=== PATIENT | male | born 1950 | race Caucasian/White ===

== ENCOUNTER 2023-01-29 07:46 | Outpatient (REF) | payer MEDICARE, OTHER, SELFPAY | END 2023-01-29 07:47 | disposition home or self-care (01) | LOC: HO.HOSX 07:46 | PROVIDERS: Visit Provider Physician Assistant | DX: M17.11 Unilateral primary osteoarthritis, right knee (principal); Z96.652 Presence of left artificial knee joint | CPT/HCPCS: 20610; 73560; 73565; 99202; 99212; J3301 ==

== ENCOUNTER 2023-04-25 11:06 | Outpatient (AMB) | payer MEDICARE, OTHER, SELFPAY ==
--- NOTE | 2023-04-25 11:28 | MHC.OFFVIS ---
Intake Intake Visit Reasons: OV-Right knee injection-last injection 01/29/23 Intake Note: Pt presents to the office today for a right knee injection. Patients last right knee injection was 01/29/23. Pt states that the injection was very helpful but the past few days it started getting sore again. He has done physical therapy exercises which aggravated his pain. He has also tried Tylenol and anti-inflammatory medicines which gave him minimal relief. He denies any fevers or chills. He denies any locking or giving way. Allergies adhesive tape Allergy (Intermediate, Verified 04/25/23 11:29) Rash bacitracin Allergy (Verified 04/25/23 11:29) Rash oxycodone Adverse Reaction (Verified 04/25/23 11:29) Hallucinations Medication List - Last Reconciled 04/25/23 by Jim Carrero MD amoxicillin 2,000 mg PO aspirin (Adult Aspirin Regimen) 81 mg PO DAILY losartan 100 mg PO DAILY meloxicam 15 mg PO DAILY metformin 500 mg PO DAILY saxagliptin (Onglyza) 5 mg PO DAILY [facility] Surgical History History of left knee replacement (~2013) History of left hip replacement (~2000) History of right hip replacement (~2000) Social History Current occupational status: retired Physical Exam Const Other: Well-nourished well-developed very friendly male awake alert and oriented x3 in no acute distress Extrem Other: Bilateral lower extremity examination shows good capillary refill, no skin lesions noted, normal sensation light touch Right knee examination shows a mild effusion, palpable crepitus with range of motion, pain with range of motion, range of motion from -3 degrees to 115 degrees, no instability Office Procedures Joint Injection/Drain Joint Injection/Drain Primary Site: right knee Prep: site was prepped using aseptic technique Injected: 40 mg of, Kenalog and 1% plain lidocaine Procedure: The patient tolerated the procedure well Coding 30389 - Large joint Procedure code (CPT) selection complete Results Reviewed Results Reviewed: 04/25/23 11:34 Triamcinolone Acetonide [Kenalog-40] 40 mg .ROUTE .STK-MED ONE 04/25/23 11:35 Lidocaine HCl 2 % MPF [Xylocaine 2 % MPF] 5 ml .ROUTE .STK-MED ONE X-rays of the patient's right knee show joint space narrowing, subchondral sclerosis, no acute bony abnormalities Assessment & Plan Assessment & Plan (1) Osteoarthritis of right knee: Code(s): M17.11 - Unilateral primary osteoarthritis, right knee Plan Mr. Roberson presents with right knee pain due to degenerative joint disease. I had a lengthy discussion with the patient regarding the treatment options. He wishes to hold off on right total knee replacement surgery for as long as possible. I agree with this plan. The risks and benefits of a cortisone injection were discussed at length with the patient. The patient wished to proceed. He tolerated the injection well. Prior to his cortisone injection 3 cc of clear fluid were aspirated from the patient's right knee. He will continue activities as tolerated. He will follow up with me on an as-needed basis should his symptoms not plateau at an unacceptable level over the next few months. If he fails continued non operative treatments we will further discuss the risks and benefits of right total knee replacement surgery I spent 22 minutes in reviewing the patient's records and imaging studies, seeing the patient and documenting in the medical record. Orders: Orders AMB Joint Injection/Aspiration Today M17.11 - Unilateral primary osteoarthritis, right knee Coding Level of Care Code Est Pt Level 2 (47697) Diagnoses Osteoarthritis of right knee M17.11 CPT Codes Coding - Large joint: 41965 - Large joint ([id number])
== END 2023-04-25 11:56 | disposition home or self-care (01) ==
PROVIDERS: Visit Provider Orthopaedic Surgery
DX: M17.11 Unilateral primary osteoarthritis, right knee (principal)
CPT/HCPCS: 20610; 99214

== ENCOUNTER → 2023-04-25 11:06 | Outpatient (BNVA) | payer MEDICARE, OTHER, SELFPAY | PROVIDERS: Visit Provider Orthopaedic Surgery | DX: M17.11 Unilateral primary osteoarthritis, right knee (principal) | CPT/HCPCS: 20610; J3301 ==

== ENCOUNTER 2023-07-18 11:10 | Outpatient (AMB) | payer MEDICARE, OTHER, SELFPAY ==
--- NOTE | 2023-07-18 11:12 | A.OFFVIS_ITS ---
Intake Vital Signs 07/18/23 11:15 Height 5 ft 10 in Weight 200 lb BMI 28.7 Intake Visit Reasons: OV-Right knee injection-last injection 04/25/23 Intake Note: Spencer henson 73 year old male presents today for a follow up of right knee pain, last injection on 04/25/23. Patient reports last injection provided him with some relief however does not last long. States he would like to repeat a synvisc gel injection as this seems to provide him with the best relief. He denies any fevers or chills. He has done physical therapy which aggravated his pain. He has also tried Tylenol and anti-inflammatory medicines which gave him minimal relief. Allergies adhesive tape Allergy (Intermediate, Verified 07/18/23 11:23) Rash bacitracin Allergy (Verified 07/18/23 11:) Rash oxycodone Adverse Reaction (Verified 07/18/23 11:23) Hallucinations Medication List - Last Reconciled 07/18/23 by Jim Carrero MD amoxicillin 2,000 mg PO aspirin (Adult Aspirin Regimen) 81 mg PO DAILY losartan 100 mg PO DAILY meloxicam 15 mg PO DAILY metformin 500 mg PO DAILY saxagliptin (Onglyza) 5 mg PO DAILY [facility] Surgical History History of left knee replacement (~2013) History of left hip replacement (~2000) History of right hip replacement (~2000) Social History Current occupational status: retired Physical Exam Vital Signs: BMI result Body Mass Index 28.7 Const Other: Well-nourished well-developed very friendly male awake alert and oriented x3 in no acute distress Extrem Other: Bilateral lower extremity examination shows good capillary refill, no skin lesions noted, normal sensation light touch Right knee examination shows a mild effusion, palpable crepitus with range of motion, pain with range of motion, no instability Office Procedures Joint Injection/Drain Joint Injection/Drain Primary Site: right knee Prep: site was prepped using aseptic technique Injected: 40 mg of, DepoMedrol and 1% plain lidocaine Procedure: The patient tolerated the procedure well Coding 10488 - Large joint Procedure code (CPT) selection complete Results Reviewed Results Reviewed: X-rays of the patient's right knee show joint space narrowing, subchondral sclerosis, no acute bony abnormalities Assessment & Plan Assessment & Plan (1) Osteoarthritis of right knee: Code(s): M17.11 - Unilateral primary osteoarthritis, right knee Plan Mr. Roberson presents with right knee pain due to degenerative joint disease. I had a lengthy discussion with the patient regarding the treatment options. The risks and benefits of a cortisone injection were discussed at length with the patient. The patient wished to proceed. He tolerated the injection well. Prior to the injection I did aspirate 3 cc of clear fluid from his right knee. If he does not get lasting relief from the cortisone injection I will see whether not the patient's insurance company will cover a not a viscosupplementation injection. The patient wishes to hold off on right total knee replacement surgery for as long as possible. I agree with this plan. Feel free to call me at any time should questions regarding his orthopedic management arise. I spent 22 minutes in reviewing the patient's records and imaging studies, seeing the patient and documenting in the medical record. Orders: Orders AMB Joint Injection/Aspiration Today M17.11 - Unilateral primary osteoarthritis, right knee Coding Level of Care Code Est Pt Level 2 (99972) Diagnoses Osteoarthritis of right knee M17.11 CPT Codes Coding - Large joint: 02495 - Large joint ([id number])
[2023-07-18 11:15] VITALS: BMI 28.7
== END 2023-07-18 11:41 | disposition home or self-care (01) ==
PROVIDERS: Visit Provider Orthopaedic Surgery
DX: M17.11 Unilateral primary osteoarthritis, right knee (principal)
CPT/HCPCS: 20610; 99213

== ENCOUNTER → 2023-07-18 11:10 | Outpatient (BNVA) | payer MEDICARE, OTHER, SELFPAY | PROVIDERS: Visit Provider Orthopaedic Surgery | DX: M17.11 Unilateral primary osteoarthritis, right knee (principal) | CPT/HCPCS: 20610; 99212; J1020 ==

== ENCOUNTER 2023-08-29 11:01 | Outpatient (AMB) | payer MEDICARE, OTHER, SELFPAY ==
[2023-08-29 11:11] VITALS: BMI 28.7
--- NOTE | 2023-08-29 11:11 | A.OFFVIS_ITS ---
Intake Vital Signs 08/29/23 11:11 Height 5 ft 10 in Weight 200 lb BMI 28.7 Intake Visit Reasons: new prob.- LT Shoulder pain inj Intake Note: Spencer is a 73 year old Right handed male who presents with Left shoulder pain. Patient reports that he has had this pain for many years. He has taken Tylenol and anti-inflammatory medicines which gave him minimal relief. Has also done physical therapy exercises which aggravated his pain. Has had cortisone injections in the past which gave fairly good. He wishes to hold off on surgery for as long possible. Allergies adhesive tape Allergy (Intermediate, Verified 08/29/23 11:17) Rash bacitracin Allergy (Verified 08/29/23 11:17) Rash oxycodone Adverse Reaction (Verified 08/29/23 11:17) Hallucinations Medication List - Last Reconciled 08/29/23 by Jim Carrero MD amoxicillin 2,000 mg PO aspirin (Adult Aspirin Regimen) 81 mg PO DAILY linagliptin (Tradjenta) 5 mg PO DAILY meloxicam 15 mg PO DAILY metformin 500 mg PO DAILY saxagliptin (Onglyza) 5 mg PO DAILY valsartan 160 mg PO DAILY [facility] Surgical History History of left knee replacement (~2013) History of left hip replacement (~2000) History of right hip replacement (~2000) Social History Current occupational status: retired Physical Exam Vital Signs: BMI result Body Mass Index 28.7 Const Other: Well-nourished well-developed very friendly male awake alert and oriented x3 in no acute distress Extrem Other: Bilateral upper extremity examination shows good capillary refill, no skin lesions noted, normal sensation light touch Left shoulder examination shows slightly decreased range of motion when compared to his right shoulder, 4/5 strength with supraspinatus testing, positive impingement signs, no instability Office Procedures Joint Injection/Drain Joint Injection/Drain Primary Site: left shoulder Prep: site was prepped using aseptic technique Injected: 40 mg of, DepoMedrol and 1% plain lidocaine Procedure: The patient tolerated the procedure well Coding 21335 - Large joint Procedure code (CPT) selection complete Results Reviewed Results Reviewed: X-rays of the patient's left shoulder show severe acromioclavicular joint narrowing, a type 2 acromion, no acute bony abnormalities Assessment & Plan Assessment & Plan (1) Left shoulder pain: Code(s): M25.512 - Pain in left shoulder Plan Mr. Roberson presents with left shoulder pain due to impingement syndrome and possible rotator cuff tearing. I had a lengthy discussion with the patient reg arding the treatment options. He wishes to hold off on surgery for as long as possible. I agree with this plan. The risks and benefits of a left shoulder cortisone injection were discussed at length with the patient. The patient wished to proceed. He tolerated the injection well. Will continue with his home stretching program to prevent stiffness. Will follow up with me on an as- needed basis should his symptoms not plateau at an unacceptable level over the next few months. I spent 22 minutes in reviewing the patient's records and imaging studies, seeing the patient and documenting in the medical record. Orders: Orders AMB Joint Injection/Aspiration Today M25.512 - Pain in left shoulder XR shoulder LT min 2V Today M25.512 - Pain in left shoulder Coding Level of Care Code Est Pt Level 2 (36112) Diagnoses Left shoulder pain M25.512 CPT Codes Coding - 76410 Large joint: 49052 - Large joint ([id number])
== END 2023-08-29 11:56 | disposition home or self-care (01) ==
PROVIDERS: Visit Provider Orthopaedic Surgery
DX: M75.42 Impingement syndrome of left shoulder (principal)
CPT/HCPCS: 20610; 99213

== ENCOUNTER 2023-08-29 11:59 | Outpatient (REF) | payer MEDICARE, OTHER, SELFPAY ==
--- NOTE | ~2023-08-29 | XR_ITS ---
EXAMINATION: XR SHOULDER, LEFT CLINICAL INFORMATION: Pain. COMPARISON: None available. TECHNIQUE: AP neutral and scapular Y views of the left shoulder are submitted. FINDINGS: Bony alignment and mineralization are normal. The glenohumeral joint is intact. There is mild peripheral osteophyte formation of the inferior articular surface of the glenoid. The acromioclavicular and coracoclavicular intervals are normal. There is cortical irregularity of the greater tuberosity of the proximal right humerus. Mild calcific tendinitis is suspected of the rotator cuff insertion. No fracture or dislocation is seen. There is no foreign body. No left pneumothorax is seen. A pacemaker device and sternotomy wires are noted. XR/XR shoulder LT min 2V IMPRESSION: 1. No fracture or dislocation is seen. 2. Mild calcific tendinitis is suspected of the left rotator cuff insertion. 3. There is mild osteoarthritic change of the left glenohumeral joint.
== END 2023-08-29 12:00 | disposition home or self-care (01) ==
LOC: HO.HOSX 11:59
PROVIDERS: Visit Provider Orthopaedic Surgery
DX: M25.512 Pain in left shoulder (principal); Z95.0 Presence of cardiac pacemaker
CPT/HCPCS: 20610; 73030; 99212; J1020

== ENCOUNTER 2023-10-17 11:39 | Outpatient (AMB) | payer MEDICARE, OTHER, SELFPAY ==
[2023-10-17 11:56] VITALS: BMI 28.7
--- NOTE | 2023-10-17 11:56 | MHC.OFFVIS ---
Intake Vital Signs 10/17/23 11:56 Height 5 ft 10 in Weight 200 lb BMI 28.7 Intake Visit Reasons: OV-Right knee injection-last injection 07/18/23 Intake Note: Spencer is a 73 year old male who presents with Right knee pain. He describes his pain as sharp in nature. He has had cortisone injections in the past which gave him minimal relief. Has done physical therapy exercises which aggravated his pain. He has also tried Tylenol and anti-inflammatory medicines which gave him minimal relief. Has had viscosupplementation injections which gave him fairly good relief. He wishes to hold off on right total knee replacement surgery for as long as possible. Allergies adhesive tape Allergy (Intermediate, Verified 10/17/23 12:00) Rash bacitracin Allergy (Verified 10/17/23 12:00) Rash oxycodone Adverse Reaction (Verified 10/17/23 12:00) Hallucinations Medication List - Last Reconciled 10/17/23 by Jim Carrero MD amoxicillin 2,000 mg PO aspirin (Adult Aspirin Regimen) 81 mg PO DAILY linagliptin (Tradjenta) 5 mg PO DAILY meloxicam 15 mg PO DAILY metformin 500 mg PO DAILY saxagliptin (Onglyza) 5 mg PO DAILY valsartan 160 mg PO DAILY [facility] Surgical History History of left knee replacement (~2013) History of left hip replacement (~2000) History of right hip replacement (~2000) Social History Current occupational status: retired Physical Exam Vital Signs: BMI result Body Mass Index 28.7 Const Other: Well-nourished well-developed very friendly male awake alert and oriented x3 in no acute distress Extrem Other: Bilateral lower extremity examination shows good capillary refill, no skin lesions noted, normal sensation light touch Right knee examination shows a mild effusion, palpable crepitus with range of motion, pain with range of motion, no instability Office Procedures Joint Injection/Drain Joint Injection/Drain Primary Site: right knee Prep: site was prepped using aseptic technique Injected: 60 mg of (Durolane viscosupplementation) and 1% plain lidocaine Procedure: The patient tolerated the procedure well Coding 64443 - Large joint Procedure code (CPT) selection complete Results Reviewed Results Reviewed: X-rays of the patient's right knee show joint space narrowing, subchondral sclerosis, no acute bony abnormalities Assessment & Plan Assessment & Plan (1) Osteoarthritis of right knee: Code(s): M17.11 - Unilateral primary osteoarthritis, right knee Plan Mr. Roberson presents with right knee pain due to degenerative joint disease. I had a lengthy discussion with the patient regarding the treatment options. He wishes to hold off on surgery for as long as possible. I agree with this plan. Has not gotten good relief from cortisone injections in the past. Thus, the risks and benefits of a Durolane viscosupplementation injection were discussed with the patient. The patient wished to proceed. Prior to the injections 6 cc of clear fluid were aspirated from his right knee. He tolerated the injection well. He will continue with his activity modifications. He will follow up with me on an as-needed basis should his symptoms not plateau at an unacceptable level over the next few months. I spent 22 minutes in reviewing the patient's records and imaging studies, seeing the patient and documenting in the medical record. Orders: Orders AMB Joint Injection/Aspiration Today M17.11 - Unilateral primary osteoarthritis, right knee Coding Level of Care Code Est Pt Level 2 (07275) Diagnoses Osteoarthritis of right knee M17.11 CPT Codes Coding - Large joint: 35427 - Large joint ([id number])
== END 2023-10-17 12:40 | disposition home or self-care (01) ==
PROVIDERS: Visit Provider Orthopaedic Surgery
DX: M17.11 Unilateral primary osteoarthritis, right knee (principal)
CPT/HCPCS: 20610; 99213

== ENCOUNTER → 2023-10-17 11:39 | Outpatient (BNVA) | payer MEDICARE, OTHER, SELFPAY | PROVIDERS: Visit Provider Orthopaedic Surgery | DX: M17.11 Unilateral primary osteoarthritis, right knee (principal) | CPT/HCPCS: 20610; 99212; J7318 ==

== ENCOUNTER 2023-12-03 10:59 | Outpatient (AMB) | payer MEDICARE, OTHER, SELFPAY ==
[2023-12-03 11:04] VITALS: BMI 28.7
--- NOTE | 2023-12-03 11:04 | A.OFFVIS_ITS ---
Vital Signs 12/03/23 11:04 Height 5 ft 10 in Weight 200 lb BMI 28.7 Intake Visit Reasons: OV-LT Shoulder pain inj Intake Note: Spencer is a 73 year old male who presents with complaints of left shoulder pain and right knee pain. The patient states that he has gotten good relief from Synvisc injections given into his right knee. He got minimal relief from the Durolane injection. Did undergo left total knee replacement surgery in the past. He wishes to hold off on right total knee replacement surgery for as long as possible. The patient describes his left shoulder pain as sharp in nature. Most of the pain is along the lateral aspect of his shoulder. He has tried Tylenol and anti-inflammatory medicines which gave him minimal relief. for a follow up of his Left shoulder pain. Patient reports he had an injection on 08/29/2023 and it gave him good relief and he would like to repeat the Left shoulder injection today. He also states that his Right knee Durolane injection on 10/17/2023 did not help. Allergies adhesive tape Allergy (Intermediate, Verified 10/17/23 12:00) Rash bacitracin Allergy (Verified 10/17/23 12:00) Rash oxycodone Adverse Reaction (Verified 10/17/23 12:00) Hallucinations Medication List - Last Reconciled 12/03/23 by Jim Carrero MD amoxicillin 2,000 mg PO aspirin (Adult Aspirin Regimen) 81 mg PO DAILY linagliptin (Tradjenta) 5 mg PO DAILY meloxicam 15 mg PO DAILY metformin 500 mg PO DAILY saxagliptin (Onglyza) 5 mg PO DAILY valsartan 160 mg PO DAILY [facility] Surgical History History of left knee replacement (~2013) History of left hip replacement (~2000) History of right hip replacement (~2000) Social History Current occupational status: retired Physical Exam Vital Signs: BMI result Body Mass Index 28.7 Const Other: Well-nourished well-developed very friendly male awake alert and oriented x3 in no acute distress Extrem Other: Bilateral upper extremity examination shows good capillary refill, no skin lesions noted, normal sensation light touch Left shoulder examination shows slightly decreased range of motion when compared to his right shoulder, positive impingement signs, 4+ out of 5 strength with supraspinatus testing, no instability Right knee examination shows a minimal effusion, palpable crepitus with range of motion, pain with range of motion, no instability Office Procedures Joint Injection/Drain Joint Injection/Drain Primary Site: left shoulder Prep: site was prepped using aseptic technique Injected: 40 mg of, DepoMedrol and 1% plain lidocaine Procedure: The patient tolerated the procedure well Coding - Large joint Procedure code (CPT) selection complete Results Reviewed Results Reviewed: X-rays of the patient's right knee show joint space narrowing, subchondral sclerosis, no acute bony abnormalities Assessment & Plan Assessment & Plan (1) Impingement syndrome of left shoulder: Code(s): M75.42 - Impingement syndrome of left shoulder Category: Medical (2) Osteoarthritis of right knee: Code(s): M17.11 - Unilateral primary osteoarthritis, right knee Category: Medical Plan Mr. Roberson presents with right knee pain due to degenerative joint disease as well as left shoulder pain due to impingement syndrome. I had a lengthy discussion with the patient regarding the treatment options. He wishes to hold off on surgery for as long as possible. I agree with this plan. The risks and sean efits of a left shoulder cortisone injection were discussed at length with the patient. The patient wished to proceed with the injection. He tolerated the injection well. I will also see whether not the patient's insurance company will cover a Synvisc-One injection for his right knee. I will see him back once the injection is available. Feel free to call me at any time should questions regarding his orthopedic management arise. I spent 22 minutes in reviewing the patient's records and imaging studies, seeing the patient and documenting in the medical record. Orders: Orders AMB Joint Injection/Aspiration Today M75.42 - Impingement syndrome of left shoulder Coding Level of Care Code Est Pt Level 2 (41585) Diagnoses Impingement syndrome of left shoulder M75.42 Osteoarthritis of right knee M17.11 CPT Codes Coding - Large joint: 97747 - Large joint ([id number])
== END 2023-12-03 11:37 | disposition home or self-care (01) ==
PROVIDERS: Visit Provider Orthopaedic Surgery
DX: M75.42 Impingement syndrome of left shoulder (principal); M17.11 Unilateral primary osteoarthritis, right knee
CPT/HCPCS: 20610; 99212

== ENCOUNTER → 2023-12-03 10:59 | Outpatient (BNVA) | payer MEDICARE, OTHER, SELFPAY | PROVIDERS: Visit Provider Orthopaedic Surgery | DX: M17.11 Unilateral primary osteoarthritis, right knee (principal); M75.42 Impingement syndrome of left shoulder | CPT/HCPCS: 20610; 99212; J1010 ==

== ENCOUNTER 2024-01-16 13:55 | Outpatient (AMB) | payer MEDICARE, OTHER, SELFPAY ==
--- NOTE | 2024-01-16 14:07 | MHC.OFFVIS ---
Intake Visit Reasons: OV-Right knee injection-follow up Intake Note: Spencer 73 yr old male presents today with complaints of right knee pain. He describes his pain as sharp in nature. He did undergo left total knee replacement surgery several years ago. He reports minimal discomfort in his left knee. Would like to hold off on right total knee replacement for as long as possible. He did have a viscosupplementation injection in the past which gave him fairly good relief. He has also had cortisone injections which gave him temporary relief. Allergies adhesive tape Allergy (Intermediate, Verified 01/16/24 14:07) Rash bacitracin Allergy (Verified 01/16/24 14:07) Rash oxycodone Adverse Reaction (Verified 01/16/24 14:07) Hallucinations Medication List - Last Reconciled 01/17/24 by Jim Carrero MD amoxicillin 2,000 mg PO aspirin (Adult Aspirin Regimen) 81 mg PO DAILY linagliptin (Tradjenta) 5 mg PO DAILY meloxicam 15 mg PO DAILY metformin 500 mg PO DAILY valsartan 160 mg PO DAILY [facility] Surgical History History of left knee replacement (~2013) History of left hip replacement (~2000) History of right hip replacement (~2000) Social History Current occupational status: retired Physical Exam Const Other: Well-nourished well-developed very friendly male awake alert and oriented x3 in no acute distress Extrem Other: Bilateral lower extremity examination shows good capillary refill, no skin lesions noted, normal sensation light touch Right knee examination shows a minimal effusion, palpable crepitus with range of motion, pain with range of motion, no instability Office Procedures Joint Injection/Drain Joint Injection/Drain Primary Site: right knee Prep: site was prepped using aseptic technique Injected: 40 mg of, DepoMedrol and 1% plain lidocaine Procedure: The patient tolerated the procedure well Coding 56412 - Large joint Procedure code (CPT) selection complete Results Reviewed Results Reviewed: X-rays of the patient's right knee show joint space narrowing, subchondral sclerosis, no acute bony abnormalities Assessment & Plan Assessment & Plan (1) Osteoarthritis of right knee: Code(s): M17.11 - Unilateral primary osteoarthritis, right knee Category: Medical Plan Mr. Roberson presents with right knee pain due to degenerative joint disease. I had a lengthy discussion with the patient regarding the treatment options. The patient wishes to hold off on total knee replacement surgery for as long as possible. I agree with this plan. The risks and benefits of a right knee cortisone injection were discussed at length with the patient. The patient wished to proceed. He tolerated the injection well. He will continue with his home exercise program. He will follow up with me on an as-needed basis should his symptoms not plateau at an unacceptable level over the next few months. Feel free to call me at any time should questions regarding his orthopedic management arise. I spent 21 minutes in reviewing the patient's records and imaging studies, seeing the patient and documenting in the medical record. Orders: Orders AMB Joint Injection/Aspiration 01/16/24 M17.11 - Unilateral primary osteoarthritis, right knee Coding Level of Care Code Est Pt Level 3 (89688) Diagnoses Osteoarthritis of right knee M17.11 CPT Codes Coding - 10278 Large joint: 92075 - Large joint ([id number])
== END 2024-01-16 14:31 | disposition home or self-care (01) ==
PROVIDERS: PCP Internal Medicine; Visit Provider Orthopaedic Surgery
DX: M17.11 Unilateral primary osteoarthritis, right knee (principal); Z96.652 Presence of left artificial knee joint
CPT/HCPCS: 20610; 99213

== ENCOUNTER → 2024-01-16 13:55 | Outpatient (BNVA) | payer MEDICARE, OTHER, SELFPAY | PROVIDERS: PCP Internal Medicine; Visit Provider Orthopaedic Surgery | DX: M17.11 Unilateral primary osteoarthritis, right knee (principal) | CPT/HCPCS: 20610; 99212; J1010 ==

== ENCOUNTER 2024-03-03 10:51 | Outpatient (AMB) | payer MEDICARE, OTHER, SELFPAY ==
--- NOTE | 2024-03-03 10:53 | A.OFFVIS_ITS ---
Intake Visit Reasons: Arthritis of right knee, Impingement of right shoulder, Bilateral carpal tunnel syndrome Intake Note: Spencer is a 74 year old male who presents to the office today with complaints of progressively worsening right knee pain. He did undergo left total knee replacement surgery several years ago. He denies any pain in his left knee. He describes his right knee pain as sharp and severe in nature, 10/10. His right knee pain has gotten worse over the last few years in spite of continued non o perative treatments. He has done formal physical therapy which aggravated his pain. He has had multiple cortisone injections as well as viscosupplementation injections. The most recent injections gave him minimal relief. He has tried Tylenol and anti-inflammatory medicines which gave him only mild relief. The patient has difficulty walking even short distances because of his right knee pain. At this point his right knee pain is interfering with his activities of daily living and his ability to sleep well through the night. The patient also reports numbness and tingling in his bilateral thumb and index fingers. He states that he was told several years ago that he has ?carpal tunnel syndrome?. He has not had surgery for his carpal tunnel syndrome. He has not had a recent nerve conduction study. He also has right shoulder pain. He denies any weakness. He has had cortisone injections given into his shoulder in the past which gave him fairly good relief. Allergies adhesive tape Allergy (Intermediate, Verified 03/03/24 10:54) Rash bacitracin Allergy (Verified 03/03/24 10:54) Rash oxycodone Adverse Reaction (Verified 03/03/24 10:54) Hallucinations [facility] Surgical History History of left knee replacement (~2013) History of left hip replacement (~2000) History of right hip replacement (~2000) Social History Current occupational status: retired Physical Exam Const Other: Well-nourished well-developed very friendly male awake alert and oriented x3 in no acute distress Extrem Other: Bilateral wrist examination shows positive Tinel's test over his carpal tunnels, no overlying skin lesions, decreased sensation to light touch along his median nerve distributions Right shoulder examination shows slightly decreased range of motion when compared to his left shoulder, 4+ out of 5 strength with supraspinatus testing, positive impingement signs Right knee examination shows a minimal effusion, palpable crepitus with range of motion, pain with range of motion, range of motion from -3 degrees to 115 degrees, no instability Office Procedures Joint Injection/Drain Joint Injection/Drain Primary Site: right shoulder Prep: site was prepped using aseptic technique Injected: 40 mg of, DepoMedrol and 1% plain lidocaine Procedure: The patient tolerated the procedure well Coding 35627 - Large joint Procedure code (CPT) selection complete Results Reviewed Results Reviewed: X-rays of the patient's right knee taken previously show end-stage degenerative joint disease with grade 4 gxel-pj-xpdu arthritis, subchondral sclerosis, osteophyte formation, no acute bony abnormalities Assessment & Plan Assessment & Plan (1) Bilateral carpal tunnel syndrome: Code(s): G56.03 - Carpal tunnel syndrome, bilateral upper limbs Category: Medical (2) Impingement of right shoulder: Code(s): M25.811 - Other specified joint disorders, right shoulder Category: Medical (3) Arthritis of right knee: Code(s): M17.11 - Unilateral primary osteoarthritis, right knee Plan Mr. Roberson presents with progressively worsening right knee pain due to end-stage degenerative joint disease. I had a lengthy discussion with the patient regarding the treatment options. At this point he appears to be failing continued non operative treatments. The risks and benefits of right total knee replacement surgery were discussed at length with the patient. The patient wishes to proceed with surgery later this year. I will have my office contact the patient to pick a surgery date. I will see him back 1 week prior to his surgery to answer any final questions that he might have. We also discuss the treatment for his right shoulder pain due to impingement syndrome. The risks and benefits of a right shoulder cortisone injection were discussed at length with the patient. The patient wished to proceed with the injection. He tolerated the injection well. He will continue with his range of motion exercises to prevent stiffness. I will also send the patient for nerve conduct ion studies of both of his upper extremities to evaluate him for possible carpal tunnel syndrome. Feel free to call me at any time should questions regarding his orthopedic management arise. I spent 22 minutes in reviewing the patient's records and imaging studies, seeing the patient and documenting in the medical record. Orders: Orders NE electromyogram (EMG) Today G56.03 - Carpal tunnel syndrome, bilateral upper limbs AMB Joint Injection/Aspiration Today M25.811 - Other specified joint disorders, right shoulder Coding Level of Care Code Est Pt Level 3 (17949) Diagnoses Bilateral carpal tunnel syndrome G56.03 Impingement of right shoulder M25.811 Arthritis of right knee M17.11 CPT Codes Coding - 83976 Large joint: 52109 - Large joint ([id number])
== END 2024-03-03 11:36 | disposition home or self-care (01) ==
PROVIDERS: Visit Provider Orthopaedic Surgery
DX: G56.03 Carpal tunnel syndrome, bilateral upper limbs (principal); M25.811 Other specified joint disorders, right shoulder; M17.11 Unilateral primary osteoarthritis, right knee
CPT/HCPCS: 20610; 99213

== ENCOUNTER → 2024-03-03 10:51 | Outpatient (BNVA) | payer MEDICARE, OTHER, SELFPAY | PROVIDERS: Visit Provider Orthopaedic Surgery | DX: M25.811 Other specified joint disorders, right shoulder (principal); M17.11 Unilateral primary osteoarthritis, right knee; G56.03 Carpal tunnel syndrome, bilateral upper limbs | CPT/HCPCS: 20610; 99212; J1010 ==

== ENCOUNTER → 2024-04-03 10:45 | Outpatient (BNVA) | payer MEDICARE, OTHER, SELFPAY | DX: Z01.818 Encounter for other preprocedural examination (principal) ==

== ENCOUNTER 2024-04-30 12:41 | Outpatient (AMB) | payer MEDICARE, OTHER, SELFPAY ==
[2024-04-30 12:42] VITALS: BMI 28.7
--- NOTE | 2024-04-30 12:42 | MHC.OFFVIS ---
Vital Signs 04/30/24 12:42 Height 5 ft 10 in Weight 200 lb BMI 28.7 Intake Visit Reasons: Pre-Op: R TKA w/ 05/04/24 Intake Note: Spencer is a 74 year old male who presents with complaints of progressively worsening right knee pain. The patient did undergo left total knee replacement surgery several years ago. He denies any pain in his left knee. He describes his right knee pain as sharp and severe in nature, 10/10. His right knee pain has gotten worse over the last few years in spite of continued non operative treatments. He has had cortisone injections as well as viscosupplementation injections which gave him minimal relief. He has also done physical therapy exercises which aggravated his pain. The patient has difficulty walking even short distances because of his pain. Has tried Tylenol and anti-inflammatory medicines which gave him only mild relief. The patient states that at this point is left knee pain is interfering with his activities of daily living and his ability to sleep well through the night. Allergies adhesive tape Allergy (Intermediate, Verified 04/30/24 12:47) Rash bacitracin Allergy (Verified 04/30/24 12:47) Rash cefazolin Adverse Reaction (Severe, Verified 04/30/24 12:47) Rash clopidogrel [From Plavix] Adverse Reaction (Severe, Verified 04/30/24 12:47) Rash oxycodone Adverse Reaction (Verified 04/30/24 12:47) Hallucinations Medication List - Last Reconciled 04/30/24 by Jim Carrero MD acetaminophen 1,000 mg PO DAILY PRN amoxicillin 2,000 mg PO ONCE aspirin (Adult Aspirin Regimen) 81 mg PO DAILY linagliptin (Tradjenta) 5 mg PO DAILY meloxicam 15 mg PO DAILY metformin 500 mg PO DAILY qmqqvykzvwog-sqammrmv-ugkbst 1 tab PO DAILY valsartan 160 mg PO DAILY vit C,T-Fa-pxeku-lutein-zeaxan 250-90-40-1 mg (PreserVision AREDS-2) 2 tabs PO QAM walker Folding front wheeled walker [facility] Medical History Skin cancer GERD (gastroesophageal reflux disease) Myocardial infarction Hemorrhoids Diverticulosis Peripheral neuropathy Right bundle branch block Microalbuminuria Cataracts, bilateral Tubular adenoma Diabetes Hearing loss Osteoarthritis Tobacco use disorder Obesity (BMI 30-39.9) Sleep apnea CAD (coronary artery disease) Syncope Pleural effusion Pacemaker Abnormal PFT Skin lesions HTN (hypertension) Macular degeneration of both eyes Surgical History History of nasal surgery Hx of bilateral cataract extraction Hx of tonsillectomy Hx of cholecystectomy Hx of appendectomy H/O colonoscopy Hx of CABG History of thoracentesis History of left knee replacement (~2013) History of left hip replacement (~2000) History of right hip replacement (~2000) Social History Are you a primary animal care giver to a significant other at home: No Do you presently have visiting nurse or other home services: No Patient Tobacco Use Status: Former Tobacco user Current occupational status: retired Physical Exam Vital Signs: BMI result Body Mass Index 28.7 Const Other: Well-nourished well-developed very friendly male awake alert and oriented x3 in no acute distress Extrem Other: Bilateral lower extremity examination shows good capillary refill, no skin lesions noted, normal sensation light touch Right knee examination shows a minimal effusion, palpable crepitus with range of motion, pain with range of motion, range of motion from -3 degrees to 115 degrees, no instability Results Reviewed Results Reviewed: X-rays of the patient's right knee show end-stage degenerative joint disease with grade 4 xesc-fy-kink arthritis, subchondral sclerosis, osteophyte formation, no acute bony abnormalities Assessment & Plan Assessment & Plan (1) Osteoarthritis of right knee: Code(s): M17.11 - Unilateral primary osteoarthritis, right knee Category: Medical Plan Mr. Da Olsen presents with progressively worsening right knee pain due to end-stage degenerative joint disease. I had a lengthy discussion with the patient regarding the treatment options. At this point he has failed continued non operative treatments. The risks and benefits of right total knee replacement surgery were discussed at length with the patient. The patient wishes to proceed with surgery. managed services sales consultant will be consulted following his surgery for home physical therapy and nursing versus inpatient rehabilitation. The patient will follow-up as instructed. Feel free to call me at any time should questions regarding his orthopedic management arise. I spent 22 minutes in reviewing the patient's records and imaging studies, seeing the patient and documenting in the medical record. Coding Level of Care Code Est Pt Level 3 (86549) Complex EM visit Add On G2211 Diagnoses Osteoarthritis of right knee M17.11
== END 2024-04-30 13:08 | disposition home or self-care (01) ==
PROVIDERS: Visit Provider Orthopaedic Surgery
DX: M17.11 Unilateral primary osteoarthritis, right knee (principal)
CPT/HCPCS: 99024

== ENCOUNTER → 2024-04-30 12:41 | Outpatient (BNVA) | payer MEDICARE, OTHER, SELFPAY | PROVIDERS: Visit Provider Orthopaedic Surgery | DX: M17.11 Unilateral primary osteoarthritis, right knee (principal) | CPT/HCPCS: 99212 ==

== ENCOUNTER → 2024-05-04 10:40 | Outpatient (BNV) | payer MEDICARE, OTHER, SELFPAY | PROVIDERS: Admitting Provider Orthopaedic Surgery; PCP Internal Medicine; Visit Provider Orthopaedic Surgery | DX: Z47.1 Aftercare following joint replacement surgery (principal); Z96.651 Presence of right artificial knee joint | CPT/HCPCS: 27447; 99024 ==

== ENCOUNTER 2024-05-04 15:01 | Inpatient (IN) | payer MEDICARE, OTHER, SELFPAY ==
[2024-04-24 10:23] VITALS: BP 152/70; PULSE 61; RESP 18; O2SAT 97; BMI 29.8
--- NOTE | 2024-04-24 10:44 | P.CONAN_ITS ---
Documented by User: Susan Winters NP 05/01/24 14:07 HPI - Anesthesia Eval Consult details Narrative: 74yo M for Right Knee Replacement Total, 05/04/24 Does not tolerate oxycodone. Does well with APAP-Codeine. Medically optimized Follows [facility] Cardiology. Optimized per last office visit No recent illness No CP/SOB with eliptical x 45 minutes, 3 days weekly CAD/[place]: s/p CABG x 4 in 2019, no issues since then, Pacer in situ. DM: FBS ~ 90-130 KEITH: Patient denies, Never had CPAP, partner denies symptoms GERD: diet controlled, rare OTC rx Anesthesia Pre-Procedure Meds Is the patient on any of the following meds?: GLP1/DPP4 PMFSH Active Problems Active Problems: All Active Problems Impingement of right shoulder (Acute) Bilateral carpal tunnel syndrome (Acute) Impingement syndrome of left shoulder (Acute) Left shoulder pain (Acute) Osteoarthritis of right knee (Acute) History of left knee replacement (Acute ~2013) Past Medical History Medical History Skin cancer GERD (gastroesophageal reflux disease) Myocardial infarction Hemorrhoids Diverticulosis Peripheral neuropathy Right bundle branch block Microalbuminuria Cataracts, bilateral Tubular adenoma Diabetes Hearing loss Osteoarthritis Tobacco use disorder Obesity (BMI 30-39.9) Sleep apnea CAD (coronary artery disease) Syncope Pleural effusion Pacemaker Abnormal PFT Skin lesions HTN (hypertension) Macular degeneration of both eyes Surgical History Surgical History History of nasal surgery Hx of bilateral cataract extraction Hx of tonsillectomy Hx of cholecystectomy Hx of appendectomy H/O colonoscopy Hx of CABG History of thoracentesis History of left knee replacement (~2013) History of left hip replacement (~2000) History of right hip replacement (~2000) Social History Social History Are you a primary critical care nurse practitioner to a significant other at home: No Do you presently have visiting nurse or other home services: No Patient Tobacco Use Status: Former Tobacco user Use of substances other than those prescribed or required for medical reasons: No Have you been hit, kicked, punched, or otherwise hurt by someone within the past year? If so, by whom?: No Are you DNR?: No Advance Directives: No Advance Directives Information Provided: No Advance Directives on File: No Recently lost weight without trying: No Eating poorly because of decreased appetite: No Nutrition Risks: No Nutritional Risk Poor oral hygiene: Yes (partial upper denture, missing filling on the bottom) Current occupational status: retired Meds Allergies Allergy/AdvReac Type Severity Reaction Status Date / Time adhesive tape Allergy Intermediate Rash Verified 05/04/24 08:56 bacitracin Allergy Rash Verified 05/04/24 08:56 cefazolin AdvReac Severe Rash Verified 05/04/24 08:56 clopidogrel [From Plavix] AdvReac Severe Rash Verified 05/04/24 08:56 oxycodone AdvReac Hallucinati Verified 05/04/24 08:56 ons Home Medications ?Medication ?Instructions ?Recorded ?Confirmed ?Last Taken ?Type amoxicillin 500 mg capsule 2,000 mg PO ONCE 01/29/23 04/30/24 Unknown History aspirin 81 mg tablet,delayed 81 mg PO DAILY 01/29/23 05/04/24 04/30/24 History release (Adult Aspirin Regimen) meloxicam 15 mg tablet 15 mg PO DAILY 01/29/23 05/04/24 04/26/24 History metformin 500 mg tablet 500 mg PO DAILY 01/29/23 05/04/24 05/03/24 History linagliptin 5 mg tablet (Tradjenta) 5 mg PO DAILY 08/29/23 05/04/24 04/30/24 History valsartan 160 mg tablet 160 mg PO DAILY 08/29/23 04/30/24 05/03/24 History acetaminophen 500 mg tablet 1,000 mg PO DAILY PRN Pain 04/23/24 04/30/24 Unknown History aysdtmpiimmm-dcyuyllz-llvilm tablet 1 tab PO DAILY 04/23/24 04/30/24 05/03/24 History vit C 250 mg-vit E 90 mg-zinc 40 2 tab PO QAM 04/24/24 04/30/24 Unknown History mg-copper 1 yq-bdnjhh-prdxkh capsule (PreserVision AREDS-2) Exam Height,Weight and Vital Signs: Height 5 ft 10 in Weight 94.347 kg Last Vital Signs Pulse 61 04/24/24 10:23 Resp 18 09/13/24 10:23 BP 152/70 H 04/24/24 10:23 Pulse Ox 97 04/24/24 10:23 O2 Del Method Room Air 04/24/24 10:23 Pertinent Lab Results Pertinent Lab Results: CBC and BMP 04/2024 from outside facility per clearance note WNL Narrative Narrative: EKG 04/2024 paced rhythm ECHO 01/2024 1. Endocardial borders are limited in some view; therefore wall motion abnormalities cannot be accurately determined 2. LV size is nml 3. Overall LV sys function is low-nml with EF 50-55% 4. Indeterminate diastolic function 5. Paradoxical/dysynergic septal motion c/w RV pacer 6. Moderate asymmetric septal hypertrophy 7. LA mildly dilated 8. RV mildly enlarged 9. RV sys function is nml 10. Trace MR 11. 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 Battery status OK Measured values WNL No new episodes since last transmission <1% AT/AF burden Airway Mallampati Class: II TM Dist: >3cm Neck ROM: Full Partial: Upper Loose/Missing/Broken Teeth: No (crowned molars) Heart: RRR Lungs: CTAB Assessment and Plan Assessment Anesthesia Assessment: Anesthesia Plan Discussed and PAT Visit Documented by User: Ginny Saez MD 05/04/24 10:02 [facility] Past Medical History Medical History Skin cancer GERD (gastroesophageal reflux disease) Myocardial infarction Hemorrhoids Diverticulosis Peripheral neuropathy Right bundle branch block Microalbuminuria Cataracts, bilateral Tubular adenoma Diabetes Hearing loss Osteoarthritis Tobacco use disorder Obesity (BMI 30-39.9) Sleep apnea CAD (coronary artery disease) Syncope Pleural effusion Pacemaker Abnormal PFT Skin lesions HTN (hypertension) Macular degeneration of both eyes Family History Family history of problems with anesthesia: No Surgical History Surgical History History of nasal surgery Hx of bilateral cataract extraction Hx of tonsillectomy Hx of cholecystectomy Hx of appendectomy H/O colonoscopy Hx of CABG History of thoracentesis History of left knee replacement (~2013) History of left hip replacement (~2000) History of right hip replacement (~2000) History of Problems with Anesthesia: No Social History Social History Are you a primary critical care nurse practitioner to a significant other at home: No Do you presently have visiting nurse or other home services: No Patient Tobacco Use Status: Former Tobacco user Use of substances other than those prescribed or required for medical reasons: No Have you been hit, kicked, punched, or otherwise hurt by someone within the past year? If so, by whom?: No Are you DNR?: No Advance Directives: No Advance Directives Information Provided: No Advance Directives on File: No Recently lost weight without trying: No Eating poorly because of decreased appetite: No Nutrition Risks: No Nutritional Risk Poor oral hygiene: Yes (partial upper denture, missing filling on the bottom) Current occupational status: retired [employer] Allergies Allergy/AdvReac Type Severity Reaction Status Date / Time adhesive tape Allergy Intermediate Rash Verified 05/04/24 08:56 bacitracin Allergy Rash Verified 05/04/24 08:56 cefazolin AdvReac Severe Rash Verified 05/04/24 08:56 clopidogrel [From Plavix] AdvReac Severe Rash Verified 05/04/24 08:56 oxycodone AdvReac Hallucinati Verified 05/04/24 08:56 ons Home Medications ?Medication ?Instructions ?Recorded ?Confirmed ?Last Taken ?Type amoxicillin 500 mg capsule 2,000 mg PO ONCE 01/29/23 04/30/24 Unknown History aspirin 81 mg tablet,delayed 81 mg PO DAILY 01/29/23 05/04/24 04/30/24 History release (Adult Aspirin Regimen) meloxicam 15 mg tablet 15 mg PO DAILY 01/29/23 05/04/24 04/26/24 History metformin 500 mg tablet 500 mg PO DAILY 01/29/23 05/04/24 05/03/24 History linagliptin 5 mg tablet (Tradjenta) 5 mg PO DAILY 08/29/23 05/04/24 04/30/24 History valsartan 160 mg tablet 160 mg PO DAILY 08/29/23 04/30/24 05/03/24 History acetaminophen 500 mg tablet 1,000 mg PO DAILY PRN Pain 04/23/24 04/30/24 Unknown History dchgvkznkrrd-vrlyziao-qcfnyp tablet 1 tab PO DAILY 04/23/24 04/30/24 05/03/24 History vit C 250 mg-vit E 90 mg-zinc 40 2 tab PO QAM 04/24/24 04/30/24 Unknown History mg-copper 1 ky-gfitgf-trpzsx capsule (PreserVision AREDS-2) Assessment and Plan Final Anesthetic Review Family History of Problems with Anesthesia: No History of Problems with Anesthesia: No NPO: Yes ASA Class: III Final Preanesthetic Review: No Changes in Pt Med Stat, Meds/Allgs Chart Reviewed, Consent Obtained/Reviewed and Anes Risks/Benef Reviewed Patient Risk: Intermediate Anesthetic Plan Anesthetic Plan: GA, Spinal and Regional Block
[2024-04-24 12:44] LABS: MRSA Nasal PCR POSITIVE (Negative); SA Nasal PCR POSITIVE (Negative)
[2024-05-04] VITALS (12 sets, daily range): BP systolic 113–179; BP diastolic 38–87; PULSE 60–64; RESP 16–18; TEMP 36–36.8; O2SAT 96–100; BMI 29.8
--- OUTSIDE RECORDS SUMMARY | 2024-05-04 09:07 | XMS_ITS | Continuity of Care Document ---
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 Name Role Phone John Child MD, [place] Primary Care Phys [facility] Encounter [place] Date(s): 06/30/19 - 08/21/[address] [address]- [facility] Encounter Diagnosis Atherosclerotic heart disease of [place] coronary artery without angina pectoris (Final) - Discharge Disposition: A-D/C Home Attending Physician: Dave Hart MD Admitting Physician: Dave Hart MD Referring Physician: Dave Hart MD Allergies, Adverse Reactions, Alerts Substance Reaction Severity Status bacitracin Localized swelling Welt Persistent Moderate Active Plavix Rash Active Adhesive Bandage Blisters Active oxyCODONE Hallucinations Altered mental status Persistent Severe Active ceFAZolin Rash Active Immunizations Not Given Vaccine Date Status Refusal Reason pneumococcal 13-valent vaccine 1 05/19/19 Not Give n Parent Or Guardian Refuses pneumococcal 13-valent vaccine 05/14/19 Not Given Patient Refuses 1Result Note: had last year Medications acetaminophen 325 mg oral tablet 975 mg, 3, tablet, By Mouth, Every 6 hours Start Date: 05/31/19 Status: Ordered aspirin 81 mg oral tablet 1 tablet = 81 mg, By Mouth, Daily, # 30 tablet, 0 Refills, Maintenance, 06/03/19 13:57:54 EDT, Tablet, Replacement of previous 325mg aspirin Start Date: 06/03/19 Status: Ordered atorvastatin 40 mg oral tablet 1 tablet = 40 mg, By Mouth, Daily at bedtime, # 30 tablet, 3 Refills, Maintenance, 06/18/19 12:27:14 EST, Tablet Start Date: 06/18/19 Status: Ordered furosemide 20 mg oral tablet 1, tablet, By Mouth, Daily, # 90 tablet, Refills 0, Tot. Refills 0, Maintenance, 07/14/19 15:55:43 EST, Instructions Replace Required Details, Route to Pharmacy Electronically, [id number], [id number], 178, cm... Start Date: 07/14/19 Stop Date: 07/28/19 Status: Ordered meloxicam 15 mg oral tablet 1 tablet = 15 mg, By Mouth, Daily, # 30 tablet, 0 Refills, Maintenance, 07/14/19 10:58:40 EST, Tablet Start Date: 07/14/19 Status: Ordered metoprolol 25 mg oral tablet 25 mg, 1, tablet, By Mouth, 2 times a day, # 60 tablet, Refills 3, Tot. Refills 3, Maintenance, 06/18/19 12:27:45 EST, Route to Pharmacy Electronically, [id number], [facility] #[id number] Start Date: 06/18/19 Status: Ordered Onglyza 5 mg oral tablet 1 tablet = 5 mg, By Mouth, Daily, 0 Refills, Maintenance, 05/12/19 8:00:56 EDT Start Date: 05/12/19 Status: Ordered Pen [place], 31 G x 5 mm BD Ultra Fine III See Instructions, # 50 each, Refills 2, Tot. Refills 2, Maintenance, use daily as directed for Type2 Diabetes Mellitus E11.9, 05/25/19 12:05:38 EDT, Compound Start Date: 05/25/19 Stop Date: 02/19/20 Status: Ordered Problem List Condition Effective Dates Status Health Status Inform ant Coronary atherosclerosis due to calcified coronary lesion(Confirmed) Active Vital Signs Most recent to oldest [Reference Range]: 1 Height 178 cm (06/30/19 11:23 AM) Weight 96 kg (06/30/19 11:23 AM) Body Mass Index [18.5-24.99] 30.3 *>HHI* (06/30/19 11:23 AM) Blood Pressure [90-138/55-84 mm Hg] 116/ 70mm Hg (06/30/19 11:23 AM) Blood pressure sites Arm, right (06/30/19 11:23 AM) Weight Obtained Via Patient/family state d (06/30/19 11:23 AM) Social History Social History Type Response Smoking Status Former smoker, quit more than 30 days ago; Tobacco user in household: No;Never; Type: Cigarettes; Other: quit 2016; Tobacco use times per day: Quit in 2017; Started at age: 18; Stopped at age: 67; entered on: 06/09/19 Sex
--- OUTSIDE RECORDS SUMMARY | 2024-05-04 09:07 | XMS_ITS | Continuity of Care Document ---
Author Organization [facility] ter Address [address] [place] [id number]- Care Team Providers Care Master Cosmetologist Name Role Phone John Child MD, Ada Primary Care Phys ician [place] [facility] [place] - 10/29/[address] [address] Attending Physician: Nitin LAMB, Juan Benítez Admitting Physician: Juan Taveras MD Allergies, Adverse Reactions, Alerts Substance Reaction Severity Status bacitracin Localized swelling Welt Persistent Moderate Active Plavix Rash Active ceFAZolin Rash Active oxyCODONE Hallucinations Altered mental status Persistent Severe Active Adhesive Bandage Blisters Active Immunizations Given and Recorded Vaccine Date Status Refusal Reason SARS-CoV-2 (COVID-19) mRNA-1273 vaccine 10/06/20 G iven Not Given Vaccine Date Status Refusal Reason [...] mg, By Mouth, Daily at bedtime, # 90 tablet, 3 Refills, Maintenance, 09/21/19 13:05:00 EST, Tablet, [facility] #[id number], 178, cm, 06/30/19 11:23:00 EST, Height, 99, kg, 06/12/1918:32:00 EDT, Dry Weight Start Date: 09/21/19 Status: Ordered furosemide 20 mg oral tablet 1, tablet, By Mouth, Daily, # 90 tablet, Refills 0, Tot. Refills 0, Maintenance, 07/14/19 15:55:43 EST, Instructions Replace Required Details, Route to Pharmacy Electronically, [id number], [facility] #[id number], 178, cm... Start Date: 07/14/19 Stop Date: 07/28/19 Status: Ordered meloxicam 15 mg oral tablet 1 tablet = 15 mg, By Mouth, Daily, # 30 tablet, 0 Refills, Maintenance, 07/14/19 10:58:40 EST, Tablet Start Date: 07/14/19 Status: Ordered metoprolol 25 mg oral tablet 25 mg, 1, tablet, By Mouth, 2 times a day, # 180 tablet, Refills 3, Tot. Refills 3, Maintenance, 09/21/19 13:05:00 EST, Route to Pharmacy Electronically, [facility] #[id number], 178, cm, 06/30/19 11:23:00 EST, Height, 99, kg, 06/12/19 18:32:00 ED... Start Date: 09/21/19 Status: Ordered Onglyza 5 mg oral tablet 1 tablet = 5 mg, By Mouth, Daily, 0 Refills, Maintenance, 05/12/19 8:00:56 EDT Start Date: 05/12/19 Status: Ordered Pen Celor[place], 31 G x 5 mm BD Ultra Fine III See Instructions, # 50 each, Refills 2, Tot. Refills 2, Maintenance, use daily as directed for Type2 Diabetes Mellitus E11.9, 05/25/19 12:05:38 EDT, Compound Start Date: 05/25/19 Stop Date: 02/19/20 Status: Ordered Problem List Condition Effective Dates Status Health Status Inform ant Coronary atherosclerosis due to calcified coronary lesion(Confirmed) Active Social History Social History Type Response Smoking Status Former smoker, quit more than 30 days ago; Tobacco user in household: No;Never; Type: Cigarettes; Other: quit 2016; Tobacco use times per day: Quit in 2017; Started at age: 18; Stopped at age: 67; entered on: 06/09/19 Sex
--- OUTSIDE RECORDS SUMMARY | 2024-05-04 09:07 | XMS_ITS | Continuity of Care Document ---
Author Organization [facility] Address [address] [place] [id number]- Care Team Providers Care Outside Cutter Name Role Phone John Child MD, Ada Primary Care Phys ician [place] [facility] [place]/25/23 - 10/25/[address] [facility] [facility] [address] [place] [id number] Allergies, Adverse Reactions, Alerts Substance Reaction Severity Status bacitracin Localized swelling Welt Persistent Moderate Active Plavix Rash Active Adhesive Bandage Blisters Active oxyCODONE Hallucinations Altered mental status Persistent Severe Active ceFAZolin Rash Active Immunizations Given and Recorded Vaccine Date Status Refusal Reason SARS-CoV-2 (COVID-19) mRNA-1273 vaccine 11/03/20 G iven SARS-CoV-2 (COVID-19) mRNA-1273 vaccine 10/06/20 G iven Medications acetaminophen 325 mg oral tablet 975 [...] 3 Refills, Maintenance, 09/21/19 13:05:00 EST, Tablet, [facility] #[id number], 178, cm, 06/30/19 11:23:00 EST, Height, 99, kg, 06/12/1918:32:00 EDT, Dry Weight Start Date: 09/21/19 Status: Ordered furosemide 20 mg oral tablet 1, tablet, By Mouth, Daily, # 90 tablet, Refills 0, Tot. Refills 0, Maintenance, 07/14/19 15:55:43 EST, Instructions Replace Required Details, Route to Pharmacy Electronically, [id number], [facility] #[id number], 178, cm... Start Date: 07/14/19 Stop Date: 07/28/19 Status: Ordered meloxicam 15 mg oral tablet 1 tablet = 15 mg, By Mouth, Daily, # 30 tablet, 0 Refills, Maintenance, 07/14/19 10:58:40 EST, Tablet Start Date: 07/14/19 Status: Ordered MetFORMIN (Eqv-Glucophage XR) 500 mg oral tablet, extended release 0 Refills, Maintenance, 10/22/23 10:31:00 EDT, Partial fill upon patient request if the prescription is for a schedule II opioid drug. Start Date: 10/22/23 Status: Ordered metoprolol 25 mg oral tablet 25 mg, 1, tablet, By Mouth, 2 times a day, # 180 tablet, Refills 3, Tot. Refills 3, Maintenance, 09/21/19 13:05:00 EST, Route to Pharmacy Electronically, [facility] #[id number], 178, cm, 06/30/19 11:23:00 EST, Height, 99, kg, 06/12/19 18:32:00 ED... Start Date: 09/21/19 Status: Ordered Onglyza 5 mg oral tablet 1 tablet = 5 mg, By Mouth, Daily, 0 Refills, Maintenance, 05/12/19 8:00:56 EDT Start Date: 05/12/19 Status: Ordered Pen [place], 31 G x 5 mm BD Ultra Fine III See Instructions, # 50 each, Refills 2, Tot. Refills 2, Maintenance, use daily as directed for Type2 Diabetes Mellitus E11.9, 05/25/19 12:05:38 EDT, Compound Start Date: 05/25/19 Stop Date: 02/19/20 Status: Ordered PreserVision AREDS 2 oral capsule 1 capsule, By Mouth, 2 times a day, # 60 capsule, 0 Refills, Maintenance, 10/22/23 10:32:00 EDT, Capsule, Partial fill upon patient request if the prescription is for a schedule II opioid drug. Start Date: 10/22/23 Status: Ordered Tradjenta 5 mg oral tablet 0 Refills, Maintenance, 10/22/23 10:32:00 EDT, Partial fill upon patient request if the prescription is for a schedule II opioid drug. Start Date: 10/22/23 Status: Ordered valsartan 160 mg oral tablet Refills 0, Maintenance, 10/22/23 10:31:00 EDT, Partial fill upon patient request if the prescription is for a schedule II opioid drug. Start Date: 10/22/23 Status: Ordered Problem List Condition Confirmation Course Effective Dates Status H ealth Status Informant Coronary atherosclerosis due to calcified coronary lesion Confirmed Active Obese class I Confirmed Active Social History Social History Type Response Smoking Status Former smoker, quit more than 30 days ago; Tobacco user in household: No;Never; Type: Cigarettes; Other: quit 2016; Tobacco use times per day: Quit in 2017; Started at age: 18; Stopped at age: 67; entered on: 06/09/19 Sex Patient Care team information Care Team Personnel Name: Ada Sullivan RN Position: [facility] SN RN Member Role: Primary Care Nurse Name: Sophia Rodriguez RN Position: [facility] SN RN Member Role: Primary Care Nurse Name: Jessica Koenig RN Position: [facility] RN Member Role: Primary Care Nurse Name: Benigno Marr RN Position: [facility] RN Member Role: Primary Care Nurse Name: Ada Kelley MD Position: Reference Physician Member Role: PCP Address: Address: [address] [place] [address] [place] [address]- Name: Demi Mitchell NP Position: [facility] PCO Associate Professional Member Role: Primary Care Nurse Address: Address: [address] [address]- Name: Gregoria Thornton RN Position: [facility] RN Member Role: Primary Care Nurse Name: Jose Cervantes RN Position: [facility] RN Supv Member Role: Primary Care Nurse Name: Salomón Swift RN Position: [facility] ED RN W/OE and Tasks Member Role: Primary Care Nurse Care Team Related Persons Name: ANITA DYER Address: [address] [id number]
[2024-05-04] MEDS: Lactated Ringers 1,000 ML 100 ML IVCONT ×2 (10:17→17:20)
[2024-05-04 10:24] LABS: Glucose, Whole Blood 147 mg/dL (60-115)
--- NOTE | 2024-05-04 14:30 | P.BOP_ITS ---
Brief Operative Note Date of Service: 05/04/24 Pre-op diagnosis: Right knee degenerative joint disease Post-op diagnosis: same Procedure: Right total knee arthroplasty Implants: [employer]ynum Triathlon cemented posterior stabilized total knee arthroplasty with a femoral component size 5 right, a tibial component size 6, polyethylene liner size 6 with 9 mm of thickness, a symmetric patellar component size 29 with 8 mm of thickness Surgeon: Jim Carrero MD Anesthesia: regional and spinal Was an Shell Press Operator used for this Procedure?: No Shell Press Operator: Kayla Garcia Estimated blood loss (mL): 200 Pathology: other (Bony fragments from the right femur, tibia and patella) Condition: stable Disposition: PACU
--- NOTE | 2024-05-04 14:31 | W.PM.OPN ---
Operative Note Operative Note Date of Service: 05/04/24 Narrative: After the patient was identified as Spencer Roberson Jr. and his right knee was initialed by myself the patient was brought to the holding area where a right leg nerve block was performed by the anesthesiologist in routine fashion. The patient was then brought to the operating room where conscious sedation and spinal anesthesia were performed by the anesthesiologist in routine fashion. Because of the patient's allergy to cefazolin he was given 900 mg of IV clindamycin preoperatively for infection prophylaxis. The patient's right lower extremity was prepped and draped in sterile fashion. A formal time-out was completed. The patient's right knee was placed onto a small bump to produce 30? of knee flexion during exposure. A #10 scalpel blade was used to make a midline incision extending 1 handbreadth proximal and distal to the patella. A second #10 scalpel blade was used to dissect the subcutaneous tissues down to the extensor mechanism. The subcutaneous flaps were maintained as thick as possible. A medial parapatellar arthrotomy was then performed using a #10 scalpel blade. The arthrotomy was begun just medial to the patellar tendon. The arthrotomy was continued 1 cm medial to the patella and then 5 mm into the medial aspect of the quadriceps tendon. The infrapatellar fat pad was partially excised to help with exposure. The soft tissue retinaculum was raised one-half of the way around the medial aspect of the proximal tibia. The patella was everted and the knee was flexed to 90?. There was no injury to the patellar tendon or its insertion onto the tibial tubercle. A drill bit was introduced into the distal aspect of the femur with a starting point 1 cm anterior to the origin of the posterior cruciate ligament. The intramedullary alignment barber was put into place. The distal alignment guide was set for a 5 degree valgus cut. The distal cutting block was put into place and was held with 4 pins. The intramedullary alignment barber was removed. Soft tissues were retracted in the distal femoral cut was made using a sagittal saw. The distal aspect of the femur measured to be a size 5 right component. Two drill holes were placed into the distal aspect of the femur marking 3? of external rotation. The distal cutting block was impacted into place and was held with 2 pins. Soft tissues were retracted and the 4 distal femoral cuts were made using a sagittal saw. Final notching and drilling of the distal aspect of the femur were performed in routine fashion. The trial femoral component was impacted into place. The knee was taken through a full range of motion. The patella tracked well. The patella was everted and the knee was flexed to 90?. The trial component was removed and our attention was directed to the proximal tibia. The medial and lateral menisci were removed using a #10 scalpel blade. A small rim of the medial meniscus was left intact to help prevent injury to the medial collateral ligament. A drill bit was then introduced into the proximal tibia with a starting point midway from medial to lateral and one-third of the way posteriorly. The intramedullary alignment barber was put into place. The proximal tibial cutting guide was placed over the alignment barber in line with the 2nd toe. The guide was held in place using 3 pins. The intramedullary alignment barber was removed. Soft tissues were retracted and the proximal tibial cut was made using a sagittal saw. The proximal tibia measured to be a size 6 component. The tibial tray was put into place with a 9 mm liner. The femoral component was impacted into place. The knee was taken through a full range of motion. There was full flexion and full extension. There was no instability with varus or valgus stress testing with the knee in flexion or extension. The patella tracked well with no medially directed force. The rotation of the tibial tray was marked using electrocautery with the knee in extension. The patella was everted and the knee was flexed to 90?. All trial components were removed. The tibial tray was placed onto the proximal tibia in line with the electrocautery jerry. The tray was held in place using 3 pins. Final broaching of the proximal tibia was performed in routine fashion. The trial liner and trial femoral component were put into place. The knee was brought into extension and our attention was directed to the patella. The patella measured 25 mm in thickness. The patellar resection guide was set for a 10 mm resection. Soft tissues were retracted and the patella cut was made using a sagittal saw. The remaining patella measured 15 mm in thickness. The undersurface of the patella was measured to be a size 29 symmetric component. Three drill holes were placed into the undersurface of the patella in routine fashion. The trial component was put into place. The knee was taken through a full range of motion. The patella tracked well. The patella was everted and the knee was flexed to 90?. All trial components were removed. The knee was once again brought into extension and placed onto a small bump. The knee joint was irrigated with copious amounts of normal saline solution via pulse lavage while the cement was mixed. The patella was everted and the knee was flexed to 90?. A small amount of cement was placed along the posterior aspects of the tibial and femoral components. Cement was then pressurized into the proximal tibia. The tibial component was impacted into place. Any excess cement was removed. The polyethylene liner was then impacted into place. Cement was then pressurized into the distal aspect of the femur. A small amount of cement was placed into the intramedullary canal to help reduce bleeding. The femoral component was impacted into place. Any excess cement was removed. The knee was then brought into extension. Cement was pressurized into the undersurface of the patella. The patellar component was put into place and was held with a patella clamp. Any excess cement was removed. Once the cement had hardened the patellar clamp was removed. The knee was taken through a full range of motion. There was full flexion and extension. There was no instability with varus or valgus stress testing with the knee in flexion or extension. The patella tracked well with no medially directed force. The knee joint was irrigated with copious amounts of normal saline solution via pulse lavage. Any significant bleeding vessels were coagulated. The patient's right knee was placed onto a small bump. The arthrotomy was closed with #2 Ethibond [id number]-[id number] interrupted suture as well as #1 Vicryl nrstmy-dc-olxzn interrupted suture. The wound was once again irrigated. The subcutaneous tissues were closed with 0 Vicryl and 2-0 Vicryl interrupted sutures. The skin was closed with skin donny. Dry sterile dressing and Alexx bandages were placed over the patient's right knee. The patient was awake and alert. The patient was transferred to the recovery room in stable condition.
[2024-05-04] MEDS: HYDROmorphone HCl 0.5 MG/0.5 ML SYRINGE 0.25 MG IVPUSH ×2 (16:43→20:43)
[2024-05-04] MEDS: 0.9 % Sodium Chloride Flush 3 ML SYRINGE IVFLUSH (16:49)
--- NOTE | 2024-05-04 16:56 | HO.PM.IMCN ---
History of Present Illness Data of Consult Service Date: 05/04/24 Requesting physician: Kayla Garcia Primary Care Provider: Ada Morris MD [facility] Reason for consult: medical management 74-year-old male with history of hypertension, CAD, KEITH not on CPAP, GERD, qpy-mppeldg-ysvnngpgi type 2 diabetes, osteoarthritis admitted to Orthopedic surgery for management of osteoarthritis of the right knee s/p right TKA with consult placed to hospitalist service for medical management. The patient is currently reporting 5/10 pain in the right knee but otherwise has no complaints. Denies nausea, vomiting, lightheadedness, shortness of breath, palpitations, or chest pain. Denies alcohol use, cigarette smoking or illicit drug use. Has been hypertensive perioperatively, vital signs otherwise stable. Review of Systems Review of Systems: Yes all other systems are reviewed and are negative [facility] Medical History Skin cancer GERD (gastroesophageal reflux disease) Myocardial infarction Hemorrhoids Diverticulosis Peripheral neuropathy Right bundle branch block Microalbuminuria Cataracts, bilateral Tubular adenoma Diabetes Hearing loss Osteoarthritis Tobacco use disorder Obesity (BMI 30-39.9) Sleep apnea CAD (coronary artery disease) Syncope Pleural effusion Pacemaker Abnormal PFT Skin lesions HTN (hypertension) Macular degeneration of both eyes Surgical History History of nasal surgery Hx of bilateral cataract extraction Hx of tonsillectomy Hx of cholecystectomy Hx of appendectomy H/O colonoscopy Hx of CABG History of thoracentesis History of left knee replacement (~2013) History of left hip replacement (~2000) History of right hip replacement (~2000) Social History Household Members: Spouse Housing: House Housing Other:: stairs into house and within house Are you a primary care clinician to a significant other at home: No Do you presently have visiting nurse or other home services: No Patient Tobacco Use Status: Former Tobacco user Use of substances other than those prescribed or required for medical reasons: No Have you been hit, kicked, punched, or otherwise hurt by someone within the past year? If so, by whom?: No Do you feel safe in your current relationship?: Yes Is there a partner from a previous relationship who is making you feel unsafe now?: No Are you made to feel afraid or neglected: No Are you DNR?: No Advance Directives: No Advance Directives Information Provided: No Advance Directives on File: No Do you have a plan to hurt others: No Plan Recently lost weight without trying: No Eating poorly because of decreased appetite: No Nutrition Risks: No Nutritional Risk Poor oral hygiene: Yes (partial upper denture, missing filling on the bottom) Current occupational status: retired Meds Allergies Allergy/AdvReac Type Severity Reaction Status Date / Time adhesive tape Allergy Intermediate Rash Verified 05/04/24 08:56 bacitracin Allergy Rash Verified 05/04/24 08:56 cefazolin AdvReac Severe Rash Verified 05/04/24 08:56 clopidogrel [From Plavix] AdvReac Severe Rash Verified 05/04/24 08:56 oxycodone AdvReac Hallucinati Verified 05/04/24 08:56 ons Active Medications: Current Medications Acetaminophen (Acetaminophen 325 Mg Tablet) 650 mg PO Q6H PRN PRN Reason: Pain, Mild (Pain Scale 1-3), fever or headache Aspirin (Aspirin 325 Mg Tablet) 325 mg PO BID NELLIE Celecoxib (Celecoxib 200 Mg Capsule) 200 mg PO BID NELLIE Docusate Sodium (Docusate Sodium 100 Mg Capsule) 100 mg PO BID NELLIE Glucose (Glucose Gel 15 Gm Gel..Gram.) 15 gm PO Q15M PRN; Protocol PRN Reason: per Hypoglycemia Standing Ord. Hydromorphone HCl (Hydromorphone Hcl 2 Mg Tablet) 1 mg PO Q4H PRN PRN Reason: Pain, Mild (Pain Scale 1-3) Hydromorphone HCl (Hydromorphone Hcl 0.5 Mg/0.5 Ml Syringe) 0.25 mg IVPUSH Q4H PRN; Protocol PRN Reason: Pain, Severe (Pain Scale 7-10) Last Admin: 05/04/24 16:43 Dose: 0.25 mg Hydromorphone HCl (Hydromorphone Hcl 2 Mg Tablet) 2 mg PO Q4H PRN PRN Reason: Pain, Moderate(Pain Scale 4-6) Clindamycin Phosphate (Cleocin) 900 mg in 50 mls @ 50 mls/hr IV Q8H NELLIE Stop: 05/05/24 19:59 Lactated Ringer's (Lr) 1,000 mls @ 100 mls/hr IVCONT .Q10H NELLIE Dextrose (D10) 250 mls @ 750 mls/hr IV Q15M PRN; Protocol PRN Reason: per Hypoglycemia Standing Ord. Insulin Human Lispro (Insulin Lispro 100 Unit/Ml 3 Ml Vial) 0 unit SUBCUT QIDACHS NELLIE; Protocol Magnesium Hydroxide (Milk Of Magnesia 30 Ml Oral.Susp) 30 ml PO DAILY PRN PRN Reason: Constipation Melatonin (Melatonin 3 Mg Tablet) 6 mg PO BEDTIME PRN PRN Reason: Insomnia Metformin HCl (Metformin Hcl 500 Mg Tablet) 500 mg PO DAILY NELLIE Methocarbamol (Methocarbamol 500 Mg Tablet) 500 mg PO BEDTIME NELLIE Multivitamins/Vitamin C (Multivitamin Tablet) 1 tab PO DAILY NELLIE Naloxone HCl (Naloxone Hcl 0.4 Mg/Ml Vial) 0.04 mg IVPUSH Q5M PRN PRN Reason: Excessive sedation or RR < 8 Non-Formulary Medication (Linagliptin [Tradjenta]) 5 mg PO DAILY [facility] Non-Formulary Medication (Vit C,E-Na-Kxinu-Lutein-Zeaxan [Preservision Areds-2]) 2 tab PO QAM NELLIE Ondansetron HCl (Ondansetron Hcl 4 Mg/2 Ml Vial) 4 mg IVPUSH Q8H PRN PRN Reason: Nausea and Vomiting Sodium Chloride (0.9 % Sodium Chloride Flush 3 Ml Syringe) 3 ml IVFLUSH QSHIFT [facility] Last Admin: 05/04/24 16:49 Dose: 3 ml Valsartan (Valsartan 160 Mg Tablet) 160 mg PO DAILY [facility]; Protocol Home Medications ?Medication ?Instructions ?Recorded ?Confirmed ?Last Taken ?Type amoxicillin 500 mg capsule 2,000 mg PO ONCE Dentist 01/29/23 04/30/24 Unknown History Appointment aspirin 81 mg tablet,delayed 81 mg PO DAILY 01/29/23 05/04/24 04/30/24 History release (Adult Aspirin Regimen) meloxicam 15 mg tablet 15 mg PO DAILY 01/29/23 05/04/24 04/26/24 History metformin 500 mg tablet 500 mg PO DAILY 01/29/23 05/04/24 04/30/24 History linagliptin 5 mg tablet (Tradjenta) 5 mg PO DAILY 08/29/23 05/04/24 04/30/24 History valsartan 160 mg tablet 160 mg PO DAILY 08/29/23 05/04/24 05/03/24 History acetaminophen 500 mg tablet 1,000 mg PO DAILY PRN Pain 04/23/24 04/30/24 Unknown History yhwbymsedlyh-aqdktoie-utvaft tablet 1 tab PO DAILY 04/23/24 05/04/24 04/30/24 History vit C 250 mg-vit E 90 mg-zinc 40 2 tab PO DAILY 04/24/24 05/04/24 04/30/24 History mg-copper 1 fr-uutpih-silcnp capsule (PreserVision AREDS-2) Physical Exam Vital Signs and Narrative: Vital Signs: Last Vital Signs Temp 96.8 F 05/04/24 16:49 Pulse 63 05/04/24 16:49 Resp 18 05/04/24 16:49 BP 175/81 H 05/04/24 16:49 Pulse Ox 98 05/04/24 16:49 O2 Del Method Room Air 05/04/24 16:49 O2 Flow Rate 6 05/04/24 14:10 BMI result Body Mass Index 29.8 Constitutional - Awake and Alert, No apparent distress Eyes - PERRLA, EOMI Cardiovascular - S1S2, RRR, No edema Respiratory - Normal lung expansion, Normal respiratory effort, No respiratory distress, CTA bilaterally Gastrointestinal - NT / ND; +BS; No rebound or guarding Extremities - no calf tenderness bilaterally, no swelling Skin - Warm/Dry Neurological - Alert & oriented x3 Psychological - Appropriate affect Results Labs Labs: Laboratory Results - last 24 hr 05/04/24 10:20 POC Glucose 147 H Assessment and Plan (1) Osteoarthritis of right knee: Status: Acute Plan 74-year-old male with history of hypertension, CAD, KEITH not on CPAP, GERD, zig-crgwqbi-szqguhiea type 2 diabetes, osteoarthritis admitted to Orthopedic surgery for management of osteoarthritis of the right knee s/p right TKA with consult placed to hospitalist service for medical management. # osteoarthritis right knee s/p right TKA pod 0 -plan per Orthopedic surgery # hypertension -uncontrolled perioperatively. Give amlodipine 5 mg x 1 -resume valsartan a.m. # KEITH -patient denies, not on CPAP # qzu-vpvedym-ziwopmuwo type 2 diabetes -POC glucose, diabetic diet -Humalog on sliding scale. Continue home medications # CAD -no chest pain Thank you for allowing me to participate in this consult. Signing off at this time. Please do not hesitate to call for further questions or for any acute medical issues
[2024-05-04 16:58] LABS: Glucose, Whole Blood 166 mg/dL (60-115)
[2024-05-04] MEDS: amLODIPine Besylate 5 MG TABLET PO (17:21)
[2024-05-04] MEDS: Aspirin 325 MG TABLET PO ×2 (17:21→19:59)
--- NOTE | 2024-05-04 18:17 | PHA.MEDREC ---
Addendum entered by [facility] 05/04/24 18:38: MED REC CHECKED BY [facility] Original Note: Pharmacy Consult ? Medication Reconciliation Pharmacy has completed the medication reconciliation. Confirmed medications with pateint. Patient states he is no longer taking Amlodipine 5mg and got switched to Valsartan 160mg once daily; patient states he took his Valsartan 160 [address] Dr stating he can take it before the surgery. He also states he still has Amoxicillin 500mg caps at home but only takes them before any dental appointments. He states he stopped his Meloxicam 15mg tab once daily about a week ago on the due to this surgery. He also stopped the other medications 04/30 for the surgery and plans on going back on everything unless told otherwise.
[2024-05-04] MEDS: Clindamycin Phosphate/D5W 900 MG/50 ML PIGGYBACK 50 MG IV (19:38)
[2024-05-04 19:43] LABS: Glucose, Whole Blood 246 mg/dL (60-115)
[2024-05-04] MEDS: Insulin Lispro 100 UNIT/ML 3 ML VIAL SUBCUT (19:57)
[2024-05-04] MEDS: Celecoxib 200 MG CAPSULE PO (19:59)
[2024-05-04] MEDS: methocarbamoL 500 MG TABLET PO (19:59)
[2024-05-04] MEDS: Docusate Sodium 100 MG CAPSULE PO (19:59)
[2024-05-05 00:04] VITALS: BP 158/75; PULSE 66; RESP 16; TEMP 37.1; O2SAT 96
[2024-05-05] MEDS: HYDROmorphone HCl 0.5 MG/0.5 ML SYRINGE 0.25 MG IVPUSH ×3 (00:43→08:45)
[2024-05-05] MEDS: Melatonin 3 MG TABLET 6 MG PO ×2 (00:48→20:16)
[2024-05-05] MEDS: 0.9 % Sodium Chloride Flush 3 ML SYRINGE IVFLUSH (00:49)
[2024-05-05] MEDS: Lactated Ringers 1,000 ML 100 ML IVCONT ×3 (02:56→22:59)
[2024-05-05] MEDS: Clindamycin Phosphate/D5W 900 MG/50 ML PIGGYBACK 50 MG IV ×2 (03:30→11:47)
[2024-05-05 03:48] VITALS: BP 121/64; PULSE 67; RESP 18; TEMP 36.4; O2SAT 97
[2024-05-05 04:45] VITALS: RESP 18
--- NOTE | 2024-05-05 05:35 | PC.NURSE ---
330; patient complaining of pain in right knee, pt not due for prn pain medication. BP elevated. Dr. Nino notified.
[2024-05-05 05:40] LABS: MANUAL DIFF FLAG NO
[2024-05-05 05:49] LABS: Basophils Percent Auto 0.2 % (0-2); Eosinophils Percent Auto 0.1 % (0-4); Hematocrit 40.2 % (42.0-52.0); Hemoglobin 13.4 g/dl (14.0-18.0); Imm Gran Abs Auto 0.05 X10*3/uL (0.00-0.03); Imm Gran Pct Auto 0.4 % (0.0-0.4); Lymphocytes Absolute Auto 1.9 X10*3/uL (1.2-4.9); Lymphocytes Percent Auto 15.6 % (20-40); Mean Corpuscular HGB Conc 33.3 g/dl (31.0-36.0); Mean Corpuscular Hemoglobin 31.5 pg (27.0-33.0); Mean Corpuscular Volume 94.6 fL (80.0-98.0); Mean Platelet Volume 9.6 fL (9.4-12.4); Monocytes Absolute Auto 1.2 X10*3/uL (0.1-1.2); Monocytes Percent Auto 10.3 % (2-11); Neutrophils Absolute Auto 8.8 x10*3/uL (2.0-8.3); Neutrophils Percent Auto 73.4 % (45-73); Platelet Count 144 X10*3/uL (160-400); Red Blood Count 4.25 X10*6/uL (4.60-5.80); Red Cell Distribution Width 13.4 % (11.0-16.0)
[2024-05-05 06:15] LABS: Anion Gap 12 (12-20); Blood Urea Nitrogen 24 mg/dL (9-16); Calcium 8.7 mg/dL (8.4-10.2); Carbon Dioxide 20 mmol/L (22-29); Chloride 107 mmol/L (96-108); Creatinine Clr Calc Pharmacy 82.3; Estimated Glomerular Filt Rate > 60; Glucose Fasting 206 mg/dL (60-99); Potassium 3.9 mmol/L (3.3-5.1); Sodium 135 mmol/L (135-145)
[2024-05-05 07:07] VITALS: BP 166/73; PULSE 62; RESP 16; TEMP 36.3; O2SAT 96
[2024-05-05 07:27] LABS: Glucose, Whole Blood 166 mg/dL (60-115)
[2024-05-05] MEDS: Valsartan 160 MG TABLET PO (07:53)
[2024-05-05] MEDS: Aspirin 325 MG TABLET PO ×2 (07:53→20:16)
[2024-05-05] MEDS: Insulin Lispro 100 UNIT/ML 3 ML VIAL SUBCUT ×4 (07:54→20:17)
[2024-05-05] MEDS: Docusate Sodium 100 MG CAPSULE PO ×2 (07:54→20:17)
[2024-05-05] MEDS: metFORMIN HCl ER 500 MG TAB.ER.24H PO (07:54)
[2024-05-05] MEDS: Celecoxib 200 MG CAPSULE PO ×2 (07:54→20:17)
[2024-05-05] MEDS: Multivitamin TABLET 1 TAB PO (07:54)
--- NOTE | 2024-05-05 08:19 | HO.POSTANES ---
Post Anesthesia Evaluation Post Anesthesia Evaluation Date of Service: 05/04/24 Vital Signs: Vital Signs Temp Pulse Resp BP Pulse Ox O2 Del Method 05/05/24 07:07 97.4 F 62 16 166/73 H 96 Room Air 05/05/24 04:45 18 05/05/24 03:48 97.5 F 67 18 121/64 97 Room Air 05/05/24 00:04 98.7 F 66 16 158/75 H 96 Room Air 05/04/24 20:20 160/72 H Anesthesia: General Mental Status: Awake Pain Control: Satisfactory Nausea/Vomiting: None Hydration: Adequate Anesthesia-Related Issues: No Anes. Related Issues
--- NOTE | 2024-05-05 08:38 | P.PNOP_ITS ---
Subjective Subjective Date of Service: 05/05/24 Interval history: POD1 s/p RTKA Patient is resting in bed comfortably No overnight events Patient complains of uncontrolled pain No additional complaints Physical Exam Vital Signs: Vital Signs: Last Vital Signs Temp 97.4 F 05/05/24 07:07 Pulse 62 05/05/24 07:07 Resp 16 05/05/24 07:07 BP 166/73 H 05/05/24 07:07 Pulse Ox 96 05/05/24 07:07 O2 Del Method Room Air 05/05/24 07:07 O2 Flow Rate 6 05/04/24 14:10 BMI result Body Mass Index 29.8 Const: General: cooperative, healthy appearing and no acute distress Resp: Effort & Inspection: normal respiratory effort and able to speak in com plete sentences Cardio: Rate: regular rate Peripheral pulses: Peripheral pulses 2+ throughout GI: Palpation (GI): Soft to palpation Skin: Lesions: no lesions Rashes: no rashes Extrem: Other: right knee dressing is c/d/i. Able to dorsi/plantar flex. Calf is supple and nontender. Sensation intact. Pedal pulse intact. Procedures Date of Service Date of Service: 05/05/24 Progress Note: A&P Assessment and plan (1) Status post total right knee replacement: Status: Acute Plan Continue pain mgmnt - Adjustments made Begin ASA for dvt ppx begin PT for RTKA Dispo planning-Pending PT eval, pain mgmnt - adjustments to medications made Time Spent With Patient Time: Total time managing care of this patient today ____ minutes. Quality Stroke Does the patient have a stroke diagnosis?: No VTE Prior VTE?: No VTE Risk Level:: Medical - moderate - high VTE Device Contraindication: N/A - Device Ordered VTE Drug Contraindication: N/A - Med Ordered
[2024-05-05] MEDS: HYDROmorphone HCl 2 MG TABLET PO ×4 (10:37→20:25)
[2024-05-05 11:14] LABS: Glucose, Whole Blood 198 mg/dL (60-115)
--- NOTE | 2024-05-05 12:45 | MHC.CM.PN ---
IMM DELIVERED. PATIENT LIVES IN A HOME W/ . INDEPENDENT W/ MOST ADL'S. AMBULATES W/ WALKER PRN. 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 PCP SUHAIL JUAREZ MD HCP COMPLETED. PATIENT NAMED [facility]. DP: PT REC STR. PATIENT IS AGREEABLE TO PLAN. [facility] TO [facility]) [facility], 2) [facility] 3) ANY [place] FACILITY. BLS TRANSPORT. CM WILL CONTINUE TO FOLLOW.
--- NOTE | 2024-05-05 15:19 | PM.DS ---
DS: Providers Provider Date of Service: 05/07/24 <KRISTI Marin Last Filed: 05/07/24 07:47> Date of admission: 05/04/24 15:01 <Kayla Garcia PA-C - Last Filed: 05/05/24 15:20> Primary care physician: Ada Morris MD <Kayla Garcia PA-C - Last Filed: 05/05/24 15:20> Consults: 05/04/24 16:14 Consult to Hospitalist Routine Comment: Consulting Provider: Hospitalist Reason For Exam: ROUTINE MEDICAL MANAGEMENT <LINDA Mosley Last Filed: 05/05/24 15:20> DS: Diagnosis Discharge Diagnosis (1) Status post total right knee replacement: Status: Acute <LINDA Mosley Last Filed: 05/05/24 15:20> DS: Summary Hospital Course Hospital Course: The patient underwent a successful right total knee arthroplasty, they were transferred to PACU and then to the floor to recover. During their stay, their vitals were stable, afebrile at 98.7. Labs were unremarkable, H/H 12.6/38.2. POD 1 they were started on Aspirin 325mg po bid for DVT ppx, they also received Physical Therapy services twice a day. Prior to discharge, their dressing was clean dry and intact, and the plan was to be discharged home with VNA services. <Kayla Garcia PA-C - Last Filed: 05/05/24 15:20> Time Attestation Discharge Coordination Time (in mins): 30 <Kayla Garcia PA-C - Last Filed: 05/05/24 15:20> Quality: Safe Use of Opioids Does Pt have an Active Cancer Diagnosis on the Problem List?: No <Kayla Garcia PA-C - Last Filed: 05/05/24 15:20> Quality: Stroke Does the patient have a stroke diagnosis?: No <Kayla Garcia PA-C - Last Filed: 05/05/24 15:20> Physical Exam Vital Signs: Vital Signs: Last Vital Signs Temp 97.4 F 05/05/24 07:07 Pulse 62 05/05/24 07:07 Resp 16 05/05/24 07:07 BP 166/73 H 05/05/24 07:07 Pulse Ox 96 05/05/24 07:07 O2 Del Method Room Air 05/05/24 07:07 O2 Flow Rate 6 05/04/24 14:10 BMI result Body Mass Index 29.8 <SHAI MosleyC - Last Filed: 05/05/24 15:20> Const: General: cooperative, healthy appearing and no acute distress <KRISTI Mosley-C - Last Filed: 05/05/24 15:20> Resp: Effort & Inspection: normal respiratory effort and able to speak in complete sentences <SHAI MosleyC - Last Filed: 05/05/24 15:20> Cardio: Rate: regular rate <KRISTI Mosley-C - Last Filed: 05/05/24 15:20> Peripheral pulses: Peripheral pulses 2+ throughout <KRISTI Mosley-C - Last Filed: 05/05/24 15:20> GI: Palpation (GI): Soft to palpation <SHAI MosleyC - Last Filed: 05/05/24 15:20> Skin: Lesions: no lesions <KRISTI Mosley-C - Last Filed: 05/05/24 15:20> Rashes: no rashes <SHAI MosleyC - Last Filed: 05/05/24 15:20> Extrem: Other: right knee dressing is c/d/i. Able to dorsi/plantar flex. Calf is supple and nontender. Sensation intact. Pedal pulse intact. <SHAI MosleyC - Last Filed: 05/05/24 15:20> DS: Data Data Completed and Pending Pending studies at discharge: Pending at discharge 05/04/24 12:22 Surgical [PTH] Routine <SHAI MosleyC - Last Filed: 05/05/24 15:20> Labs on day of discharge: Laboratory Results - last 24 hr 05/04/24 05/04/24 05/05/24 16:55 19:37 05:12 WBC 12.0 H RBC 4.25 L Hgb 13.4 L Hct 40.2 L MCV 94.6 MCH 31.5 MCHC 33.3 RDW 13.4 Plt Count 144 L MPV 9.6 Immature Gran % (Auto) 0.4 Neut % (Auto) 73.4 H Lymph % (Auto) 15.6 L [place] % (Auto) 10.3 Eos % (Auto) 0.1 Baso % (Auto) 0.2 Lymph # (Auto) 1.9 [place] # (Auto) 1.2 Eos # (Auto) 0.0 Baso # (Auto) 0.0 Abs Immat Gran (auto) 0.05 H Absolute Neuts (auto) 8.8 H Absolute Nucleated RBC 0.000 Nucleated RBC % (auto) 0.0 Sodium 135 Potassium 3.9 Chloride 107 Carbon Dioxide 20 L Anion Gap 12 BUN 24 H Creatinine 0.88 Estim Creat Clear Calc 82.3 Estimated GFR > 60 POC Glucose 166 H 246 H Fasting Glucose 206 H Calcium 8.7 05/05/24 05/05/24 07:11 11:10 WBC RBC Hgb Hct MCV MCH MCHC RDW Plt Count MPV Immature Gran % (Auto) Neut % (Auto) Lymph % (Auto) [place] % (Auto) Eos % (Auto) Baso % (Auto) Lymph # (Auto) [place] # (Auto) Eos # (Auto) Baso # (Auto) Abs Immat Gran (auto) Absolute Neuts (auto) Absolute Nucleated RBC Nucleated RBC % (auto) Sodium Potassium Chloride Carbon Dioxide Anion Gap BUN Creatinine Estim Creat Clear Calc Estimated GFR POC Glucose 166 H 198 H Fasting Glucose Calcium <Kayla Garcia PA-C - Last Filed: 05/05/24 15:20> Discharge Plan Discharge Anticipated Discharge Date/Time: 05/07/24 11:00 <Kayla Garcia PA-C - Last Filed: 05/05/24 15:20> Patient Disposition: Xfer SNF <Kayla Garcia PA-C - Last Filed: 05/05/24 15:20> Discharge Diagnosis: s/p RTKA <Kayla Garcia PA-C - Last Filed: 05/05/24 15:20> s/p RTKA <KRISTI Marin - Last Filed: 05/07/24 07:47> Referrals: Kayla Garcia PA-C [Physician Engineering Design Supervisor] - 05/21/24 1:15 pm <Kayla Garcia PA-C - Last Filed: 05/05/24 15:20> Discharge Medications: New hydromorphone 2 mg Tablet 2 mg PO Q3H PRN (Reason: Pain, Moderate(Pain Scale 4-6)) 7 Days Qty: 56 0RF Rx Instructions: Partial Fill upon patient request. hydromorphone 2 mg Tablet 1 mg PO Q3H PRN (Reason: Pain, Mild (Pain Scale 1-3)) 7 Days Qty: 56 0RF Rx Instructions: Partial Fill upon patient request. celecoxib 200 mg Capsule 200 mg PO BID 30 Days Qty: 60 0RF docusate sodium 100 mg Capsule 100 mg PO BID PRN (Reason: Constipation) 30 Days Qty: 60 0RF methocarbamol 500 mg Tablet 500 mg PO BEDTIME PRN (Reason: muscle pain) 7 Days Qty: 7 0RF aspirin 325 mg Tablet 325 mg PO BID 42 Days Qty: 84 0RF acetaminophen 325 mg Tablet 650 mg PO Q6H PRN (Reason: Pain, Mild (Pain Scale 1-3), fever or headache) 30 Days Qty: 240 0RF Continued (DME) walker [facility] See Rx Instructions .ROUTE .MEDSUPPLY Qty: 1 0RF Rx Instructions: Folding front wheeled walker Centrum Silver Tablet 1 tab PO DAILY PreserVision AREDS-2 250-90-40-1 mg Capsule 2 tab PO DAILY metformin 500 mg tablet extended release 24 hr 500 mg PO DAILY meloxicam 15 mg tablet 15 mg PO DAILY amoxicillin 500 mg capsule 2,000 mg PO ONCE valsartan 160 mg tablet 160 mg PO DAILY Tradjenta 5 mg tablet 5 mg PO DAILY Held acetaminophen 500 mg Tablet 1,000 mg PO DAILY PRN (Reason: Pain) Hold Instructions: Resume on 06/04/24. aspirin [Adult Aspirin Regimen] 81 mg tablet,delayed release (DR/EC) 81 mg PO DAILY <Kayla Garcia PA-C - Last Filed: 05/05/24 15:20> Discharge Orders: Discharge Order (Routine); Ordered 05/07/24 Ordered By: Xander Brown <Kayla Garcia PA-C - Last Filed: 05/05/24 15:20> Diet: Advance to usual diet <Kayla Garcia PA-C - Last Filed: 05/05/24 15:20> Advance to usual diet <KRISTI Marin Last Filed: 05/07/24 07:47> Activity on Discharge: Use cane or walker <Kayla Garcia PA-C - Last Filed: 05/05/24 15:20> Use cane or walker <KRISTI Marin Last Filed: 05/07/24 07:47> Stand Alone Forms: Patient Portal Discharge page <Kayla Garcia PA-C - Last Filed: 05/05/24 15:20> Print Language: Nigerien <Kayla Garcia PA-C - Last Filed: 05/05/24 15:20> Care Plan Goals: restore fxn to right knee <Kayla Garcia PA-C - Last Filed: 05/05/24 15:20> Health Concerns: none <Kayla Garcia PA-C - Last Filed: 05/05/24 15:20> Plan of Treatment: Physical Therapy for ROM 0-120, quad strength, gait training. Use walker for ambulation Limit stair climbing, No shower, No tub bath, No driving Continue ASA for 6 weeks Keep Aquacel dressing clean, dry and intact. Follow up with orthopedics in 2 weeks <Kayla Garcia PA-C - Last Filed: 05/05/24 15:20> Assessment: stable for discharge <Kayla Garcia PA-C - Last Filed: 05/05/24 15:20>
--- NOTE | 2024-05-05 15:20 | W.MHC.F2F ---
Service Date Service Date: 05/05/24 Encounter Date of encounter: 05/06/24 Reasons for Services Signs and symptoms assessed: s/p RTKA Pt. is considered homebound due to recent surgery. Unable to drive, poor balance, poor gait mechanics. Reason for physical therapy: home safety and mobility, therapeutic exercises, restore joint function, gait/transfer training and ADL training Homebound: Leaving the home is medically contraindicated at this time without the asist of a device and/or another person due th the listed conditions above and below. Reason homebound: unsteady gait / fall risk, leg weakness, pain with ambulation, pain with transfers, poor balance / fall risk and unable to drive Certification: Based on the above findings, I certify that this patient is confined to the home and needs intermittent group home care, physical therapy and/or speech therapy, or continues to need occupational therapy. The patient is under my care, and I have initiated the establishment of the plan of care. The patient will be followed by a physician who will periodically review the plan of care. Time Spent With Patient Time: Total time managing care of this patient today ____ minutes.
[2024-05-05 15:22] VITALS: BP 147/67; PULSE 63; RESP 18; TEMP 37.1; O2SAT 98
[2024-05-05 16:04] LABS: Glucose, Whole Blood 199 mg/dL (60-115)
[2024-05-05 19:49] VITALS: BP 167/72; PULSE 74; RESP 18; TEMP 37.3; O2SAT 97
[2024-05-05 19:59] LABS: Glucose, Whole Blood 193 mg/dL (60-115)
[2024-05-05] MEDS: methocarbamoL 500 MG TABLET PO (20:17)
[2024-05-06 03:37] VITALS: BP 151/67; PULSE 69; RESP 16; TEMP 36.7; O2SAT 94
[2024-05-06] MEDS: HYDROmorphone HCl 2 MG TABLET PO ×6 (03:42→23:47)
[2024-05-06 06:20] LABS: Basophils Absolute Auto 0.1 X10*3/uL (0.0-0.2); Basophils Percent Auto 0.5 % (0-2); Eosinophils Absolute Auto 0.1 X10*3/uL (0.0-0.4); Hematocrit 37.6 % (42.0-52.0); Hemoglobin 12.6 g/dl (14.0-18.0); Imm Gran Abs Auto 0.08 X10*3/uL (0.00-0.03); Imm Gran Pct Auto 0.7 % (0.0-0.4); Lymphocytes Absolute Auto 2.4 X10*3/uL (1.2-4.9); Lymphocytes Percent Auto 22.1 % (20-40); MANUAL DIFF FLAG SCAN; Mean Corpuscular HGB Conc 33.5 g/dl (31.0-36.0); Mean Corpuscular Hemoglobin 31.8 pg (27.0-33.0); Mean Corpuscular Volume 94.9 fL (80.0-98.0); Mean Platelet Volume 9.7 fL (9.4-12.4); Monocytes Absolute Auto 1.7 X10*3/uL (0.1-1.2); Monocytes Percent Auto 15.5 % (2-11); Neutrophils Absolute Auto 6.6 x10*3/uL (2.0-8.3); Neutrophils Percent Auto 60.2 % (45-73); Platelet Count 130 X10*3/uL (160-400); Red Blood Count 3.96 X10*6/uL (4.60-5.80); SCAN SMEAR FLAG 1; White Blood Count 10.9 X10*3/uL (4.8-10.8)
[2024-05-06 06:36] LABS: Anion Gap 12 (12-20); Blood Urea Nitrogen 20 mg/dL (9-16); Calcium 8.6 mg/dL (8.4-10.2); Carbon Dioxide 23 mmol/L (22-29); Chloride 105 mmol/L (96-108); Estimated Glomerular Filt Rate > 60; Glucose Fasting 164 mg/dL (60-99); Potassium 3.9 mmol/L (3.3-5.1); Sodium 136 mmol/L (135-145)
[2024-05-06 06:45] LABS: SLIDE REVIEW VERIFIED
[2024-05-06 07:25] VITALS: BP 162/66; PULSE 72; RESP 16; TEMP 37.1; O2SAT 96
[2024-05-06 07:27] LABS: Glucose, Whole Blood 139 mg/dL (60-115)
[2024-05-06] MEDS: Aspirin 325 MG TABLET PO ×2 (07:41→21:10)
[2024-05-06] MEDS: Docusate Sodium 100 MG CAPSULE PO ×2 (07:43→21:10)
[2024-05-06] MEDS: Multivitamin TABLET 1 TAB PO (07:43)
[2024-05-06] MEDS: Celecoxib 200 MG CAPSULE PO ×2 (07:43→21:10)
[2024-05-06] MEDS: metFORMIN HCl ER 500 MG TAB.ER.24H PO (07:43)
[2024-05-06] MEDS: Valsartan 160 MG TABLET PO (07:44)
--- NOTE | 2024-05-06 07:52 | P.PNOP_ITS ---
Subjective Subjective Date of Service: 05/06/24 Interval history: POD2 s/p RTKA Patient is resting in bed comfortably No overnight events Patient complains of uncontrolled pain No additional complaints Physical Exam Vital Signs: Vital Signs: Last Vital Signs Temp 98.8 F 05/06/24 07:25 Pulse 72 05/06/24 07:25 Resp 16 05/06/24 07:25 BP 162/66 H 05/06/24 07:25 Pulse Ox 96 05/06/24 07:25 O2 Del Method Room Air 05/06/24 07:25 O2 Flow Rate 6 05/04/24 14:10 BMI result Body Mass Index 29.8 Const: General: cooperative, healthy appearing and no acute distress Resp: Effort & Inspection: normal respiratory effort and able to speak in com plete sentences Cardio: Rate: regular rate Peripheral pulses: Peripheral pulses 2+ throughout GI: Palpation (GI): Soft to palpation Skin: Lesions: no lesions Rashes: no rashes Extrem: Other: left knee dressing is c/d/i. Able to dorsi/plantar flex. Calf is supple and nontender. Sensation intact. Pedal pulse intact. Procedures Date of Service Date of Service: 05/06/24 Progress Note: A&P Assessment and plan (1) Status post total right knee replacement: Status: Acute Assessment and Plan: Continue pain mgmnt Continue ASA for dvt ppx Continue PT for RTKA Dispo planning-Pain mangement, Continues to need physical therapy for safe discharge, pending rehab placement Time Spent With Patient Time: Total time managing care of this patient today ____ minutes. Quality Stroke Does the patient have a stroke diagnosis?: No VTE Prior VTE?: No VTE Risk Level:: Medical - moderate - high VTE Device Contraindication: N/A - Device Ordered VTE Drug Contraindication: N/A - Med Ordered
[2024-05-06 11:53] LABS: Glucose, Whole Blood 159 mg/dL (60-115)
[2024-05-06] MEDS: Insulin Lispro 100 UNIT/ML 3 ML VIAL SUBCUT ×3 (12:14→21:10)
--- NOTE | 2024-05-06 13:04 | MHC.CM.PN ---
EMR REVIEWED. CM MET WITH [facility] CENTER UPDATED AND CM WILL CONTINUE TO FOLLOW FOR ANY CHANGE TO DC PLAN.
[2024-05-06 14:40] VITALS: RESP 18
[2024-05-06 15:21] VITALS: BP 136/65; PULSE 72; RESP 18; TEMP 37.2; O2SAT 99
[2024-05-06 16:06] LABS: Glucose, Whole Blood 166 mg/dL (60-115)
[2024-05-06] MEDS: 0.9 % Sodium Chloride Flush 3 ML SYRINGE IVFLUSH ×2 (16:40→21:11)
[2024-05-06 19:44] VITALS: BP 140/70; PULSE 85; RESP 17; TEMP 37.1; O2SAT 95
[2024-05-06 20:08] LABS: Glucose, Whole Blood 169 mg/dL (60-115)
[2024-05-06] MEDS: methocarbamoL 500 MG TABLET PO (21:10)
[2024-05-06] MEDS: Melatonin 3 MG TABLET 6 MG PO (21:10)
[2024-05-06 23:12] VITALS: BP 142/66; PULSE 75; RESP 19; TEMP 37.3; O2SAT 95
[2024-05-07 04:00] VITALS: BP 133/63; PULSE 58; RESP 17; TEMP 36.9; O2SAT 94
[2024-05-07 06:42] LABS: Anion Gap 12 (12-20); Blood Urea Nitrogen 21 mg/dL (9-16); Calcium 9.4 mg/dL (8.4-10.2); Carbon Dioxide 27 mmol/L (22-29); Chloride 103 mmol/L (96-108); Creatinine Clr Calc Pharmacy 75.4; Estimated Glomerular Filt Rate > 60; Glucose Fasting 142 mg/dL (60-99); Potassium 4.6 mmol/L (3.3-5.1); Sodium 137 mmol/L (135-145)
[2024-05-07 07:10] LABS: Basophils Absolute Auto 0.1 X10*3/uL (0.0-0.2); Basophils Percent Auto 0.4 % (0-2); Eosinophils Absolute Auto 0.2 X10*3/uL (0.0-0.4); Eosinophils Percent Auto 1.5 % (0-4); Hematocrit 38.2 % (42.0-52.0); Hemoglobin 12.6 g/dl (14.0-18.0); Imm Gran Pct Auto 0.8 % (0.0-0.4); Lymphocytes Absolute Auto 2.8 X10*3/uL (1.2-4.9); Lymphocytes Percent Auto 22.3 % (20-40); MANUAL DIFF FLAG SCAN; Mean Corpuscular Hemoglobin 31.6 pg (27.0-33.0); Mean Corpuscular Volume 95.7 fL (80.0-98.0); Mean Platelet Volume 9.9 fL (9.4-12.4); Monocytes Absolute Auto 1.7 X10*3/uL (0.1-1.2); Monocytes Percent Auto 13.2 % (2-11); Neutrophils Absolute Auto 7.8 x10*3/uL (2.0-8.3); Neutrophils Percent Auto 61.8 % (45-73); Platelet Count 152 X10*3/uL (160-400); Red Blood Count 3.99 X10*6/uL (4.60-5.80); Red Cell Distribution Width 13.9 % (11.0-16.0); SCAN SMEAR FLAG 1; White Blood Count 12.6 X10*3/uL (4.8-10.8)
[2024-05-07 07:18] VITALS: BP 141/63; PULSE 70; RESP 18; TEMP 37.1; O2SAT 96
[2024-05-07 07:38] LABS: Glucose, Whole Blood 142 mg/dL (60-115)
[2024-05-07] MEDS: Aspirin 325 MG TABLET PO (07:56)
[2024-05-07] MEDS: Valsartan 160 MG TABLET PO (07:57)
[2024-05-07] MEDS: Celecoxib 200 MG CAPSULE PO (07:57)
[2024-05-07] MEDS: Multivitamin TABLET 1 TAB PO (07:58)
[2024-05-07] MEDS: metFORMIN HCl ER 500 MG TAB.ER.24H PO (07:58)
[2024-05-07] MEDS: 0.9 % Sodium Chloride Flush 3 ML SYRINGE IVFLUSH (08:00)
[2024-05-07] MEDS: Docusate Sodium 100 MG CAPSULE PO (08:04)
[2024-05-07] MEDS: HYDROmorphone HCl 2 MG TABLET PO (08:04)
--- NOTE | 2024-05-07 08:42 | MHC.CM.PN ---
Addendum entered by Karina Evans 05/07/24 09:18: PT REQUESTS CM LET KNOW THE PLAN. CM NOTIFIED ANITA. Original Note: DP:PT HAS BEEN MEDICALLY CLEARED FOR DC TO [facility]. BLS TRANSPORT BOOKED FOR 11 M [facility]IA [facility]. CENTER/RN/PROVIDER AWARE.
[2024-05-07 09:02] LABS: SLIDE REVIEW VERIFIED
--- NOTE | 2024-05-07 09:29 | PM.PNORT ---
Subjective Subjective Date of Service: 05/07/24 Interval history: POD3 s/p RTKA Patient is resting in bed comfortably No overnight events Patient complains of continued pain, but states that he feels it may have improved mildly No additional complaints Physical Exam Vital Signs: Vital Signs: Last Vital Signs Temp 98.7 F 05/07/24 07:18 Pulse 70 05/07/24 07:18 Resp 18 05/07/24 07:18 BP 141/63 H 05/07/24 07:18 Pulse Ox 96 05/07/24 07:18 O2 Del Method Room Air 05/07/24 07:18 O2 Flow Rate 6 05/04/24 14:10 BMI result Body Mass Index 29.8 Const: General: cooperative, healthy appearing and no acute distress Resp: Effort & Inspection: normal respiratory effort and able to speak in complete sentences Cardio: Rate: regular rate Peripheral pulses: Peripheral pulses 2+ throughout GI: Palpation (GI): Soft to palpation Skin: Lesions: no lesions Rashes: no rashes Extrem: Other: left knee dressing is c/d/i. Able to dorsi/plantar flex. Calf is supple and nontender. Sensation intact. Pedal pulse intact. Procedures Date of Service Date of Service: 05/07/24 Progress Note: A&P Assessment and plan (1) Status post total right knee replacement: Status: Acute Assessment and Plan: Continue pain mgmnt Continue ASA for dvt ppx Continue PT for RTKA Dispo planning-plan is for discharge today to short-term rehab, facility has accepted Time Spent With Patient Time: Total time managing care of this patient today ____ minutes. Quality Stroke Does the patient have a stroke diagnosis?: No VTE Prior VTE?: No VTE Risk Level:: Medical - moderate - high VTE Device Contraindication: N/A - Device Ordered VTE Drug Contraindication: N/A - Med Ordered
== END 2024-05-07 10:59 | disposition skilled nursing facility (03) | DRG 470 ==
LOC: HO.SSSA 15:02 → HO.S3 15:09
PROVIDERS: Physician Assistant; Admitting Provider Orthopaedic Surgery; PCP Internal Medicine; Visit Provider Orthopaedic Surgery
PROC: 0SRC0J9 Replacement of Right Knee Joint with Synthetic Substitute, Cemented, Open Approach (ICD-10-PCS; CPT 27447; principal; 2024-05-04 10:40)
DX: M17.11 Unilateral primary osteoarthritis, right knee (principal); I25.10 Atherosclerotic heart disease of native coronary artery without angina pectoris; E11.42 Type 2 diabetes mellitus with diabetic polyneuropathy; G89.18 Other acute postprocedural pain; G47.33 Obstructive sleep apnea (adult) (pediatric); Z87.891 Personal history of nicotine dependence; Z79.82 Long term (current) use of aspirin; Z79.84 Long term (current) use of oral hypoglycemic drugs; Z79.899 Other long term (current) drug therapy
CPT/HCPCS: 36415; 80048; 82947; 85025; 86850; 86900; 86901; 87640; 87641; 88305; 88311; 97110; 97116; 97162; 97530; C1776; J0131; J0665; J0736; J1100; J1170; J2250; J2704; J3370; J7120

== ENCOUNTER → 2024-05-04 15:01 | Outpatient (BNV) | payer MEDICARE, OTHER, SELFPAY | PROVIDERS: Admitting Provider Orthopaedic Surgery; PCP Internal Medicine; Visit Provider Physician Assistant | DX: M17.11 Unilateral primary osteoarthritis, right knee (principal) | CPT/HCPCS: 99222 ==

== ENCOUNTER 2024-05-21 10:13 | Outpatient (REF) | payer MEDICARE, OTHER, SELFPAY ==
--- NOTE | ~2024-05-21 | XR_ITS ---
EXAMINATION: XR KNEES 1 VIEW CLINICAL INFORMATION: Pain in unspecified knee M25.569. COMPARISON: XR Bilateral knees anteroposterior standing 01/29/2023 TECHNIQUE: One view of the bilateral knees FINDINGS: Status post bilateral knee arthroplasties. Surgical donny overlie the right knee. Extensive vascular calcifications are present. IMPRESSION: Appropriate alignment of the bilateral total knee arthroplasties. Electronically signed by: Antonio Levine MD 07/23/2024 09:08 AM SUNIL
== END 2024-05-21 10:14 | disposition home or self-care (01) ==
LOC: HO.HOSX 10:13
PROVIDERS: Visit Provider Physician Assistant
DX: M25.569 Pain in unspecified knee (principal); Z96.651 Presence of right artificial knee joint
CPT/HCPCS: 73560; 73562; 99212

== ENCOUNTER 2024-05-21 13:06 | Outpatient (AMB) | payer MEDICARE, OTHER, SELFPAY ==
--- NOTE | 2024-05-21 13:23 | MHC.OFFVIS ---
Intake Visit Reasons: 2WK PO: R BERTIN greer/ 05/04/24 Intake Note: Spencer is a 74 year old male who presents to the office today for a 2WK PO: R BERTIN greer/ 05/04/24. Pt states he is doing well. He mentions that his treatment/care at the hospital was very poor and he is upset. Allergies adhesive tape Allergy (Intermediate, Verified 05/21/24 13:26) Rash bacitracin Allergy (Verified 05/21/24 13:26) Rash cefazolin Adverse Reaction (Severe, Verified 05/21/24 13:26) Rash clopidogrel [From Plavix] Adverse Reaction (Severe, Verified 05/21/24 13:26) Rash oxycodone Adverse Reaction (Verified 05/21/24 13:26) Hallucinations HPI HPI 2WK PO: R TKA percy/ 05/04/24: Details: 74-year-old right hand dominant male who presents in the office today for a 17 days status post right total knee arthroplasty which was performed on 05/04/[address] Carrero. While in the office today, the patient reports he is doing well. [facility] Medical History Skin cancer GERD (gastroesophageal reflux disease) Myocardial infarction Hemorrhoids Diverticulosis Peripheral neuropathy Right bundle branch block Microalbuminuria Cataracts, bilateral Tubular adenoma Diabetes Hearing loss Osteoarthritis Tobacco use disorder Obesity (BMI 30-39.9) Sleep apnea CAD (coronary artery disease) Syncope Pleural effusion Pacemaker Abnormal PFT Skin lesions HTN (hypertension) Macular degeneration of both eyes Surgical History History of nasal surgery Hx of bilateral cataract extraction Hx of tonsillectomy Hx of cholecystectomy Hx of appendectomy H/O colonoscopy Hx of CABG History of thoracentesis History of left knee replacement (~2013) History of left hip replacement (~2000) History of right hip replacement (~2000) Social History Household Members: Spouse Housing: House Housing Other:: stairs into house and within house Are you a primary floor care technician to a significant other at home: No Do you presently have visiting nurse or other home services: No Comment: pt rings appropriately Patient Tobacco Use Status: Former Tobacco user service: No Current occupational status: retired Review of Systems Const All systems reviewed & are unremarkable except as noted in HPI and below Physical Exam Const General: cooperative, healthy appearing and no acute distress Resp Effort & Inspection: normal respiratory effort and able to speak in complete sentences Cardio Rate: regular rate Peripheral pulses: Peripheral pulses 2+ throughout GI Palpation (GI): Soft to palpation Skin Lesions: no lesions Rashes: no rashes Extrem Other: Right knee: Incision site is clean, dry, and intact. Vest intact. No surrounding erythema or drainage. No signs of infection. Range of motion 20-90 degrees. NVI. Assessment & Plan Assessment & Plan (1) Status post total right knee replacement: Code(s): Z96.651 - Presence of right artificial knee joint Category: Surgical Plan Mr. Roberson is a 74-year-old right hand dominant male who presents in the office today for a 17 days status post right total knee arthroplasty which was performed on 05/04/[address] Carrero. While in the office today, the patient reports he is doing well. He continues to work with physical therapy. We discussed taking antibiotics prophylactically for possible dental work in the future. The patient has antibiotics left at home. However, the patient was educated they should not have any major dental work for the first 3 months post-op after the right total knee arthroplasty. Becki were removed and steri-strips were applied. The patient will continue with physical therapy. I would like them to really focus on extension. Follow up will be in [address] Carrero, or sooner if needed. X-rays of the right knee which were obtained while in the office today and were reviewed by me, Kayla Garcia PA-C, revealed: Intact orthopedic hardware with proper alignment. Orders: Orders XR knee LT 1V 05/21/24 M25.569 - Pain in unspecified knee XR knee RT 3V 05/21/24 M25.569 - Pain in unspecified knee Patient Instructions: Scribed by Kelly Castro medical technologist blood bank, for Kayla Garcia PA-C on 05/21/24 at 1:34 pm EST. Coding Level of Care Code Global (72059) Diagnoses Status post total right knee replacement Z96.651
== END 2024-05-21 14:13 | disposition home or self-care (01) ==
PROVIDERS: Visit Provider Physician Assistant
DX: Z96.651 Presence of right artificial knee joint (principal)
CPT/HCPCS: 99024

== ENCOUNTER 2024-06-11 14:05 | Outpatient (AMB) | payer MEDICARE, OTHER, SELFPAY ==
--- NOTE | 2024-06-11 14:19 | A.OFFVIS_ITS ---
Intake Visit Reasons: 6WK PO: R TKA w/ 05/04/24 Intake Note: Luisa 74 year old male who presents today for a post operative visit s/p right TKA on 05/04/24 Patient reports he is doing well, states having a little discomfort. Patient is frustrated with his PT order not going through. Allergies adhesive tape Allergy (Intermediate, Verified 06/11/24 14:26) Rash bacitracin Allergy (Verified 06/11/24 14:26) Rash cefazolin Adverse Reaction (Severe, Verified 06/11/24 14:26) Rash clopidogrel [From Plavix] Adverse Reaction (Severe, Verified 06/11/24 14:26) Rash oxycodone Adverse Reaction (Verified 06/11/24 14:26) Hallucinations HPI HPI 6WK PO: R TKA w/ 05/04/24: Details: 74-year-old right hand dominant female who presents in the office today 5 weeks status post right total knee arthroplasty which was performed on 05/04/[address] Carrero. I last saw the patient in the office on 05/21/2024 when she was encouraged to continue physical therapy. While in the office today, the patient reports he is doing well; however, he mentions having mild discomfort. He expresses his frustration with his physical therapy order not being processed. [facility] Medical History Skin cancer GERD (gastroesophageal reflux disease) Myocardial infarction Hemorrhoids Diverticulosis Peripheral neuropathy Right bundle branch block Microalbuminuria Cataracts, bilateral Tubular adenoma Diabetes Hearing loss Osteoarthritis Tobacco use disorder Obesity (BMI 30-39.9) Sleep apnea CAD (coronary artery disease) Syncope Pleural effusion Pacemaker Abnormal PFT Skin lesions HTN (hypertension) Macular degeneration of both eyes Surgical History History of nasal surgery Hx of bilateral cataract extraction Hx of tonsillectomy Hx of cholecystectomy Hx of appendectomy H/O colonoscopy Hx of CABG History of thoracentesis History of left knee replacement (~2013) History of left hip replacement (~2000) History of right hip replacement (~2000) Social History Household Members: Spouse Housing: House Housing Other:: stairs into house and within house Are you a primary inspector health care facilities to a significant other at home: No Do you presently have visiting nurse or other home services: No Comment: pt rings appropriately Patient Tobacco Use Status: Former Tobacco user service: No Current occupational status: retired Review of Systems Const All systems reviewed & are unremarkable except as noted in HPI and below Physical Exam Const General: cooperative, healthy appearing and no acute distress Resp Effort & Inspection: normal respiratory effort and able to speak in complete sentences Cardio Rate: regular rate Peripheral pulses: Peripheral pulses 2+ throughout GI Palpation (GI): Soft to palpation Skin Lesions: no lesions Rashes: no rashes Extrem Other: Right knee: Incision site is clean, dry and intact. Incision site is completely healed with no erythema, or drainage. No signs of infection. ROM is 0-110 degrees. NVI. Assessment & Plan Assessment & Plan (1) Status post total right knee replacement: Code(s): Z96.651 - Presence of right artificial knee joint Category: Surgical Plan Mr. Roberson is a 74-year-old right hand dominant female who presents in the office today 5 weeks status post right total knee arthroplasty which was performed on 05/04/[address] Carrero. I last saw the patient in the office on 05/21/2024 when she was encouraged to continue physical therapy. While in the office today, the patient reports he is doing well; however, he mentions having mild discomfort. He expresses his frustration with his physical therapy order not being processed. He will continue working on physical therapy exercises. Follow-up will be with Dr. Carrero in 6 weeks, or sooner if needed. Patient Instructions: Scribed by Kelly Castro internist medical doctor md, for Kayla Garcia PA-C on 06/11/24 at 2:35 pm EST. Coding Level of Care Code Global (68523) Diagnoses Status post total right knee replacement Z96.651
== END 2024-06-11 14:47 | disposition home or self-care (01) ==
PROVIDERS: Visit Provider Physician Assistant
DX: Z96.651 Presence of right artificial knee joint (principal)
CPT/HCPCS: 99024

== ENCOUNTER → 2024-06-11 14:05 | Outpatient (BNVA) | payer MEDICARE, OTHER, SELFPAY | PROVIDERS: Visit Provider Orthopaedic Surgery | DX: Z47.1 Aftercare following joint replacement surgery (principal); Z96.651 Presence of right artificial knee joint | CPT/HCPCS: 99212 ==

== ENCOUNTER 2024-07-23 13:36 | Outpatient (AMB) | payer MEDICARE, OTHER, SELFPAY ==
--- OUTSIDE RECORDS SUMMARY | 2024-07-23 13:38 | XMS_ITS | Data Portability ---
Author Organization [facility] [employer], svmg_admin Address [address] [place] [id number] Care Team Providers Care Med Surg Rn Name Role Phone SUHAIL ROBERTS Primary Care Provide r Assessment Encounter Date Assessment Date Assessment LastModified by Organization Details LastModified Time 12/22/2019 12/22/2019 21 minutes spent with the patient - more than 50% spent on counseling, coordination of care including review of records, medications, lab studies, discussion about diagnostic workup and care plan. This also include time spend for additional research to obtain information that helped in formulating a plan. Not available 12/22/2019 11:33:28 Plan of Treatment Reminders Order Date Submit Date Provider Last Modified By Organization Details Last Modified Time Details Appointments None recorde d. Lab hemoglo bin A1C, fingers tick 2018 019 [facility], [address] [place] [address], [id number], 9 14:17:15 Referral None recorde d. Procedures None recorde d. Surgeries None recorde d. Imaging None recorde d. 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 Continue to follow a controlled carb, healthy plate plan and drink plenty of water. Continue current exercise plan. Bring the meter to the next appointment. [email or web address] Not available 12/20/2016 14:07:51 10/02/2017 [id number] elevated blood pressure: care instructions Not available 10/02/2017 10:43:32 learning about type 2 diabetes Not available 10/02/2017 10:43:32 type 2 diabetes: care instructions Not available 10/02/2017 10:43:32 01/07/2019 [id number] high blood pressure: care instructions Not available 01/07/2019 14:17:15 learning about high blood pressure Not available 01/07/2019 14:17:15 A healthy lifestyle: care instructions Not available 01/07/2019 14:17:15 12/22/2019 [id number] high cholesterol : care instructions Not available 12/22/2019 11:33:09 Reason for Referral None Reported. Results Created Date Observation Date Name Description Value Unit Range Abnormal Flag Note LastModifiedBy Organization Detail LastModifiedTime 01/08/20 19 01/07/2019 hemog lobin A1C, finge rstic k Hemoglobin A1c 6.0 Not Available [address], [address], 01/07/2019 13:48:29 Result Notes None recorded. Problems Name Problem SNOMED Code Status Onset Date Resolution Date Notes Provider Name and Address Organization Details Recorded Time Type 2 diabetes mellitus 55504988 Active 2016 Helene bedoya [facility] [place] 14:07:56 Arthritis 8128383 Active 2016 Helene bedoya [place] [facility] 14:08:02 Hypertensive disorder 32471413 Active 2016 Helene Szymczak [facility] 7 14:08:17 Problem Notes None recorded. Procedures Surgical History Date Name Laterality Status Provider Name and Address Organization Details Recorded Time 05/12/20 19 coronary artery bypass grafts x 4 completed Aphrodite Papoutsides [facility] 12/22/2019 11:15:55 12/11/19 14 Joint Replacement completed Helene Noriega [facility] 03/20/2017 14:01:40 12/11/19 02 Other [facility] 14:01:12 Imaging Results None recorded. Procedure Notes None recorded. Medical Equipment None Reported. Allergies Allergen ID Allergen Name Allergen Category Reaction Reaction Severity Criticality Documentation Date Start Date Code Code System Note Provider Name and Address Organization Details Recorded Time 567449 bacitraci n medicatio n rash moderate Not available 11/15/2016 1291 RxNorm Paulette Brooks MS, RDN, LDN, CDE [address] [place] [address], [phone] [place] [address] 7 10:31:31 621261 Plavix medicatio n rash Not available Not available 12/22/2019 65362 2 RxNorm Aphrodite Papoutsid es [facility] 0 11:14:24 601657 oxycodone medicatio n Not available Not available Not available 12/22/2019 7804 RxNorm Aphrodite Papoutsid es [facility], [facility] [place] 0 11:14:53 410723 cefazolin medicatio n Not available Not available Not available 12/22/2019 2180 RxNorm Aphrodite Papoutsid es [facility], [facility] [place] 0 11:15:12 573516 adhesive tape environme nt,medica tion Not available Not available Not available 12/22/2019 Aphrodite Papoutsid es [facility], [facility] [place] 0 11:15:23 Medications Name Sig Start Date Stop Date Status Note LastModified by Organization Details LastModified Time losartan 50 mg tablet TAKE 1 TABLET BY MOUTH DAILY active Not Available Not Available No t Available amoxicillin 500 mg capsule 12/21 completed Not Available Not Available Not Available furosemide 40 mg tablet 12/21 completed Not Available Not Available Not Available atorvastati n 40 mg tablet TK 1 T PO HS active Not Available Not Available No t Available metformin 500 mg tablet TK 1 T PO QD 01/07 completed Not Available Not Available Not Available acetaminoph en 325 mg tablet TAKE 3 TABLETS BY MOUTH EVERY 6 HOURS active Not Available Not Available No t Available doxycycline hyclate 100 mg capsule 12/21 completed Not Available Not Available Not Available atorvastati n 20 mg tablet TK 1 T PO QD active Not Available Not Available No t Available amiodarone 200 mg tablet 12/21 completed Not Available Not Available Not Available meloxicam 15 mg tablet TAKE 1 TABLET BY MOUTH DAILY active Not Available Not Available No t Available aspirin 81 mg tablet,keron yed release active Not Available Not Available Not Available tramadol 50 mg tablet active Not Available Not Available No t Available amoxicillin 500 mg tablet DENTAL WORK active Not Available Not Available No t Available potassium chloride ER 20 mEq tablet,exte nded release(par t/cryst) 12/21 completed Not Available Not Available Not Available aspirin 325 mg tablet,keron yed release TAKE 1 TABLET BY MOUTH EVERY DAY active Not Available Not Available No t Available metformin 1,000 mg tablet TK 1 T PO BID 11/15 completed Not Available Not Available Not Available metoprolol tartrate 50 mg tablet active Not Available Not Available No t Available furosemide 20 mg tablet TK 1 T PO QD active Not Available Not Available No t Available colchicine 0.6 mg tablet 12/21 completed Not Available Not Available Not Available losartan 100 mg tablet TK 1 T PO QD 11/15 completed Not Available Not Available Not Available metformin ER 500 mg tablet,exte nded release 24 hr TAKE 2 TABLETS BY MOUTH TWICE DAILY WITH MEALS. START WITH 1 TABLET ONCE PER DAY AND INCREASE DIRECTED 12/21 completed Not Available Not Available Not Available Tylenol Extra Strength 500 mg tablet Take 2 tablets every day by oral route in the morning. 01/07 completed Not Available Not Available Not Available valsartan 160 mg tablet TK 1 T PO QD 01/07 completed Not Available Not Available Not Available metoprolol tartrate 25 mg tablet TK 1 T PO BID active Not Available Not Available No t Available BD Ultra-Fine Mini Pen Needle 31 gauge x 3/16 USE TO INJECT INSULIN EVERY DAY active Not Available Not Available No t Available Lantus Solostar U-100 Insulin 100 unit/mL (3 mL) subcutaneou s pen 12/21 completed Not Available Not Available Not Available Onglyza 5 mg tablet TAKE 1 TABLET BY MOUTH DAILY active Not Available Not Available No t Available OneTouch Verio test strips USE DIRECTED TO TEST BLOOD SUGARS TWICE DAILY active Not Available Not Available No t Available OneTouch Delica Lancets 30 gauge U TO TEST BID active Not Available Not Available No t Available Vitals Date Recorded Body height Body weight Body mass index (BMI) Provider Name and Address Organization Details Last Updated DateTime 12/20/2016 180.34 cm 569639.61 g 32.6 kg/m2 Paulette Brooks MS, RDN, LDN, CDE [address] [place] [address], [phone] 12/20/2016 13:41:50 Date Recorded Body height Body mass index (BMI) Body weight Body temperature Oxygen saturation Oxygen saturation in Arterial blood by Pulse oximetry Heart rate Systolic blood pressure Diastolic blood pressure Provider Name and Address Organization Details Last Updated DateTime 7 180.34 cm 30.7 kg/m2 47265.6 g 97.6 [degF] 97 % 97 % 57 /min 139 mm[Hg] 79 mm[Hg] Helene Hari [facility] 7 14:10:16 Date Recorded Body height Body mass index (BMI) Body weight Body temperature Oxygen saturation Oxygen saturation in Arterial blood by Pulse oximetry Heart rate Systolic blood pressure Diastolic blood pressure Provider Name and Address Organization Details Last Updated DateTime 8 180.34 cm 31.9 kg/m2 011618. 65 g 97.8 [degF] 97 % 97 % 59 /min 150 mm[Hg] 72 mm[Hg] Helenemarty Noriega [facility] 8 10:09:03 Date Recorded Body height Body mass index (BMI) Body weight Heart rate Oxygen saturation Oxygen saturation in Arterial blood by Pulse oximetry Systolic blood pressure Diastolic blood pressure Provider Name and Address Organization Details Last Updated DateTime 9 180.34 cm 31.1 kg/m2 689260. 1 g 66 /min 98 % 98 % 110 mm[Hg] 64 mm[Hg] Jessy Atkins [facility] 9 13:57:36 Date Recorded Body height Provider Name an d Address Organization Details Last Updated DateTime 12/22/2019 180.34 cm Aphrodite Papmacrina [facility] 12/22/2019 11:12:53 Social History Question Answer Notes LastModified by Organizat ion Details LastModified Time Tobacco Smoking Status Former Smoker one pack a week Helene bedoya [facility] [place] 03/20/2017 14:03:08 What Is Your Level Of Alcohol Consumption? None Information not available 03/20/2017 What Is Your Level Of Caffeine Consumption? Occasional Information not available 03/20/2017 What Type Of Diet Are You Following? REGULAR Information not available 03/20/2017 Education 4 Year College Informatio n not available 03/20/2017 What Is Your Occupation? Retired Information not available 03/20/2017 Does The Patient Have Fever OR Cough OR Shortness Of Breath? No Information not available 12/22/2019 In The Last 14 Days, Has The Patient Had Contact With A COVID-19 Positive Patient Or A COVID-19 Suspect Patient Awaiting Test Results? No Information not available 12/22/2019 If Pulse Oximetry Was Done: Is The Patient's Sp02 Less Than 93% On Room Air? No Information not available 12/22/2019 Does The Patient Have At Least TWO Of These Symptoms? Diarrhea, Chills, Muscle Pain, Repeated Shaking & Chills, Headache, Sore Throat, Or New Loss Of Taste/Smell No Information not available 12/22/2019 How Often Do You Use Sunscreen Rarely Information not available 03/20/2017 Firearms Present In Home Yes Information not available 03/20/2017 How Often Do You Wear A Seatbelt Never Information not available 03/20/2017 If Yes, How Long Have You Smoked 10+ Years Information not available 03/20/2017 Illicit Or Recreational Drugs No Information not available 03/20/2017 Do You Take Daily Aspirin No Information not available 03/20/2017 Marital Status Informatio n not available 03/20/2017 What Was The Date Of Your Most Recent Tobacco Screening? 01/07/2019 Information not available 03/06/2019 How Many Children Do You Have? 0 Information not available 03/20/2017 Smoke Alarm In Home Yes Information not available 03/20/2017 How Much Tobacco Do You Smoke? 1 PPW Information not available 03/20/2017 General Stress Level Medium Information not available 03/20/2017 Sex: Unknown Functional Status Question Answer Note LastModified by Organizat ion Details LastModified Time What is your exercise level? Moderate goes to gym every day Information not available 03/20/2017 Mental Status None recorded. Family History Relationship Description Onset Age of this Age Resolved Age Notes LastModified by Organization Details LastModified Time Mother Problem 89 growth on lung dszymczak Not available 03/20/2017 14:07:38 Father Problem 94 natura l cases; blind dszymczak Not available 03/20/2017 14:07:38 Notes:No siblings Medical History No medical history recorded. Past Encounters Encounter ID Performer Location Encounter Start Date Encounter Closed Date Diagnosis/Indication Diagnosis SNOMED-CT Code Diagnosis ICD10 Code [id number] Dread Anton MD [facility] [address] [place] [phone] 11/15/2016 09:44:36 11/15/2016 12:11:06 Uncontrolled type 2 diabetes mellitus 461858268 E11.65 [id number] Mignon De La Rosa [facility] [address] [phone] 12/20/2016 12:52:35 12/20/2016 13:57:18 Uncontrolled type 2 diabetes mellitus 401391764 E11.65 [id number] Dread Anton MD [facility] [address] [phone] 03/20/2017 13:26:37 03/20/2017 14:53:49 Disorder of nervous system due to type 2 diabetes mellitus 403412932 E11.40 [id number] Dread Anton MD [facility] [address] [place] [id number] 10/02/2017 09:52:49 10/02/2017 10:38:25 Type 2 diabetes mellitus 45140432 E11.9 Hypertensive disorder 38 406592 I10 [id number] Dread Anton MD [facility] [address] [place] [id number] 01/07/2019 13:34:51 01/07/2019 14:21:47 Neuropathy due to type 2 diabetes mellitus 6012951212 65769 E11.40 Essential hypertension 66380057 I10 [id number] Dread Anton MD [facility] [address] [place] [phone] 12/22/2019 11:06:08 12/22/2019 12:04:25 Hyperlipidemia 94445848 E78.5 Disorder d ue to type 2 diabetes mellitus 718858509 E11.8 Health Concerns Section Related Observation LastModified by Organization Detai ls LastModified Time None Recorded Concern Status LastModified by Organization Details LastModified Time None Recorded Advance Directives Directive None Recorded Payers Encounter Date Sequence Insurance Name Policy Number Policy Foley Covered Member ID Foley Member ID Guarantor Name 12/20/2016 2 [facility] (MEDICARE SUPPLEMENT) Spencer Roberson [id number] Spencer Roberson Jr. 12/20/2016 1 [place] Spencer Roberson Jr [id number] Spencer Roberson Jr. 03/20/2017 2 [facility] (MEDICARE SUPPLEMENT) Spencer Roberson [id number] Spencer Roberson Jr. 03/20/2017 1 [place] [employer] Spencer Roberson Jr [id number] Spencer Roberson Jr. 10/02/2017 2 [facility] (MEDICARE SUPPLEMENT) Spencer Roberson [id number] Spencer Roberson Jr. 10/02/2017 1 [place] [employer] Spencer Roberson Jr [id number] Spencer Roberson Jr. 01/07/2019 2 [facility] (MEDICARE SUPPLEMENT) Spencer Roberson [id number] Spencer Roberson Jr. 01/07/2019 1 MED[place]ARE [place]: [facility] Spencer Roberson Jr [id number] Spencer Roberson Jr. 12/22/2019 2 [facility] (MEDICARE SUPPLEMENT) Spencer Roberson [id number] Spencer Roberson Jr. 12/22/2019 1 [place]: [facility] Spencer Roberson Jr [id number] Spencer Roberson Jr. Notes Date Note Type Note Provider Name and Address Organization Details Recorded Time 12/20/2016 text/html Diabetes f/upRep orted bypatient.Review finger sticks:Avg BG 145, Median 145, High 225, Low 91, tests 60 Context:normal range of home blood sugars (in the low 100s); seeing eye doctor regularly; checking feet regularly; not missing doses of medications;side effects from medications(diarrhea with increased dose of Metformin) Associated Symptoms:no dizziness; no sweats; no headaches; no confusion; no increased thirst; no increased appetite; no increased urination; no blurred vision; no calluses on feet;weight loss (4 lbs) Paulette Brooks MS, RDN, LDN, CDE [address] [place] [address], [phone], [facility] 12/20/2016 14:08:14 03/20/2017 text/html Duration of Diab etes: 10 years How detected: Routine blood tests Current treatment: Metformin 1 gm bid and onglyza 5 mg daily Diet: Now following a diet Exercise: gym 5 days per week - Work schedule: Retired Nutrition/CDE consult: Yes Finger stick glucose testing: Very good now Side effects of medications: Diarrhea Hypoglycemia and hypoglycemia unawareness: none Previous DKAs or hospitalization for diabetes mellitus: None Social limitations hampering control of diabetes mellitus: None Complications: None - Eye examinations: Done Dread Anton MD [address] [place] [address], [phone], [facility] 03/20/2017 14:54:28 10/02/2017 text/html DiabetesReported bypatient.Notes:Finger stick blood glucose review with meter download Yes>98% in range Last A1c: 6.3% Complaint with meds: Yes, taking metformin ER 2 tablets per day Complaint with diet: Yes Weight change: Lost some weight Exercise: Gym 7 days per week Hypoglycemia: None Hypoglycemia unawareness: NA Any new meds: None Any new symptoms: Diarrhea is better lower dose of metformin Last eye examination: December 2016 Side effects of medication: Significant change in the social history: Dread Anton MD [address] [place] [address], [phone], [facility]. 10/02/2017 10:44:12 01/07/2019 text/html [facility]Notes:Finger stick blood glucose review with meter [id number] mg/dL >98% in range Last A1c: 61% Complaint with meds: Yes, taking metformin ER 2 tablets per day, Onglyza Complaint with diet: Yes Weight change: Lost some weight Exercise: Gym 7 days per week Hypoglycemia: None Hypoglycemia unawareness: NA Any new meds: None Any new symptoms: Diarrhea is better lower dose of metformin Last eye examination: December 2016 Side effects of medication: Significant change in the social history: No change Preprandial dizziness Dread Anton MD [address] [place] [address], [phone], [facility]. 01/07/2019 14:21:05 12/22/2019 text/html This is a Telehe alth visit, via telephone. Patient understands the risks, benefits and limitations of this type of visit. Patient consents for this visit. This type of visit is being utilized as it was deemed higher risk for patient to come to office given the current risk of COVID-19/coronavirus infection. The patient is located in [place] at the time of this visit. Physician is located in [place], [place] at the time of this visit. Visit Began: 11.05 AM Visit Ended: 11.26 AM The following people were with the patient at time of this Telehealth visit: Patient onlyIn May 2019 he had acute coronary syndrome for which she underwent quadruple bypass. 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 He is fully recovered from this episode. He is fully functional She follows with me for type 2 diabetes mellitus. He is on saxagliptin for his diabetes. He checks his fingerstick blood glucose readings every day and her readings are somewhere around 125 mg/dL on an average. He reports no side effects from this medication. Reports no hypoglycemic episodes. His diabetes excellent. He exercises regularly. He denies any chest pain, shortness of breath, falls, urinary complaints, nausea, vomiting, diarrhea, constipation, nocturia, tingling, numbness, headache or skin rash. His vision is blurry because of cataracts. He is going to get it operated in [facility]. He has osteoarthritis for which he was getting intermittent steroid injection in his joints. He has not done it because of the pandemic? 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 The diabetes is under good control Dread Anton MD [address] [place] [address], [phone], [facility]. 12/22/2019 11:34:07
--- NOTE | 2024-07-23 13:51 | A.OFFVIS_ITS ---
Intake Visit Reasons: PO: R TKA w/ 05/04/24 Intake Note: Spencer is a 74 year old male who presents today post operatively s/p Right 05/04/24. The patient reports mild intermittent discomfort in his right knee. He is no longer taking narcotics for his discomfort. He continues to go to formal physical therapy at [facility]. Allergies adhesive tape Allergy (Intermediate, Verified 07/23/24 13:57) Rash bacitracin Allergy (Verified 07/23/24 13:57) Rash cefazolin Adverse Reaction (Severe, Verified 07/23/24 13:57) Rash clopidogrel [From Plavix] Adverse Reaction (Severe, Verified 07/23/24 13:57) Rash oxycodone Adverse Reaction (Verified 07/23/24 13:57) Hallucinations Medication List - Last Reconciled 07/24/24 by Jim Carrero MD acetaminophen 1,000 mg PO DAILY PRN amoxicillin 2,000 mg PO ONCE aspirin 325 mg PO BID 42 days aspirin (Adult Aspirin Regimen) 81 mg PO DAILY docusate sodium 100 mg PO BID PRN 30 days linagliptin (Tradjenta) 5 mg PO DAILY metformin ER 500 mg PO DAILY metoprolol succinate ER 25 mg PO DAILY oguiyzvsdbem-eaxnplei-gmblxj 1 tab PO DAILY rosuvastatin 5 mg PO DAILY valsartan 160 mg PO DAILY vit C,W-Qw-sysbf-lutein-zeaxan 250-90-40-1 mg (PreserVision AREDS-2) 2 tabs PO DAILY walker Folding front wheeled walker [facility] Medical History Skin cancer GERD (gastroesophageal reflux disease) Myocardial infarction Hemorrhoids Diverticulosis Peripheral neuropathy Right bundle branch block Microalbuminuria Cataracts, bilateral Tubular adenoma Diabetes Hearing loss Osteoarthritis Tobacco use disorder Obesity (BMI 30-39.9) Sleep apnea CAD (coronary artery disease) Syncope Pleural effusion Pacemaker Abnormal PFT Skin lesions HTN (hypertension) Macular degeneration of both eyes Surgical History History of nasal surgery Hx of bilateral cataract extraction Hx of tonsillectomy Hx of cholecystectomy Hx of appendectomy H/O colonoscopy Hx of CABG History of thoracentesis History of left knee replacement (~2013) History of left hip replacement (~2000) History of right hip replacement (~2000) Social History Household Members: Spouse Housing: House Housing Other:: stairs into house and within house Are you a primary patient care technician to a significant other at home: No Do you presently have visiting nurse or other home services: No Comment: pt rings appropriately Patient Tobacco Use Status: Former Tobacco user service: No Current occupational status: retired Physical Exam Extrem Other: Right knee examination shows that the surgical incision is well healed, no erythema, full active extension and flexion to 120 degrees, his patella tracks well Assessment & Plan Assessment & Plan (1) Right knee pain: Code(s): M25.561 - Pain in right knee Category: Medical Plan Mr. Roberson continues to do very well after undergoing right total knee replacement surgery on 05/04/2024. He will continue going to formal physical therapy for now. He will gradually transition to a home exercise program. He does know to take antibiotics before any dental work. He will call me prior to his follow-up appointment in 3 months should any questions or concerns arise. Coding Level of Care Code Global (17512) Diagnoses Right knee pain M25.561
== END 2024-07-23 14:24 | disposition home or self-care (01) ==
PROVIDERS: Visit Provider Orthopaedic Surgery
DX: M25.561 Pain in right knee (principal)
CPT/HCPCS: 99024

== ENCOUNTER → 2024-07-23 13:36 | Outpatient (BNVA) | payer MEDICARE, OTHER, SELFPAY | PROVIDERS: Visit Provider Orthopaedic Surgery | DX: M25.561 Pain in right knee (principal) | CPT/HCPCS: 99212 ==

== ENCOUNTER 2024-08-25 12:17 | Outpatient (AMB) | payer MEDICARE, OTHER, SELFPAY ==
--- NOTE | 2024-08-25 12:46 | MHC.OFFVIS ---
Vital Signs 08/25/24 12:53 Height 5 ft 10 in Weight 207 lb BMI 29.7 Intake Visit Reasons: OV- R TKA w/DR 05/04/24-follow up swelling Intake Note: Spencer is a 74 year old male who presents with complaints of intermittent swelling along his right lower leg. The patient did undergo right total knee replacement surgery on 05/04/2024. He denies any fevers or chills. Was recently an inpatient at [facility] for treatment of right lower extremity swelling and redness. The patient states that he was initially treated with IV antibiotics. He then developed a C diff infection and is due to discontinue his oral vancomycin 5 days from now. He continues with his physical therapy. He does not take any medicines for his discomfort. Allergies adhesive tape Allergy (Intermediate, Verified 08/25/24 12:46) Rash bacitracin Allergy (Verified 08/25/24 12:46) Rash cefazolin Adverse Reaction (Severe, Verified 08/25/24 12:46) Rash clopidogrel [From Plavix] Adverse Reaction (Severe, Verified 08/25/24 12:46) Rash oxycodone Adverse Reaction (Verified 08/25/24 12:46) Hallucinations Medication List - Last Reconciled 08/25/24 by Jim Carrero MD acetaminophen 1,000 mg PO DAILY PRN amoxicillin 2,000 mg PO ONCE aspirin 325 mg PO BID 42 days aspirin (Adult Aspirin Regimen) 81 mg PO DAILY docusate sodium 100 mg PO BID PRN 30 days linagliptin (Tradjenta) 5 mg PO DAILY metformin ER 500 mg PO DAILY metoprolol succinate ER 25 mg PO DAILY dyhigdbxrvqg-lyxoggjy-lvgisp 1 tab PO DAILY rosuvastatin 5 mg PO DAILY valsartan 160 mg PO DAILY vancomycin 125 mg PO QID vit C,U-Ql-aiyym-lutein-zeaxan 250-90-40-1 mg (PreserVision AREDS-2) 2 tabs PO DAILY walker Folding front wheeled walker [facility] Medical History Skin cancer GERD (gastroesophageal reflux disease) Myocardial infarction Hemorrhoids Diverticulosis Peripheral neuropathy Right bundle branch block Microalbuminuria Cataracts, bilateral Tubular adenoma Diabetes Hearing loss Osteoarthritis Tobacco use disorder Obesity (BMI 30-39.9) Sleep apnea CAD (coronary artery disease) Syncope Pleural effusion Pacemaker Abnormal PFT Skin lesions HTN (hypertension) Macular degeneration of both eyes Surgical History History of nasal surgery Hx of bilateral cataract extraction Hx of tonsillectomy Hx of cholecystectomy Hx of appendectomy H/O colonoscopy Hx of CABG History of thoracentesis History of left knee replacement (~2013) History of left hip replacement (~2000) History of right hip replacement (~2000) Social History Household Members: Spouse Housing: House Housing Other:: stairs into house and within house Are you a primary managed care coordinator to a significant other at home: No Do you presently have visiting nurse or other home services: No Comment: pt rings appropriately Patient Tobacco Use Status: Former Tobacco user service: No Current occupational status: retired Physical Exam Vital Signs: BMI result Body Mass Index 29.7 Const Other: Well-nourished well-developed very friendly male awake alert and oriented x3 in no acute distress Extrem Other: Bilateral lower extremity examination shows good capillary refill, no skin lesions noted, normal sensation light touch Right knee examination shows that the surgical incision is well healed, no erythema, range of motion from -3 degrees to 110 degrees with mild discomfort, no instability Right lower leg examination shows minimal redness, no open skin lesions, no calf tenderness Assessment & Plan Assessment & Plan (1) Right knee pain: Code(s): M25.561 - Pain in right knee Category: Medical Plan Mr. Da Olsen continues to do well after undergoing right total knee replacement surgery on 05/04/2024. At this point his right lower leg cellulitis is resolving. He will complete his course of oral vancomycin for treatment of C diff. he will contact me prior to his follow-up appointment in 3-4 weeks should any questions or concerns arise. Feel free to call me at any time should questions regarding his orthopedic management arise. I spent 21 minutes in reviewing the patient's records and imaging studies, seeing the patient and documenting in the medical record. Coding Level of Care Code Est Pt Level 3 (93023) Complex EM visit Add On G2211 Diagnoses Right knee pain M25.561
[2024-08-25 12:53] VITALS: BMI 29.7
--- OUTSIDE RECORDS SUMMARY | 2024-08-25 14:22 | XMS_ITS | Continuity of Care Document ---
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 Maker Name Role Phone John Child MD, Ada Primary Care Phys [facility] Encounter [facility] ACCT R [id number] Date(s): 08/13/24 - 08/16/[address] [address]- Discharge Disposition: A-D/C Home Attending Physician: Paris Villarreal MD Admitting Physician: Antonio Malhotra MD, Jesi Referring Physician: Not on Staff, Referring MD Encounter Type: Disch IP Allergies, Adverse Reactions, Alerts Substance Criticality Severity Reaction Reaction Severity Status bacitracin Unable to assess criticality Persistent Moderate Localized swelling Welt Active Plavix Rash Active oxyCODONE Unable to assess criticality Persistent Severe Hallucinations Altered mental status Active ceFAZolin Rash Active Adhesive Bandage Blisters Active Immunizations Given and Recorded Vaccine Date Status Refusal Reason SARS-CoV-2 (COVID-19) mRNA-1273 vaccine 11/03/20 G iven SARS-CoV-2 (COVID-19) mRNA-1273 vaccine 10/06/20 G iven Medications acetaminophen 325 mg oral tablet 975 mg, 3, tablet, By Mouth, Every 6 hours Start Date: 05/31/19 Status: Ordered Repeat number: 1 aspirin 81 mg oral tablet 1 tablet = 81 mg, By Mouth, Daily, # 30 tablet, 0 Refills, Maintenance, 06/03/19 1:57:54 PM EDT, Tablet, [facility], Replacement of previous 325mg aspirin Start Date: 06/03/19 Status: Ordered Quantity: 30.0 Unit: tablet Repeat number: 1 meloxicam 15 mg oral tablet 1 tablet = 15 mg, By Mouth, Daily, # 30 tablet, 0 Refills, Maintenance, 07/14/19 10:58:40 AM EST, Tablet Start Date: 07/14/19 Status: Ordered Quantity: 30.0 Unit: tablet Repeat number: 1 MetFORMIN (Eqv-Glucophage XR) 500 mg oral tablet, extended release 0 Refills, Maintenance, 10/22/23 10:31:00 AM EDT, Partial fill upon patient request if the prescription is for a schedule II opioid drug. Start Date: 10/22/23 Status: Ordered Repeat number: 1 Metoprolol Succinate ER 25 mg oral tablet, extended release TAKE 1 TABLET BY MOUTH DAILY Start Date: 08/13/24 Status: Ordered Repeat number: 1 Metoprolol Succinate ER 25 mg oral tablet, extended release 25 mg, XL Tablet, By Mouth, 08/16/24 9:00:00 AM EST Start Date: 08/16/24 Stop Date: 08/16/24 Status: Completed Repeat number: 1 PreserVision AREDS 2 oral capsule 1 capsule, By Mouth, 2 times a day, # 60 capsule, 0 Refills, Maintenance, 10/22/23 10:32:00 AM EDT, Capsule, Partial fill upon patient request if the prescription is for a schedule II opioid drug. Start Date: 10/22/23 Status: Ordered Quantity: 60.0 Unit: capsule Repeat number: 1 rosuvastatin 5 mg oral tablet TAKE 1 TABLET BY MOUTH DAILY Start Date: 08/13/24 Status: Ordered Repeat number: 1 Tradjenta 5 mg oral tablet 0 Refills, Maintenance, 10/22/23 10:32:00 AM EDT, Partial fill upon patient request if the prescription is for a schedule II opioid drug. Start Date: 10/22/23 Status: Ordered Repeat number: 1 valsartan 160 mg oral tablet Refills 0, Maintenance, 10/22/23 10:31:00 AM EDT, Partial fill upon patient request if the prescription is for a schedule II opioid drug. Start Date: 10/22/23 Status: Ordered Repeat number: 1 valsartan 160 mg oral tablet 160 mg, Tablet, By Mouth, 08/16/24 9:00:00 AM EST Start Date: 08/16/24 Stop Date: 08/16/24 Status: Completed Repeat number: 1 vancomycin 125 mg oral capsule = 125 mg, By Mouth, Every 6 hours, for 14 days, Doses over 125 mg require ID consult. Indication for Use: C. difficile colitis, # 56 capsule, 0 Refills, Acute 08/30/24 9:35:00 AM EST, 08/16/24 9:35:00 AM EST, Capsule, [id number], Partial fill upon patient request if the prescription is for a schedule II opioid drug., 178, cm, 08/16/24 7:04:00 EST, Height, 88, kg, 08/14/24 12:05:00 EST, Dry Weight Start Date: 08/16/24 Stop Date: 08/30/24 Status: Ordered Quantity: 56.0 Unit: capsule Repeat number: 1 vancomycin 125 mg oral capsule = 125 mg, By Mouth, Every 6 hours, for 14 days, Doses over 125 mg require ID consult. Indication for Use: C. difficile colitis, # 56 capsule, 0 Refills, Acute 09/13/24 9:35:00 AM EST, 08/30/24 9:35:00 AM EST, Capsule, [facility], Partial fill upon patient request if the prescription is for a schedule II opioid drug., 178, cm, 08/16/24 7:04:00 EST, Height, 88, kg, 08/14/24 12:05:00 EST,Dry Weight Start Date: 08/30/24 Stop Date: 09/13/24 Status: Ordered Quantity: 56.0 Unit: capsule Repeat number: 1 Problem List Condition Confirmation Course Effective Dates Status H ealth Status Informant Coronary atherosclerosis due to calcified coronary lesion Confirmed Active Results Radiology Reports * Exam Date Time Procedure Performing Provider Status 08/14/24 6:41 PM US Doppler Ext Lower Venous Right Angelika Francis; Auth (Verified) Notes: (US Doppler Ext Lower Venous Right) Reason For Exam: Pain/Tenderness Extremities RESULT: US Doppler Ext Lower Venous Right US Doppler Ext Lower Venous Right Reason: Pain Tenderness Extremities; Clinical Question(s): Thrombus COMPARISON: None IMAGING TECHNIQUE: Ultrasound of the veins from the groin through the calf was performed using grayscale, color, and spectral Doppler ultrasound assessing for complete compressibility and normal flowcharacteristics. FINDINGS: Common femoral vein: Patent. No thrombosis. Femoral vein: Patent. No thrombosis. Popliteal vein: Patent. No thrombosis. Gastrocnemius veins: The visualized portions are patent without evidence of thrombosis. Peroneal veins: The visualized portions are patent without evidence of thrombosis. Posterior tibial veins: The visualized portions are patent without evidence of thrombosis. Contralateral common femoral vein: Patent. No thrombosis. OTHER FINDINGS: IMPRESSION: No evidence of deep venous thrombosis. WSN: [id number] Ordering Physician: Cookie Carreno Dictated By: Osmar Zavaleta MD Dictated Date/Time: 08/14/24 9:30 pm Reviewed By: Osmar Zavaleta MD Signed By: Osmar Zavaleta MD Signed Date/Time: 08/14/24 9:30 pm Transcribed By: DL Transcribed Date/Time: 08/14/24 9:30 pm * Exam Date Time Procedure Performing Provider Status 08/14/24 11:40 AM Knee 3 Views Right Lydia Guzman [facility] (Verified) Notes: (Knee 3 Views Right) Reason For Exam: Pain RESULT: Knee 3 Views Right Knee 3 Views Right Reason: Pain; Clinical Question(s): Other:; infection COMPARISON: None available. FINDINGS: Status post total knee arthroplasty and patellar resurfacing. No acute fracture or malalignment. No evidence of hardware loosening. Small suprapatellar effusion. Scattered vascular calcification posterior to the knee with surgical clips along the posteromedial aspect of the knee. IMPRESSION: Small suprapatellar joint effusion. Postsurgical changes following total knee arthroplasty without evidence of hardware malfunction. Noradiographic evidence of osteomyelitis. WSN: [id number] Ordering Physician: Cookie Carreno Dictated By: Shawn Simms MD Dictated Date/Time: 08/14/24 2:26 pm Reviewed By: Shawn Simms MD Signed By: Shawn Simms MD Signed Date/Time: 08/14/24 2:26 pm Transcribed By: DL Transcribed Date/Time: 08/14/24 2:23 pm * Exam Date Time Procedure Performing Provider Status 08/13/24 8:[address] Head/Brain W/O Contrast Naseem Martinez ; Natty (Verified) Notes: (CT Head/Brain W/O Contrast) Reason For Exam: AMS;Other: RESULT: CT Head/Brain W/O Contrast Examination: Noncontrast head CT performed on 08/13/2024. History: Fall with inability to stand. Weakness. Technique and findings: Contiguous 5 mm axial images were obtained from the skull base to the vertex without intravenous contrast. A dose modulated weight-based protocol was used. There are no prior similar studies currently available for direct comparison. The visualized sinuses are free from disease. The ventricular system and subarachnoid spaces are within normal limits for the patient's age. There is a minimal degree of periventricular white matter low attenuation, consistent with chronic smallvessel ischemic disease. There is no intracranial hemorrhage, mass effect, or midline shift. No intra- or extra-axial fluid collections are identified. The osseous structures are unremarkable. Impression: There is no acute intracranial abnormality. WSN: [id number] Ordering Physician: Nessa Maldonado Dictated By: Babita Lowery MD Dictated Date/Time: 08/13/24 8:15 am Reviewed By: Babita Lowery MD Signed By: Babita Lowery MD Signed Date/Time: 08/13/24 8:15 am Transcribed By: DL Transcribed Date/Time: 08/13/24 8:14 am * Exam Date Time Procedure Performing Provider Status 08/13/24 8:[address] Abd/Pelvis W/ IV Contrast Only Murali Martinez (Verified) Notes: (CT Abd/Pelvis W/ IV Contrast Only) Reason For Exam: fever, abdominal distention?;Other: RESULT: CT Abd/Pelvis W/ IV Contrast Only CT Abd/Pelvis W/ IV Contrast Only Reason: Fever, abdominal distention TECHNIQUE: Spiral CT through the abdomen and pelvis with IV contrast formatted in 3 planes. 100 cc of Isovue 300 was administered intravenously. This study was performed without oral contrast. Weight-based protocol using automatic tube modulation was used to optimize exposure parameters. COMPARISON: None. FINDINGS: Hand Nailer View Findings, Lines and Tubes: Pacemaker wires present. Visualized Chest: Bibasilar lung atelectasis. No pleural effusion. The heart is normal in size. Coronary vascular calcification. No pericardial effusion. Diaphragm: Normal. Liver: Normal. Gallbladder: Absent consistent with prior cholecystectomy. Bile ducts: No biliary ductal dilation. Spleen: Normal. Pancreas: Normal. Adrenal glands: Normal. Kidneys and ureters: No hydronephrosis, stones, or suspicious masses. Simple appearing renal cysts are noted, requiring no dedicated follow up. Bladder: Normal. Reproductive organs: Unremarkable. Stomach, small bowel, and large bowel: Sigmoid colon diverticulosis without acute inflammatory change. Appendix: Not seen, but no evidence of appendicitis. Peritoneum and retroperitoneum: No ascites or pneumoperitoneum. There is mild mesenteric fat stranding in the left upper quadrant. Lymph nodes: Left upper quadrant mesenteric adenopathy measuring 1.4 cm. Blood vessels: Moderate atherosclerotic vascular calcification. No aortic aneurysm. No evidence of venous thrombosis. Abdominal and pelvic wall: Unremarkable. Bones: Bilateral hip arthroplasty. Multilevel degenerative changes in the spine. IMPRESSION: Nonspecific left upper quadrant mesenteritis with mesenteric fat stranding and mild mesenteric adenopathy. No obstruction or free air. Degenerative and postoperative changes. WSN: [id number] Ordering Physician: Nessa Maldonado Dictated By: Mohan Bran MD Dictated Date/Time: 08/13/24 8:22 am Reviewed By: Mohan Bran MD Signed By: Mohan Bran MD Signed Date/Time: 08/13/24 8:22 am Transcribed By: DL Transcribed Date/Time: 08/13/24 8:13 am * Exam Date Time Procedure Performing Provider Status 08/13/24 7:52 AM Chest 2 Views Frontal and Lat Dixie Parker; Auth (Verified) Notes: (Chest 2 Views Frontal and Lat) Reason For Exam: Shortness of Breath, Fever;Other: RESULT: Chest 2 Views Frontal and Lat Chest 2 Views Frontal and Lat Hx of Present Illness: Shortness of Breath, Fever; Clinical Question(s): Pneumonia COMPARISON: Multiple prior radiographs, most recent from 07/14/2019 CTA chest 06/12/2019. FINDINGS: LINES AND TUBES: Dual-lead left subclavian pacer/AICD wires are intact. LUNGS AND PLEURA: Clear lungs. Normal pulmonary vascularity. No pleural effusion. No pneumothorax. HEART, MEDIASTINUM AND BASILIO: Heart is normal in size. Normal mediastinal and hilar contour. Status post median sternotomy probable due to prior CABG. BONES AND SOFT TISSUES: Degenerative changes to the thoracic spine and glenohumeral joints without acute abnormality. Probable minimal calcific tendinitis and/or bursitis left shoulder. Cholecystectomy clips. IMPRESSION: No acute abnormality. I have personally reviewed the images and I agree with this report. WSN: [id number] Ordering Physician: Nessa Maldonado Dictated By: Vanessa Vega MD Dictated Date/Time: 08/13/24 8:04 am Reviewed By: Tommie Tejada MD, V Signed By: Tommie Tejada MD, V Signed Date/Time: 08/13/24 8:09 am Transcribed By: DL Transcribed Date/Time: 08/13/24 8:01 am Vital Signs Most recent to oldest [Reference Range]: 1 2 3 Height 178 cm (08/16/24 7:04 AM) 178 cm (08/16/24 3:48 AM) 178 cm (08/15/24 11:04 PM) Weight 88 kg (08/14/24 12:05 PM) Oxygen Saturation [94-100 %] 100 % (08/16/24 7:04 AM) 98 % (08/16/24 3:48 AM) 100 % (08/15/24 11:04 PM) Pulse Rate [55-90 bpm] 100 bpm *H* (08/16/24 8:03 AM) 67 bpm (08/16/24 7:04 AM) 65 bpm (08/16/24 3:48 AM) Body Mass Index [18.5-24.99 kg/m2] 27.77 kg/m2 *H* (08/14/24 12:05 PM) Blood Pressure [90-138/55-84 mm Hg] 172/70mm Hg *H* (08/16/24 8:04 AM) 172/70mm Hg *H* (08/16/24 8:03 AM) 172/70mm Hg *H* (08/16/24 7:04 AM) Respiratory Rate [16-30 br/min] 18 br/min (08/16/24 7:04 AM) 18 br/min (08/16/24 3:48 AM) 19 br/min (08/15/24 11:04 PM) Temperature [96.8-100.4 DegF] 98.5 DegF (08/16/24 7:04 AM) 98.0 DegF (08/16/24 3:48 AM) 97.6 DegF (08/15/24 11:04 PM) Mode of Delivery (Oxygen) Room air (08/16/24 7:04 AM) Room air (08/16/24 3:48 AM) Room air (08/15/24 11:04 PM) Blood pressure sites Arm, left (08/16/24 7:04 AM) Arm, left (08/15/24 11:04 PM) Arm, left (08/15/24 7:00 PM) Temperature Route Oral (08/16/24 7:04 AM) Oral (08/16/24 3:48 AM) Oral (08/15/24 11:04 PM) Dry Weight 88 kg (08/14/24 12:05 PM) Weight Obtained Via Bed scale (08/13/24 6:29 AM) Social History Social History Type Response Smoking Status Former smoker, quit more than 30 days ago; Tobacco user in household: No;Never; Type: Cigarettes; Other: quit 2016; Tobacco use times per day: Quit in 2017; Started at age: 18; Stopped at age: 67; entered on: 06/09/19 Sex Sex Representation Male (finding) Admission evaluation note * Nieves LAMB, Tian Harris: Osmar Santos MD: MODIFY Event Display: Admission Note Authored Date: [id number] Patient: ??TIAN DYER ? Age:??74 Years?Sex:??Male?:??1950?? Chief Complaint/Reason for Consultation Coming from home, reports pt got up to go to the bathroom and lower himself to the ground and had a BM. Pt did not remember event, was altered, possible L sided weakness. fast ED 2 History of Present Illness ?? 74-year-old male past medical history of CAD with CABG x 4 in 2019, pacemaker and recent history ofa tachyarrhythmia on interrogation started on metoprolol by cardiology, history of 2 local melanomas excised this year following Derm, severe osteoarthritis with history of bilateral total knee replacements most recently of the right knee in April of this year on chronic NSAID therapy, hypertension, type 2 diabetes not on insulin who presented to [facility] via EMS this morning with fever and altered mental status. ?? Patient was in usual state of health the night prior and went to bed with his .?? This morning,he woke up at around 5 or 6 AM to go to the bathroom, his noted that he was nonsensical in speech at that point in time when she asked where he was going.?? On his way to the bathroom, he started leaning against a laundry hamper and progressively leaned on it before following over at that timehaving loss of continence of his bowels with normal stool consistency per .?? There was never any loss of consciousness.?? He was stuck on the ground and she was unable to pick them up so called EMS.?? He continued to be confused and nonsensical back to normal. ?? In ED, patient was febrile 103 Tmax, normotensive, and has had 1 episode of tachycardia rate 102 otherwise normal heart rates.?? EKG with V paced rhythm without evidence of acute ischemia.?? CBC withmild leukocytosis of 15 with neutrophil predominance, mild thrombocytopenia platelet count of 140.?? INR 1.1.?? Comprehensive metabolic panel is widely normal.?? Lipase is normal at 28.?? NT proBNP mildly elevated at 930.?? Initial high sensitive troponin is 28 followed by 36.?? TSH 4.69 with euthyroid free T41.04.?? Influenza RSV and COVID-negative.?? Serum alcohol not detected.?? Urine studies with +1 albumin and no evidence of pyorrhea.?? He had chest x-ray demonstrating clear lung merino, CT head was nonacute, and he had CT abdomen pelvis which was widely normal other than nonspecific left upper quadrant inflammation of the mesenteric fat with mild mesenteric adenopathy noted.?? ED manage the patient with 1 dose of piperacillin/tazobactam, Tylenol for fever, and he received 500 mL liter bolus of normal saline. ?? On my assessment, the patient is alert and orientated.?? History reviewed at bedside with patient his , he seems to be a little bit foggy about what exactly happened this morning but she was able to collaborate history.?? He seems to be largely back to his cognitive baseline per .?? He has no acute complaints other than some chronic pain in his hands and also feels that his thighs are a bit sore after having significant rigors this morning which are no longer present.?? On broader review of history, no recent travel.?? One of his grandchildren was sick recently with an upper respiratory tract infection last week and they looked after the kids on this last Saturday but otherwise no sick contacts.?? No alcohol, ex-smoker greater than 20 years ago, no other substances.?? Good physical health, goes to the gym regularly with his partner and also attends PT for his osteoarthritis. ?? Review of Systems A full review of systems was completed and is otherwise negative except as mentioned in history of present illness. Objective Vital Signs?? Temperature:??102.9 DegF??High (08/13/24 11:40:00) Temperature Route: Oral (08/13/24 11:40:00) Pulse Rate: 83 bpm (08/13/24 11:53:00) Respiratory Rate: 18 br/min (08/13/24 11:53:00) Systolic Blood Pressure: 101 mm Hg (08/13/24 11:53:00) Diastolic Blood Pressure:??85 mm Hg??High (08/13/24 11:53:00) Blood pressure sites: Arm, right (08/13/24 11:53:00) Mean Arterial Pressure: 90 mm Hg (08/13/24 11:53:00) Pulse Pressure: 16 mm Hg (08/13/24 11:53:00) Oxygen Saturation: 99 % (08/13/24 11:53:00) Mode of Delivery (Oxygen): Room air (08/13/24 11:53:00) Early Warning Score: 6 (08/13/24 12:00:52) ? Intake/Output? No Data Available ? Physical Exam ?? General Appearance: The patient appears slightly red, but well. Cardiovascular: S1 and S2 heard with no M/R/G. No JVD. Respiratory: ??Breath sounds clear to auscultation bilaterally. Trace creps in lower lung merino. No orthopnea GI: Soft. Nontender and nondistended. Normal bowel sounds present throughout abdomen.?? MS:? Mildly tender joints in hand w/o??heat??or rubar, chronic per patient Knees are non-tender, non swollen and have full ROM?? There is a tiny scab??present over the RLQ??ant abdomen which patient and note has been present since April and occasionally bleeds - instructed??to f/u with Charge Poster?? Trace pitting edema??at mid calf ?? Neuro:?Speech slightly slurred because he does not have his top dentures in - says its normal speech.?5/5 power throughout, CN II-XII intact. Normal sensation Psych: Alert and oriented x3. Appropriate and pleasant. Lines: Peripheral IV in place.? Assessment/Plan ? 74-year-old male past medical history of CAD with CABG x 4 in 2018, pacemaker and recent history ofa tachyarrhythmia on interrogation started on metoprolol by cardiology, history of 2 local melanomas excised this year following Derm, severe osteoarthritis with history of bilateral total knee replacements most recently of the right knee in April of this year on chronic NSAID therapy, hypertension, type 2 diabetes not on insulin who presented to [facility] via EMS this morning with fever and altered mental status. ??He has an acute presentation of metabolic encephalopathy??from fever meeting sepsis criteria, without obvious source identified.?? His history is largely noncontr ibutory other than recently??sick grandchild with an upper respiratory tract infection, and the patient was well up to the night prior to presentation.?? He currently is without localizing symptoms, and while his CT abdomen pelvis found??a degree of mesenteric fat stranding in the left upper quadrant??with the degree of adenopathy, the patient's abdominal exam is completely benign and he is having no further GI symptoms since his initial??loss of bowel incontinence while encephalopathic this morning. ??He has??no risk factors??for bloodstream infection other than??a knee surgery in April currently with a benign exam.?Otherwise, chest x-ray is clear without evidence of pneumonia and his urine is without pyuria, no evidence of cellulitis and his??lower legs are of equal size without evidence of DVT or history to suggest thromboembolism.?? Suspect his acute illness is most likely due to??nonspecific viral infection, although given he meets??sepsis criteria??and his CT abdominal findings we will cover him empirically with piperacillin/tazobactam for??intra-abdominal infection coverage today. ??Should he remain well and his blood cultures continue to have no growth,??it would likely be reasonable to discharge him tomorrow??off of antibiotics altogether.?? While the patient meets sepsis criteria, we will not??aggressively volume resuscitate the patient as he already appears??better, he is normotensive without tachycardia, and he does have some evidence of trace volume overload although he is??certainly not in acute heart failure. ? Diagnoses Acute metabolic encephalopathy ??(G93.41) CAD (coronary artery disease) ??(I25.10) Confusion ??(R41.0) Fever ??(R50.9) History of melanoma ??(Z85.820) Leukocytosis ??(D72.829) Osteoarthritis ??(M19.90) Sepsis ??(A41.9) Stool incontinence ??(R15.9) T2DM (type 2 diabetes mellitus) ??(E11.9) ? Sepsis Fever Metabolic encephalopathy d/t fever+infection ?? Plan: -Cont pip-jose maria today to cover for possible intraabdominal infection -F/u sent blood cultures -Tylenol prn fever -Not having any symptoms of infectious gastroenteritis so will take off precautions -Okay for regular diet -Not sure what to make of his abdominal fat stranding w/ adenopathy - he has a benign exam w/o signs/symptoms of abdominal pathology. Suspect reactive fat stranding from a viral infection but covering w/ abx for today as above. Given hx of melanoma, not unreasonable to repeat CT scan with PCP in 6-8 weeks to ensure his adenopathy has resolved. -If fever breaks and he remains well w/o growth in cultures, could potentially go home tomorrow without further Abx. ? Elevated troponin History not congruent w/ ACS, EKG non-ischemic. Low delta; ACS r/o - demand from sepsis ?? Chronic/stable T2DM not on insulin?? - lispro SS, holding metformin and linagliptin CAD - ASA, rosuva 5 mg OA - holding home meloxicam HTN - given acute illness will hold his valsartan for today, restart if he were to become hypertensive. Will cont his metoprolol prescribed for a unspecified tachyarrhythmia by??his cards team Neuropathy - has chronic pains in sensory??territory of median nerve - has??nerve conduction studies w/ PCP??coming up soon Scan on abdomen -??Ongoing non-healing scab, he has a regular appt upcoming w/ derm and was instructed to bring it up to them ?excise/biopsy ? Quality: Full code Cardiac carb counting diet VTE: enoxaparin ?? Tian Pickett MD Internal Medicine PGY3; Pager: #[phone] ?? Precepted with attending physician,??Dr. Gracia ? Attending Attestation: I saw and examined independently and reviewed the chart on the day of service. ??I have discussed the case and its management??with the resident as documented in the resident note on the day of service.??I agree with the resident's note and plan as documented.?? Pt fully al ert and answering questions appropriately.?? Had fever with concern for sepsis.?? His confusion mayhave been metabolic encephalopathy in setting of infection.?? It is possible he has a viral gastrointestinal illness, unclear of significance of mesenteritis on ct abd..?? He has no abd symptoms and has a very benign abd exam.?? he has had some sick contacts with viral illnesses.?? Will monitor for signs/symptoms of infection and will continue zosyn until cultures return.?? He has had no chest pain to suggest mi.?? ECG vpaced.?? Osmar Gracia MD. ? Histories Allergies Allergies ?(Active and Proposed Allergies Only) Adhesive Bandage? (Severity: Unknown severity, Onset: Unknown) ?Reactions: Blisters Plavix? (Severity: Unknown severity, Onset: Unknown) ?Reactions: Rash ceFAZolin? (Severity: Unknown severity, Onset: Unknown) ?Reactions: Rash bacitracin? (Severity: Persistent Moderate, Onset: Unknown) ?Reactions: Welt, Localized swelling oxyCODONE? (Severity: Persistent Severe, Onset: Unknown) ?Reactions: Altered mental status, Hallucinations ? Past Medical History/Problem List Active Problems(2) Coronary atherosclerosis due to calcified coronary lesion Obese class I ? Past Surgical History CABG x 4 - Coronary artery bypass grafts x 4: 05/15/19 Pacemaker catheter, device Total knee replacement with constrained condylar knee prosthesis Cholecystectomy ? Social History Alcohol Details:??Use: Never. 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 Exercise Details:??Self assessment: Fair condition. Home/Environment Details:??Living situation: Home/Independent. ??Lives with: Spouse. Substance Abuse Details:??Use: Never. Tobacco Details:??Use: Former smoker, quit more than 30 days ago. ??Tobacco user in household: No. ??Other:quit 2016. ??Smokeless tobacco use: Never. ??Type: Cigarettes. ??Tobacco use times per day: Quit [id number]. ??Started at age: 18 Years. ??Stopped at age: 67 Years. ? Family History Father: Skin cancer ? Medications Home Medications Acetaminophen (acetaminophen 325 mg oral tablet)?975?Milligram?3?tablet?By Mouth?Every 6 hours Aspirin (aspirin 81 mg oral tablet)?1?tab(s)?81?Milligram?By Mouth?Daily Durable Medical Equipment (Pen [place], 31 G x 5 mm BD Ultra Fine III)?See Instructions?for 90?Days?use daily ??as directed for Type 2 Diabetes [id number] Meloxicam (meloxicam 15 mg oral tablet)?1?tab(s)?15?Milligram?By Mouth?Daily Metoprolol (Metoprolol Succinate ER 25 mg oral tablet, extended release)?TAKE 1 TABLET BY MOUTH DAILY Multivitamin With Minerals (PreserVision AREDS 2 oral capsule)?1?capsule?By Mouth?2 times a day Rosuvastatin (rosuvastatin 5 mg oral tablet)?TAKE 1 TABLET BY MOUTH DAILY ? Inpatient Medications Medications (18) Active SCHEDULED: (7) Aspirin 81 mg Chew Tablet (aspirin 81 mg oral tablet, chewable) ??81 mg, By Mouth, Daily Enoxaparin 40 mg Inj (Enoxaparin Inj) ??40 mg 0.4 mL, Subcutaneous Injection, Daily Insulin Lispro 100 units/mL Inj (Insulin LISPRO Sliding Scale) ??2-10 units, Subcutaneous Injection, 3 times a day before meals Metoprolol (Metoprolol Succinate ER 25 mg oral tablet, extended release) ??25 mg, By Mouth, Daily NaCl 0.9% Flush 3ml (NaCL 0.9% Flush) ??3 mL, IV Push, Every 8 hours Piperacillin/Tazobactam 3.375 Gm Inj (Zosyn Extended IVPB) ??3.375 Gm, IVPB, Every 8 hours Rosuvastatin 5 mg Tablet (rosuvastatin 5 mg oral tablet) ??5 mg, By Mouth, Daily CONTINUOUS: (0) PRN: (11) Acetaminophen 325 mg Tablet (acetaminophen 325 mg oral tablet) ??650 mg, By Mouth, Every 6 hours Dextrose Inj Syringe (Dextrose 50% Inj Syringe (25Gm)) ??12.5 Gm, IV Push Slowly, Every 20 minutes Dextrose Inj Syringe (Dextrose 50% Inj Syringe (25Gm)) ??25 Gm, IV Push Slowly, Every 15 minutes Docusate Sodium 100 mg Capsule (Docusate Sodium Capsule) ??100 mg 1 capsule, By Mouth, 2 times a day Glucagon 1 mg Inj (Glucagon Inj) ??1 mg, Intramuscular, Once Glucose 40% Gel (15 Gm) (Glucose Gel) ??15 Gm, By Mouth, Every 20 minutes Glucose 40% Gel (15 Gm) (Glucose Gel) ??30 Gm, By Mouth, Every 20 minutes Melatonin 3 mg Tablet (Melatonin Tablet) ??3 mg, By Mouth, Daily at bedtime NaCl 0.9% Flush 3ml (NaCL 0.9% Flush) ??3 mL, IV Push, Every 8 hours Polyethylene Glycol 17 Gm Powder (MiraLax Powder) ??17 Gm 1 pack/packet, By Mouth, Daily Senna Tablet ??8.6 mg 1 tablet, By Mouth, 2 times a day ? Results Recent Labs BLOOD COUNT & DIFF WBC 14.9 k/mm3 (High)?? 08/13/2024 06:24 RBC 4.59 m/mm3 (Low)?? 08/13/2024 06:24 Hgb 14.0 Gm/dL ()?? 08/13/2024 06:24 Hct 42.3 % ()?? 08/13/2024 06:24 MCV 92.2 femtoliters ()?? 08/13/2024 06:24 MCH 30.5 pg ()?? 08/13/2024 06:24 MCHC 33.1 Gm/dL ()?? 08/13/2024 06:24 Platelet Count 140 k/mm3 (Low)?? 08/13/2024 06:24 RDW-SD 49.1 femtoliters (High)?? 08/13/2024 06:24 MPV 9.9 femtoliters ()?? 08/13/2024 06:24 Nucleated RBC (Automated) 0.0 #/100 WBC'S ()?? 08/13/2024 06:24 Abs. NRBC 0.0 k/mm3 ()?? 08/13/2024 06:24 Abs. Neut 13.0 k/mm3 (High)?? 08/13/2024 06:24 Abs. Lymph 0.8 k/mm3 ()?? 08/13/2024 06:24 Abs. [place] 1.0 k/mm3 ()?? 08/13/2024 06:24 Abs. Eo 0.0 k/mm3 ()?? 08/13/2024 06:24 Abs. Baso 0.0 k/mm3 ()?? 08/13/2024 06:24 Neut % 87.0 % (High)?? 08/13/2024 06:24 Lymph % 5.3 % (Low)?? 08/13/2024 06:24 [place] % 6.7 % ()?? 08/13/2024 06:24 Eos % 0.3 % ()?? 08/13/2024 06:24 Baso % 0.3 % ()?? 08/13/2024 06:24 Imm Gran 0.4 % ()?? 08/13/2024 06:24 Abs. Imm Gran 0.1 k/mm3 ()?? 08/13/2024 06:24 ?? CARDIAC Nt-Probnp 933 pg/mL (High)?? 08/13/2024 06:24 High Sensitivity Troponin (HSTnT) 36 ng/L (High)?? 08/13/2024 08:36 ?? CHEM GENERAL Sodium 135 mmol/L ()?? 08/13/2024 06:24 Potassium 4.9 mmol/L ()?? 08/13/2024 06:24 Chloride 103 mmol/L ()?? 08/13/2024 06:24 Bicarbonate Level 18 mmol/L (Low)?? 08/13/2024 06:24 Anion Gap 14 ()?? 08/13/2024 06:24 Glucose Level 219 mg/dL (High)?? 08/13/2024 06:24 Glucose, POC 166 mg/dL (High)?? 08/13/2024 11:56 BUN 35 mg/dL (High)?? 08/13/2024 06:24 Creatinine-Blood 1.09 mg/dL ()?? 08/13/2024 06:24 Estimated GFR Creatinine 70 ML/MIN/1.73 M2 ()?? 08/13/2024 06:24 Calcium 9.3 mg/dL ()?? 08/13/2024 06:24 Calcium, Ionized pH Corrected 1.25 mmol/L ()?? 08/13/2024 06:24 Magnesium 1.8 mg/dL ()?? 08/13/2024 06:24 Protein, Total 7.0 Gm/dL ()?? 08/13/2024 06:24 Albumin 3.9 Gm/dL ()?? 08/13/2024 06:24 AG Ratio 1.3 ()?? 08/13/2024 06:24 Alkaline Phosphatase 95 units/L ()?? 08/13/2024 06:24 Lipase 28 units/L ()?? 08/13/2024 06:24 AST (SGOT) 28 units/L ()?? 08/13/2024 06:24 ALT (SGPT) 16 units/L ()?? 08/13/2024 06:24 Bilirubin, Total 0.5 mg/dL ()?? 08/13/2024 06:24 Lactate 1.9 mmol/L ()?? 08/13/2024 06:24 ?? COAG INR 1.1 ()?? 08/13/2024 06:24 Protime (PT) 11.9 seconds (High)?? 08/13/2024 06:24 ?? ENDOCRINE/TUMOR MARKER TSH 4.69 uIU/mL (High)?? 08/13/2024 06:24 Free T4 1.03 ng/dL ()?? 08/13/2024 06:24 ?? TOXICOLOGY/TDM Ethanol, Serum or Plasma NONE DETECTED mg/dL ()?? 08/13/2024 06:24 ?? UA/URINALYSIS Appear/Color, Urine LIGHT YELLOW ()?? 08/13/2024 05:57 Specific [place], Urine 1.015 ()?? 08/13/2024 05:57 pH, Urine 6.5 ()?? 08/13/2024 05:57 Albumin, Urine 1+ (Abnormal)?? 08/13/2024 05:57 Glucose, Urine NEGATIVE ()?? 08/13/2024 05:57 Ketones, Urine NEGATIVE ()?? 08/13/2024 05:57 Bilirubin, Urine NEGATIVE ()?? 08/13/2024 05:57 Hemoglobin, Urine NEGATIVE ()?? 08/13/2024 05:57 Nitrite, Urine NEGATIVE ()?? 08/13/2024 05:57 Leukocyte, Urine NEGATIVE ()?? 08/13/2024 05:57 Urobilinogen NORMAL mg/dL ()?? 08/13/2024 05:57 WBC's, Urine 1 /HPF ()?? 08/13/2024 05:57 RBC's, Urine 2 /HPF ()?? 08/13/2024 05:57 Squamous Epith 1 /HPF ()?? 08/13/2024 05:57 Mucus SLIGHT /LPF ()?? 08/13/2024 05:57 Hold Urine Culture Testing available 48 hours from time of collection. ()?? 08/13/2024 05:57 ?? VIROLOGY Influenza A PCR NEGATIVE ()?? 08/13/2024 06:28 Influenza B PCR NEGATIVE ()?? 08/13/2024 06:28 RSV PCR NEGATIVE ()?? 08/13/2024 06:28 COVID-19 PCR Specimen Source NASAL ()?? 08/13/2024 06:28 COVID-19 PCR Result NEGATIVE ()?? 08/13/2024 06:28 ? EKG study * Event Display: ECG 12-Lead Authored Date: Please click on pdf link to open report * Event Display: ECG 12-Lead Authored Date: Ventricular Rate: 85 BPM Atrial Rate: 85 BPM P-R Interval: 182 ms QRS Duration: 166 ms Q-T Interval: 388 ms QTC Calculation(Bazett): 461 ms P [place]: 89 degrees R [place]: -59 degrees T [place]: 113 degrees Atrial-sensed ventricular-paced rhythm Abnormal ECG When compared with ECG of 12-Jun-2019 10:57, Vent. rate has increased by 23 bpm Confirmed by Xander Hinton ([id number]) on 08/14/2024 6:58:01 AM [place]: Xander Hinton [facility] Progress note * Liss Obrien RN: SIGN, MODIFY, PERFORM, SIGN, VERIFY Event Display: [facility] Authored Date: Patient: TIAN DYER Age: 74 years Sex: Male : 1950 Associated Diagnoses: None Author: Liss Obrien RN Findings Problem Related to Alteration in Gastrointestinal : Alteration in Gastrointestinal Func/new 08/16/2024 8:19 EST Alteration in GI status Related to C Diff, Diarrhea Goals & Outcomes, Gastrointestinal Establish a regular pattern of elimination for pt, Nutritional intake is adequate for metabolic needs, Pt will achieve normal/improved fluid balance, Pt will have a bowel movement prior to discharge, Pt will maintain adequate GI function appropriate for pt, Ptwill maintain normal elimination patterns, Pt will resume/maintain adequate hemodynamic status, Pt w ill tolerate age appropriate diet prior to discharge, Pt will experience a decrease in diarrhea Interventions, Gastrointestinal Assess/monitor abdomen for distention, tenderness, Assess/monitor abdominal girth & bowel function, Assess/monitor bowel pattern, bowel sounds, flatus, Assess/monitor number of bowel movements, Assess/monitor color, quantity, quality, consistency of stoo, Assess/monitor pt for nausea, vomiting, Assess/monitor effects of re-hydration, Assess/monitor intake &output, Assess if pt tolerating diet, DVT prophylaxis as ordered, Elevate HOB to facilitate lung expansion, prevent aspiration, Establish toileting schedule for patient, Taking PO: Encourage/monitor intake & swallowing ability, Provide info on community resources for education, support, Teach Pt /caregiver diet & give copy of dietary instructions, Teach Pt/caregiver on bowel elimination interventions, Teach Pt/caregiver re: importance of bowel regime, Teach Pt/caregiver re: nutritional intake & dietary restrict, Teach/encourage deep breath & cough exercises, Teach/encourage useof incentive spirometer, Assess & monitor effectiveness of antibiotics, Encourage PO fluids, Isolation as per policy Goals/Interventions, Gastrointestinal Yes Gastrointestinal, Problem Start 08/15/2024 13:11 Reviewed plan with, Gastrointestinal Patient Patient Progression, Gastrointestinal Pt progressing according to plan . Nursing Data Vital Signs : VITAL SIGNS SECTION 08/16/2024 7:04 EST Temperature 98.5 DegF Temperature Route Oral Pulse Rate 67 bpm Respiratory Rate 18 br/min Systolic Blood Pressure 172 mm Hg H Diastolic Blood Pressure 70 mm Hg Blood pressure sites Arm, left Mean Arterial Pressure 104 mm Hg Pulse Pressure 102 mm Hg Oxygen Saturation 100 % Mode of Delivery (Oxygen) Room air . Narrative/Incidental P- See problems in care plans I- See interventions in care plans E- Care assumed 0600 VSS afebrile. Pt is alert and orientedx4. No confusion noted. Last BM 08/15. Abdsoft non tender +BS no n/v, pt also states his acid reflux feels better this AM. Pt is on tele V paced 60s-70s. No SOB no CP. Pt is also voiding with urinal without difficulty. urine is clear/yellow.NS w/20meq K infusing 75cc/hr. Pt denies all pain. Blood sugar monitored AC HS, no coverage needed this AM. RN updated pt and with plan of care, contact precautions remain in place, nsg will continue to monitor.. * Liss Obrien RN: PERFORM Event Display: Progress Note Hospital Authored Date: [id number] RN reviewed DC instructions with pt and pt's . Both verbalized understanding of prescription and f/u appt. Pt says he does out pt PT and does not want any therapy in his home. * Leanna Bridges RN: PERFORM, SIGN, VERIFY, MODIFY, SIGN Event Display: Progress Note Hospital Authored Date: [id number] Patient: TIAN DYER Age: 74 years Sex: Male : 1950 Associated Diagnoses: None Author: Leanna Bridges RN Findings Problem Related to Alteration in Gastrointestinal : Alteration in Gastrointestinal Func/new 08/15/2024 20:00 EST Alteration in GI status Related to C Diff, Diarrhea Goals & Outcomes, Gastrointestinal Establish a regular pattern of elimination for pt, Nutritional intake is adequate for metabolic needs, Pt will achieve normal/improved fluid balance, Pt will have a bowel movement prior to discharge, Pt will maintain adequate GI function appropriate for pt, Ptwill maintain normal elimination patterns, Pt will resume/maintain adequate hemodynamic status, Pt w ill tolerate age appropriate diet prior to discharge, Pt will experience a decrease in diarrhea Interventions, Gastrointestinal Assess/monitor abdomen for distention, tenderness, Assess/monitor abdominal girth & bowel function, Assess/monitor bowel pattern, bowel sounds, flatus, Assess/monitor number of bowel movements, Assess/monitor color, quantity, quality, consistency of stoo, Assess/monitor pt for nausea, vomiting, Assess/monitor effects of re-hydration, Assess/monitor intake &output, Assess if pt tolerating diet, DVT prophylaxis as ordered Goals/Interventions, Gastrointestinal Yes Gastrointestinal, Problem Start 08/15/2024 13:11 Reviewed plan with, Gastrointestinal Patient Patient Progression, Gastrointestinal Pt progressing according to plan . Narrative/Incidental A&Ox4. Paced in the 60's on tele denied all cardiac s/s, PPM present. Pt denied of any and all pain. LS clear all lobes bilat on RA no cough or SOB noted, encouraging use of Incentive Spirometer.Pt has been urinating in the urinal observed clear yellow urine w/o complications had x1 episode ofurinary incontinence in which perineal/incontinence care was provided by staff, please refer to Interactive Flowsheets for accurate I&O measurements. Skin is C/D/I. Pt has ordered NA 0.9% with 20mEq of Potassium infusing into peripheral IV as ordered, please refer to orders and flowsheets for further information. Pt is resting/sleeping in bed comfortably callbell is within reach and bed is inthe lowest locked position for safety. Will report any changes PRN.. Evaluation P: Alteration in Gastronintestinal I: As stated above in POC E: + C-diff 08/15 on Contact precautions per protcol proper PPE worn during all Pt care. BS present x4 abdomen is round soft and non-tender, good PO intake denied c/o N/V reported just uneasy belly andindigestion in which Simethicone, Pepcid and Tums were administered. LBM 1/4 during day shift and has had x1 stool smear approx 0100 in which incontinence care was provided. Pt is on PO Vanco Q6H, lamar erating well. . * Liss Obrien RN: PERFORM, SIGN, VERIFY Event Display: Progress Note Hospital Authored Date: Patient: TIAN DYER Age: 74 years Sex: Male : 1950 Associated Diagnoses: None Author: Liss Obrien RN Findings Problem Related to Alteration in Gastrointestinal : Alteration in Gastrointestinal Func/new 08/15/2024 13:11 EST Alteration in GI status Related to C Diff, Diarrhea Goals & Outcomes, Gastrointestinal Establish a regular pattern of elimination for pt, Nutritional intake is adequate for metabolic needs, Pt will achieve normal/improved fluid balance, Pt will have a bowel movement prior to discharge, Pt will maintain adequate GI function appropriate for pt, Ptwill maintain normal elimination patterns, Pt will resume/maintain adequate hemodynamic status, Pt w ill tolerate age appropriate diet prior to discharge, Pt will experience a decrease in diarrhea Interventions, Gastrointestinal Assess/monitor abdomen for distention, tenderness, Assess/monitor abdominal girth & bowel function, Assess/monitor bowel pattern, bowel sounds, flatus, Assess/monitor number of bowel movements, Assess/monitor color, quantity, quality, consistency of stoo, Assess/monitor pt for nausea, vomiting, Assess/monitor effects of re-hydration, Assess/monitor intake &output, Assess if pt tolerating diet, DVT prophylaxis as ordered, Elevate HOB to facilitate lung expansion, prevent aspiration, Establish toileting schedule for patient, Taking PO: Encourage/monitor intake & swallowing ability, Provide info on community resources for education, support, Teach Pt /caregiver diet & give copy of dietary instructions, Teach Pt/caregiver on bowel elimination interventions, Teach Pt/caregiver re: importance of bowel regime, Teach Pt/caregiver re: nutritional intake & dietary restrict, Teach/encourage deep breath & cough exercises, Teach/encourage useof incentive spirometer Goals/Interventions, Gastrointestinal Yes Gastrointestinal, Problem Start 08/15/2024 13:11 Reviewed plan with, Gastrointestinal Patient Patient Progression, Gastrointestinal Plan Initiation . Nursing Data Vital Signs : VITAL SIGNS SECTION 08/15/2024 12:00 EST Temperature 98 DegF Temperature Route Oral Pulse Rate 65 bpm Respiratory Rate 18 br/min Systolic Blood Pressure 161 mm Hg H Diastolic Blood Pressure 60 mm Hg Blood pressure sites Arm, left Mean Arterial Pressure 94 mm Hg Pulse Pressure 101 mm Hg Oxygen Saturation 100 % Mode of Delivery (Oxygen) Room air . Narrative/Incidental P- See problems in care plans I- See interventions in care plans E- Care assumed 0600 VSS afebrile. Pt is alert and orientedx4. No confusion noted. Pt was found to be in a lot of stool this AM with a rectal tube in place. RN notified covering MD that stool may notbe liquidy enough to justify a rectal tube as the entire system was clogged and coming out the sides of the rectal tube. TUbe then DC'd this AM and pt tolerated removal well as 45cc was removed from balloon via a syringe. Bed linens changed and bed bath done. Pt is on tele V paced 60s-70s. No SOB no CP. Abd sofft non tender +BS tolerating diet. no n/v but pt reports stomach acid build up which ptreported to MD but still awiating antacid orders. Stool sample sent this AM as sample for CDiff wasordered or sent to lab. Pt has been having multiple loose brown stool this AM. Pt is also voiding with urinal without difficulty. urine is clear/yellow. LR infusing 75cc/hr. Pt denies all pain. Bloodsugar monitored AC HS and covered per Sliding scale. RN updated pt and with plan of care, contact precautions remain in place, nsg will continue to monitor. . Note * Liss Obrien RN: PERFORM Event Display: Discharge/Transfer Note Hospital Authored Date: [id number] Nursing Discharge Note Entered On: 08/16/2024 13:56 EST Performed On: 08/16/2024 13:55 EST by Liss Obrien RN Nursing Discharge Note 2 Discharge Time : 08/16/2024 13:39 EST Discharge Level of Care at Discharge : Home/Correction/Foster Care Patient Left Unit Via : Wheelchair Patient Accompanied Off Unit with : Significant other DC Instructions Provided & Signed by Pt : Yes Patient Understands D/C Instructions : Yes Patient Instructions Discharge Signed : Yes Did Pt have Specialty Bed or Wound Vac : No Micah DIOR, Liss - 08/16/2024 13:55 EST * Paris Villarreal MD: PERFORM, SIGN, VERIFY Event Display: Discharge/Transfer Note Hospital Authored Date: [id number] Patient: TIAN DYER Age: 74 years Sex: Male : 1950 Associated Diagnoses: None Author: Paris Villarreal MD Discharge Information Admission Date: 08/13/2024 Discharge Date 08/16/2024 Primary Care Provider John Child MD, Ada Principal Discharge Diagnosis C. difficile colitis: Present on admission - yes. DEMETRIUS (acute kidney injury): Present on admission - yes. Acute metabolic encephalopathy: Present on admission - yes. Secondary Discharge Diagnoses Tachyarrhythmia: Present on admission - yes. T2DM (type 2 diabetes mellitus): Present on admission - yes. Pacemaker: Present on admission - yes. Osteoarthritis: Present on admission - yes. Hypertension: Present on admission - yes. Hx of CABG: Present on admission - yes. History of melanoma: Present on admission - yes. CAD (coronary artery disease): Present on admission - yes. Medications (Selected) Prescriptions Prescribed aspirin 81 mg oral tablet: 1 tablet = 81 mg, By Mouth, Daily, # 30 tablet, 0 Refills, Maintenance, 06/03/19 13:57:54 EDT, Tablet, Replacement of previous 325mg aspirin vancomycin 125 mg oral capsule: = 125 mg, By Mouth, Every 6 hours, for 14 days, Doses over 125 mg require ID consult. Indication for Use: C. difficile colitis, # 56 capsule, 0 Refills, Acute 259:35:00 EST, 08/16/24 9:35:00 EST, Capsule, [id number], Partial fi... Documented Medications Documented MetFORMIN (Eqv-Glucophage XR) 500 mg oral tablet, extended release: 0 Refills, Maintenance, 10/22/23 10:31:00 EDT, Partial fill upon patient request if the prescription is for a schedule II opioid drug. Metoprolol Succinate ER 25 mg oral tablet, extended release: TAKE 1 TABLET BY MOUTH DAILY PreserVision AREDS 2 oral capsule: 1 capsule, By Mouth, 2 times a day, # 60 capsule, 0 Refills, Maintenance, 10/22/23 10:32:00 EDT, Capsule, Partial fill upon patient request if the prescription is for a schedule II opioid drug. Tradjenta 5 mg oral tablet: 0 Refills, Maintenance, 10/22/23 10:32:00 EDT, Partial fill upon patient request if the prescription is for a schedule II opioid drug. acetaminophen 325 mg oral tablet: 975 mg, 3, tablet, By Mouth, Every 6 hours meloxicam 15 mg oral tablet: 1 tablet = 15 mg, By Mouth, Daily, # 30 tablet, 0 Refills, Maintenance, 07/14/19 10:58:40 EST, Tablet rosuvastatin 5 mg oral tablet: TAKE 1 TABLET BY MOUTH DAILY valsartan 160 mg oral tablet: Refills 0, Maintenance, 10/22/23 10:31:00 EDT, Partial fill upon patient request if the prescription is for a schedule II opioid drug.. Medications Started PO Vanc Hospital Course Hospital Course 74-year-old male past medical history of CAD with CABG x 4 in 2019, s/p PPM and recent history of atachyarrhythmia on interrogation -> started on metoprolol by cardiology, H/of 2 local melanomas excised this year, severe osteoarthritis s/p bilateral TKA, HTN, T2DM, who presented to [facility] via EMS with fever, diarrhea and altered mental status. C. difficile colitis (A04.72): . Acute metabolic encephalopathy (G93.41): UA negative, flu/RSV/COVID-negative. Resp pathogen panel PCR negative. GI PCR negative. Chest x-ray showed no acute abnormality. CT abdomen showed left upper quadrant mesenteritis. CT head negative. Pt is using periop abrx. Had recent TKA 04/2024. - Home C diff precautions - PO Vanc 125 mg qid x 14 days - Probiotics (e.g. yoghurt or pickles) once off PO Vanc DEMETRIUS (acute kidney injury) (N17.9): Baseline Cr 1.0. Peak 1.34. Now 1.12 Likely due to dehydration due to diarrhea. Improving with IVF. - IVF - Monitor BMP on Valsartan CAD (coronary artery disease) (I25.10): . Hx of CABG (Z95.1): . Tachyarrhythmia (R00.0): . Pacemaker (Z95.0): . Hypertension (I10): - ASA, Valsartan, Metoprolol, Rosuvastatin T2DM (type 2 diabetes mellitus) (E11.9): - Metformin and Linagliptin. History of melanoma (Z85.820): S/p excision. F/u with Derm. Osteoarthritis (M19.90): S/p bilateral TKA. Meloxicam. General Appearance NAD. Not dyspneic. Not fatigued. Not ill-appearing. HEENT Moist mucous membranes. Respiratory Lungs: CTA. Cardiac Cardiac: no M/G/R. Rhythms: RRR. Abdomen/GI Abdomen: soft, non-tender, non-distended, bowel sounds. Extremities No edema. Neurologic Alert & oriented x 4 . Results Laboratory : LABORATORY 08/15/2024 8:35 EST C.difficile Toxin POSITIVE C. Difficile Toxin by PCR POSITIVE Adenovirus by PCR NEGATIVE Coronavirus 229E by PCR (not COVID-19) NEGATIVE Coronavirus HKU1 by PCR (not COVID-19) NEGATIVE Coronavirus NL63 by PCR (not COVID-19) NEGATIVE Coronavirus OC43 by PCR (not COVID-19) NEGATIVE Human Metapneumovirus by PCR NEGATIVE Rhinovirus/Enterovirus by PCR NEGATIVE Influenza A by PCR NEGATIVE Influenza B by PCR NEGATIVE Parainfluenza 1 by PCR NEGATIVE Parainfluenza 2 by PCR NEGATIVE Parainfluenza 3 by PCR NEGATIVE Parainfluenza 4 by PCR NEGATIVE RSV by PCR NEGATIVE Bordetella Pertussis by PCR NEGATIVE Chlamydophila Pneumoniae by PCR NEGATIVE Mycoplasma Pneumoniae by PCR NEGATIVE COVID-19 (SARS-CoV-2) by PCR NEGATIVE Bordetella Parapertussis by PCR NEGATIVE 08/15/2024 1:21 EST Sodium 132 mmol/L L Potassium 3.9 mmol/L Chloride 101 mmol/L Bicarbonate Level 18 mmol/L L Anion Gap 13 Glucose Level 144 mg/dL H BUN 35 mg/dL H Creatinine-Blood 1.12 mg/dL Calcium 8.1 mg/dL L CK, Total 621 units/L H 08/15/2024 1:20 EST WBC 12.5 k/mm3 H Hgb 12.4 Gm/dL L Hct 37.1 % L Platelet Count 104 k/mm3 L 08/14/2024 6:14 EST Sodium 136 mmol/L Potassium 4.2 mmol/L Chloride 104 mmol/L Bicarbonate Level 19 mmol/L L Anion Gap 13 Glucose Level 159 mg/dL H BUN 39 mg/dL H Creatinine-Blood 1.34 mg/dL H CK, Total 839 units/L H 08/13/2024 8:36 EST High Sensitivity Troponin (HSTnT) 36 ng/L H 08/13/2024 6:37 EST Blood Cult 2 Results Preliminary report Blood Culture 2 Specimen Source BLOOD Blood Culture 2 Isolate 1 Comment (Modified) 08/13/2024 6:28 EST Influenza A PCR NEGATIVE Influenza B PCR NEGATIVE RSV PCR NEGATIVE COVID-19 PCR Result NEGATIVE 08/13/2024 6:24 EST WBC 14.9 k/mm3 H Hgb 14.0 Gm/dL Hct 42.3 % Platelet Count 140 k/mm3 L INR 1.1 Sodium 135 mmol/L Potassium 4.9 mmol/L Chloride 103 mmol/L Bicarbonate Level 18 mmol/L L Anion Gap 14 Glucose Level 219 mg/dL H BUN 35 mg/dL H Creatinine-Blood 1.09 mg/dL Calcium, Ionized pH Corrected 1.25 mmol/L Magnesium 1.8 mg/dL Alkaline Phosphatase 95 units/L Lipase 28 units/L AST (SGOT) 28 units/L ALT (SGPT) 16 units/L Bilirubin, Total 0.5 mg/dL Lactate 1.9 mmol/L Nt-Probnp 933 pg/mL H High Sensitivity Troponin (HSTnT) 28 ng/L H TSH 4.69 uIU/mL H Free T4 1.03 ng/dL Ethanol, Serum or Plasma NONE DETECTED mg/dL Blood Culture Results Preliminary report Blood Culture Specimen Source BLOOD Blood Culture Isolate 1 Comment (Modified) 08/13/2024 5:57 EST Appear/Color, Urine LIGHT YELLOW Specific [place], Urine 1.015 pH, Urine 6.5 Albumin, Urine 1+ Glucose, Urine NEGATIVE Ketones, Urine NEGATIVE Bilirubin, Urine NEGATIVE Hemoglobin, Urine NEGATIVE Nitrite, Urine NEGATIVE Leukocyte, Urine NEGATIVE Urobilinogen NORMAL mg/dL WBC's, Urine 1 /HPF RBC's, Urine 2 /HPF Squamous Epith 1 /HPF Mucus SLIGHT /LPF Hold Urine Culture Testing available 48 hours from time of collection. . Imaging : RADIOLOGY 08/14/2024 11:40 EST Knee 3 Views Right Knee 3 Views Right 08/13/2024 8:[address] Head/Brain W/O Contrast CT Head/Brain W/O Contrast CT Abd/Pelvis W/ IV Contrast Only CT Abd/Pelvis W/ IV Contrast Only 08/13/2024 7:52 EST Chest 2 Views Frontal and Lat Chest 2 Views Frontal and Lat . Discharge Plan Diet/Activity/Patient Education/Follow Up Follow Up with: Ada Child Within 2 to 3 days. Discharge Disposition Discharge: home. Code Status: Full Code. Discharge Condition: good, compared to admission improved. 35 minutes spent on discharge * Liss Obrien RN: PERFORM, MODIFY Event Display: Patient Education/Instruction Authored Date: [id number] Inpatient Adult Discharge Instructions. [address] [address] Name: TIAN DYER : 1950?? Visit: 08/13/2024 10:50?? Current Date: 08/16/2024 10:25 ?? Account: [id number]?? Inpatient Adult Discharge Instructions We would like to thank you for allowing us to assist you with your healthcare needs. The following includes patient education materials and information regarding your injury/illness. Our entire staffstrives to provide an excellent experience for our patients and their families. PLEASE ENSURE YOU FOLLOW-UP PER THE INSTRUCTIONS BELOW! ?? YOUR OPINION IS IMPORTANT TO US! Please complete the survey you may receive by mail or email. Your feedback will be used to make improvements to the healthcare experiences of our patients and their families. Surveys are administered by [employer] ?? If further treatment with your primary care physician or another doctor is recommended, it is important for you to keep the appointment. Call your primary care physician or return to the Emergency Department immediately if your condition worsens, fails to improve, or new symptoms develop. If you need to find a doctor, you can call [facility] for a referral at [phone] or toll free at [email or web address] [phone]) or log in to [email or web address].. ?? [facility], in keeping with [facility] guidance, no longer requires face masks for staff, patientsor visitors in most situations. Similiar to time spent indoors at other locations, there is the chance that you were exposed to repiratory viruses during your time with us (such as flu or COVID-19). If you develop symptoms concerning for a viral respiratory infection, please seek testing (and treatment if indicated) from your medical provider or home test kit. ?? You can view and manage your care through the patient portal or by using a health care kiki of your choosing. [employer] is a website that allows you to securely view your medical information including your hospital discharge summary, office visit summaries, medications and follow-up visits. You can also request appointments, renew medications, and request access to your medical information using a health care kiki of your choosing, or just ask a question. You can enroll at [email or web address] or register during your next office visit. You have been discharged from [facility], Patient Care Unit: SW7??. If you have any questions regarding these instructions, including results of studies pending, afteryou leave, please call us and we will be happy to assist you 04/03. [facility] Your Care Team Attending Physician Paris Villarreal MD?? Consulting Providers Paris Villarreal MD?? Discharging Providers Paris Villarreal MD Reason for Your Visit Coming from home, reports pt got up to go to the bathroom and lower himself to the ground and had a BM. Pt did not remember event, was altered, possible L sided weakness. fast ED 2?? Your Diagnosis C. difficile colitis Pacemaker Tachyarrhythmia Hx of CABG Acute metabolic encephalopathy DEMETRIUS (acute kidney injury) CAD (coronary artery disease) History of melanoma Hypertension Osteoarthritis T2DM (type 2 diabetes mellitus) Tests Performed Below is a partial list of the tests performed during your hospitalization. You may have had other tests and procedures not included in this list. Please discuss all test results with your provider. Alcohol Level Basic Metabolic Panel?-- Results Pending -- Blood Culture Blood Culture #2 Blood Culture 2 Results Blood Culture Result C diff PCR, w Rfx Toxin/Ag C. DIFFICILE TOXIN Calcium Ionized CBC Comprehensive Metabolic Panel COVID-19, RSV, and Flu A/B, Rapid PCR CPK Total Only FREE T4 GI Profile, Stool, PCR GLUCOSE POC High??Sensitivity??Troponin T INR Lactate Level Lipase Magnesium Level ProBNP Respiratory Pathogen PCR with COVID-19 Troponin T, High Sensitivity TSH with T4 Reflex (Adults Only) Urinalysis w/hold for Urine Culture CT Abd/Pelvis W/ IV Contrast Only CT Head/Brain W/O Contrast Doppler Ext Lower Venous Right (US) XR Chest 2 Views Frontal and Lat XR Knee 3 Views Right Add On Lab Order?? B Type Natriuretic Peptide (NT-proBNP) (ProBNP)?? Basic Metabolic Panel?? Blood Culture?? Blood Culture #2?? Blood Culture 2 Results?? Blood Culture Result?? C. difficile Rapid Toxin Assay (C. DIFFICILE TOXIN)?? C.diff PCR, w Rfx Toxin/Ag (C diff PCR, w Rfx Toxin/Ag)?? CBC?? CBC w/ Differential?? COVID-19, RSV, and Flu A/B, Rapid PCR?? CPK Total Only?? CT Abd/Pelvis W/ IV Contrast Only?? CT Head/Brain W/O Contrast?? Comprehensive Metabolic Panel?? Ethanol Level (Alcohol Level)?? Free T4?? GI Profile, Stool, PCR?? Glucose POC?? High??Sensitivity??Troponin T (Troponin T, High Sensitivity)?? Hold Lavender Tube (BB)?? INR?? Ionized Calcium (Calcium Ionized)?? Lactic Acid Level (Lactate Level)?? Lipase?? Magnesium Level?? Respiratory Pathogen PCR with COVID-19?? TSH with T4 Reflex (Adults Only)?? US Doppler Ext Lower Venous Right (Doppler Ext Lower Venous Right (US))?? Urinalysis w/hold for Urine Culture?? Chest 2 Views Frontal and Lat (XR Chest 2 Views Frontal and Lat)?? Knee 3 Views Right (XR Knee 3 Views Right)?? Primary Care Provider Ada Kelley MD? Advance Directive Health Care Proxy on File Yes - Health Care Proxy Discharge Vitals Temperature: 98.5 DegF Height: 178 cm Pulse Rate:??100 bpm??High Weight: 88 kg Respiratory Rate: 18 br/min Body Mass Index:??27.77 kg/m2??High Systolic Blood Pressure:??172 mm Hg??High Body surface area: 2.09 Diastolic Blood Pressure: 70 mm Hg ?? Oxygen Saturation: 100 % ?? Studies Pending All studies ordered during this hospital stay have been completed unless listed below. Please discuss all pending results with your provider listed above in these instructions. ?? Add On Lab Order?? Basic Metabolic Panel?? CBC w/ Differential?? Hold Lavender Tube (BB)?? What to do next Instructions From Your Doctor ?? Orders? 08/16/24 9:34:00 EST?? You Need to Schedule the Following Appointments Follow Up with??Ada Child When:??Within 2 to 3 days Where: [address] [place] [address] [place] [address] Business (1) Discharge Medications TIAN DYER :1950 Visit Date:08/13/2024 Medications: Please continue your medications until treatment is completed or stopped by your provider. Medications not listed below should be discontinued. Discuss any questions related to medications with your provider. What How Much When Instructions Next Dose New Vancomycin (vancomycin 125 mg oral capsule) 125 Milligram Oral Every 6 hours Duration: 14 Days Doses over 125 mg require ID consult. Indication for Use: C. difficile colitis ?? Pickup at [facility] #[id number] Today 5PM Unchanged Acetaminophen (acetaminophen 325 mg oral tablet) 3 tab(s) Oral Every 6 hours Anytime, as needed Unchanged Aspirin (aspirin 81 mg oral tablet) 1 tab(s) Oral Daily Tomorrow morning Unchanged linagliptin (Tradjenta 5 mg oral tablet) RESUME Unchanged Meloxicam (meloxicam 15 mg oral tablet) 1 tab(s) Oral Daily RESUME Unchanged Metformin (MetFORMIN (Eqv-Glucophage XR) 500 mg oral tablet, extended release) RESUME Unchanged Metoprolol (Metoprolol Succinate ER 25 mg oral tablet, extended release) TAKE 1 TABLET BY MOUTH DAILY ?? TOmorrow morning Unchanged Multivitamin With Minerals (PreserVision AREDS 2 oral capsule) 1 capsule Oral Twice a day RESUME Unchanged Rosuvastatin (rosuvastatin 5 mg oral tablet) TAKE 1 TABLET BY MOUTH DAILY ?? Tomorrow morning Unchanged Valsartan (valsartan 160 mg oral tablet) Tomorrow morning Pharmacy Information [facility] #[id number]: [address], [place] [id number] [phone] ?? What How Much When Why Comments Stop Taking Durable Medical Equipment (Pen [place], 31 G x 5 mm BD Ultra Fine III) See instructions Diabetes Duration: 90 Days use daily ??as directed for Type 2 Diabetes Mellitus E11.9 ?? Prescription Given During Visit Vancomycin (vancomycin 125 mg oral capsule) - 125 mg, By Mouth, Every 6 hours, # 56 capsule, 0 Refills, Doses over 125 mg require ID consult. Indication for Use: C. difficile colitis, [facility] #[id number], [address] [place] [phone]?? Laboratory Results Below is a partial list of the most recent Laboratory test results done prior to this discharge. You may have had other tests and procedures not included in this list. Please discuss all test resultswith your provider. Est Creatinine Clearance - 58.08 mL/min (08/15/2024) Alcohol Level (08/13/2024) ???Ethanol, Serum or Plasma - NONE DETECTED Blood Culture (08/13/2024) ???Blood Culture Results - Preliminary report???Blood Culture Specimen Source - BLOOD Blood Culture #2 (08/13/2024) ???Blood Cult 2 Results - Preliminary report???Blood Culture 2 Specimen Source - BLOOD Blood Culture 2 Results (08/13/2024) ???Blood Culture 2 Isolate 1 - Comment Blood Culture Result (08/13/2024) ???Blood Culture Isolate 1 - Comment C diff PCR, w Rfx Toxin/Ag (08/15/2024) ???C. Difficile Toxin by PCR - POSITIVE C. DIFFICILE TOXIN (08/15/2024) ???C.difficile Toxin - POSITIVE Calcium Ionized (08/13/2024) ???Calcium, Ionized pH Corrected - 1.25 mmol/L CBC (08/15/2024) ???WBC - 12.5 k/mm3???RBC - 4.07 m/mm3???Hgb - 12.4 Gm/dL???Hct - 37.1 %???MCV - 91.2 femtoliters???MCH - 30.5 pg???MCHC - 33.4 Gm/dL???Platelet Count - 104 k/mm3???RDW-SD - 49.9 femtoliters???MPV - 9.6 femtoliters???Nucleated RBC (Automated) - 0.0 #/100 WBC'S???Abs. NRBC - 0.0 k/mm3 Comprehensive Metabolic Panel (08/13/2024) ???Sodium - 135 mmol/L???Potassium - 4.9 mmol/L???Chloride - 103 mmol/L???Bicarbonate Level - 18 mmol/L???Anion Gap - 14???Glucose Level - 219 mg/dL???BUN - 35 mg/dL???Creatinine-Blood - 1.09 mg/dL???Estimated GFR Creatinine - 70 ML/MIN/1.73 M2???Calcium - 9.3 mg/dL???Protein, Total - 7.0 Gm/dL???Albumin - 3.9 Gm/dL???AG Ratio - 1.3???Alkaline Phosphatase - 95 units/L???AST (SGOT) - 28 units/L???ALT (SGPT) - 16 units/L???Bilirubin, Total - 0.5 mg/dL COVID-19, RSV, and Flu A/B, Rapid PCR (08/13/2024) ???Influenza A PCR - NEGATIVE???Influenza B PCR - NEGATIVE???RSV PCR - NEGATIVE???COVID-19 PCR Specimen Source - NASAL???COVID-19 PCR Result - NEGATIVE CPK Total Only (08/15/2024) ???CK, Total - 621 units/L FREE T4 (08/13/2024) ???Free T4 - 1.03 ng/dL GI Profile, Stool, PCR (08/13/2024) ???GI PCR, Campylobacter - NEGATIVE???GI PCR, Plesiomonas shigelloides - NEGATIVE???GI PCR, Salmonella - NEGATIVE???GI PCR, Vibrio - NEGATIVE???GI PCR, Vibrio cholerae - NEGATIVE???GI PCR, Yersinia enterocolitica - NEGATIVE???GI PCR, Enteroaggregative E coli - NEGATIVE???GI PCR, Enteropathogenic E coli - NEGATIVE???GI PCR, Enterotoxigenic E coli - NEGATIVE???GI PCR, Ybhir-xrque-qfgabcjrx E coli -NEGATIVE???GI PCR, Shigella/Enteroinvasive E coli - NEGATIVE???GI PCR, Cryptosporidium - NEGATIVE???GI PCR, Cyclospora cayetanensis - NEGATIVE???GI PCR, Entamoeba histolytica - NEGATIVE???GI PCR, Giardia lamblia - NEGATIVE???GI PCR, Adenovirus F 40/41 - NEGATIVE???GI PCR, Astrovirus - NEGATIVE???GIPCR, Norovirus GI/GII - NEGATIVE???GI PCR, Rotavirus A - NEGATIVE???GI PCR, Sapovirus - NEGATIVE GLUCOSE POC (08/16/2024) ???Glucose, POC - 132 mg/dL High??Sensitivity??Troponin T (08/13/2024) ???High Sensitivity Troponin (HSTnT) - 28 ng/L INR (08/13/2024) ???INR - 1.1???Protime (PT) - 11.9 seconds Lactate Level (08/13/2024) ???Lactate - 1.9 mmol/L Lipase (08/13/2024) ???Lipase - 28 units/L Magnesium Level (08/13/2024) ???Magnesium - 1.8 mg/dL ProBNP (08/13/2024) ???Nt-Probnp - 933 pg/mL Respiratory Pathogen PCR with COVID-19 (08/15/2024) ???Adenovirus by PCR - NEGATIVE???Coronavirus 229E by PCR (not COVID-19) - NEGATIVE???Coronavirus HKU1 by PCR (not COVID-19) - NEGATIVE???Coronavirus NL63 by PCR (not COVID-19) - NEGATIVE???Coronavirus OC43 by PCR (not COVID-19) - NEGATIVE???Human Metapneumovirus by PCR - NEGATIVE???Rhinovirus/Enterovirus by PCR - NEGATIVE???Influenza A by PCR - NEGATIVE???Influenza B by PCR - NEGATIVE???Parainfluenza 1 by PCR - NEGATIVE???Parainfluenza 2 by PCR - NEGATIVE???Parainfluenza 3 by PCR - NEGATIVE???Parainfluenza 4 by PCR - NEGATIVE???RSV by PCR - NEGATIVE???Bordetella Pertussis by PCR - NEGATIVE??? Chlamydophila Pneumoniae by PCR - NEGATIVE???Mycoplasma Pneumoniae by PCR - NEGATIVE???COVID-19 (SARS-CoV-2) by PCR - NEGATIVE???Bordetella Parapertussis by PCR - NEGATIVE Troponin T, High Sensitivity (08/13/2024) ???High Sensitivity Troponin (HSTnT) - 36 ng/L TSH with T4 Reflex (Adults Only) (08/13/2024) ???TSH - 4.69 uIU/mL Urinalysis w/hold for Urine Culture (08/13/2024) ???Appear/Color, Urine - LIGHT YELLOW???Specific [place], Urine - 1.015???pH, Urine - 6.5???Albumin, Urine - 1+???Glucose, Urine - NEGATIVE???Ketones, Urine - NEGATIVE???Bilirubin, Urine - NEGATIVE???Hemoglobin, Urine - NEGATIVE???Nitrite, Urine - NEGATIVE???Leukocyte, Urine - NEGATIVE???Urobilinogen - NORMAL???WBC's, Urine - 1 /HPF???RBC's, Urine - 2 /HPF???Squamous Epith - 1 /HPF???Mucus - SLIGH T???Hold Urine Culture - Testing available 48 hours from time of collection. You will be contacted within 72 hours with your results. Allergies (NKA means No Known Allergies) bacitracin??(Localized swelling, Welt) oxyCODONE??(Hallucinations, Altered mental status) Adhesive Bandage??(Blisters) Plavix??(Rash) ceFAZolin??(Rash) Problems Active Problems??(1) Coronary atherosclerosis due to calcified coronary lesion?? Education Materials Below is the list of Educational Leaflet Providered with your Discharge Instructions. Web[employer] Ignite Patient Education - My C. Diff Infection Treatment Plan?? [employer] Ignite Patient Education - What Is C. Diff??? [employer] Patient Education - Clostridioides Difficile Toxin (Stool)?? Web[employer] Ignite Patient Education - Clostridium Difficile (C. Diff) Infection?? [employer] Ignite Patient Education - Vancomycin?? Valuables and Belongings I fully understand and agree that [facility] accepts no responsibility for all my personal property including clothing, toilet articles, radios, jewelry, dentures, hearing aids, rings, money, or any other property that is in my possession or is brought to me after admission. I understand certain valuables may be placed in a hospital safe for a short period of time. I understand that the hospital is not liable for loss or damage due to accident, fire, or other natural occurrence while said property is in the safe. I accept full responsibility for any personal property that I keep with me, and will not hold the hospital responsible in case of loss or disappearance. I acknowledge that i have been encouraged to send valuables and belongings home. ?? No Valuables/Belongings: No valuables/belongings present Date for Pt to Sign Valuables/Belongings: 08/14/24 15:43:00 ?? Other Discharge Information ?? Wound Assessment?? Wound Assessment?? Wound Type I: Shear Injury ?? Case Management Discharge Plan?? Discharge Plan?? Discharge Level of Care at Discharge: Home/Correction/Foster Care ?? Pulmonary Rehab Status?? Pulmonary Rehab Discharge Status?? Respiratory Rate: 18 br/min ? Common Emergency Awareness Tips IS IT A STROKE? Act FAST and Check for these signs: FACE Does the face look uneven? ARM Does one arm drift down? SPEECH Does their speech sound strange? TIME Call at any sign of stroke ?? Heart Attack Signs Chest discomfort: Most heart attacks involve discomfort in the center of the chest and lasts more than a few minutes, or goes away and comes back. It can feel like uncomfortable pressure, squeezing, fullness or pain. Discomfort in upper body: Symptoms can include pain or discomfort in one or both arms, back, neck, jaw or stomach. Shortness of breath: With or without discomfort. Other signs: Breaking out in a cold sweat, nausea, or lightheaded. Remember, MINUTES DO MATTER. If you experience any of these heart attack warning signs, call to get immediate medical attention! ?? Smoking can increase your chances of developing chronic health problems and can cause harmful effects to other family members in your house. If you smoke, you are strongly encouraged to quit. Please call [facility] Link at [phone] or [phone]) or log in to [email or web address] for referrals to smoking cessation programs. ?? 988 Suicide & Crisis Lifeline is available 04/03 if you or someone you know needs to find a reason to keep living. By calling 848 you'll be connected to a skilled, trained counselor at a crisis center in your area. INPATIENT DISCHARGE INSTRUCTIONS SIGNATURE TIAN PHELPS Location:[facility] Registration Date and Time:08/13/2024 10:50 EST Primary Care Physician: John Child MD, Ada, Attending Physician: Milena Maravilla MD, Paris, I TIAN DYER, have received the above patient education materials/instructions and have verbalized understanding. If ambulance or transport services are being used I further acknowledge being given achoice of service. ?? If you need to contact me, please call me at this number: . Patient/Performance Analyst Name: Patient/Performance Analyst Signature: Relationship to Patient: Witness Name/Signature: Date: * Paris Villarreal MD: PERFORM, SIGN, VERIFY Event Display: Patient Education Handout Authored Date: [id number] * Liss Obrien RN: PERFORM Event Display: Patient Education Leaflets Authored Date: [id number] My C. Diff Infection Treatment Plan ?? [id number] My C. diff Infection Treatment Plan C. diff infection occurs in your colon and is caused by Clostridioides difficile (C. diff) bacteria(also called Clostridium difficile). Use this treatment plan to treat your infection at home and prevent spreading it to others. Read on to learn what to do. Lopez goals of your treatment plan 1. Learn how to keep C. diff from spreading. This includes practicing good handwashing and taking steps to prevent C. diff at home and at work. 2. Watch for symptoms of C. diff coming back and get help if you need it. 3. Take medicines for C. diff as your healthcare provider tells you to. Notes: ? Important information Use this page to keep your doctor's name and phone number and other important information in one place. 1. Fill in the information below or ask your provider, nurse, or loved one to fill it out 2. Post this page somewhere you can easily see it, such as on your refrigerator Patient name: Contact information Primary healthcare provider's name Phone number ? Other healthcare provider Specialty Phone number ? Hospital or clinic name Address Phone number ? Follow-up appointments Test or appointment Location Date Time ? In addition to C. diff, I also have these health problems: ? How should I wash my hands so I don't spread C. diff? Clostridium difficile (C. diff) germs can stay on your hands after you use the bathroom, then spread to any person, surface, or object you touch. Washing your hands often is one of the best ways to not spread C. diff. To wash your hands: Rinse your hands first, then scrub with soap for at least 20 seconds. If you need a timer, hum the Happy Birthday song twice while you wash. Rinse your hands well and dry them. Below are more tips for good handwashing. Handwashing tips Always wash hands: ??? After using the bathroom ??? Before and after preparing food ??? Before and after eating ??? After touching any object or surface that may have C. diff germs on it Alcohol-based hydro plant site manager don't work against C. diff germs. Scrub your hands for 20 seconds with clean, running water and soap. How can I not??spread C. diff? Clostridium difficile (C. diff) germs can live outside your body for several months. Here's how to keep the germs from spreading at home and at work. Get prepared Gather your cleaning supplies: ??? Disposable (rubber) gloves ??? Paper towels ??? Soap ??? Chlorine bleach ??? Trash bags or plastic bags Follow safe and clean habits: ??? After washing your hands, dry them with a paper towel, then throw the paper towel away ??? Eachday, clean the bathroom and any other areas in the house that may have C. diff germs Wash your hands often! Especially after using the bathroom or cleaning or handling any items that may have C. diff germs on them. A note for caregivers If you are caring for a patient who has C. diff, use the tips in this treatment plan to prevent spreading the infection to yourself or others. How can I tell if my C. diff has come back? C. diff is an infection in the colon caused by Clostridium difficile (C. diff) bacteria. Sometimes,C. diff comes back. This can happen any time within weeks to months after you finish taking your medicine. Watch for symptoms and know what to do if your infection comes back. Symptoms to watch for: ??? Watery diarrhea ??? Fever ??? Belly pain and cramping ??? Nausea and vomiting ??? Loss of appetite and weight loss In more severe cases, you may have: ??? Watery diarrhea (up to 10 to 15 times a day) with blood or pus ??? Fever of 101??F (38.3??C) orhigher ??? Swollen belly ??? Severe pain in your lower belly C. diff can come back in about 1 in 6 patients. C. diff can come back again in the following 2 to 8weeks or sometimes after a few months. Some people can have repeated bouts of C-diff. If I notice symptoms of C. diff, or think that my infection has come back, I will: ? Your treatment plan goals C. diff is a serious illness, but it can be treated. You can stop the??spread of infection to others and lower the chances of getting the infection again. Here are the 3 goals for treatment and specific steps you can take to reach each goal. 1. Read these and decide which steps you are ready to take 2. Ask your doctor or nurse to explain any steps you are unsure of 3. Come up with a few ideas of your own 3 goals of your treatment plan Goal 1. Learn how to keep C. diff from spreading. Steps I can take: ??? Practice good handwashing daily ??? Each day, use chlorine-based bleach to disinfect surfaces (such as counters and light switches) and areas at home (such as the bathroom) that may have C. diff germs ??? Ask others to wear gloves and to wash their hands if helping me in the bathroom ??? Other:??? Other: Goal 2: Watch for symptoms of C. diff coming back and get help when I need it. Steps I can take: ??? Know what symptoms to watch for if C. diff comes back ??? Know when and how to contact my doctor if symptoms return ??? Other: ??? Other: Goal 3: Take medicines for C. diff exactly as my healthcare provider tells me to. Steps I can take: ??? Ask my healthcare provider to explain any medicines I'm prescribed ??? Know when, how much, how many, and how often to take my medicines ??? Know what side effects to watch for when taking my medicines and when they should be reported ??? Not stop taking my medicines unless myhealthcare provider tells me to ??? Other: ??? Other: Last Reviewed Date: 2022 ?? 8997-6330 [employer]. All rights reserved. This information is not intended as a substitute for professional medical care. Always follow your healthcare professional's instructions. ?? * Liss Obrien RN: PERFORM Event Display: Patient Education Leaflets Authored Date: [id number] What Is C. Diff? ?? 27093 What Is C. Diff? C. diff is an infection caused by C. diff (Clostridioides difficile) bacteria. These are germs thatlive in the part of your belly called your colon, or large intestine. They don't often cause problems. But if the normal balance of good and bad bacteria in your colon changes, C. diff bacteria can grow out of control and lead to infection. This can harm your colon and cause diarrhea and belly pain. What are the symptoms of C. diff? Symptoms can include: ??? Watery diarrhea ??? Fever ??? Belly pain and cramping ??? Nausea and vomiting ??? Loss of appetite and weight loss?? Some people with C. diff have no symptoms, but they can still pass the infection to others. ?? Who is at risk of getting C. diff? Anyone can get C. diff. But you are more likely to get the infection if you: ??? Are age 65 or older ??? Are taking antibiotics ??? Have a weak immune system because of other health problems ??? Haveinflammatory bowel disease ??? Have had C. diff before ??? Have had gastrointestinal (GI) surgery ??? Work or are a patient in a hospital, clinic, or usp ?? Can C. diff come back? After treatment, C. diff can come back in about 1 in 6 people over the next 2 to 8 weeks. If C. diff does come back, you are at higher risk for infection again in the future. ?? How can I lower my chance of getting C. diff again? Take your C. diff treatment exactly as prescribed. This may include a 10- to 14- day treatment or a course of treatment with decreasing doses over 5 to 6 weeks. If you get C. diff again or it comes back after treatment, ask about new therapies that may be available to treat the infection and lower the chance of relapse. In some cases, your treatment may be a fecal transplant. This is where stool from a healthy person is introduced into your colon to replace the good bacteria that you have lost. Take antibiotics only when you really need them. Antibiotics don't help treat illnesses caused by viruses, such as colds and the flu. Don't ask for antibiotics from your healthcare provider??if they say they won't work. Take safety steps if you come into contact with others who have C. diff. Wear gloves when touching them or their body fluids. Wash your hands with soap and water after contact. Alcohol-based hand hydro plant site manager don't work against C. diff. ?? How can I stop the spread of C. diff? C. diff can easily spread to other people in your home or workplace. The germs can stay on your hands after using the bathroom, then spread to any person, surface, or object you touch. Here's how to not spread C. diff to other people: ??? Practice good handwashing. This is especially important after using the bathroom and before eating. Here's what to do: Wet your hands, scrub them with soap for 30 to 40 seconds, then rinse well and dry. ??? Wash your clothes, bed sheets, and towels in separateloads. Use hot water. Use both detergent and chlorine bleach.? Use chlorine bleach-based products to disinfect surfaces you touch often, such as tabletops, light switches, doorknobs, and toilet seats. ??? Remind others to wear gloves and to wash their hands if they are helping you in the bathroom. ?? Last Reviewed Date: 2022 ?? [id number] [employer]. All rights reserved. This information is not intended as a substitute for professional medical care. Always follow your healthcare professional's instructions. ?? * Liss Obrien RN: PERFORM Event Display: Patient Education Leaflets Authored Date: [id number] Clostridioides Difficile Toxin (Stool) ?? clostridium_difficile_toxin_stool Clostridioides Difficile Toxin (Stool) Does this test have other names? C. diff, C. difficile ?? What is this test? This is a test to look at your bowel movement (stool) for harmful substances called toxins producedby Clostridioides (formerly Clostridium) difficile bacteria. Your gastrointestinal (GI) tract is home to many healthy bacteria, and sometimes C. difficile is one of them. But in some cases, taking broad-spectrum antibiotics can upset the balance of healthy bacteria in your gut and cause new or antibiotic-resistant strains of C. difficile to become overgrown.These germs can then release toxins into your GI tract, inflaming the colon and causing continuing diarrhea. The resulting illness can be serious, even life- threatening, especially if you have a weakimmune system. Even if they are not taking antibiotics, people with a weak immune system often have an overabundance of C. difficile bacteria. ?? Why do I need this test? You may need this test if you have any of these symptoms, especially if you are in the hospital or were recently taking antibiotics: ??? Diarrhea. This means 3 or more loose stools per day for at least 2 days. ??? Blood or mucus in your stool ??? Stomach pain, nausea, loss of appetite, or fever, particularly if you have persistent diarrhea ?? What other tests might I have along with this test? Your healthcare provider might order other stool tests to look for C. difficile infection, such as a glutamate dehydrogenase test and a stool culture test. If your stool tests are negative, but your healthcare provider still strongly suspects C. difficileinfection, you may have a sigmoidoscopy or colonoscopy to help make a diagnosis. In this procedure,a healthcare provider examines your colon with a very thin, flexible lighted tube that is equipped with a tiny video camera on the end. This infection is a major cause of illness and among older adults who are in the hospital, sohealthcare providers are likely to test people in this group who develop persistent diarrhea after taking antibiotics. ?? What do my test results mean? Test results may vary depending on your age, gender, health history, the method used for the test, and other things. Your test results may not mean you have a problem. Ask your healthcare provider what your test results mean for you.?? A normal result for this stool test is negative, which means you had no C. difficile toxins in yoursample. But this test result is not accurate all of the time. A small portion of people might have the infection even if the result is negative. If your healthcare provider still suspects infection, they may do other tests. If your stool tests positive for C. difficile toxins, your healthcare provider may decide that you have antibiotic-associated colitis, or inflammation of the colon. ?? How is this test done? This test needs a stool sample. Your healthcare provider will direct you how to collect a sample into a disposable specimen container with a lid. Do not collect stool from the toilet bowl or put toilet paper into the specimen container. ?? Does this test pose any risks? This test poses no known risks. ?? What might affect my test results? Contaminating the stool sample with toilet water, urine, or other substances can make it unfit for testing or affect the results. ?? How do I get ready for this test? You don't need to prepare for this test. Be sure your healthcare provider knows about all medicines, herbs, vitamins, and supplements you are taking. This includes medicines that don't need a prescription and any illicit drugs you may use.? Last Reviewed Date: 2023 ?? [id number] [employer]. All rights reserved. This information is not intended as a substitute for professional medical care. Always follow your healthcare professional's instructions. ?? Patient Care team information Care Team Personnel Name: Ada Sullivan RN Position: [facility] SN RN Member Role: Primary Care Nurse Name: Sophia Rodriguez RN Position: [facility] SN RN Member Role: Primary Care Nurse Name: Jessica Koenig RN Position: S RN Member Role: Primary Care Nurse Name: Benigno Marr RN Position: S RN Member Role: Primary Care Nurse Name: Ada Kelley MD Position: Reference Physician Member Role: PCP Address: [address] [place] [address] [place] [address]- PM Telecom: Name: Demi Mitchell NP Position: [facility] PCO Associate Professional Member Role: Primary Care Nurse Address: [address] [place] [phone]- Telecom: Name: Leanna Bridges RN Position: S RN Member Role: Primary Care Nurse Name: Gregoria Thornton RN Position: S RN Member Role: Primary Care Nurse Name: Jose Cervantes RN Position: [facility] RN Geovanny Member Role: Primary Care Nurse Name: Salomón Swift RN Position: S RN Member Role: Primary Care Nurse Name: Tatiana Reagan RN Position: S RN Member Role: Primary Care Nurse Care Team Related Persons Name: ANITA DYER Insurance Providers Guarantor name: [employer] Health Plan Information #: 1 Payer: MEDICARE A INPT 25 Member Number: [id number] Policy Number: [employer] Group Number: NA Health Plan Information #: 5 Payer: MEDICARE PART B OUTPT Member Number: [id number] Policy Number: [employer] Group Number: [employer] Health Plan Information #: 2 Payer: [facility] Member Number: [id number] Policy Number: [employer]INA Group Number: NA Health Plan Information #: 3 Payer: [facility] Member Number: [id number] Policy Number: [employer] Group Number: [id number] Health Plan Information #: 4 Payer: [facility] Member Number: [id number] Policy Number: [employer] Group Number: [id number]
--- OUTSIDE RECORDS SUMMARY | 2024-08-25 14:23 | XMS_ITS | Data Portability ---
Author Organization [facility] [employer], svmg_admin Address [address] [place] [phone] Care Team Providers Care Bath Mixer Name Role Phone SUHAIL ROBERTS Primary Care [...] hemoglo bin A1C, fingers tick [address] [facility], [address] [place] [address], [phone], 9 14:17:15 Referral None recorde d. Procedures None recorde d. Surgeries None recorde d. Imaging None recorde d. 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 Continue to follow a controlled carb, healthy plate plan and drink plenty of water. Continue current exercise plan. Bring the meter to the next appointment. [email or web address] Not available 12/20/2016 14:07:51 10/02/2017 [id number] elevated blood pressure: care instructions Not available 10/02/2017 10:43:32 learning about type 2 diabetes Not available 10/02/2017 10:43:32 type 2 diabetes: care instructions Not available 10/02/2017 10:43:32 01/07/2019 [id number] high blood pressure: care instructions Not available 01/07/2019 14:17:15 learning about high blood pressure Not available 01/07/2019 14:17:15 A healthy lifestyle: care instructions Not available 01/07/2019 14:17:15 12/22/2019 [id number] high cholesterol : care instructions Not available 12/22/2019 11:33:09 Reason for Referral None Reported. Results Created Date Observation Date Name Description Value Unit Range Abnormal Flag Note LastModifiedBy Organization Detail LastModifiedTime 01/08/20 19 01/07/2019 hemog lobin A1C, finge rstic k Hemoglobin A1c 6.0 Not Available [address], [address], 01/07/2019 13:48:29 Result Notes None recorded. Problems Name Problem SNOMED Code Status Onset Date Resolution Date Notes Provider Name and Address Organization Details Recorded Time Type 2 diabetes mellitus 04643353 Active 2016 Helene bedoya [facility]. 14:07:56 Arthritis 4834962 Active 2016 Helene bedoya [place] [facility] 14:08:02 Hypertensive disorder 76157993 Active 2016 Helene bedoya [facility] 7 14:08:17 Problem Notes None recorded. Procedures Surgical History Date Name Laterality Status Provider Name and Address Organization Details Recorded Time 05/12/20 19 coronary artery bypass grafts x 4 completed Aphrodite Papoutsides [facility] 12/22/2019 11:15:55 12/11/19 14 Joint Replacement completed Helene Noriega [facility] 03/20/2017 14:01:40 12/11/19 02 Other [facility] 14:01:12 Imaging Results None recorded. Procedure Notes None recorded. Medical Equipment None Reported. Allergies Allergen ID Allergen Name Allergen Category Reaction Reaction Severity Criticality Documentation Date Start Date Code Code System Note Provider Name and Address Organization Details Recorded Time 929828 bacitraci n medicatio n rash moderate Not available 11/15/2016 1291 RxNorm Paulette Brooks MS, RDN, LDN, CDE [address] [place] [address], [phone] [place] [address] 7 10:31:31 231591 Plavix medicatio n rash Not available Not available 12/22/2019 82522 2 RxNorm Aphrodite Papoutsid es [facility], [facility] 0 11:14:24 748129 oxycodone medicatio n Not available Not available Not available 12/22/2019 7804 RxNorm Aphrodite Papoutsid es null, [facility] 0 11:14:53 418964 cefazolin medicatio n Not available Not available Not available 12/22/2019 2180 RxNorm Aphrodite Papoutsid es null, [facility] 0 11:15:12 880967 adhesive tape environme nt,medica tion Not available Not available Not available 12/22/2019 Aphrodite Papoutsid es null, [facility] 0 11:15:23 Medications Name Sig Start Date [...] Details Last Updated DateTime 12/20/2016 180.34 cm 692958.61 g 32.6 kg/m2 Paulette Brooks MS, RDN, LDN, CDE [address] [place] [address], [phone], [facility] 12/20/2016 13:41:50 Date Recorded Body height Body mass index (BMI) Body weight Body temperature Oxygen saturation Oxygen saturation in Arterial blood by Pulse oximetry Heart rate Systolic blood pressure Diastolic blood pressure Provider Name and Address Organization Details Last Updated DateTime 7 180.34 cm 30.7 kg/m2 68687.6 g 97.6 [degF] 97 % 97 % 57 /min 139 mm[Hg] 79 mm[Hg] Helene Noriega [facility] 7 14:10:16 Date Recorded Body height Body mass index (BMI) Body weight Body temperature Oxygen saturation Oxygen saturation in Arterial blood by Pulse oximetry Heart rate Systolic blood pressure Diastolic blood pressure Provider Name and Address Organization Details Last Updated DateTime 8 180.34 cm 31.9 kg/m2 825565. 65 g 97.8 [degF] 97 % 97 % 59 /min 150 mm[Hg] 72 mm[Hg] Helene Noriega [facility] 8 10:09:03 Date Recorded Body height Body mass index (BMI) Body weight Heart rate Oxygen saturation Oxygen saturation in Arterial blood by Pulse oximetry Systolic blood pressure Diastolic blood pressure Provider Name and Address Organization Details Last Updated DateTime 9 180.34 cm 31.1 kg/m2 177358. 1 g 66 /min 98 % 98 % 110 mm[Hg] 64 mm[Hg] Jessy Atkins [facility] 9 13:57:36 Date Recorded Body height Provider Name an d Address Organization Details Last Updated DateTime 12/22/2019 180.34 cm Aphkp Joyner [facility] 12/22/2019 11:12:53 Social History Question Answer Notes LastModified by Organizat ion Details LastModified Time Tobacco Smoking Status Former Smoker one pack a week Helene bedoya [facility] 03/20/2017 14:03:08 What Is Your Level Of [...] Diagnosis/Indication Diagnosis SNOMED-CT Code Diagnosis ICD10 Code Diagnosis Note [id number] Dread Anton MD [facility] [address] [place] [phone] 11/15/2016 09:44:36 11/15/2016 12:11:06 Uncontrolled type 2 diabetes mellitus 709173308 E11.65 Diabetes Education: Initial Assessment Referred to us for better blood glucose by his PCP, Dr. Cardenas in [place], due to recent A1c of 10.9%Patie nt reports that he was a patient of Dr. Anton years ago when he was at [facility]. SMBG: old meter at home doesn't work. Gave him the Verio meter today. Instructed in its use and in office fingerstic k glucose is 280 mg/dL 2-hr post breakfast. He is instructed to check his BG fasting and 2 hr post dinner daily. DM Medication s: Metformin 500 mg daily. Onglyza 5 mg daily. Recommende d he increase Metformin to 500 mg twice daily note: back in April he tried to take 2000 mg metformin but ended up with severe diarrhea, dehydrated and in the hospital in [facility] for 2 days. Eyes: annual exams - no issues Feet: Shuttle Final Inspector every 3 months for check and nail clip - no issues Teeth: Dentist every 6 months - no issues Importance of Exercise and Diet in controllin g Diabetes Diet Recall: Breakfast today was a couple of eggs scrambled with 1 toast and coffee with sugar-free , fat-free creamer. Lunch is usually a sandwich or salad but occasional ly a nutribulle t smoothie. Dinner last night was roast pork, asparagus, oven-roast ed potatoes and glass of water. Dessert was 3-4 homemade oatmeal raisin cookies made with truvia instead of sugar. He drinks 3 quarts of water daily. 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 RECOMMENDA TIONS: Check BG twice daily; Follow controlled carb plan; continue exercise planTIME SPENT: 60 minutes [id number] Mignon De La Rosa [facility] [address] [facility] [address] [place] [address] 12/20/2016 12:52:35 12/20/2016 13:57:18 Uncontrolled type 2 diabetes mellitus 869599371 E11.65 Diabetes Education: Follow Up SMBG: OneTouch Verio download 30-day Avg BG 145, Median 145, High 225, Low 91, tests 60.Fasting today 91, range 91-212. (>200 readings are actually taken after he ate breakfast) .Post Dinner readings range from 102-225 mg/dL.in office fingerstic k glucose is 200 mg/dL pre-lunch at 1:50 pm. He is instructed to check his BG fasting and 2 hr post dinner daily. DM Medication s: Metformin 500 mg twice daily. Onglyza 5 mg daily. Recommende d decrease Metformin back to 500 mg in am only but if morning number >150 then need to add it back in with dinner. Diet Recall: Breakfast today was a couple of eggs with steak, slice of toast and coffee with [employer] sugar-free creamer. He has been cutting back on potatoes and bread. Switched to low carb bread. He cut out all pastry and sweets. 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 RECOMMENDA TIONS: Check BG twice daily; Follow controlled carb plan; continue exercise planTIME SPENT: 30 minutes [id number] MD [facility] [address] [place] [phone] 03/20/2017 13:26:37 03/20/2017 14:53:49 Disorder of nervous system due to type 2 diabetes mellitus 941696601 E11.40 Metformin (plain) is causing diarrhea. Changed to metformin ER. Onglyza is not commonly used nowadays because of risk of CHF. Will change to amy or brock -- januvia not covered. Foot care explained. Also asked him to take OTC B12, [id number] MD [facility] [address] [place] [phone] 10/02/2017 09:52:49 10/02/2017 10:38:25 Type 2 diabetes mellitus 52161499 E11.9 Excellent control of diabetes with meds and lifestyle changes. No change in Rx. I will have to get labs from Dr. Cardenas Hypertensive disorder 38 430959 I10 He checks his blood pressure daily at home and at his gym. Readings are in 120s/80s. Will go with his home readings. [id number] MD [facility] [address] [place] [phone] 01/07/2019 13:34:51 01/07/2019 14:21:47 Neuropathy due to type 2 diabetes mellitus 8797235522 31427 E11.40 Very good control without side effect of medication s. Continue same. Essential hypertension 28291473 I10 Great control. No orthostasi s [id number] MD [facility] [address] [place] [phone] 12/22/2019 11:06:08 12/22/2019 12:04:25 Hyperlipidemia 06145831 E78.5 I'm not sure why he is off atorvastat in. It is essential that outpatient with pre-existi ng ASCVD should be on high intensity statin. He will talk to his cardiologi to discuss this issue Disorder d ue to type 2 diabetes mellitus 689649273 E11.8 We discussed about the new cardiovasc ular protective medication such as GLP analogs and SGLT2 inhibitors instead of a DPP4 inhibitor. He is very reluctant to change his medication s. His A1c was is 6.1% in July. He says that he will consider going on the new classes of medication if his A1c creeps up. I believe this is acceptable But I'm worried about increased risk for heart failure has it seen in CVOT trial of saxaglipti n Health Concerns Section Related Observation LastModified by Organization Detai ls LastModified Time None Recorded Concern Status LastModified by Organization Details LastModified Time None Recorded Advance Directives Directive None Recorded Payers Encounter Date Sequence Insurance Name Policy Number Policy Foley Covered Member ID Foley Member ID Guarantor Name 12/20/2016 2 [facility] (MEDICARE SUPPLEMENT) Spencer Roberson [id number] Spencer Roberson Jr. 12/20/2016 1 [place] Spencer Roberson Jr [id number] Spencer Roberson Jr. 03/20/2017 2 [facility] (MEDICARE SUPPLEMENT) Spencer Roberson [id number] Spencer Roberson Jr. 03/20/2017 1 [place] [employer] Spencer Roberson Jr [id number] Spencer Roberson Jr. 10/02/2017 2 [facility] (MEDICARE SUPPLEMENT) Spencer Roberson [id number] Spencer Roberson Jr. 10/02/2017 1 [place] [employer] Spencer Roberson Jr [id number] Spencer Roberson Jr. 01/07/2019 2 [facility] (MEDICARE SUPPLEMENT) Spencer Roberson [id number] Spencer Roberson Jr. 01/07/2019 1 [place] [employer] Spencer Roberson Jr [id number] Spencer Roberson Jr. 12/22/2019 2 [facility] (MEDICARE SUPPLEMENT) Spencer Roberson [id number] Spencer Roberson Jr. 12/22/2019 1 [place] [employer] Spencer Roberson Jr [id number] Spencer Roberson Jr. Notes Date Note [...] lbs) Paulette Brooks MS, RDN, LDN, CDE [address] [place] [address], [phone], [facility] 12/20/2016 14:08:14 03/20/2017 text/html Duration of Diab [...] - Eye examinations: Done Dread Anton MD [address] [place] [address], [phone], [facility] 03/20/2017 14:54:28 10/02/2017 text/html DiabetesReported bypatient.Notes:Finger stick [...] in the social history: Dread Anton MD [address] [place] [address], [phone], [facility]. 10/02/2017 10:44:12 01/07/2019 text/html Diabetes - NewRe ported bycommunity health.Notes:Finger stick blood glucose review with meter [id number] mg/dL >98% in range Last A1c: 61% [...] No change Preprandial dizziness Dread Anton MD [address] [place] [address], [phone], [facility]. 01/07/2019 14:21:05 12/22/2019 text/html This is a Telehe alth visit, via telephone. Patient understands the risks, benefits and limitations of this type of visit. Patient consents for this visit. This type of visit is being utilized as it was deemed higher risk for patient to come to office given the current risk of COVID-19/coronavirus infection. The patient is located in [place] at the time of this visit. Physician is located in [place], [place] at the time of this visit. [...] is going to get it operated in [facility]. He has osteoarthritis for which he was getting intermittent steroid injection in his joints. He has not done it because of the pandemic? 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 The diabetes is under good control Dread Anton MD [address] [place] [address], [phone], [facility]. 12/22/2019 11:34:07
== END 2024-08-25 13:02 | disposition home or self-care (01) ==
PROVIDERS: Visit Provider Orthopaedic Surgery
DX: M25.561 Pain in right knee (principal)
CPT/HCPCS: 99213; G2211

== ENCOUNTER → 2024-08-25 12:17 | Outpatient (BNVA) | payer MEDICARE, OTHER, SELFPAY | PROVIDERS: Visit Provider Orthopaedic Surgery | DX: M25.561 Pain in right knee (principal) | CPT/HCPCS: 99212 ==

== ENCOUNTER 2024-09-24 08:50 | Outpatient (REF) | payer MEDICARE, OTHER, SELFPAY ==
--- OUTSIDE RECORDS SUMMARY | 2024-09-25 09:08 | XMS_ITS | Clinical Summary ---
Author Organization [facility] Address [address] [place] [address] Care Team Providers Care Cut To Length Operator Name Role Phone Ada Morris MD Primary [...] permeant pace maker placed 05/12/2019 Cardiac rehab [facility] - 2 visits weekly up to 36 [...] Care Team Description 08/17/2024 Telephone Adult Medicine [address] [phone] Ada Morris MD vna from [...] (diabetes mellitus), type 2 with renal complications ([facility]) 11/05/2017 DX:DM (diabetes mellitus ), type 2 [...] Type 2 diabetes mellitus wit h cataract ([facility]) 11/05/2017 DX:Type 2 diabetes mellitus with cataract ([facility]) Diverticulosis 11/05/2017 DX:Diverticulosi s Hemorrhoids 11/05/2017 DX:Hemorrhoids; [...] PM EDT Office Visit Adult Medicine - [facility] [address] [place] [id number] Ada Morris MD [address] [place] [address] Health Maintenance Due Date Last Done Comments [...] Blood Venous blood specimen / Unknown Result [facility] Provider LAB BLOOD ORDERABLES Jennifer l Result * Depression Screening (08/19/2023) [facility] Depression Screening Abstracted Result [facility] Provider HEALTH MAINTENANCE Final Result * Falls Risk Assessment (07/30/2023) [facility] Falls Risk Assessment Abstracted Result [facility] Provider HEALTH MAINTENANCE Final Result * Urine Albumin Creatinine Ratio (07/26/2023) [facility] Urine Albumin Creatinine Ratio Abstracted Result [facility] Provider HEALTH MAINTENANCE Final Result * (ABNORMAL) Lipid panel (07/26/2023) [facility] LDL/HDL Ratio 4 0 - 4 Triglycerides 78 0 - 150 mg/dL Cholesterol 162 0 - 200 mg/dL HDL 44 >=40 mg/dL LDL Cholesterol 103(A) 0 - 100 mg/dL Blood Venous blood specimen / Unknown Result [facility] Provider LAB BLOOD ORDERABLES Jennifer l Result * Hepatitis C Screening (10/01/2018) [facility] Hepatitis C Screening Abstracted Result [facility] Provider HEALTH MAINTENANCE Final Result * Colonoscopy (11/30/2015) [facility] Colonoscopy No interpretation , Abstracted Anatomical Region Laterality Modality Other Result [facility] Provider HEALTH MAINTENANCE Final Result from Last 3 Months or Most Recently Relevant to Health Maintenance Insurance [employer] [place] MEDICARE ADVANTAGE MEDICARE Care Teams Cut To Length Operator Relationship Specialty Start Date End Date Ada Morris MD [address] [place] [id number] PCP - General Internal Medicine 06/19/24
--- OUTSIDE RECORDS SUMMARY | 2024-09-25 09:08 | XMS_ITS | Clinical Summary ---
Author Organization [facility] Address [address] [place] [address] Care Team Providers Care Bristle Machine Operator Name Role Phone Guero Martinez PA-C Primary Care Provider + [phone] Allergies Active Allergy Reactions Criticality Noted Date [...] age to complete this topic Care Teams Bristle Machine Operator Relationship Specialty Start Date End Date Guero Martinez PA-C PCP - General Medical Services 12/13/21
== END 2024-09-24 08:51 | disposition home or self-care (01) ==
LOC: HO.HOSX 08:50
PROVIDERS: Visit Provider Orthopaedic Surgery
DX: M75.42 Impingement syndrome of left shoulder (principal); M25.512 Pain in left shoulder
CPT/HCPCS: 20610; 99212; J1010; J2003

== ENCOUNTER 2024-09-24 13:56 | Outpatient (AMB) | payer MEDICARE, OTHER, SELFPAY ==
--- OUTSIDE RECORDS SUMMARY | 2024-09-24 14:01 | XMS_ITS | Data Portability ---
Author Organization [facility] [employer], svmg_admin Address [address] [place] [phone] Care Team Providers Care Merchant Tailor Name Role Phone SUHAIL ROBERTS Primary Care [...] hemoglo bin A1C, fingers tick 2018 019 [facility], [address] [place] [address], [phone], 9 14:17:15 Referral None recorde d. Procedures None recorde d. Surgeries None recorde d. Imaging None recorde d. 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 Continue to follow a controlled carb, healthy plate plan and drink plenty of water. Continue current exercise plan. Bring the meter to the next appointment. Not available 12/20/2016 14:07:51 10/02/2017 [id number] elevated blood pressure: care instructions Not available 10/02/2017 10:43:32 learning about type 2 diabetes Not available 10/02/2017 10:43:32 type 2 diabetes: care instructions Not available 10/02/2017 10:43:32 01/07/2019 [id number] high blood pressure: care instructions Not available 01/07/2019 14:17:15 learning about high blood pressure Not available 01/07/2019 14:17:15 A healthy lifestyle: care instructions Not available 01/07/2019 14:17:15 12/22/2019 [id number] high cholesterol : care instructions Not available 12/22/2019 11:33:09 Reason for Referral None Reported. Results Created Date Observation Date Name Description Value Unit Range Abnormal Flag Note LastModifiedBy Organization Detail LastModifiedTime 01/08/20 19 01/07/2019 hemog lobin A1C, finge rstic k Hemoglobin A1c 6.0 Not Available [address], [address], 01/07/2019 13:48:29 Result Notes None recorded. Problems Name Problem SNOMED Code Status Onset Date Resolution Date Notes Provider Name and Address Organization Details Recorded Time Type 2 diabetes mellitus 22223718 Active 2016 Helene bedoya [facility]. 14:07:56 Arthritis 0185343 Active 2016 Helene bedoya [place] [facility] 14:08:02 Hypertensive disorder 62529531 Active 2016 Helene bedoya [facility] 7 14:08:17 Problem Notes None recorded. Procedures Surgical History Date Name Laterality Status Provider Name and Address Organization Details Recorded Time 05/12/20 19 coronary artery bypass grafts x 4 completed Aphrodite Papoutsides [facility] 12/22/2019 11:15:55 12/11/19 14 Joint Replacement completed Helene Noriega [facility] 03/20/2017 14:01:40 12/11/19 02 Other [facility] 14:01:12 Imaging Results None recorded. Procedure Notes None recorded. Medical Equipment None Reported. Allergies Allergen ID Allergen Name Allergen Category Reaction Reaction Severity Criticality Documentation Date Start Date Code Code System Note Provider Name and Address Organization Details Recorded Time 164884 bacitraci n medicatio n rash moderate Not available 11/15/2016 1291 RxNorm Paulette Brooks MS, RDN, LDN, CDE [address] [place] [address], [phone] [place] [address] 7 10:31:31 016061 Plavix medicatio n rash Not available Not available 12/22/2019 38437 2 RxNorm Aphrodite Papoutsid es [facility], [facility] 0 11:14:24 061016 oxycodone medicatio n Not available Not available Not available 12/22/2019 7804 RxNorm Aphrodite Papoutsid es null, [facility] 0 11:14:53 585381 cefazolin medicatio n Not available Not available Not available 12/22/2019 2180 RxNorm Aphrodite Papoutsid es null, [facility] 0 11:15:12 284718 adhesive tape environme nt,medica tion Not available Not available Not available 12/22/2019 23215 UNK Aphrodite Papoutsid es null, [facility] 0 11:15:23 Medications Name Sig Start [...] Ultra-Fine Mini Pen Needle 31 gauge x /16 USE TO INJECT INSULIN EVERY DAY active [...] Details Last Updated DateTime 12/20/2016 180.34 cm 668280.61 g 32.6 kg/m2 Paulette Brooks MS, RDN, LDN, CDE [address] [place] [address], [phone], [facility] 12/20/2016 13:41:50 Date Recorded Body height Body mass index (BMI) Body weight Body temperature Oxygen saturation Oxygen saturation in Arterial blood by Pulse oximetry Heart rate Systolic blood pressure Diastolic blood pressure Provider Name and Address Organization Details Last Updated DateTime 7 180.34 cm 30.7 kg/m2 92202.6 g 97.6 [degF] 97 % 97 % 57 /min 139 mm[Hg] 79 mm[Hg] Helene Noriega [facility] 7 14:10:16 Date Recorded Body height Body mass index (BMI) Body weight Body temperature Oxygen saturation Oxygen saturation in Arterial blood by Pulse oximetry Heart rate Systolic blood pressure Diastolic blood pressure Provider Name and Address Organization Details Last Updated DateTime 8 180.34 cm 31.9 kg/m2 612250. 65 g 97.8 [degF] 97 % 97 % 59 /min 150 mm[Hg] 72 mm[Hg] Helene Noriega [facility] 8 10:09:03 Date Recorded Body height Body mass index (BMI) Body weight Heart rate Oxygen saturation Oxygen saturation in Arterial blood by Pulse oximetry Systolic blood pressure Diastolic blood pressure Provider Name and Address Organization Details Last Updated DateTime 9 180.34 cm 31.1 kg/m2 526558. 1 g 66 /min 98 % 98 % 110 mm[Hg] 64 mm[Hg] Jessy Atkins [facility] 13:57:36 Date Recorded Body height Provider Name an d Address Organization Details Last Updated DateTime 12/22/2019 180.34 cm Aphrodite Papmacrina [facility] 12/22/2019 11:12:53 Social History Question Answer Notes LastModified by Organizat ion Details LastModified Time Tobacco Smoking Status Former Smoker one pack a week Helene bedoya [facility] 03/20/2017 14:03:08 What Is Your Level [...] SNOMED-CT Code Diagnosis ICD10 Code Diagnosis Note [id number] Dread Anton MD [facility] [address] [phone] 11/15/2016 09:44:36 11/15/2016 12:11:06 Uncontrolled type 2 diabetes mellitus 093432416 E11.65 Diabetes Education: Initial Assessment Referred to us for better blood glucose by his PCP, Dr. Cardenas in [place], due to recent A1c of 10.9%Patie nt reports that he was a patient of Dr. Anton years ago when he was at [facility]. SMBG: old meter at home doesn't [...] diarrhea, dehydrated and in the hospital in [facility] for 2 days. 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 RECOMMENDA TIONS: Check BG twice daily; Follow controlled carb plan; continue exercise planTIME SPENT: 30 minutes [id number] MD LULU [facility]an_End[facility] cr[facility]ology [address] [place] [phone] 03/20/2017 13:26:37 03/20/2017 14:53:49 Disorder of nervous system due to type 2 diabetes mellitus 163655065 E11.40 Metformin (plain) is causing diarrhea. Changed to metformin ER. Onglyza is not commonly used nowadays because of risk of CHF. Will change to amy or brock -- januvia not covered. Foot care explained. Also asked him to take OTC B12, [id number] MD LULU [facility] [address] [place] [phone] 10/02/2017 09:52:49 10/02/2017 10:38:25 Type 2 diabetes mellitus 03076314 E11.9 Excellent control of diabetes with meds and lifestyle changes. No change in Rx. I will have to get labs from Dr. Cardenas Hypertensive disorder 38 098881 I10 He checks his blood pressure daily at home and at his gym. Readings are in 120s/80s. Will go with his home readings. [id number] MD LULU [facility]End[facility] [address] [place] [phone] 01/07/2019 13:34:51 01/07/2019 14:21:47 Neuropathy due to type 2 diabetes mellitus 1988576970 91062 E11.40 Very good control without side effect of medication s. Continue same. Essential hypertension 75917158 I10 Great control. No orthostasi s [id number] MD LULU [facility] [address] [place] [phone] 12/22/2019 11:06:08 12/22/2019 12:04:25 Hyperlipidemia 31437990 E78.5 I'm not sure why he is off atorvastat in. It is essential that outpatient with pre-existi ng ASCVD should be on high intensity statin. He will talk to his cardiologi st to discuss this issue Disorder d ue to type 2 diabetes mellitus 912453600 E11.8 We discussed about the new cardiovasc [...] Foley Member ID Guarantor Name 12/20/2016 2 [facility] (MEDICARE SUPPLEMENT) Spencer Roberson [id number] Spencer Roberson Jr. 12/20/2016 1 MEDICARE B-[place]: [employer] Spencer Roberson Jr [id number] Spencer Roberson Jr. 03/20/2017 2 [facility] (MEDICARE SUPPLEMENT) Spencer Roberson [id number] Spencer Roberson Jr. 03/20/2017 1 MEDICARE [place]: [employer]ATIONAL [employer]MENT [employer] Spencer Roberson Jr [id number] Spencer Roberson Jr. 10/02/2017 2 [facility] (MEDICARE SUPPLEMENT) Spencer Roberson [id number] Spencer Roberson Jr. 10/02/2017 1 MEDICARE [place]: [employer] Spencer Roberson Jr [id number] Spencer Roberson Jr. 01/07/2019 2 [facility] (MEDICARE SUPPLEMENT) Spencer Roberson [id number] Spencer Roberson Jr. 01/07/2019 1 MEDICARE [place]: [employer] Spencer Roberson Jr [id number] Spencer Roberson Jr. 12/22/2019 2 [facility] (MEDICARE SUPPLEMENT) Spencer Roberson [id number] Spencer Roberson Jr. 12/22/2019 1 MEDICARE B-[place]: [facility] [employer] Spencer Roberson Jr [id number] Spencer Roberson Jr. Notes Date Note [...] lbs) Paulette Brooks MS, RDN, LDN, CDE [address] [place] [address], [phone], [facility] [employer] [facility] 12/20/2016 14:08:14 03/20/2017 text/html Duration [...] - Eye examinations: Done Dread Anton MD [address] [place] [address], [phone], [facility] [employer] [facility]. 03/20/2017 14:54:28 10/02/2017 text/html DiabetesReported bypatient.Notes:Finger stick [...] in the social history: Dread Anton MD [address] [place] [address], [phone], [facility]. 10/02/2017 10:44:12 01/07/2019 text/html Diabetes - [facility]Notes:Finger stick blood glucose review with meter mg/dL >98% in range Last A1c: 61% [...] No change Preprandial dizziness Dread Anton MD [address] [place] [address], [phone], [facility] 01/07/2019 14:21:05 12/22/2019 text/html This is a Telehe alth visit, via telephone. Patient understands the risks, benefits and limitations of this type of visit. Patient consents for this visit. This type of visit is being utilized as it was deemed higher risk for patient to come to office given the current risk of COVID-19/coronavirus infection. The patient is located in [place] at the time of this visit. Physician is located in [place], [place] at the time of this visit. [...] done it because of the pandemic? 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 The diabetes is under good control Dread Anton MD [address] [place] [address], [phone], [facility]. 12/22/2019 11:34:07
--- OUTSIDE RECORDS SUMMARY | 2024-09-24 14:01 | XMS_ITS | Clinical Summary ---
Author Organization [facility] [place] Address [address] [place] [address] Care Team Providers Care Front Desk Host Name Role Phone Ada Morris MD Primary Care Prov ider Allergies Active Allergy Reactions Criticality Noted Date Comments Adhesive Tape-Silicones Rash 03/14/2020 Bacitracin Rash 11/05/2017 Cefazolin Rash 03/14/2020 Clopidogrel Rash 03/14/2020 Oxycodone Hallucinations 03/14/2020 Medications metFORMIN XR (GLUCOPHAGE-XR ) 500 mg 24 hr tablet TAKE 2 TABLETS BY MOUTH DAILY WITH BREAKFAST 4 Active blood sugar diagnostic (OneTouch Verio test strips) test strip TEST UP TO 3 TIMES A DAY 4 Active amoxicillin (AMOXIL) 500 mg capsule Take 4 Capsules by mouth See Admin Instructions. Take 4 capsule by mouth 1 hours before dental procedures 3 Active aspirin (Adult Low Dose Aspirin) 81 mg EC tablet Take 81 mg by mouth daily. Active acetaminophen (TYLENOL) 500 mg tablet Take 2 Tabs by mouth every morning. Active multivit-min/f olic acid/lutein (CENTRUM SILVER ORAL) Take 1 Tab by mouth daily. Therapeutic Multiple Vitamins with Minerals Active linaGLIPtin (Tradjenta) 5 mg tablet Take 5 mg by mouth daily. 90 tablet 5 Active valsartan (DIOVAN) 160 mg tablet Take 1 tablet (160 mg total) by mouth 1 (one) time each day. 90 tablet 5 Active meloxicam (MOBIC) 15 mg tablet Take 1 tablet (15 mg total) by mouth 1 (one) time each day. 90 tablet 5 Active linaGLIPtin (Tradjenta) 5 mg tablet Take 5 mg by mouth daily. 4 09/14/19 25 Discontin ued(Reord er) meloxicam (MOBIC) 15 mg tablet Take 1 Tablet by mouth daily. 4 09/14/19 25 Discontin ued(Reord er) valsartan (DIOVAN) 160 mg tablet Take 1 tablet (160 mg total) by mouth 1 (one) time each day. 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 Pulmonology referral placed. Pleural effusion 07/04/2019 Overview (07/24/2024): 06/30. S/p thoracocentesis Syncope 06/10/2019 Overview (07/24/2024): Cardio 05/31/19: ?vasovagal in settin gpostural hypotension an diuretics, lasix and metoprolol on hold Coronary artery disease due to calcified coronar y lesion 05/22/2019 Overview (07/24/2024): CABGx4 PEÑA to LAD saphenous vein graft to RPDA and saphenous vein graft to diagonal permeant pace maker placed 05/12/2019 Cardiac rehab [facility] - 2 visits weekly up to 36 sessions Obesity (BMI 30-39.9) 11/25/2017 Tobacco use disorder 11/25/2017 Overview (07/24/2024): >30 pk yr LDCT 12/27 neg. Repeat 12 mo. Bundle branch block, right 11/05/2017 Overview (07/24/2024): Since 2006 Cataracts, bilateral 11/05/2017 Diverticulosis 11/05/2017 DM (diabetes mellitus), type 2 with neurological complications 11/05/2017 DM (diabetes mellitus), type 2 with renal compli cations 11/05/2017 Hearing loss 11/05/2017 Overview (07/24/2024): Bilateral hearing aids Hemorrhoids 11/05/2017 Overview (07/24/2024): internal Microalbuminuria 11/05/2017 KEITH (obstructive sleep apnea) 11/05/2017 Osteoarthritis 11/05/2017 Overview (07/24/2024): Spine, knees Peripheral neuropathy 11/05/2017 Overview (07/24/2024): 03/20/17 Dr Dread Anton,Endocrine Tubular adenoma 11/05/2017 Overview (07/24/2024): & sessile serrated polyp 2005 Type 2 diabetes mellitus with cataract 8 Encounters Date Type Department Care Team Description 08/17/2024 Telephone Adult Medicine [address] [phone] Ada Morris MD vna from Last 3 Months Immunizations Name Administration Dates Next Due Pneumococcal polysaccharide 23 valent (Pneumovax 23) 2yo and older 11/25/2017 Td Tetanus diptheria (Tdvax) 7yo and older 07/30 Surgical History Surgery Date Site/Laterality Comments HIP ARTHROPLASTY 2001 PROCEDURE: HISTORICAL HIP REPLACEMENT COLONOSCOPY 07/08/2006 PROCEDURE: HISTORICAL COLONOSCOPY; COMMENT: Tubular Adenoma, Sessile Serrated Polyp COLONOSCOPY 11/30/2015 PROCEDURE: HISTORICAL COLONOSCOPY; COMMENT: diverticulosis, internal hemorrhoids CHOLECYSTECTOMY PROCEDURE: HISTORICAL CHOLECYSTECTOMY APPENDECTOMY PROCEDURE: HISTORICAL APPENDECTOMY TOTAL KNEE ARTHROPLASTY 12/28/2013 PROCEDURE: HISTORICAL TOTAL KNEE REPLACE Medical History Medical History Date Comments History of total hip replace ment, bilateral 11/05/2017 DX:History of total hip repl acement, bilateral; COMMENT: 2001 KEITH (obstructive sleep apnea) 11/05/2017 DX :KEITH (obstructive sleep apnea) Osteoarthritis 11/05/2017 DX:Osteoarthriti s; COMMENT: Spine, knees Hearing loss 11/05/2017 DX:Hearing loss; COMMENT: Bilateral hearing aids Tubular adenoma 11/05/2017 DX:Tubular adeno ma; COMMENT: 2006 Cataracts, bilateral 11/05/2017 DX:Cataract s, bilateral DM (diabetes mellitus), type 2 with renal complications ([facility]) 11/05/2017 DX:DM (diabetes mellitus ), type 2 with renal complications (HCC) Microalbuminuria 11/05/2017 DX:Microalbumin uria Bundle branch block, right 11/05/2017 DX:Bu ndle branch block, right; COMMENT: Since 2005 DM (diabetes mellitus), type 2 with neurological complications (CMS/HCC) 11/05/2017 DX:DM (diabetes m ellitus), type 2 with neurological complications (HCC) Peripheral neuropathy 11/05/2017 DX:Periphe ral neuropathy; COMMENT: 03/20/17 Dr Dread Anton,Endocrine Type 2 diabetes mellitus wit h cataract ([facility]) 11/05/2017 DX:Type 2 diabetes mellitus with cataract ([facility]) Diverticulosis 11/05/2017 DX:Diverticulosi s Hemorrhoids 11/05/2017 DX:Hemorrhoids; COMMENT: internal Abnormal PFT 12/05/2021 DX:Abnormal PFT; COMMENT: 11/2021. Pulmonology referral placed. Family History Medical History Relation Name Comments No Known Problems Father No Known Problems Mother Relation Name Status Comments Father Mother Social History Tobacco Use Types Packs/Day Years Used Date Smoking Tobacco: Former Cigarettes 0 02/10/1968 - 04/26/2018 Smokeless Tobacco: Never Alcohol Use Standard Drinks/Week Comments No 0 (1 standard drink = 0.6 oz pur e alcohol) Sex and Gender Information Value Date Recorded Sex Assigned at Not on file Legal Sex Male 12:29 PM EDT Gender Identity Not on file Sexual Orientation Not on file Obstetrics History Last Filed Vital Signs Vital Sign Reading Time Taken Comments Blood Pressure 123/57 06/08/2024 1:34 PM EDT Pulse 67 06/08/2024 1:34 PM EDT Temperature - - Respiratory Rate - - Oxygen Saturation - - Inhaled Oxygen Concentration - - Weight 89.4 kg (197 lb) 06/08/2024 1:34 PM EDT Height 177.8 cm (5' 10 ) 12/09/2023 1:16 PM EDT Body Mass Index 28.27 12/09/2023 1:16 PM EDT Plan of Treatment Upcoming Encounters Date Type Department Care Team (Late st Contact Info) Description 12/07/2024 1:15 PM EDT Office Visit Adult Medicine - [place] [address] [place] [phone] Ada Morris MD [address] [place] [address] Health Maintenance Due Date Last Done Comments Diabetes: Annual Foot Exam 02/20/1958 Diabetes: Annual Retina Eye Exam 02/20/1958 Zoster Vaccines (1 of 2) 02/20/1998 Pneumococcal Vaccine: 50+ Years (2 of 2 - PCV) 11/25/2018 11/25/2017 Colorectal Cancer Screening: Colonoscopy 05/29/2021 11/30/2015 Social Influencers of Health Screening 05/29/2021 RSV Immunization Patients 60 + Years Old (1 - 1-dose 75+ series) 02/20/2023 COVID-19 Vaccine (4 - 2023-2 5 season) 2024 06/26/2021, 11/03/2020, 10/06/2020 Influenza Vaccine (#1) 2024 Diabetes: Annual Urine Albumin-Creatinine Ratio (uACR) 07/26/2024 07/26/2023 Falls Risk Assessment 07/30/2024 07/30/2023 Depression Screening 08/19/2024 08/19/2023 Medicare Annual Wellness Visit 08/19/2024 08/19/2023 Diabetes: Blood Sugar Contro l Test (HGBA1C) 10/18/2024 04/20/2024, 04/20/2024 Diabetes: Annual GFR (Glomerular Filtration Rate) 04/20/2025 04/20/2024, 04/20/2024 Hypertension/CHF/CAD Annual BMP Blood Test 04/20/2025 04/20/2024, 04/20/2024 Cholesterol Screening (Lipid Panel) 07/26/2028 07/26/2023 DTaP,Tdap,and Td Vaccines (2 - Td or Tdap) 07/30/2033 07/30/2023 Hepatitis C Screening Completed 10/01/2018 HIB Vaccines Aged Out No longer eligi ble based on patient's age to complete this topic HPV Vaccines Aged Out No longer eligi ble based on patient's age to complete this topic Hepatitis A Vaccines Aged Out No long er eligible based on patient's age to complete this topic Hepatitis B Vaccines Aged Out No long er eligible based on patient's age to complete this topic IPV Vaccines Aged Out No longer eligi ble based on patient's age to complete this topic MMR Vaccines Aged Out No longer eligi ble based on patient's age to complete this topic Meningococcal ACWY Vaccine Aged Out N o longer eligible based on patient's age to complete this topic Meningococcal B Vacine Aged Out No lo nger eligible based on patient's age to complete this topic RSV Immunization Patients Under 20 months Aged Out No longer eligible b ased on patient's age to complete this topic Varicella Vaccines Aged Out No longer eligible based on patient's age to complete this topic Procedures Procedure Name Priority Date/Time Associated Diagnosis Comments ANNUAL BMP BLOOD TEST Routine 04/20/2024 HEMOGLOBIN A1C Routine 04/20/2024 DEPRESSION SCREENING Routine 08/19/2023 FALLS RISK ASSESSMENT Routine 07/30/2023 URINE ALBUMIN CREATININE RATIO Routine 07/26/2023 LIPID PANEL Routine 07/26/2023 HEPATITIS C SCREENING Routine 10/01/2018 COLONOSCOPY Routine 11/30/2015 from Last 3 Months or Most Recently Relevant to Health Maintenance Results * Annual BMP Blood Test (04/20/2024) Annual BMP Blood Test Abstracted us Historical Provider HEALTH MAINTENANCE Final Result * Hemoglobin A1c (04/20/2024) Hemoglobin A1C 6.1 <=6.5 % Blood Venous blood specimen / Unknown Result [facility] Provider LAB BLOOD ORDERABLES Jennifer l Result * Depression Screening (08/19/2023) [facility] Depression Screening Abstracted Result [facility] Provider HEALTH MAINTENANCE Final Result * Falls Risk Assessment (07/30/2023) [facility] Falls Risk Assessment Abstracted Result [facility] Provider HEALTH MAINTENANCE Final Result * Urine Albumin Creatinine Ratio (07/26/2023) [facility] Urine Albumin Creatinine Ratio Abstracted Result [facility] Provider HEALTH MAINTENANCE Final Result * (ABNORMAL) Lipid panel (07/26/2023) [facility] LDL/HDL Ratio 4 0 - 4 Triglycerides 78 0 - 150 mg/dL Cholesterol 162 0 - 200 mg/dL HDL 44 >=40 mg/dL LDL Cholesterol 103(A) 0 - 100 mg/dL Blood Venous blood specimen / Unknown Result [facility] Provider LAB BLOOD ORDERABLES Jennifer l Result * Hepatitis C Screening (10/01/2018) [facility] Hepatitis C Screening Abstracted Result [facility] Provider HEALTH MAINTENANCE Final Result * Colonoscopy (11/30/2015) [facility] Colonoscopy No interpretation , Abstracted Anatomical Region Laterality Modality Other Result [facility] Provider HEALTH MAINTENANCE Final Result from Last 3 Months or Most Recently Relevant to Health Maintenance Insurance [employer] [place] MEDICARE ADVANTAGE MEDICARE Care Teams Front Desk Host Relationship Specialty Start Date End Date Ada Morris MD [address] [place] [id number] PCP - General Internal Medicine 06/19/24
--- OUTSIDE RECORDS SUMMARY | 2024-09-24 14:01 | XMS_ITS | Continuity of Care Document ---
Author Organization [facility] ter Address [address] [place] [address]- Care Team Providers Care Amf Mechanic Name Role Phone John Child MD, Ada Primary Care Phys [id number] Date[facility]s): 08/28/24 - 08/28/[address] [address]- Encounter Diagnosis Diarrhea(Final) - 08/28/24 Abdominal pain(Final) - 08/28/24 Discharge Disposition: A-D/C Home Attending Physician: Criss Robbins MD Admitting Physician: Criss Robbins MD Referring Physician: Not on Staff, Referring MD Encounter Type: Disch ES Allergies, Adverse Reactions, Alerts Substance Criticality Severity Reaction Reaction Severity Status bacitracin Unable to assess criticality Persistent Moderate Localized swelling Welt Active oxyCODONE Unable to assess criticality Persistent Severe Hallucinations Altered mental status Active ceFAZolin Rash Active Plavix Rash Active Adhesive Bandage Blisters Active Immunizations Given and Recorded Vaccine Date Status Refusal Reason SARS-CoV-2 (COVID-19) mRNA-1273 vaccine 11/03/ G iven SARS-CoV-2 (COVID-19) mRNA-1273 vaccine 10/06/ G iven Medications acetaminophen 325 mg oral tablet 975 mg, 3, tablet, By Mouth, Every 6 hours Start Date: 05/31/19 Status: Ordered Repeat number: 1 aspirin 81 mg oral tablet 1 tablet = 81 mg, By Mouth, Daily, # 30 tablet, 0 Refills, Maintenance, 06/03/19 1:57:54 PM EDT, Tablet, [facility], Replacement of previous 325mg aspirin [...] Date: 08/13/24 Status: Ordered Repeat number: 1 PreserVision AREDS 2 oral [...] Date: 10/22/23 Status: Ordered Repeat number: 1 vancomycin 125 mg oral capsule = 125 mg, By Mouth, Every 6 hours, for 14 days, Doses over 125 mg require ID consult. Indication for Use: C. difficile colitis, # 56 capsule, 0 Refills, Acute 08/30/24 9:35:00 AM EST, 08/16/24 9:35:00 AM EST, Capsule, [id number], Partial fill upon patient request if the [...] AM EST, 08/30/24 9:35:00 AM EST, Capsule, [facility], Partial fill upon patient request if [...] due to calcified coronary lesion Confirmed Active Vital Signs Most recent to oldest [Reference Range]: 1 2 3 Height 178 cm (08/28/24 9:30 AM) Weight 91 kg (08/28/24 9:30 AM) Oxygen Saturation [94-100 %] 100 % (08/28/24 2:51 PM) 100 % (08/28/24 12:06 PM) 100 % (08/28/24 9:30 AM) Pulse Rate [55-90 bpm] 70 bpm (08/28/24 2:51 PM) 60 bpm (08/28/24 12:06 PM) 61 bpm (08/28/24 9:30 AM) Blood Pressure [90-138/55-84 mm Hg] 141/63mm Hg *H* (08/28/24 2:51 PM) 120/66mm Hg (08/28/24 12:06 PM) 156/71mm Hg *H* (08/28/24 9:30 AM) Respiratory Rate [16-30 br/min] 16 br/min (08/28/24 2:51 PM) 15 br/min *L* (08/28/24 12:06 PM) 14 br/min *L* (08/28/24 9:30 AM) Temperature [96.8-100.4 DegF] 97.6 DegF (08/28/24 9:30 AM) Mode of Delivery (Oxygen) Room air (08/28/24 2:51 PM) Room air (08/28/24 12:06 PM) Room air (08/28/24 9:30 AM) Blood pressure sites Arm, left (08/28/24 2:51 PM) Arm, left (08/28/24 12:06 PM) Arm, left (08/28/24 9:30 AM) Temperature Route Oral (08/28/24 9:30 AM) Dry Weight 91 kg (08/28/24 9:30 AM) Weight Obtained Via Patient/family state d (08/28/24 9:30 AM) Dry Weight Obtained Via Patient/family s tated (08/28/24 9:30 AM) Social History Social History Type Response Smoking Status Former smoker, quit more than 30 days ago; Tobacco user in household: No;Never; Type: Cigarettes; Other: quit 2016; Tobacco use times per day: Quit in 2017; Started at age: 18; Stopped at age: 67; entered on: 06/09/19 Sex Sex Representation Male (finding) EKG study * Event Display: ECG 12-Lead Authored Date: Please click on pdf link to open report * Event Display: ECG 12-Lead Authored Date: Ventricular Rate: 63 BPM Atrial Rate: 64 BPM QRS Duration: 178 ms Q-T Interval: 464 ms QTC Calculation(Bazett): 474 ms P [place]: 95 degrees R [place]: -56 degrees T [place]: 108 degrees Ventricular-paced rhythm Abnormal ECG Baseline artifact When compared with ECG of 13-Aug-2024 06:14, Vent. rate has decreased by 22 bpm Confirmed by Xander Hinton ([id number]) on 08/28/2024 12:29:02 PM [place]: Xander Hinton Note * Cat Campbell DO: PERFORM Event Display: Patient Education Leaflets Authored Date: [id number] [facility] - If you need a Doctor or Clinic ?? 34 If You Need a Doctor or Clinic ?? Call [facility] PCP Assignment Line to help you find a doctor:?? [phone] ?? Clinics in [place], [place] For a full list of clinics:? [email or web address] ?? [facility]? [address] [phone] [facility] Internal medicine Clinic?[address]?[phone] [place] [address]?[address][phone] [facility]?[address][phone] [facility]?[address] [phone] [facility]?[address][phone] [facility]?[address][phone] [facility]?[address] [phone] [facility]? [address][phone] [facility]?[address][phone] [facility]?[address][phone] [facility]?[address][phone] [facility]?[address][phone] [facility]? [address][phone] [facility]?[address][phone] ? Patient Care team information Care Team Personnel Name: Ada Sullivan RN Position: [facility] RN Member Role: Primary Care Nurse Name: Sophia Rodriguez RN Position: [facility] SN RN Member Role: Primary Care Nurse Name: Jessica Koenig RN Position: S RN Member Role: Primary Care Nurse Name: Benigno Marr RN Position: S RN Member Role: Primary Care Nurse Name: Ada Kelley MD Position: Reference Physician Member Role: PCP Address: [address] [place] [address] [place] [address]- [place] Tele[employer]: Name: Demi Mitchell NP Position: [facility] Associate Professional Member Role: Primary Care Nurse Address: [address] [place] [address]- [place] [employer]: Name: Leanna Bridges RN Position: S RN Member Role: Primary Care Nurse Name: Gregoria Thornton RN Position: S RN Member Role: Primary Care Nurse Name: Jose Cervantes RN Position: [facility] RN Supv Member Role: Primary Care Nurse Name: Salomón Swift RN Position: [facility] RN Member Role: Primary Care Nurse Name: Tatiana Reagan RN Position: [facility] RN Member Role: Primary Care Nurse Care Team Related Persons Name: ANITA DYER Insurance Providers Guarantor name: ZABRINA Health Plan Information #: 1 Payer: [employer] Member Number: [id number] Policy Number: NA Group Number: [id number] Health Plan Information #: 2 Payer: [employer] Member Number: [id number] Policy Number: NA Group Number: [id number]
--- OUTSIDE RECORDS SUMMARY | 2024-09-24 14:01 | XMS_ITS | Clinical Summary ---
Author Organization [facility] Address [address] [place] [address] Care Team Providers Care House Nurse Name Role Phone Guero Martinez PA-C Primary Care Provider + [phone] Allergies Active Allergy Reactions Criticality Noted Date Comments Adhesive Tape Bacitracin Other (See Comments) 11/05/2017 Cefazolin Clopidogrel Rash Low Oxycodone Medications Medication Sig Dispensed Refills Start Date End Date Status amoxicillin (AMOXIL) 500 MG tablet TK 4 TS PO 1 HOUR PRIOR TO APPOINTMENT OR COLONOSCOPY 3 02/14/2017 Active ONETOUCH VERIO test strip USE TO TEST BID 4 04/10/2017 Active ONETOUCH DELICA LANCETS FINE MISC U TO TEST BID 11 04/14/2017 Acti ve meloxicam (MOBIC) 15 MG tablet TK 1 T PO D 3 04/11/2017 Active metFORMIN (GLUCOPHAGE-XR) ER 24 hr tablet 500 mg TK 2 TS PO BID WITH MEALS. START WITH 1 T ONCE PER DAY AND INCREASE UTD 1 04/17/2017 Active metFORMIN (GLUCOPHAGE) tablet 500 mg TK 1 T PO BID 1 02/06/2017 Active ONGLYZA 5 MG tablet TK 1 T PO QD 3 02/07/2017 Active valsartan (DIOVAN) tablet 160 mg TK 1 T PO QD 3 02/06/2017 Active acetaminophen (TYLENOL EXTRA STRENGTH) 500 MG tablet Take 2 tablets by mouth. 0 Active losartan (COZAAR) tablet 50 mg Take 50 mg by mouth. 0 10/01/2018 Ac tive Multiple Vitamin (MULTI-VITAMINS PO) Take 1 tablet by mouth. 0 Active glucose blood (ONE TOUCH ULTRA TEST) test strip 1 strip. 0 10/01/2018 Active meloxicam (MOBIC) 15 MG tablet Take 15 mg by mouth. 0 10/01/2018 Ac tive metFORMIN (GLUCOPHAGE-XR) ER 24 hr tablet 500 mg Take 500 mg by mouth. 0 10/01/2018 Act maria victoria sAXagliptin (ONGLYZA) tablet 5 mg Take 5 mg by mouth. 0 10/01/2018 Activ e amiodarone (PACERONE) 200 MG tablet TAKE 1 TABLET BY MOUTH TWO TIMES A DAY FOR 4 WEEKS 0 05/25/2019 Active ASPIRIN ADULT LOW STRENGTH 81 MG EC tablet 0 06/03/2019 Active atorvastatin (LIPITOR) tablet 40 mg Take 40 mg by mouth. 0 Acti ve colchicine 0.6 MG tablet TK 2 T PO TODAY AND THEN 1 T PO QD THEREAFTER 1 06/26/2019 Active doxycycline (VIBRAMYCIN) 100 MG capsule TAKE 1 CAPSULE BY MOUTH EVERY 12 HOURS FOR 4 DAYS 0 05/25/2019 Active furosemide (LASIX) 40 MG tablet Take 40 mg by mouth 2 (two) times a day. 0 05/25/2019 Active insulin glargine (LANTUS SOLOSTAR) injection 100 units/mL Inject 30 Units under the skin. 0 Active LANTUS SOLOSTAR 100 UNIT/ML injection INJECT 30 UNITS SUBCUTANEOUSLY EVERY DAY BEFORE LUNCH 0 05/25/2019 Active metoprolol tartrate (LOPRESSOR) 25 MG tablet Take 25 mg by mouth. 0 Acti ve potassium chloride ER (K-DUR,KLOR-CON) tablet 20 mEq 0 06/13/2019 Active traMADol (ULTRAM) 50 MG tablet TAKE 1 TABLET BY MOUTH EVERY 6 HOURS NEEDED FOR MODERATE PAIN 0 05/25/2019 Active albuterol 108 (90 Base) MCG/ACT inhaler Inhale 2 puffs into the lungs. 0 01/17/2022 Active ezetimibe (ZETIA) tablet 10 mg Take 10 mg by mouth daily. 0 03/03/2022 Active Active Problems Problem Noted Date Diagnosed Date Primary osteoarthritis of right knee 01/13/2019 Chronic pain of right knee 01/13/2019 Family History Medical History Relation Name Comments Heart disease Father Cancer Mother Relation Name Status Comments Father Mother Social History Tobacco Use Types Packs/Day Years Used Date Smoking Tobacco: Never Assessed Sex and Gender Information Value Date Recorded Sex Assigned at Not on file Gender Identity Not on file Sexual Orientation Not on file Job Start Date Occupation Industry Not on file Not on file Not on file Last Filed Vital Signs Vital Sign Reading Time Taken Comments Blood Pressure - - Pulse - - Temperature - - Respiratory Rate - - Oxygen Saturation - - Inhaled Oxygen Concentration - - Weight 116.1 kg (256 lb) 03/27/2019 10:18 AM EDT Height 180.3 cm (5' 11 ) 03/27/2019 10:18 AM EDT Body Mass Index 35.7 03/27/2019 10:18 AM EDT Plan of Treatment Health Maintenance Due Date Last Done Comments Hepatitis C Screening 1950 COVID-19 Vaccine (#1) 1950 Depression Screening 1960 BMI Counseling 02/20/1966 Preventative Health Evaluation 02/20/1966 DTap / Tdap / Td (1 - Tdap) 02/20/1967 Shingrix-Zoster Vaccine (1 of 2) 02/20/1998 Fall Risk Assessment 02/20/2013 Pneumococcal Vaccine (2 of 2 - PCV) 11/25/2018 11/25/2017 RSV Adult > 60+ Yrs or Pregn ant (1 - 1-dose 75+ series) 02/20/2023 Influenza Vaccine (#1) 2024 Hepatitis B Vaccines Aged Out No long er eligible based on patient's age to complete this topic RSV Ped < 20 months Aged Out No longe r eligible based on patient's age to complete this topic Care Teams House Nurse Relationship Specialty Start Date End Date Guero Martinez PA-C PCP - General Medical Services 12/13/21
--- OUTSIDE RECORDS SUMMARY | 2024-09-24 14:01 | XMS_ITS | Continuity of Care Document ---
Author Organization [facility] ter Address [address] [place] [address]- Care Team Providers Care Club Manager Name Role Phone John Child MD, Ada Primary Care [id number] Date[facility]s): 08/16/24 - 09/15/[address] [address]- Attending Physician: Not on Staff, Attending MD Admitting Physician: Not on Staff, Admitting MD Referring Physician: Not on Staff, Referring MD Encounter Type: Pre-Outpt Allergies, Adverse Reactions, Alerts Substance Criticality Severity Reaction Reaction Severity Status bacitracin Unable to assess criticality Persistent Moderate Localized swelling Welt Active Plavix Rash Active Adhesive Bandage Blisters Active oxyCODONE Unable to assess criticality Persistent Severe Hallucinations Altered mental status Active ceFAZolin Rash Active Immunizations Given and [...] Refills, Maintenance, 06/03/19 1:57:54 PM EDT, Tablet, [facility], Replacement of previous 325mg aspirin [...] Date: 10/22/23 Status: Ordered Repeat number: 1 Problem List Condition Confirmation Course Effective Dates Status H ealth Status Informant Coronary atherosclerosis due to calcified coronary lesion Confirmed Active Social History Social History Type Response Smoking Status Former smoker, quit more than 30 days ago; Tobacco user in household: No;Never; Type: Cigarettes; Other: quit 2016; Tobacco use times per day: Quit in 2017; Started at age: 18; Stopped at age: 67; entered on: 06/09/19 Sex Sex Representation Male (finding) Patient Care team information Care Team Personnel Name: dAa Sullivan RN Position: S SN RN Member Role: Primary Care Nurse Name: Sophia Rodriguez RN Position: [facility] SN RN Member Role: Primary Care Nurse Name: Jessica Koenig RN Position: S RN Member Role: Primary Care Nurse Name: Benigno Marr RN Position: S RN Member Role: Primary Care Nurse Name: Ada Kelley MD Position: Reference Physician Member Role: PCP Address: [address] [place] [address] [place] [address]- [place] [employer]: Name: Demi Mitchell NP Position: [facility] PCO Associate Professional Member Role: Primary Care Nurse Address: [address] [place] [address]- [place] [employer]: Name: Leanna Bridges RN Position: S RN Member Role: Primary Care Nurse Name: Gregoria Thornton RN Position: [facility] RN Member Role: Primary Care Nurse Name: Jose Cervantes RN Position: [facility] RN Supv Member Role: Primary Care Nurse Name: Salomón Swift RN Position: S RN Member Role: Primary Care Nurse Name: Tatiana Reagan RN Position: S RN Member Role: Primary Care Nurse Care Team Related Persons Name: ANITA DYER Insurance Providers Guarantor name: ZABRINA Health Plan Information #: 1 Payer: [facility] Member Number: NA Policy Number: NA Group Number: NA
[2024-09-24 14:02] VITALS: BMI 29.7
--- NOTE | 2024-09-24 14:02 | MHC.OFFVIS ---
Vital Signs 09/24/24 14:02 Height 5 ft 10 in Weight 207 lb BMI 29.7 Intake Visit Reasons: Left shoulder pain Intake Note: Spencer is a 74 year old male who presents with complaints of progressively worsening left shoulder pain. The patient did undergo right total knee replacement surgery on 05/04/2024. Denies any pain in his right knee. He describes his left shoulder pain as sharp in nature. He has had cortisone injections in the past which gave him fairly good relief. He wishes to hold off on surgery if at all possible. He has taken Tylenol and meloxicam which gave him mild relief. Allergies adhesive tape Allergy (Intermediate, Verified 09/24/24 14:09) Rash bacitracin Allergy (Verified 09/24/24 14:09) Rash cefazolin Adverse Reaction (Severe, Verified 09/24/24 14:09) Rash clopidogrel [From Plavix] Adverse Reaction (Severe, Verified 09/24/24 14:09) Rash oxycodone Adverse Reaction (Verified 09/24/24 14:09) Hallucinations Medication List - Last Reconciled 09/24/24 by Jim Carrero MD acetaminophen 1,000 mg PO DAILY PRN amoxicillin 2,000 mg PO ONCE aspirin 325 mg PO BID 42 days aspirin (Adult Aspirin Regimen) 81 mg PO DAILY docusate sodium 100 mg PO BID PRN 30 days linagliptin (Tradjenta) 5 mg PO DAILY metformin ER 500 mg PO DAILY metoprolol succinate ER 25 mg PO DAILY xrhhmdjnwgxr-qinmbikf-iwfbqw 1 tab PO DAILY rosuvastatin 5 mg PO DAILY valsartan 160 mg PO DAILY vancomycin 125 mg PO QID vit C,I-Nq-xjdvg-lutein-zeaxan 250-90-40-1 mg (PreserVision AREDS-2) 2 tabs PO DAILY walker Folding front wheeled walker [facility] Medical History Skin cancer GERD (gastroesophageal reflux disease) Myocardial infarction Hemorrhoids Diverticulosis Peripheral neuropathy Right bundle branch block Microalbuminuria Cataracts, bilateral Tubular adenoma Diabetes Hearing loss Osteoarthritis Tobacco use disorder Obesity (BMI 30-39.9) Sleep apnea CAD (coronary artery disease) Syncope Pleural effusion Pacemaker Abnormal PFT Skin lesions HTN (hypertension) Macular degeneration of both eyes Surgical History History of nasal surgery Hx of bilateral cataract extraction Hx of tonsillectomy Hx of cholecystectomy Hx of appendectomy H/O colonoscopy Hx of CABG History of thoracentesis History of left knee replacement (~2013) History of left hip replacement (~2000) History of right hip replacement (~2000) Social History Household Members: Spouse Housing: House Housing Other:: stairs into house and within house Are you a primary nursing care attendant to a significant other at home: No Do you presently have visiting nurse or other home services: No Comment: pt rings appropriately Patient Tobacco Use Status: Former Tobacco user service: No Current occupational status: retired Physical Exam Vital Signs: BMI result Body Mass Index 29.7 Const Other: Well-nourished well-developed very friendly male awake alert and oriented x3 in no acute distress Extrem Other: Bilateral upper extremity examination shows good capillary refill, no skin lesions noted, normal sensation light touch Left shoulder examination shows slightly decreased range motion when compared to his right shoulder, 4/5 strength with supraspinatus testing, positive impingement signs, no instability Office Procedures AMB Joint Injection/Aspiration Joint Injection/Aspiration Primary Site: left shoulder Prep: site was prepped using aseptic technique Injected: 40 mg of, DepoMedrol and 1% plain lidocaine Procedure: The patient tolerated the procedure well Coding 64346 - Large joint Procedure code (CPT) selection complete Assessment & Plan Assessment & Plan (1) Impingement syndrome of left shoulder: Code(s): M75.42 - Impingement syndrome of left shoulder Category: Medical (2) Left shoulder pain: Code(s): M25.512 - Pain in left shoulder Category: Medical Plan Mr. Roberson continues to do well after undergoing right total knee replacement surgery on 05/04/2024. He does have left shoulder pain due to impingement syndrome and possible rotator cuff tearing. The risks and benefits of a left shoulder cortisone injection were discussed at length with the patient. The patient wished to proceed. He tolerated the injection well. He will continue with his home stretching program. He will contact me prior to his follow-up appointment in 3 months should any questions or concerns arise. Feel free to call me at any time should questions regarding his orthopedic management arise. I spent 22 minutes in reviewing the patient's records and imaging studies, seeing the patient and documenting in the medical record. Orders: Orders AMB Joint Injection/Aspiration Today M75.42 - Impingement syndrome of left shoulder XR knee RT 3V Today M25.561 - Pain in right knee Coding Level of Care Code Est Pt Level 3 (99311) Complex EM visit Add On G2211 Diagnoses Impingement syndrome of left shoulder M75.42 Left shoulder pain M25.512 CPT Codes Coding - 44713 Large joint: 41776 - Large joint ([id number])
== END 2024-09-24 14:34 | disposition home or self-care (01) ==
PROVIDERS: Visit Provider Orthopaedic Surgery
DX: M75.42 Impingement syndrome of left shoulder (principal); M25.512 Pain in left shoulder
CPT/HCPCS: 20610; 99213

== ENCOUNTER 2024-10-16 12:55 | Outpatient (REF) | payer MEDICARE, OTHER, SELFPAY ==
--- NOTE | 2024-10-16 12:59 | EMG_ITS ---
Chief complaint: Numbness on 1st to 3rd digits, bilateral. Noted atrophy on bilateral thenar/APB. He is diabetic but denies history of neuropathy. Denies neck pain. Reason for referral: Evaluate for Carpal Tunnel Syndrome Referred by: Dr. Carrero Procedure done: Bilateral upper extremities NCS/EMG Precautions and/or limitations: Patient has a pacemaker - unable to increased stimulation for precaution. The limb temperature was monitored continuously and remained between 32-36 degrees C during the performance of the NCS. Ulnar motor NCS was performed with moderate elbow flexion between 70-90 degrees, with across-elbow distance of 10 cm. Nerve Conduction Studies Anti Sensory Summary Table ?Stim Site NR Onset (ms) Norm Onset (ms) Peak (ms) Norm Peak (ms) O-P Amp (?V) Norm O-P Amp Site1 Site2 Delta-0 (ms) Dist (cm) Zain (m/s) Norm Zain (m/s) Left Median Anti Sensory (2nd Digit) Wrist NR <3.6 >10 Wrist 2nd Digit 14.0 Right Median Anti Sensory (2nd Digit) Wrist NR <3.6 >10 Wrist 2nd Digit 14.0 Right Radial Anti Sensory (Thumb) Forearm ? 1.9 2.9 <3.1 3.8 Forearm Thumb 1.9 0.0 Left Ulnar Anti Sensory (5th Digit) Wrist NR <3.7 >15.0 Wrist 5th Digit 14.0 Right Ulnar Anti Sensory (5th Digit) Wrist ? 4.3 6.2 <3.7 2.1 >15.0 Wrist 5th Digit 4.3 14.0 33 Motor Summary Table ?Stim Site NR Onset (ms) Norm Onset (ms) O-P Amp (mV) Norm O-P Amp iAmp (mV) Amp (1st) (%) Site1 Site2 Delta-0 (ms) Dist (cm) Zain (m/s) Norm Zain (m/s) Left Median Motor (Abd Poll Brev) Wrist NR <3.9 >4.5 Elbow Wrist 0.0 >45 Elbow NR Right Median Motor (Abd Poll Brev) Wrist NR <3.9 >4.5 Elbow Wrist 0.0 >45 Elbow NR Left Ulnar Motor (Abd Dig Minimi) Wrist NR <3.0 >5 B Elbow Wrist 0.0 >45 B Elbow NR A Elbow B Elbow 0.0 >45 A Elbow ? 9.5 2.7 3.4 Right Ulnar Motor (Abd Dig Minimi) Wrist ? 3.8 <3.0 2.9 >5 3.3 100.0 B Elbow Wrist 4.2 20.0 48 >45 B Elbow ? 8.0 1.7 2.0 58.6 A Elbow B Elbow 1.6 10.0 63 >45 A Elbow ? 9.6 1.5 1.8 51.7 EMG ?Side Muscle Nerve Root Ins Act Fibs Psw Amp Dur Poly Recrt Int Pat Comment Right 1stDorInt Ulnar C8-T1 Incr 1+ 1+ Incr Incr 0 Nml Complete Right Biceps Musculocut C5-6 Nml Nml Nml Nml Nml 0 Nml Complete Right Triceps Radial C6-7-8 Nml Nml Nml Nml Nml 0 Nml Complete Right Deltoid Axillary C5-6 Nml Nml Nml Nml Nml 0 Nml Complete Left 1stDorInt Ulnar C8-T1 Incr 1+ 1+ Incr Incr 0 Nml Complete Left Biceps Musculocut C5-6 Nml Nml Nml Nml Nml 0 Nml Complete Left Triceps Radial C6-7-8 Nml Nml Nml Nml Nml 0 Nml Complete Left Deltoid Axillary C5-6 Nml Nml Nml Nml Nml 0 Nml Complete Left FlexCarpiUln Ulnar C8,T1 Nml Nml Nml Nml Nml 0 Nml Complete Right FlexCarpiUln Ulnar C8,T1 Nml Nml Nml Nml Nml 0 Nml Complete FINDINGS: Bilateral median motor nerve showed absent response. Right ulnar motor nerve showed prolonged distal latency, small amplitude and slow conduction velocity. Left ulnar motor nerve showed small distal amplitudes. Bilateral median sensory nerves showed absent response. Right ulnar sensory nerve showed prolonged peak latencies and small amplitude. Right radial sensory nerve showed small amplitude. Left ulnar sensory nerve showed absent response. Concentric needle EMG was performed in selected muscles of the bilateral upper extremities. Study revealed signs of electric abnormalities as shown in the table above. Bilateral FDI showed increased insertional activity, PSWs, fibrillations, and increased duration and amplitude. IMPRESSION: 1. First of all, this is a limited nerve conduction study since patient has a pacemaker. Unable to increase stimulation for precaution. Amplitudes may have appeared smaller than what it would be if I were to increase stimulation. 2. Clinically, we can make diagnosis of Carpal Tunnel Syndrome given distribution of numbness and atrophy of APB muscles. Electrodiagnostically supported by abnormal conduction studies of median nerves. 3. 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 Thank you for your kind referral. Minda Camacho MD, BECKY Board Certified, [place] Board of Physical Medicine and Rehabilitation (ABPMR) Board Certified, [place] Board of Electrodiagnostic Medicine (ABEM) CODIN [phone] MTDD
--- OUTSIDE RECORDS SUMMARY | 2024-10-16 14:35 | XMS_ITS | Encounter Summary ---
Author Organization [facility] Address [address] [place] [address] Care Team Providers Care Women'S Activities Adviser Name Role Phone Darrin Morrsi MD Primary Care Provider [phone] Jim Carrero MD Unavailable Unavailable Leslie Biswas MD Unavailable Unavailable Reason for Visit * Reason Onset Date Comments Form 06/23/2021 dwo for Glucose Blood (ONE TOUCH ULTRA TEST STRIPS) Strip Encounter Details Date Type Department Care Team Description 06/23/2021 Telephone Adult Medicine - [place] [address] [place] [address] Darrin Morris MD [address] [place] [address] Form (dwo for Glucose Blood (ONE TOUCH ULTRA TEST STRIPS) Strip) Social History Tobacco Use Types Packs/Day Years Used Date Smoking Tobacco: Former Cigarettes 43 0 02/10/1968 - 04/26/2018 Smokeless Tobacco: Never Alcohol Use Standard Drinks/Week Comments No 0 (1 standard drink = 0.6 oz pur e alcohol) Alcohol Habits Answer Date Recorded How often do you have a drin k containing alcohol? Never 08/19/2023 How many drinks containing a lcohol do you have on a typical day when you are drinking? Patient does not drink 08/19/2023 How often do you have six or more drinks on one occasion? Never 08/19/2023 Social Isolation Answer Date Recorded In a typical week, how many times do you talk on the phone with family, friends, or neighbors? More than three times a week 08/19/2023 How often do you get togethe r with friends or relatives? More than three times a week 08/19/2023 How often do you attend chur ch or bahai services? Never 08/19/2023 Do you belong to any clubs o r organizations such as congregation groups, unions, fraternal or athletic groups, or school groups? No 08/19/2023 How often do you attend meet ings of the clubs or organizations you belong to? Never 08/19/2023 Are you now , , , , never or living with a partner? 08/19/2023 Physical Activity Answer Date Recorded On average, how many days pe r week do you engage in moderate to strenuous exercise (like walking fast, running, jogging, dancing, swimming, biking, or other activities that cause a light or heavy sweat)? 7 days 08/19/2023 On average, how many minutes do you engage in exercise at this level? 20 min 08/19/2023 Stress Answer Date Recorded Do you feel stress - tense, restless, nervous, or anxious, or unable to sleep at night because your mind is troubled all the time - these days? Not at all 08/19/2023 Financial Resource Strain Answer Date R ecorded How hard is it for you to pa y for the very basics like food, housing, medical care, and heating? Not hard at all 08/19/2023 Intimate Partner Violence Answer Date R ecorded Within the last year, have y ou been afraid of your partner or ex-partner? No 08/19/2023 Within the last year, have y ou been humiliated or emotionally abused in other ways by your partner or ex-partner? No Within the last year, have y ou been kicked, hit, slapped, or otherwise physically hurt by your partner or ex-partner? No 08/19/2023 Within the last year, have y ou been raped or forced to have any kind of sexual activity by your partner or ex-partner? No 08/19/2023 Food Insecurity Answer Date Recorded Within the past 12 months, y ou worried that your food would run out before you got money to buy more. Never true 08/19/2023 Within the past 12 months, t he food you bought just didn't last and you didn't have money to get more. Never true 08/19/2023 Transportation Needs Answer Date Record ed In the past 12 months, has l ack of transportation kept you from medical appointments or from getting medications? No 03/2024 In the past 12 months, has l ack of transportation kept you from meetings, work, or getting things needed for daily living? No 08/19/2023 Housing Stability Answer Date Recorded In the last 12 months, was t here a time when you were not able to pay the mortgage or rent on time? No 08/19/2023 In the last 12 months, how many places have you lived? 1 08/19/2023 In the last 12 months, was t here a time when you did not have a steady place to sleep or slept in a long-term (including now)? No 08/19/2023 Sex Assigned at Date Recorded Not on file Job Start Date Occupation Industry Not on file Not on file Not on file documented as of this encounter Miscellaneous Notes * Telephone Encounter - Ada Beltre M.A. - 06/26/2021 4:04 PM EST His has Nereida Toledo PA-C on DWO This will need to be signed by PCP , will need a new Form sent * Telephone Encounter - Greta Knox - 06/23/2021 3:55 PM EST Dwo from [facility] for Glucose Blood (ONE TOUCH ULTRA TEST STRIPS) Strip Ada Morris In dwo bin in adult med call center documented in this encounter Plan of Treatment Not on file documented as of this encounter Visit Diagnoses Not on filedocumented in this encounter Care Teams Women'S Activities Adviser Relationship Specialty Start Date End Date Darrin Morris MD [address] [place] [address] PCP - General Internal Medicine 04/02/17 Jim Carrero MD [address] [place] [address] ORTHOPEDIC SURGERY 08/19/23 Leslie Biswas MD [address] [place] [id number] Internal Medicine 08/19/23 documented as of this encounter
--- OUTSIDE RECORDS SUMMARY | 2024-10-16 14:35 | XMS_ITS | Encounter Summary ---
Author Organization [facility] Address [address] [place] [address] Care Team Providers Care Sewage Disposal Engineer Name Role Phone Darrin Morris MD Primary Care Provider [phone] Jim Carrero MD Unavailable Unavailable Leslie Biswas MD Unavailable Unavailable Encounter Details Date Type Department Care Team Description 03/16/2024 Refill Adult Medicine - [place] [address] [place] [address] Guero Martinez PA-C [address] [place] [address] Social History Tobacco Use Types Packs/Day Years [...] week 08/19/2023 How often do you attend [facility] or hindu services? Never 08/19/2023 Do you belong to any clubs o r organizations such as worship groups, unions, fraternal or athletic groups, or [...] place to sleep or slept in a senior living (including now)? No 08/19/2023 Sex Assigned at Date Recorded Not on file Job Start Date Occupation Industry Not on file Not on file Not on file documented as of this encounter Plan of Treatment Not on file documented as of this encounter Visit Diagnoses Not on filedocumented in this encounter Care Teams Sewage Disposal Engineer Relationship Specialty Start Date End Date Darrin Morris MD [address] [place] [address] PCP - General Internal Medicine 04/02/17 Jim Carrero MD [address] [place] [address] ORTHOPEDIC SURGERY 08/19/23 Leslie Biswas MD [address], [place] Internal Medicine 08/19/23 documented as of this encounter
--- OUTSIDE RECORDS SUMMARY | 2024-10-16 14:35 | XMS_ITS | Encounter Summary ---
Author Organization [facility] Address [address] [place] [address] Care Team Providers Care Speech Correction Consultant Name Role Phone Darrin Morris MD Primary Care Provider [phone] Jim Carrero MD Unavailable Unavailable Leslie Biswas MD Unavailable Unavailable Encounter Details Date Type Department Care Team Description 08/11/2022 Refill Adult Medicine - [place] [address], [place] [id number] Darrin Morris MD [address] [place] [address] Social History Tobacco Use Types Packs/Day Years [...] week 08/19/2023 How often do you attend [facility] or confucianist services? Never 08/19/2023 Do you belong to any clubs o r organizations such as quaker groups, unions, fraternal or athletic groups, or [...] place to sleep or slept in a assisted (including now)? No 08/19/2023 Sex Assigned at Date Recorded Not on file Job Start Date Occupation Industry Not on file Not on file Not on file COVID-19 Exposure Response Date Recorded In the last 10 days, have yo u been in contact with someone who was confirmed or suspected to have Coronavirus/COVID-19? No / Unsure 07/27/2022 2:10 PM EST documented as of this encounter Miscellaneous Notes * Telephone Encounter - Ada Beltre M.A. - 08/14/2022 9:49 AM ESTFrom: Spencer Roberson Jr. To: Office of Marcy Morris Sent: 08/11/2022 11:48 AM EST Subject: Medication Renewal Request Refills have been requested for the following medications: Other - ezetimibe 10 MG tablet Preferred pharmacy: [id number] AT [facility] Medication renewals requested in this message routed sep arately: meloxicam (MOBIC) 15 MG tablet [Marcy Morris MD] documented in this encounter Plan of Treatment Not on file documented as of this encounter Visit Diagnoses Not on filedocumented in this encounter Care Teams Speech Correction Consultant Relationship Specialty Start Date End Date Darrin Morris MD [address] [place] [address] PCP - General Internal Medicine 04/02/17 Jim Carrero MD [address] [place] [address] ORTHOPEDIC SURGERY 1/8/24 Leslie Biswas MD [address] [place] [address] Internal Medicine 08/19/23 documented as of this encounter
--- OUTSIDE RECORDS SUMMARY | 2024-10-16 14:35 | XMS_ITS | Encounter Summary ---
Author Organization [facility] Address [address] [place] [address] Care Team Providers Care Rug Cleaner Hand Name Role Phone Darrin Morris MD Primary Care Provider [phone] Jim Carrero MD Unavailable Unavailable Leslie Biswas MD Unavailable Unavailable Reason for Visit * Reason Onset Date Comments Prior Authorization 10/09/2023 Encounter Details Date Type Department Care Team Description 10/09/2023 Telephone Adult Medicine - [place] [address] [place] [address] Darrin Morris MD [address] [place] [address] Prior Authorization Social History Tobacco Use Types Packs/Day Years [...] often do you attend chur ch or voodoo services? Never 08/19/2023 Do you belong to any clubs o r organizations such as episcopal groups, unions, fraternal or athletic groups, or [...] place to sleep or slept in a prison (including now)? No 08/19/2023 Sex Assigned at Date Recorded Not on file Job Start Date Occupation Industry Not on file Not on file Not on file documented as of this encounter Miscellaneous Notes * Telephone Encounter - Gabi Fraire M.A. - 10/09/2023 3:15 PM EST This is not a proper prior authorization message. Prior authorizations come from the pharmacy with the information of medication and insurance neededto do the prior authorization. Please do not forward patient messages. Pts or staff can be told to contact their pharmacy about sending the prior authorization to the office. Gabi Fraire Prior Auth Dep Ext [id number] * Telephone Encounter - Babita Bland - 10/09/2023 2:20 PM EST Pt reached out and stated that maryana is stating that the Rx for amlodipine- Valsartan 5/160 needs a prior authorization. He has no other information than that he could give me. He asked us to reach out to the pharmacy to figure this out. documented in this encounter Plan of Treatment Not on file documented as of this encounter Visit Diagnoses Not on filedocumented in this encounter Care Teams Rug Cleaner Hand Relationship Specialty Start Date End Date Darrin Morris MD [address] [place] [id number] PCP - General Internal Medicine 04/02/17 Jim Carrero MD [address] [place] [address] ORTHOPEDIC SURGERY 08/19/23 Leslie Biswas MD [address] [place] [address] Internal Medicine 08/19/23 documented as of this encounter
--- OUTSIDE RECORDS SUMMARY | 2024-10-16 14:35 | XMS_ITS | Data Portability ---
Author Organization [facility] [email or web address], svmg_admin Address [address] [place] [id number] Care Team Providers Care Instructional Consultant Name Role Phone SUHAIL ROBERTS Primary Care [...] hemoglo bin A1C, fingers tick 2018 019 [facility], [address] [place] [address], [id number], 9 14:17:15 Referral None recorde d. Procedures None recorde d. Surgeries None recorde d. Imaging None recorde d. Medication Orders metform in ER 500 mg tablet, extende d release 24 hr 2016 [id number], [address] [place], [place], [id number], 0 11:12:09 Patient Targets Encounter Date Encounter Id Patient Goals Patient Target Last Modified By Organization Details Last Modified Time 12/20/2016 [id number] exterminator goal of Blood Glucose 80-180 Not available Not available Not available nursing home goal of Weight 200 lbs Not available Not available Not available nursing home goal of Hemoglobin A1C <7.0% Not available Not available Not available Patient Instructions Encounter Date Encounter Id Patient Instructions Last Modified By Organization Details Last Modified Time 12/20/2016 [id number] Using the new meter, check blood glucose before breakfast and 2 hours after dinner every day. Continue to follow a controlled carb, healthy plate plan and drink plenty of water. Continue current exercise plan. Bring the meter to the next appointment. Not available 12/20/2016 14:07:51 10/02/2017 [id number] elevated blood pressure: care instructions Not available 10/02/2017 10:43:32 learning about type 2 diabetes Not available 10/02/2017 10:43:32 type 2 diabetes: care instructions Not available 10/02/2017 10:43:32 01/07/2019 [id number] high blood pressure: care instructions Not available 01/07/2019 14:17:15 learning about high blood pressure Not available 01/07/2019 14:17:15 A healthy lifestyle: care instructions Not available 01/07/2019 14:17:15 12/22/2019 [id number] high cholesterol : care instructions Not available 12/22/2019 11:33:09 Reason for Referral None Reported. Results Created Date Observation Date Name Description Value Unit Range Abnormal Flag Note LastModifiedBy Organization Detail LastModifiedTime 01/08/20 19 01/07/2019 hemog lobin A1C, finge rstic k Hemoglobin A1c 6.0 Not Available [address], [address], 01/07/2019 13:48:29 Result Notes None recorded. Problems Name Problem SNOMED Code Status Onset Date Resolution Date Notes Provider Name and Address Organization Details Recorded Time Type 2 diabetes mellitus 78859598 Active 2016 Helene bedoya [facility]. 14:07:56 Arthritis 1400768 Active 2016 Helene bedoya [place] [facility] 14:08:02 Hypertensive disorder 47154041 Active 2016 Helene bedoya [facility] 7 14:08:17 Problem Notes None recorded. Procedures Surgical History Date Name Laterality Status Provider Name and Address Organization Details Recorded Time 05/12/20 19 coronary artery bypass grafts x 4 completed Aphrodite Papoutsides [facility] 12/22/2019 11:15:55 12/11/19 14 Joint Replacement completed Helene Noriega [facility] 03/20/2017 14:01:40 12/11/19 02 Other [facility] 14:01:12 Imaging Results None recorded. Procedure Notes None recorded. Medical Equipment None Reported. Allergies Allergen ID Allergen Name Allergen Category Reaction Reaction Severity Criticality Documentation Date Start Date Code Code System Note Provider Name and Address Organization Details Recorded Time 752037 bacitraci n medicatio n rash moderate Not available 11/15/2016 1291 RxNorm Paulette Brooks MS, RDN, LDN, CDE [address] [place] [address], [phone] [place] [address] 7 10:31:31 478064 Plavix medicatio n rash Not available Not available 12/22/2019 88963 2 RxNorm Aphrodite Papoutsid es [facility], [facility] 0 11:14:24 729818 oxycodone medicatio n Not available Not available Not available 12/22/2019 7804 RxNorm Aphrodite Papoutsid es null, [facility] 0 11:14:53 638497 cefazolin medicatio n Not available Not available Not available 12/22/2019 2180 RxNorm Aphrodite Papoutsid es null, [facility] 0 11:15:12 601074 adhesive tape environme nt,medica tion Not available Not available Not available 12/22/2019 93305 UNK Aphrodite Papoutsid es null, [facility] 0 11:15:23 Medications Name Sig Start [...] Details Last Updated DateTime 12/20/2016 180.34 cm 193158.61 g 32.6 kg/m2 Paulette Brooks MS, RDN, LDN, CDE [address] [place] [address], [phone], [facility] 12/20/2016 13:41:50 Date Recorded Body height Body mass index (BMI) Body weight Body temperature Oxygen saturation Oxygen saturation in Arterial blood by Pulse oximetry Heart rate Systolic blood pressure Diastolic blood pressure Provider Name and Address Organization Details Last Updated DateTime 7 180.34 cm 30.7 kg/m2 90856.6 g 97.6 [degF] 97 % 97 % 57 /min 139 mm[Hg] 79 mm[Hg] Helene Noriega [facility] 7 14:10:16 Date Recorded Body height Body mass index (BMI) Body weight Body temperature Oxygen saturation Oxygen saturation in Arterial blood by Pulse oximetry Heart rate Systolic blood pressure Diastolic blood pressure Provider Name and Address Organization Details Last Updated DateTime 8 180.34 cm 31.9 kg/m2 244544. 65 g 97.8 [degF] 97 % 97 % 59 /min 150 mm[Hg] 72 mm[Hg] Helene Noriega [facility] 8 10:09:03 Date Recorded Body height Body mass index (BMI) Body weight Heart rate Oxygen saturation Oxygen saturation in Arterial blood by Pulse oximetry Systolic blood pressure Diastolic blood pressure Provider Name and Address Organization Details Last Updated DateTime 9 180.34 cm 31.1 kg/m2 008083. 1 g 66 /min 98 % 98 % 110 mm[Hg] 64 mm[Hg] Jessy Atkins [facility] 13:57:36 Date Recorded Body height Provider Name an d Address Organization Details Last Updated DateTime 12/22/2019 180.34 cm Aphrodite Papmacrina [facility] 12/22/2019 11:12:53 Social History Question Answer Notes LastModified by Organizat ion Details LastModified Time Tobacco Smoking Status Former Smoker one pack a week Helene bedoya [facility] 03/20/2017 14:03:08 What Is Your Level [...] SNOMED-CT Code Diagnosis ICD10 Code Diagnosis Note [id number] Dread Anton MD [facility]End[facility]inology [address] [phone] 11/15/2016 09:44:36 11/15/2016 12:11:06 Uncontrolled type 2 diabetes mellitus 176498668 E11.65 Diabetes Education: Initial Assessment Referred to us for better blood glucose by his PCP, Dr. Cardenas in [place], due to recent A1c of 10.9%Patie nt reports that he was a patient of Dr. Anton years ago when he was at [facility]. SMBG: old meter at home doesn't work. [...] diarrhea, dehydrated and in the hospital in [facility] for 2 days. 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 RECOMMENDA TIONS: Check BG twice daily; Follow controlled carb plan; continue exercise planTIME SPENT: 60 minutes [id number] Mignon De La [facility] 123 [facility],[address] [address] 12/20/2016 12:52:35 12/20/2016 13:57:18 Uncontrolled type 2 diabetes mellitus 460913526 E11.65 Diabetes Education: Follow Up SMBG: OneTouch [...] does circuit training, core class and works w/regional trainer. RECOMMENDA TIONS: Check BG twice daily; Follow controlled carb plan; continue exercise planTIME SPENT: 30 minutes [id number] MD LULU [facility]an_Endo crinology [address] [place] [phone] 03/20/2017 13:26:37 03/20/2017 14:53:49 Disorder of nervous system due to type 2 diabetes mellitus 280228722 E11.40 Metformin (plain) is causing diarrhea. Changed to metformin ER. Onglyza is not commonly used nowadays because of risk of CHF. Will change to amy or brock -- januvia not covered. Foot care explained. Also asked him to take OTC B12, [id number] MD LULU [facility]End[facility]ology [address] [place] [phone] 10/02/2017 09:52:49 10/02/2017 10:38:25 Type 2 diabetes mellitus 14006564 E11.9 Excellent control of diabetes with meds and lifestyle changes. No change in Rx. I will have to get labs from Dr. Cardenas Hypertensive disorder 38 478407 I10 He checks his blood pressure daily at home and at his gym. Readings are in 120s/80s. Will go with his home readings. [id number] MD LULU [facility]_End[facility] crinology [address] [place] [phone] 01/07/2019 13:34:51 01/07/2019 14:21:47 Neuropathy due to type 2 diabetes mellitus 9079934697 06375 E11.40 Very good control without side effect of medication s. Continue same. Essential hypertension 89800921 I10 Great control. No orthostasi s [id number] MD LULU [facility]End[facility] [address] [place] [phone] 12/22/2019 11:06:08 12/22/2019 12:04:25 Hyperlipidemia 39492599 E78.5 I'm not sure why he is off atorvastat in. It is essential that outpatient with pre-existi ng ASCVD should be on high intensity statin. He will talk to his cardiologi st to discuss this issue Disorder d ue to type 2 diabetes mellitus 036406341 E11.8 We discussed about the new cardiovasc [...] Foley Member ID Guarantor Name 12/20/2016 2 [facility] (MEDICARE SUPPLEMENT) Spencer Roberson [id number] Spencer Roberson Jr. 12/20/2016 1 MEDIC[place]: [employer] Spencer Roberson Jr [id number] Spencer Roberson Jr. 03/20/2017 2 [facility] (MEDICARE SUPPLEMENT) Spencer Roberson [id number] Spencer Roberson Jr. 03/20/2017 1 [place]: [employer] Spencer Roberson Jr [id number] Spencer Roberson Jr. 10/02/2017 2 [facility] (MEDICARE SUPPLEMENT) Spencer Roberson [id number] Spencer Roberson Jr. 10/02/2017 1 [place]: [employer] Spencer Roberson Jr [id number] Spencer Roberson Jr. 01/07/2019 2 [facility] (MEDICARE SUPPLEMENT) Spencer Roberson [id number] Spencer Roberson Jr. 01/07/2019 1 [place]: [employer] Spencer Roberson Jr [id number] Spencer Roberson Jr. 12/22/2019 2 [facility] (MEDICARE SUPPLEMENT) Spencer Roberson [id number] Spencer Roberson JrHasmukh 12/22/2019 1 MEDICARE B-[place]: [facility] Spencer Roberson Jr [id number] Spencer Roberson Jr. Notes Date Note Type [...] lbs) Paulette Brooks MS, RDN, LDN, CDE [address] [place] [address], [phone], [facility] 12/20/2016 14:08:14 03/20/2017 text/html Duration [...] - Eye examinations: Done Dread Anton MD [address] [place] [address], [phone], [facility]. 03/20/2017 14:54:28 10/02/2017 text/html DiabetesReported bypatient.Notes:Finger [...] in the social history: Dread Anton MD [address] [place], [phone], [facility]. 10/02/2017 10:44:12 01/07/2019 text/html Diabetes - NewRe ported byformerly [facility].Notes:Finger stick blood glucose review with meter [id number] mg/dL >98% in range Last A1c: 61% [...] No change Preprandial dizziness Dread Anton MD [address] [place], [phone], [facility]. 01/07/2019 14:21:05 12/22/2019 text/html This is a Telehe alth visit, via telephone. Patient understands the risks, benefits and limitations of this type of visit. Patient consents for this visit. This type of visit is being utilized as it was deemed higher risk for patient to come to office given the current risk of COVID-19/coronavirus infection. The patient is located in [place] at the time of this visit. Physician is located in [place], [place] at the time of this visit. [...] is going to get it operated in [facility]. He has osteoarthritis for which he was getting intermittent steroid injection in his joints. He has not done it because of the pandemic? 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 The diabetes is under good control Dread Anton MD [address] [place] [address], [phone], [facility]. 12/22/2019 11:34:07
--- OUTSIDE RECORDS SUMMARY | 2024-10-16 14:35 | XMS_ITS | Encounter Summary ---
Author Organization [facility] Address [address] [place] [address] Care Team Providers Care Aquatic Laborer Name Role Phone Darrin Morris MD Primary Care Provider [phone] [phone] Jim Carrero MD Unavailable Unavailable Leslie Biswas MD Unavailable Unavailable Encounter Details Date Type Department Care Team Description 02/18/2024 Refill Adult Medicine - [place] [address] [place] [address] Guero Martinez PA-C [address] [place] [address] Social History Tobacco Use Types Packs/Day Years [...] week 08/19/2023 How often do you attend [facility] or christian services? Never 08/19/2023 Do you belong to any clubs o r organizations such as uatsdin groups, unions, fraternal or athletic groups, or [...] place to sleep or slept in a longterm (including now)? No 08/19/2023 Sex Assigned at Date Recorded Not on file Job Start Date Occupation Industry Not on file Not on file Not on file documented as of this encounter Plan of Treatment Not on file documented as of this encounter Visit Diagnoses Not on filedocumented in this encounter Care Teams Aquatic Laborer Relationship Specialty Start Date End Date Darrin Morris MD [address] [place] [address] PCP - General Internal Medicine 04/02/17 Jim Carrero MD [address] [place] [address] ORTHOPEDIC SURGERY 08/19/23 Leslie Biswas MD [address] [place], [place] Internal Medicine 08/19/23 documented as of this encounter
--- OUTSIDE RECORDS SUMMARY | 2024-10-16 14:35 | XMS_ITS | Encounter Summary ---
Author Organization [facility] Address [address] [place] [address] Care Team Providers Care Crust Sorter Name Role Phone Darrin Morris MD Primary Care Provider [phone] [phone] Jim Carrero MD Unavailable Unavailable Leslie Biswas MD Unavailable Unavailable Reason for Visit * Reason Onset Date Comments Prior Authorization 10/14/2023 amlodipine-v alsartan (EXFORGE) 5-160 MG per tablet Encounter Details Date Type Department Care Team Description 10/14/2023 Telephone Adult Medicine - [address] [address] Guero Martinez PA-C [address] [place] [address] Prior Authorization (amlodipine-valsartan (EXFORGE) 5-160 MG per tablet) Social History Tobacco Use Types Packs/Day Years [...] often do you attend chur ch or samaritan services? Never 08/19/2023 Do you belong to any clubs o r organizations such as mosque groups, unions, fraternal or athletic groups, or [...] Telephone Encounter - Gabi Fraire M.A. - 10/28/2023 10:36 AM EDT Per optum (faxing me the denial letter) They want the pt to try both meds sep and fail before the combo med will be approved Pt only tried valsartan on own Gabi Gaines Auth Dep Ext [id number] * Telephone Encounter - Ada Beltre M.A. - 10/15/2023 1:02 PM EST Pt sent a [employer] message in regards to this request - are you waiting for the insurance to respond back ? * Telephone Encounter - Gabi Fraire M.A. - 10/14/2023 2:26 PM EST Insurance wanted more info Faxed back May need pt to try both in sep agents first Gabi Duga Prior Auth Dep Ext [id number] * Telephone Encounter - Gabi Fraire M.A. - 10/14/2023 11:45 AM EST Auth sent with m Dx:i10 Tried valsartan Gabi Fraire Prior Auth Dep Ext [id number] * Telephone Encounter - Pauline Kaminski - 10/14/2023 9:17 AM EST Prior Authorization for Medication-do not complete and send this encounter unless you have the fax from the pharmacy. Is this a Cover My Meds request: Yes -- Lopez Code [id number] Name of Medication amlodipine-valsartan (EXFORGE) 5-160 MG per tablet Dose of Medication 5-160MG What is the RX # from the faxed refill? How does patient take this med? Sig - Route: Take 1 Tablet by mouth daily for 360 days. - Oral What Pharmacy did the fax come from: [facility] Pharmacy fax #: [phone] [employer] Information from fax: What Prescription Plan does the patient have? [employer] RX BIN/PCN if applicable: BIN [id number] PCN [id number] Cardholder ID:[id number]-medicare/ [id number] Person Code: 01 Relationship Code: 1 Help desk phone: x documented in this encounter Plan of Treatment Not on file documented as of this encounter Visit Diagnoses Not on filedocumented in this encounter Care Teams Crust Sorter Relationship Specialty Start Date End Date Darrin Morris MD [address] [place], [place] PCP - General Internal Medicine 04/02/17 Jim Carrero MD [address] [place], [place] ORTHOPEDIC SURGERY 08/19/23 Leslie Biswas MD [address] [place], [place] Internal Medicine 08/19/23 documented as of this encounter
--- OUTSIDE RECORDS SUMMARY | 2024-10-16 14:35 | XMS_ITS | Encounter Summary ---
Author Organization [facility] Address [address] [place] [address] Care Team Providers Care Rn Stars Name Role Phone Darrin Morris MD Primary Care Provider [phone] [phone] Jim Carrero MD Unavailable Unavailable Leslie Biswas MD Unavailable Unavailable Encounter Details Date Type Department Care Team Description 04/30/2023 Orders Only Medical Records [address] [place] [address] Abstract, Provider Social History Tobacco Use Types Packs/Day Years [...] often do you attend chur ch or methodist services? Never 08/19/2023 Do you belong to any clubs o r organizations such as bahai groups, unions, fraternal or athletic groups, or [...] place to sleep or slept in a usp (including now)? No 08/19/2023 Sex Assigned at Date Recorded Not on file Job Start Date Occupation Industry Not on file Not on file Not on file documented as of this encounter Plan of Treatment Not on file documented as of this encounter Procedures Procedure Name Priority Date/Time Associated Diagnosis Comments OUTSIDE ECHO Routine 01/09/2023 documented in this encounter Results * OUTSIDE ECHO (01/09/2023) Provider Abstract CARDIOLOGY documented in this encounter Visit Diagnoses Not on filedocumented in this encounter Care Teams Rn Stars Relationship Specialty Start Date End Date Darrin Morris MD [address] [place], [place] PCP - General Internal Medicine 04/02/17 Jim Carrero MD [address] [place], [place] ORTHOPEDIC SURGERY 08/19/23 Leslie Biswas MD [address] [place], [place] Internal Medicine 08/19/23 documented as of this encounter
--- OUTSIDE RECORDS SUMMARY | 2024-10-16 14:35 | XMS_ITS | Encounter Summary ---
Author Organization [facility] Address [address] [place] [address] Care Team Providers Care Transitional Studies Instructor Name Role Phone Darrin Morris MD Primary Care Provider [phone] [phone] Jim Carrero MD Unavailable Unavailable Leslie Biswas MD Unavailable Unavailable Encounter Details Date Type Department Care Team Description 11/07/2021 Refill Adult Medicine - [place] [address] [place], [place] [id number] Darrin Morris MD [address] [place] [address] Social History Tobacco Use Types Packs/Day Years [...] week 08/19/2023 How often do you attend [facility] or confucianist services? Never 08/19/2023 Do [...] Exposure Response Date Recorded In the last month, have you been in contact with someone who was confirmed or suspected to have Coronavirus / COVID-19? No / Unsure 10/24/2021 9:32 AM EDT documented as of this encounter Plan of Treatment Not on file documented as of this encounter Visit Diagnoses Not on filedocumented in this encounter Care Teams Transitional Studies Instructor Relationship Specialty Start Date End Date Darrin Morris MD [address] [place] [address] PCP - General Internal Medicine 04/02/17 Jim Carrero MD [address] [place] [address] ORTHOPEDIC SURGERY 08/19/23 Leslie Biswas MD [address] [place] [address] Internal Medicine 08/19/23 documented as of this encounter
--- OUTSIDE RECORDS SUMMARY | 2024-10-16 14:35 | XMS_ITS | Encounter Summary ---
Author Organization [facility] Address [address] [place] [address] Care Team Providers Care Qualified Craft Worker Electrician Name Role Phone Darrin Morris MD Primary Care Provider [phone] [phone] Jim Carrero MD Unavailable Unavailable Leslie Biswas MD Unavailable Unavailable Encounter Details Date Type Department Care Team Description 09/16/2017 Release of Information Medical Records [address] [place] [id number] Abstract, Provider Social History Tobacco Use Types Packs/Day Years Used Date Smoking Tobacco: Never Assessed Alcohol Habits Answer Date Recorded How often [...] often do you attend chur ch or nondenominational services? Never 08/19/2023 Do you belong to any clubs o r organizations such as druze groups, unions, fraternal or athletic groups, or [...] on filedocumented in this encounter Care Teams Qualified Craft Worker Electrician Relationship Specialty Start Date End Date Darrin Morris MD [address] [place] [address] PCP - General Internal Medicine 04/02/17 Jim Carrero MD [address] [place] [address] ORTHOPEDIC SURGERY 08/19/23 Leslie Biswas MD [address] [place] [address] Internal Medicine 08/19/23 documented as of this encounter
--- OUTSIDE RECORDS SUMMARY | 2024-10-16 14:35 | XMS_ITS | Encounter Summary ---
Author Organization [facility] Address [address] [place] [address] Care Team Providers Care Clinical Dietitian Name Role Phone Darrin Morris MD Primary Care Provider [phone] [phone] Jim Carrero MD Unavailable Unavailable Leslie Biswas MD Unavailable Unavailable Encounter Details Date Type Department Care Team Description 11/02/2021 Transfer Records Medical Records [address] [place] [address] Prabhu West MD Social History Tobacco Use Types Packs/Day Years [...] often do you attend chur ch or restorationist services? Never 08/19/2023 Do you belong to any clubs o r organizations such as restorationism groups, unions, fraternal or athletic groups, or [...] place to sleep or slept in a snf (including now)? No 08/19/2023 Sex Assigned at [...] on filedocumented in this encounter Care Teams Clinical Dietitian Relationship Specialty Start Date End Date Darrin Morris MD [address] [place] [address] PCP - General Internal Medicine 04/02/17 Jim Carrero MD [address] [place], [place] ORTHOPEDIC SURGERY 08/19/23 Leslie Biswas MD [address] [place], [place] Internal Medicine 08/19/23 documented as of this encounter
--- OUTSIDE RECORDS SUMMARY | 2024-10-16 14:35 | XMS_ITS | Clinical Summary ---
Author Organization [facility] Address [address] [place] [address] Care Team Providers Care Pest Control Technician Name Role Phone Guero Martinez PA-C Primary Care Provider + [phone] Allergies Active Allergy Reactions Criticality Noted Date [...] age to complete this topic Care Teams Pest Control Technician Relationship Specialty Start Date End Date Guero Martinez PA-C PCP - General Medical Services 12/13/21
--- OUTSIDE RECORDS SUMMARY | 2024-10-16 14:35 | XMS_ITS | Encounter Summary ---
Author Organization [facility] Address [address] [place] [address] Care Team Providers Care Underwriting Clerks Supervisor Name Role Phone Darrin Morris MD Primary Care Provider +1 -[phone] Jim Carrero MD Unavailable Unavailable Leslie Biswas MD Unavailable Unavailable Reason for Visit * Reason Onset Date Comments hospital follow up 06/04/2019 Encounter Details Date Type Department Care Team Description 06/04/2019 Telephone Adult Medicine - [place] [address] [place] [address] Darrin Morris MD [address] [place] [address] hospital follow up Social History Tobacco Use Types Packs/Day Years [...] week 08/19/2023 How often do you attend [facility] or sabianist services? Never 08/19/2023 Do you belong to any clubs o r organizations such as anglican groups, unions, fraternal or athletic groups, or [...] place to sleep or slept in a group home (including now)? No 08/19/2023 Sex Assigned at Date Recorded Not on file Job Start Date Occupation Industry Not on file Not on file Not on file documented as of this encounter Miscellaneous Notes * Telephone Encounter - Sophia Hampton M.A. - 06/05/2019 1:34 PM EDT Sent over fax to request records as [facility] website not working correctly. * Telephone Encounter - Gamaliel Alaniz LPN - 06/04/2019 3:29 PM EDT Appointment scheduled with Dr Morris on 06/08/19 pt was seen [place] [facility] [place] please obtain records * Telephone Encounter - Greta Knox - 06/04/2019 3:19 PM EDT Pt returning call, pt is requesting a call back at [phone] This was originally requested in the 05/29 encounter. Pt states he is very upset that he has calledmultiple times for this. Bsr did inform pt we did call and the call was missed by the pt. Pt states I have other appointments to make I cant sit around and wait for you guys . Pt is very upset, please call pt back. Please advise * Telephone Encounter - Gamaliel Alaniz LPN - 06/04/2019 2:20 PM EDT Left message for pt to please return our call * Telephone Encounter - Casi Aldrich - 06/04/2019 2:05 PM EDT Hospital follow up appointment needed Hospital patient was treated at: [facility] Was this only an ER visit or was the patient admitted to the hospital? Admitted to hospital Date of visit if ER visit only: N/A If patient was admitted what was the date of discharge? 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 yes Was visit or stay related to an injury? NO If yes, what was the date of injury (DOI)? N/A If yes, was the injury due to N/A documented in this encounter Plan of Treatment Not on file documented as of this encounter Visit Diagnoses Not on filedocumented in this encounter Care Teams Underwriting Clerks Supervisor Relationship Specialty Start Date End Date Darrin Mroris MD [address] [place] [address] PCP - General Internal Medicine 04/02/17 Jim Carrero MD [address] [place] [address] ORTHOPEDIC SURGERY 08/19/23 Leslie Biswas MD [address] [place] [address] Internal Medicine 08/19/23 documented as of this encounter
--- OUTSIDE RECORDS SUMMARY | 2024-10-16 14:35 | XMS_ITS | Encounter Summary ---
Author Organization [facility] Address [address] [place] [address] Care Team Providers Care Data Control Clerk Supervisor Name Role Phone Darrin Morris MD Primary Care Provider +1 -[phone] Jim Carrero MD Unavailable Unavailable Leslie Biswas MD Unavailable Unavailable Encounter Details Date Type Department Care Team Description 11/05/2017 Orders Only Medical Records [address] [place] [address] Abstract, Provider Social History Tobacco Use Types Packs/Day Years Used Date Smoking Tobacco: Every Day Cigarettes 1 43 Started: [birth year]/10/1970 Comments:08/2017 smoking 5 ci gs or less/day Alcohol Use Standard Drinks/Week Comments No 0 [...] often do you attend chur ch or hoahaoism services? Never 08/19/2023 Do you belong to any clubs o r organizations such as episcopalian groups, unions, fraternal or athletic groups, or [...] place to sleep or slept in a retirement (including now)? No 08/19/2023 Sex Assigned at Date Recorded Not on file Job Start Date Occupation Industry Not on file Not on file Not on file documented as of this encounter Plan of Treatment Not on file documented as of this encounter Procedures Procedure Name Priority Date/Time Associated Diagnosis Comments OUTSIDE EKG Routine 09/06/2017 OUTSIDE EYE EXAM Routine 12/21/2016 OUTSIDE COLONOSCOPY Routine 11/30/2015 OUTSIDE EYE EXAM Routine 03/08/2015 OUTSIDE SLEEP STUDY Routine 09/26/2011 OUTSIDE COLONOSCOPY Routine 07/08/2006 OUTSIDE EKG Routine 12/07/2005 documented in this encounter Results * OUTSIDE EKG (09/06/2017) Provider Abstract CARDIOLOGY * OUTSIDE EYE EXAM (12/21/2016) Provider Abstract PROCEDURES * OUTSIDE COLONOSCOPY (11/30/2015) Provider Abstract RADIOLOGY * OUTSIDE EYE EXAM (03/08/2015) Provider Abstract PROCEDURES * OUTSIDE SLEEP STUDY (09/26/2011) Provider Abstract PULMONOLOGY * OUTSIDE COLONOSCOPY (07/08/2006) Provider Abstract RADIOLOGY * OUTSIDE EKG (12/07/2005) Provider Abstract CARDIOLOGY documented in this encounter Visit Diagnoses Not on filedocumented in this encounter Care Teams Data Control Clerk Supervisor Relationship Specialty Start Date End Date Darrin Morris MD [facility] [place] [address] PCP - General Internal Medicine 04/02/17 Jim Carrero MD [address] [place] [address] ORTHOPEDIC SURGERY 08/19/23 Leslie Biswas MD [address] [place] [address] Internal Medicine 08/19/23 documented as of this encounter
--- OUTSIDE RECORDS SUMMARY | 2024-10-16 14:35 | XMS_ITS | Encounter Summary ---
Author Organization [facility] Address [address] [place] [address] Care Team Providers Care Green Lumber Grader Name Role Phone Darrin Morris MD Primary Care Provider +1 [phone] Jim Carrero MD Unavailable Unavailable Leslie Biswas MD Unavailable Unavailable Encounter Details Date Type Department Care Team Description 07/07/2022 Pt. Non Urgent Medic al Question Adult Medicine - [place] [address] [place] [address] Guero Martinez PA-C [address] [place] [address] Social History Tobacco Use Types Packs/Day Years [...] week 08/19/2023 How often do you attend [facility] or pentecostalism services? Never 08/19/2023 Do you belong to any clubs o r organizations such as jehovah's witness groups, unions, fraternal or athletic groups, or [...] encounter Miscellaneous Notes * Telephone Encounter - Ara Hernandez L.P.N. - 07/09/2022 8:53 AM EST From: Spencer Roberson Jr. To: Sarah Martinez Sent: 07/07/2022 10:35 AM EST Subject: Verification paperwork for Medicare is required [facility] [place] requested Verification paperwork for medicare for Diabetes ( paperwork to be completed by my doctor)over a month ago. Now I am running out of test strips ( still have refills)' but Medicare will not approve until theyreceive the annual Verification Form (paperwork)_from my doctor. Please submit paperwork to Medicare FERN. I have about a week worth of test strips left. Please explain why this has not been copmpleted already.......... documented in this encounter Plan of Treatment Not on file documented as of this encounter Visit Diagnoses Not on filedocumented in this encounter Care Teams Green Lumber Grader Relationship Specialty Start Date End Date Darrin Morris MD [address] [place] [address] PCP - General Internal Medicine 04/02/17 Jim Carrero MD [address] [place] [address] ORTHOPEDIC SURGERY 08/19/23 Leslie Biswas MD [address] [place] [address] Internal Medicine 08/19/23 documented as of this encounter
--- OUTSIDE RECORDS SUMMARY | 2024-10-16 14:35 | XMS_ITS | Encounter Summary ---
Author Organization [facility] [place] [facility] Address [address] [place] [address] Care Team Providers Care Prison Guard Name Role Phone Darrin Morris MD Primary Care Provider [phone] -[phone] Jim Carrero MD Unavailable Unavailable Leslie Biswas MD Unavailable Unavailable Encounter Details Date Type Department Care Team Description 06/01/2019 Hospital Medical Records [address] [place] [address] Nikko Zamarripa Ortega [address] [place] [address] Social History Tobacco Use Types Packs/Day Years [...] How often do you attend [facility] or confucianism services? Never 08/19/2023 Do you belong to any clubs o r organizations such as caodaism groups, unions, fraternal or athletic groups, or [...] on filedocumented in this encounter Care Teams Prison Guard Relationship Specialty Start Date End Date Darrin Morris MD [address] [place] [address] PCP - General Internal Medicine 04/02/17 Jim Carrero MD [address] [place] [address] ORTHOPEDIC SURGERY 08/19/23 Leslie Biswas MD [address] [place] [address] Internal Medicine 08/19/23 documented as of this encounter
--- OUTSIDE RECORDS SUMMARY | 2024-10-16 14:35 | XMS_ITS | Encounter Summary ---
Author Organization [facility] Address [address] [place] [address] Care Team Providers Care Pantograph Engraver Name Role Phone Darrin Morris MD Primary Care Provider [phone] [phone] Jim Carrero MD Unavailable Unavailable Leslie Biswas MD Unavailable Unavailable Encounter Details Date Type Department Care Team Description 10/24/2021 Refill Adult Medicine - [place] [address] [place] [address] Guero Martinez PA-C [address] [place] [address] Social History Tobacco Use Types Packs/Day Years [...] week 08/19/2023 How often do you attend [facility] or denominational services? Never 08/19/2023 Do you belong to any clubs o r organizations such as yazdanism groups, unions, fraternal or athletic groups, or [...] place to sleep or slept in a half-way (including now)? No 08/19/2023 Sex Assigned at [...] on filedocumented in this encounter Care Teams Pantograph Engraver Relationship Specialty Start Date End Date Darrin Morris MD [address] [place] [address] PCP - General Internal Medicine 04/02/17 Jim Carrero MD [address] [place] [address] ORTHOPEDIC SURGERY 08/19/23 Leslie Biswas MD [address] [place] [address] Internal Medicine 08/19/23 documented as of this encounter
--- OUTSIDE RECORDS SUMMARY | 2024-10-16 14:35 | XMS_ITS | Encounter Summary ---
Author Organization [facility] Address [address] [place] [address] Care Team Providers Care Special Education Resource Teacher Name Role Phone Darrin Morris MD Primary Care Provider [phone] [phone] Jim Carrero MD Unavailable Unavailable Leslie Biswas MD Unavailable Unavailable Encounter Details Date Type Department Care Team Description 05/10/2023 Refill Adult Medicine - [place] [address] [place] [address] Irene Lundberg PA-C [address] [place] [address] Social History Tobacco Use Types Packs/Day Years [...] week 08/19/2023 How often do you attend [facility] or faith services? Never 08/19/2023 Do you belong to any clubs o r organizations such as restorationist groups, unions, fraternal or athletic groups, or [...] place to sleep or slept in a nursing home (including now)? No 08/19/2023 Sex Assigned at Date Recorded Not on file Job Start Date Occupation Industry Not on file Not on file Not on file documented as of this encounter Plan of Treatment Not on file documented as of this encounter Visit Diagnoses Not on filedocumented in this encounter Care Teams Special Education Resource Teacher Relationship Specialty Start Date End Date Darrin Morris MD [address] [place] [address] PCP - General Internal Medicine 04/02/17 Jim Carrero MD [address] [place] [address] ORTHOPEDIC SURGERY 08/19/23 Leslie Biswas MD [address] [place] [address] Internal Medicine 08/19/23 documented as of this encounter
--- OUTSIDE RECORDS SUMMARY | 2024-10-16 14:35 | XMS_ITS | Encounter Summary ---
Author Organization [facility] Address [address] [place] [address] Care Team Providers Care Tosser Name Role Phone Darrin Morris MD Primary Care Provider +1 [phone] Jim Carrero MD Unavailable Unavailable Leslie Biswas MD Unavailable Unavailable Encounter Details Date Type Department Care Team Description 10/02/2017 Well Logging Captain Report Medical Records [address] [place] [address] Dread Anton Social History Tobacco Use Types Packs/Day Years [...] often do you attend chur ch or mu-ism services? Never 08/19/2023 Do you belong to any clubs o r organizations such as sabianism groups, unions, fraternal or athletic groups, or [...] on filedocumented in this encounter Care Teams Tosser Relationship Specialty Start Date End Date Darrin Morris MD [address] [place] [address] PCP - General Internal Medicine 04/02/17 Jim Carrero MD [address] [place] [address] ORTHOPEDIC SURGERY 08/19/23 Leslie Biswas MD [address] [place] [address] Internal Medicine 08/19/23 documented as of this encounter
--- OUTSIDE RECORDS SUMMARY | 2024-10-16 14:35 | XMS_ITS | Encounter Summary ---
Author Organization [facility] Address [address] [place] [address] Care Team Providers Care Overhead Crane Operator Name Role Phone Darrin Morris MD Primary Care Provider +1 [phone] Jim Carrero MD Unavailable Unavailable Leslie Biswas MD Unavailable Unavailable Encounter Details Date Type Department Care Team Description 11/27/2017 Business Doc Medical Records [address] [place] [address] Abstract, Provider Social History Tobacco Use Types Packs/Day Years Used Date Smoking Tobacco: Every Day Cigarettes 1 43 Started: [birth year]/10/1970 Smokeless Tobacco: Never Comments:08/2017 smoking 5 ci gs or less/day [...] often do you attend chur ch or church services? Never 08/19/2023 Do you belong to any clubs o r organizations such as taoist groups, unions, fraternal or athletic groups, or [...] place to sleep or slept in a fpc (including now)? No 08/19/2023 Sex Assigned at Date Recorded Not on file Job Start Date Occupation Industry Not on file Not on file Not on file documented as of this encounter Plan of Treatment Not on file documented as of this encounter Visit Diagnoses Not on filedocumented in this encounter Care Teams Overhead Crane Operator Relationship Specialty Start Date End Date Darrin Morris MD [address] [place] [address] PCP - General Internal Medicine 04/02/17 Jim Carrero MD [address] [place], [place] ORTHOPEDIC SURGERY 08/19/23 Leslie Biswas MD [address] [place] [address] Internal Medicine 08/19/23 documented as of this encounter
--- OUTSIDE RECORDS SUMMARY | 2024-10-16 14:35 | XMS_ITS | Encounter Summary ---
Author Organization [facility] Address [address] [place] [address] Care Team Providers Care Soft Tile Setter Name Role Phone Darrin Morris MD Primary Care Provider +1 -[phone] Jim Carrero MD Unavailable Unavailable Leslie Biswas MD Unavailable Unavailable Reason for Referral * Non CLAU (Priority) - Closed Specialty Diagnoses / Procedures Referred By Contnick t Referred To Contact Pulmonology Procedures REFERRAL TO PULMONOLOGY Guero Martinez PA-C [address] [place], [place] Pulmo/[place] [address] [address] Referral ID Status Reason Start Date Expiration Date V isits Requested Visits Authorized [id number] 12/18- Closed 12/05/2021 12/05/2022 1 1 Encounter Details Date Type Department Care Team Description 12/05/2021 Orders Only Adult Medicine - [place] [address] [place] [address] Guero Martinez PA-C [address] [place], [place] Abnormal PFT Social History Tobacco Use Types Packs/Day Years [...] week 08/19/2023 How often do you attend [facility] or denominational services? Never 08/19/2023 Do you belong to any clubs o r organizations such as evangelical groups, unions, fraternal or athletic groups, or [...] place to sleep or slept in a chcf (including now)? No 08/19/2023 Sex Assigned at Date Recorded Not on file Job Start Date Occupation Industry Not on file Not on file Not on file COVID-19 Exposure Response Date Recorded In the last 10 days, have yo u been in contact with someone who was confirmed or suspected to have Coronavirus/COVID-19? No / Unsure 11/28/2021 3:35 PM EDT documented as of this encounter Plan of Treatment Not on file documented as of this encounter Visit Diagnoses Diagnosis Abnormal PFT Nonspecific abnormal results of pulmonary system function study documented in this encounter Care Teams Soft Tile Setter Relationship Specialty Start Date End Date Darrin Morris MD [address] [place] [address] PCP - General Internal Medicine 04/02/17 Jim Carrero MD [address] [place] [address] ORTHOPEDIC SURGERY 08/19/23 Leslie Biswas MD [address] [place] [address] Internal Medicine 08/19/23 documented as of this encounter
--- OUTSIDE RECORDS SUMMARY | 2024-10-16 14:35 | XMS_ITS | Encounter Summary ---
Author Organization [facility] Address [address] [place] [address] Care Team Providers Care Maid Housekeeper Name Role Phone Darrin Morris MD Primary Care Provider +1 -[phone] Jim Carrero MD Unavailable Unavailable Leslie Biswas MD Unavailable Unavailable Encounter Details Date Type Department Care Team Description 11/05/2021 Pt. Non Urgent Medic al Question Adult Medicine - [place] [address] [place] [address] Guero Martinez PA-C [address] [place] [address] Social History Tobacco Use Types Packs/Day Years [...] week 08/19/2023 How often do you attend [facility] or oriental orthodox services? Never 08/19/2023 Do you belong to any clubs o r organizations such as amish groups, unions, fraternal or athletic groups, or [...] to sleep or slept in a senior care (including now)? No 08/19/2023 Sex Assigned at [...] on filedocumented in this encounter Care Teams Maid Housekeeper Relationship Specialty Start Date End Date Darrin Morris MD [address] [place] [address] PCP - General Internal Medicine 04/02/17 Jim Carrero MD [address] [place] [address] ORTHOPEDIC SURGERY 08/19/23 Leslie Biswas MD [address] [place] [address] Internal Medicine 08/19/23 documented as of this encounter
--- OUTSIDE RECORDS SUMMARY | 2024-10-16 14:35 | XMS_ITS | Encounter Summary ---
Author Organization [facility] Address [address] [place] [address] Care Team Providers Care Glaze Carrier Name Role Phone Darrin Morris MD Primary Care Provider +1 -[phone] Jim Carrero MD Unavailable Unavailable Leslie Biswas MD Unavailable Unavailable Encounter Details Date Type Department Care Team Description 09/16/2023 Telephone [facility] Lung Screening Program [address] [place] [phone] Juna J Hart MD [address] [facility] [place] [address] [place] [address] Social History Tobacco Use Types Packs/Day Years [...] 08/19/2023 How often do you attend [facility] or restoration services? Never 08/19/2023 Do you belong to any clubs o r organizations such as shinto groups, unions, fraternal or athletic groups, or [...] encounter Miscellaneous Notes * Telephone Encounter - Yoshi Adams - 09/17/2023 8:24 AM EST Patient decided to not have Shared Decision Making visit after waiting some time after his appointment scheduled time. Patient did not want to reschedule and declined the program. documented in this encounter Plan of Treatment Not on file documented as of this encounter Visit Diagnoses Not on filedocumented in this encounter Care Teams Glaze Carrier Relationship Specialty Start Date End Date Darrin Morris MD [address] [place] [address] PCP - General Internal Medicine 04/02/17 Jim Carrero MD [address] [place], [place] ORTHOPEDIC SURGERY 08/19/23 Leslie Biswas MD [address] [place], [place] Internal Medicine 08/19/23 documented as of this encounter
--- OUTSIDE RECORDS SUMMARY | 2024-10-16 14:35 | XMS_ITS | Encounter Summary ---
Author Organization [facility] Address [address] [place] [address] Care Team Providers Care Airbrush Artist Technical Name Role Phone Darrin Morris MD Primary Care Provider +1 -[phone] Jim Carrero MD Unavailable Unavailable Leslie Biswas MD Unavailable Unavailable Reason for Visit * Reason Onset Date Comments Form 05/27/2023 DWO ( Test Strip s ) Encounter Details Date Type Department Care Team Description 05/27/2023 Telephone Adult [facility] [address] [place] [address] Guero Martinez PA-C [address] [place] [id number] Form (DWO ( Test Strips ) ) Social History Tobacco Use Types Packs/Day Years [...] often do you attend chur ch or buddhist services? Never 08/19/2023 Do you belong to any clubs o r organizations such as advent groups, unions, fraternal or athletic groups, or [...] place to sleep or slept in a m[facility]p (including now)? No 08/19/2023 Sex Assigned at Date Recorded Not on file Job Start Date Occupation Industry Not on file Not on file Not on file documented as of this encounter Miscellaneous Notes * Telephone Encounter - Guero Martinez PA-C - 05/31/2023 6:02 PM EDT Signed thank you * Telephone Encounter - Ada Beltre M.A. - 05/27/2023 1:45 PM EDT DWO filled out with information needed - will give to provider for signature upon return to the office * Telephone Encounter - Pauline Kaminski - 05/27/2023 1:06 PM EDT DWO received from [email or web address] for the patients Glucose Testing Strips. Please have provider complete and fax to [phone] DWO in light blue folder documented in this encounter Plan of Treatment Not on file documented as of this encounter Visit Diagnoses Not on filedocumented in this encounter Care Teams Airbrush Artist Technical Relationship Specialty Start Date End Date Darrin Morris MD [address] [place] [id number] PCP - General Internal Medicine 04/02/17 Jim Carrero MD [address] [place] [address] ORTHOPEDIC SURGERY 08/19/23 Leslie Biswas MD [address] [place] [address] Internal Medicine 08/19/23 documented as of this encounter
--- OUTSIDE RECORDS SUMMARY | 2024-10-16 14:35 | XMS_ITS | Clinical Summary ---
Author Organization [facility] Address [address] [place] [address] Care Team Providers Care Family Preservation Caseworker Name Role Phone Darrin Morris MD Primary Care Provider +1 [phone] Jim Carrero MD Unavailable Unavailable Leslie Biswas MD Unavailable Unavailable Allergies Active Allergy Reactions Severity Noted Date Comments Tape Rash/Dermatitis 03/14/2020 Bacitracin Rash/Dermatitis 11/05/2017 Cefazolin Rash/Dermatitis 03/14/2020 Oxycodone hallucinations 03/14/2020 Clopidogrel Rash/Dermatitis 03/14/2020 Medications Medication Sig Dispensed Refills Start Date End Date Status acetaminophen (TYLENOL) 500 MG tablet Take 2 Tabs by mouth every morning. 0 Active Multiple Vitamins-Minerals (CENTRUM SILVER OR) Take 1 Tab by mouth daily. Therapeutic Multiple Vitamins with Minerals 0 Active aspirin 81 MG tablet Take 81 mg by mouth daily. 0 Active amoxicillin (AMOXIL) 500 MG capsule Take 4 Capsules by mouth See Admin Instructions. Take 4 capsule by mouth 1 hours before dental procedures 0 10/22/2022 Active valsartan (DIOVAN) 160 MG tablet Take 1 Tablet by mouth daily. 90 Tablet 1 10/28/2023 Active glucose blood test strips (OneTouch Verio) strip TEST UP TO 3 TIMES A DAY 300 Strip 1 01/28/2024 Active meloxicam (MOBIC) 15 MG tablet Take 1 Tablet by mouth daily. 90 Tablet 1 01/28/2024 Active linaGLIPtin (Tradjenta) 5 MG Tab Take 5 mg by mouth daily. 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 Pulmonology referral placed. Pacemaker 10/24/2021 Pleural effusion 07/04/2019 Overview: 06/30. S/p thoracocentesis Syncope 06/10/2019 Overview: Cardio 05/31/19: ?vasovagal in settin gpostural hypotension an diuretics, lasix and metoprolol on hold Coronary artery disease due to calcified coronary lesion 05/22/2019 Overview: CABGx4 PEÑA to LAD saphenous vein graft to RPDA and saphenous vein graft to diagonal permeant pace maker placed 05/12/2019 [facility]hab [facility] - [facility] visits weekly up to 36 sessions Tobacco use disorder 11/25/2017 Overview: >30 pk yr LDCT 12/27 neg. Repeat 12 mo. Colon cancer screening 11/25/2017 Overview: 2006 adenoma 12/26 colonoscopy (Mag[facility]) neg per pt. Repeat 10 yrs Obesity (BMI 30-39.9) 11/25/2017 History of total hip replacement, bilate ral 11/05/2017 Overview: 2002, TKR 2013 KEITH (obstructive sleep apnea) 11/05/2017 Osteoarthritis 11/05/2017 Overview: Spine, knees Hearing loss 11/05/2017 Overview: Bilateral hearing aids Type 2 diabetes mellitus with cataract 0 11/05/2017 Tubular adenoma 11/05/2017 Overview: & sessile serrated polyp 2006 Cataracts, bilateral 11/05/2017 DM (diabetes mellitus), type 2 with freddy l complications 11/05/2017 Microalbuminuria 11/05/2017 Bundle branch block, right 11/05/2017 Overview: Since 2006 DM (diabetes mellitus), type 2 with neur ological complications 11/05/2017 Peripheral neuropathy 11/05/2017 Overview: 03/20/17 Dr Dread Anton,Endocrine Diverticulosis 11/05/2017 Hemorrhoids 11/05/2017 Overview: internal Immunizations Name Administration Dates Next Due COVID-19 (Moderna) 06/26/2021,,11/03/2020,10/06 Pneumoccoccal(Adult) Polysac charide PPSV23 11/25/2017 TD (STATE SUPPLIED FOR ADULT S AND CHILDREN) 07/30/2023 Family History Medical History Relation Name Comments No Known Problems Father No Known Problems Mother Relation Name Status Comments Father Mother Social History Tobacco Use Types Packs/Day Years Used Date Smoking Tobacco: Former Cigarettes 43 0 02/10/1968 - 04/26/2018 Smokeless Tobacco: Never Tobacco Cessation:Counseling Given: Not Answered Alcohol Use Standard Drinks/Week Comments No 0 [...] often do you attend chur ch or religion services? Never 08/19/2023 Do you belong to any clubs o r organizations such as jain groups, unions, fraternal or athletic groups, or [...] place to sleep or slept in a care home (including now)? No 08/19/2023 Sex Assigned at Date Recorded Not on file Job Start Date Occupation Industry Not on file Not on file Not on file Last Filed Vital Signs Vital Sign Reading Time Taken Comments Blood Pressure 123/57 06/08/2024 1:34 PM EDT Pulse 67 06/08/2024 1:34 PM EDT Temperature 36.9 ??C (98.4 ??F) 06/08/2024 1:34 PM ED T Respiratory Rate 16 04/05/2021 1:45 PM EDT Oxygen Saturation 98% 07/27/2022 2:13 PM EST Inhaled Oxygen Concentration - - Weight 89.4 kg (197 lb) 06/08/2024 1:34 PM EDT Height 177.8 cm (5' 10 ) 12/09/2023 1:16 PM EDT Body Mass Index 28.27 12/09/2023 1:16 PM EDT Plan of Treatment Health Maintenance Due Date Last Done Comments SHINGLES VACCINE (1 of 2) 02/20/1998 PNEUMOCOCCAL VACCINE (2 - PCV) 11/25/2018 11/25/2017 COLON CANCER SCREENING 11/29/2018 6, 11/30/2015 (External Completion), 07/08/2006 (External Completion), Additional history exists Lung Cancer Screening (Low Dose CT) 12/24/2018 12/24/2017 DIABETES: ANNUAL FOOT EXAM 10/01/201910/01, 03/20/2017 (External Completion) Covid-19 Vaccine ( season) 2024 06/26/2021, 06/26/2021, 11/03/2020, Additional history exists INFLUENZA (#1) 2024 06/08/2019 (Refu sed), 10/01/2018 (Refused) DIABETES: ANNUAL EYE EXAM 06/10/20242022, 06/10/2023 (External Completion), 07/10/2021, Additional history exists DIABETES: BLOOD SUGAR CONTROL TEST (HGBA1C) 07/20/2024 04/20/2024, 07/26/2023, 10/25/2022, Additional history exists DIABETES/HEART DISEASE: ANNUAL CHOLESTEROL (LDL) 07/26/2024 07/26/2023, 10/25/2022, 10/02/2021, Additional history exists DIABETES: ANNUAL URINE PROTEIN TEST (MICROALBUMIN) 07/26/2024 07/26/2023, 10/25/2022, 10/03/2021, Additional history exists FALL RISK ASSESSMENT 07/30/2024 07/30/2023 (Completed), 04/26/2022, 05/09/2021 (Completed), Additional history exists BMI CHECK/ADVISE 08/12/2024 05/09/2021 (Com pleted), 10/01/2018, 11/25/2017 DEPRESSION SCREEN 08/19/2024 08/19/2023, (Completed), 04/26/2022, Additional history exists DTAP/TDAP/TD (3 - Td or Tdap) 07/30/2033 07/30/2023, 08/12/2012 (External Completion of Vaccination per patient) HEPATITIS C SCREENING Addressed 10/01/2018 (Refused ) Overridden with the intention of not completing the topic Care Teams Family Preservation Caseworker Relationship Specialty Start Date End Date Darrin Morris MD [address] [place] [address] PCP - General Internal Medicine 04/02/17 Jim Carrero MD [address] [place] [address] ORTHOPEDIC SURGERY 08/19/23 Leslie Biswas MD [address] [place] [address] Internal Medicine 08/19/23
--- OUTSIDE RECORDS SUMMARY | 2024-10-16 14:35 | XMS_ITS | Encounter Summary ---
Author Organization [facility] Address [address] [place] [address] Care Team Providers Care Strategy Manager Name Role Phone Darrin Morirs MD Primary Care Provider [phone] [phone] Jim Carrero MD Unavailable Unavailable Leslie Biswas MD Unavailable Unavailable Encounter Details Date Type Department Care Team Description 06/03/2019 Hospital Medical Records [address] [place] [address] Social History Tobacco Use Types Packs/Day Years [...] often do you attend chur ch or rastafari services? Never 08/19/2023 Do you belong to any clubs o r organizations such as alevism groups, unions, fraternal or athletic groups, or [...] place to sleep or slept in a mcc (including now)? No 08/19/2023 Sex Assigned at Date Recorded Not on file Job Start Date Occupation Industry Not on file Not on file Not on file documented as of this encounter Plan of Treatment Not on file documented as of this encounter Visit Diagnoses Not on filedocumented in this encounter Care Teams Strategy Manager Relationship Specialty Start Date End Date Darrin Morris MD [address] [place] [id number] PCP - General Internal Medicine 04/02/17 Jim Carrero MD [address] [place] [address] ORTHOPEDIC SURGERY 08/19/23 Leslie Biswas MD [address] [place] [address] Internal Medicine 08/19/23 documented as of this encounter
--- OUTSIDE RECORDS SUMMARY | 2024-10-16 14:35 | XMS_ITS | Clinical Summary ---
Author Organization [facility] Address [address] [place] [address] Care Team Providers Care Director Of Slot Operations Name Role Phone Ada Morris MD Primary Care Prov ider Allergies Active Allergy Reactions Criticality Noted Date Comments Adhesive Tape-Silicones Rash 03/14/2020 Bacitracin Rash 11/05/2017 Cefazolin Rash 03/14/2020 Clopidogrel Rash 03/14/2020 Oxycodone Hallucinations 03/14/2020 Medications metFORMIN XR (GLUCOPHAGE-XR) 500 mg 24 hr tablet TAKE 2 [...] 2 Tabs by mouth every morning. Active multivit-min/fo lic acid/lutein (CENTRUM SILVER ORAL) Take 1 Tab [...] 1 (one) time each day. 90 tablet Active Active Problems Problem Noted Date Diagnosed [...] permeant pace maker placed 05/12/2019 Cardiac rehab [facility] - 2 visits weekly up to 36 [...] Department Care Team Description 08/17/2024 Telephone Adult [facility] [address] [place] [address] Ada Morris MD vna from Last [...] Tubular adenoma 11/05/2017 DX:Tubular adeno ma; COMMENT: 2005 Cataracts, bilateral 11/05/2017 DX:Cataract s, bilateral DM (diabetes mellitus), type 2 with renal complications (CMS/HCC) 11/05/2017 DX:DM (diabetes mellitus ), type 2 [...] Type 2 diabetes mellitus wit h cataract (CMS/HCC) 11/05/2017 DX:Type 2 diabetes mellitus with cataract (HCC) Diverticulosis 11/05/2017 DX:Diverticulosi s Hemorrhoids 11/05/2017 DX:Hemorrhoids; [...] PM EDT Office Visit Adult Medicine - [place] [address] [place] [address] Ada Morris MD [address] [place] [address] Health Maintenance Due Date Last Done Comments [...] Results * Annual BMP Blood Test (04/20/2024) [facility] Annual BMP Blood Test Abstracted Result [facility] Provider HEALTH MAINTENANCE Final Result * Hemoglobin A1c (04/20/2024) [facility] Hemoglobin A1C 6.1 <=6.5 % Blood Venous blood specimen / Unknown Result [facility] Provider LAB BLOOD ORDERABLES Jennifer l Result * Depression Screening (08/19/2023) [facility] Depression Screening Abstracted [facility] Provider HEALTH MAINTENANCE Final Result * Falls Risk Assessment (07/30/2023) [facility] Falls Risk Assessment Abstracted us Historical Provider HEALTH MAINTENANCE Final Result * Urine Albumin Creatinine Ratio (07/26/2023) Pathologist [facility] Urine Albumin Creatinine Ratio Abstracted [facility] Provider HEALTH MAINTENANCE Final Result * (ABNORMAL) Lipid panel (07/26/2023) [facility] LDL/HDL Ratio 4 0 - 4 Triglycerides 78 0 - 150 mg/dL Cholesterol 162 0 - 200 mg/dL HDL 44 >=40 mg/dL LDL Cholesterol 103(A) 0 - 100 mg/dL Blood Venous blood specimen / Unknown [facility] Provider LAB BLOOD ORDERABLES Jennifer l Result * Hepatitis C Screening (10/01/2018) [facility] Hepatitis C Screening Abstracted [facility] Provider HEALTH MAINTENANCE Final Result * Colonoscopy (11/30/2015) [facility] Colonoscopy No interpretation , Abstracted Anatomical Region Laterality Modality Other [facility] Provider HEALTH MAINTENANCE Final Result from Last 3 Months or Most Recently Relevant to Health Maintenance Insurance [employer] [place] MEDICARE ADVANTAGE MEDICARE Care Teams Director Of Slot Operations Relationship Specialty Start Date End Date Ada Morris MD [address] [place] [id number] PCP - General Internal Medicine 06/19/24
--- OUTSIDE RECORDS SUMMARY | 2024-10-16 14:35 | XMS_ITS | Encounter Summary ---
Author Organization [facility] Address [address] [place] [address] Care Team Providers Care Clinical Biochemist Name Role Phone Darrin Morris MD Primary Care Provider [phone] [phone] Jim Carrero MD Unavailable Unavailable Leslie Biswas MD Unavailable Unavailable Reason for Visit * Reason Comments E-prescribe Rx Request Encounter Details Date Type Department Care Team Description 02/17/2024 Refill Adult Medicine - [place] [address] [place] [address] Guero Martinez PA-C [address] [place] [id number] E-prescribe Rx Request Social History Tobacco Use Types Packs/Day Years [...] week 08/19/2023 How often do you attend [facility] or congregational services? Never 08/19/2023 Do you belong to any clubs o r organizations such as hinduism groups, unions, fraternal or athletic groups, or [...] filedocumented in this encounter Care Teams Clinical Biochemist Relationship Specialty Start Date End Date Darrin Morris MD [address] [place], [place] PCP - General Internal Medicine 04/02/17 Jim Carrero MD [address] [place], [place] ORTHOPEDIC SURGERY 08/19/23 Leslie Biswas MD [address] [place], [place] Internal Medicine 08/19/23 documented as of this encounter
--- OUTSIDE RECORDS SUMMARY | 2024-10-16 14:36 | XMS_ITS | Encounter Summary ---
Author Organization [facility] Address [address] [place] [address] Care Team Providers Care Logistics System Engineer Name Role Phone Darrin Morris MD Primary Care Provider [phone] [phone] Jim Carrero MD Unavailable Unavailable Leslie Biswas MD Unavailable Unavailable Encounter Details Date Type Department Care Team Description 10/20/2019 [facility] Medical Records [address] [place] [address] Abstract, Provider Social History Tobacco Use Types [...] often do you attend chur ch or pentecostalism services? Never 08/19/2023 Do you belong to any clubs o r organizations such as samaritan groups, unions, fraternal or athletic groups, or [...] as of this encounter Plan of Treatment Scheduled Orders Name Type Priority Associated Diagnoses Orde r Schedule OUTSIDE EYE EXAM Procedures Routine Ordered: 10/20/2019 documented as of this encounter Visit Diagnoses Not on filedocumented in this encounter Care Teams Logistics System Engineer Relationship Specialty Start Date End Date Darrin Morris MD [address] [place] [id number] PCP - General Internal Medicine 04/02/17 Jim Carrero MD [address] [place], [place] ORTHOPEDIC SURGERY 08/19/23 Leslie Biswas MD [address] [place], [place] Internal Medicine 08/19/23 documented as of this encounter
--- OUTSIDE RECORDS SUMMARY | 2024-10-16 14:36 | XMS_ITS | Encounter Summary ---
Author Organization [facility] Address [address] [place] [address] Care Team Providers Care Environmental Program Manager Name Role Phone Darrin Morris MD Primary Care Provider +1 [phone] Jim Carrero MD Unavailable Unavailable Leslie Biswas MD Unavailable Unavailable Encounter Details Date Type Department Care Team Description 12/31/2022 Telephone Adult Medicine - [place] [address] [place] [address] Guero Martinez PA-C [address] [place] [address] Social History Tobacco Use Types Packs/Day Years [...] How often do you attend [facility] or yarsani services? Never 08/19/2023 Do you belong to [...] place to sleep or slept in a skilled nursing (including now)? No 08/19/2023 Sex Assigned at Date Recorded Not on file Job Start Date Occupation Industry Not on file Not on file Not on file COVID-19 Exposure Response Date Recorded In the last 10 days, have yo u been in contact with someone who was confirmed or suspected to have Coronavirus/COVID-19? No / Unsure 12/31/2022 3:38 PM EDT documented as of this encounter Miscellaneous Notes * Telephone Encounter - Sophia Hampton M.A. - 01/03/2023 10:06 AM EDT [facility] Miller office faxed back stating they do not see pt. Letter given to Davin. * Telephone Encounter - Sophia Hampton M.A. - 01/02/2023 2:28 PM EDT Faxed over request to Dr Pearce at [phone] for recent office note and labs. Will fax attn Sophia to pod C * Telephone Encounter - Sophia Hampton M.A. - 01/01/2023 1:00 PM EDT TC to Dr West office [phone] and they will fax recent notes and labs to pod C. * Telephone Encounter - Guero Martinez PA-C - 12/31/2022 9:23 PM EDT Please request records from his vulcanized fiber unit operator at [facility] in [place], . Would like last office visit and recent labs. Also, notes and labs from his technical sme Dr. West in [place]. Thank you. documented in this encounter Plan of Treatment Not on file documented as of this encounter Visit Diagnoses Not on filedocumented in this encounter Care Teams Environmental Program Manager Relationship Specialty Start Date End Date Darrin Morris MD [address] [place] [id number] PCP - General Internal Medicine 04/02/17 Jim Carrero MD [address] [place] [address] ORTHOPEDIC SURGERY 08/19/23 Leslie Biswas MD [address] [place] [address] Internal Medicine 08/19/23 documented as of this encounter
--- OUTSIDE RECORDS SUMMARY | 2024-10-16 14:36 | XMS_ITS | Encounter Summary ---
Author Organization [facility] Address [address] [place] [address] Care Team Providers Care Front Office Agent Name Role Phone Darrin Morris MD Primary Care Provider [phone] [phone] Jim Carrero MD Unavailable Unavailable Leslie Biswas MD Unavailable Unavailable Encounter Details Date Type Department Care Team Description 01/04/2023 Transfer Records Medical Records [address] [place] [id number] Prabhu West MD Social History Tobacco Use [...] often do you attend chur ch or gnosticist services? Never 08/19/2023 Do you belong to any clubs o r organizations such as temple groups, unions, fraternal or athletic groups, or [...] on filedocumented in this encounter Care Teams Front Office Agent Relationship Specialty Start Date End Date Darrin Morris MD [address] [place], [place] PCP - General Internal Medicine 04/02/17 Jim Carrero MD [address] [place], [place] ORTHOPEDIC SURGERY 08/19/23 Leslie Biswas MD [address] [place], [place] Internal Medicine 08/19/23 documented as of this encounter
--- OUTSIDE RECORDS SUMMARY | 2024-10-16 14:36 | XMS_ITS | Encounter Summary ---
Author Organization [facility] Address [address] [place] [address] Care Team Providers Care Care Transitions Manager Name Role Phone Darrin Morris MD Primary Care Provider [phone] [phone] Jim Carrero MD Unavailable Unavailable Leslie Biswas MD Unavailable Unavailable Encounter Details Date Type Department Care Team Description 07/16/2019 Forestry Aide Report Medical Records [address] [place] [address] Betsy Lopez Social History Tobacco Use Types Packs/Day Years [...] often do you attend chur ch or judaism services? Never 08/19/2023 Do you belong to any clubs o r organizations such as holiness groups, unions, fraternal or athletic groups, or [...] place to sleep or slept in a halfway (including now)? No 08/19/2023 Sex Assigned at Date Recorded Not on file Job Start Date Occupation Industry Not on file Not on file Not on file documented as of this encounter Plan of Treatment Not on file documented as of this encounter Visit Diagnoses Not on filedocumented in this encounter Care Teams Care Transitions Manager Relationship Specialty Start Date End Date Darrin Morris MD [address] [place] [address] PCP - General Internal Medicine 04/02/17 Jim Carrero MD [address] [place] [address] ORTHOPEDIC SURGERY 08/19/23 Leslie iBswas MD [address] [place] [address] Internal Medicine 08/19/23 documented as of this encounter
--- OUTSIDE RECORDS SUMMARY | 2024-10-16 14:36 | XMS_ITS | Encounter Summary ---
Author Organization [facility] Address [address] [place] [address] Care Team Providers Care Public Safety Dispatcher Name Role Phone Darrin Morris MD Primary Care Provider [phone] [phone] Jim Carrero MD Unavailable Unavailable Leslie Biswas MD Unavailable Unavailable Reason for Visit * Reason Onset Date Comments refill request 11/12/2019 Encounter Details Date Type Department Care Team Description 11/12/2019 Refill Adult Medicine - [facility] [address] [place] [address] Darrin Morris MD [address] [place] [address] refill request Social History Tobacco Use Types Packs/Day Years [...] often do you attend chur ch or episcopalian services? Never 08/19/2023 Do you belong to any clubs o r organizations such as baptist groups, unions, fraternal or athletic groups, or [...] encounter Miscellaneous Notes * Telephone Encounter - Nasim Jarvis - 11/12/2019 3:34 PM EDT Patient would like script to be: E-PRESCRIBED/FAXED TO PHARMACY WHEN WAS THE PATIENT'S LAST APPOINTMENT IN ADULT MEDICINE? 09/14/19 WHEN WAS THE LAST TIME THE PATIENT SAW THEIR PCP? Same as above Does patient have an upcoming appointment? Yes 03/14/20 (THE MEDICATION REQUESTED IS ON THE MED LIST ABOVE) All of the medications requested were on the CURRENT MEDS list Did you check the Pharmacy information above?: YES Patient wants: 30 -day supply Is this a mail order prescription request ? NO If the refill is from a FAXED refill request what is the RX # listed on the fax? N/A Patients current insurance carrier is: [place] / [place] / Product Type: MEDICARE [id number] documented in this encounter Plan of Treatment Not on file documented as of this encounter Visit Diagnoses Not on filedocumented in this encounter Care Teams Public Safety Dispatcher Relationship Specialty Start Date End Date Darrin Morris MD [address] [place] [address] PCP - General Internal Medicine 04/02/17 Jim Carrero MD [address] [place] [address] ORTHOPEDIC SURGERY 08/19/23 Leslie Biswas MD [address] [place] [address] Internal Medicine 08/19/23 documented as of this encounter
--- OUTSIDE RECORDS SUMMARY | 2024-10-16 14:36 | XMS_ITS | Encounter Summary ---
Author Organization [facility] Address [address] [place] [address] Care Team Providers Care Yard Manager Name Role Phone Darrin Morris MD Primary Care Provider +1 [phone] Jim Carrero MD Unavailable Unavailable Leslie Biswas MD Unavailable Unavailable Encounter Details Date Type Department Care Team Description 12/22/2019 Air Traffic Instructor Report Medical Records [address] [place] [address] Dread Anton Social History Tobacco Use Types [...] often do you attend chur ch or episcopal services? Never 08/19/2023 Do you belong to any clubs o r organizations such as oriental orthodox groups, unions, fraternal or athletic groups, or [...] place to sleep or slept in a jail (including now)? No 08/19/2023 Sex Assigned at Date Recorded Not on file Job Start Date Occupation Industry Not on file Not on file Not on file documented as of this encounter Plan of Treatment Not on file documented as of this encounter Visit Diagnoses Not on filedocumented in this encounter Care Teams Yard Manager Relationship Specialty Start Date End Date Darrin Morris MD [address] [place] [address] PCP - General Internal Medicine 04/02/17 Jim Carrero MD [address] [place] [address] ORTHOPEDIC SURGERY 08/19/23 Leslie Biswas MD [address] [place] [address] Internal Medicine 08/19/23 documented as of this encounter
--- OUTSIDE RECORDS SUMMARY | 2024-10-16 14:36 | XMS_ITS | Encounter Summary ---
Author Organization [facility] Address [address] [place] [address] Care Team Providers Care Thermo Cementing Folder Operator Name Role Phone Darrin Morris MD Primary Care Provider +1 -[phone] Jim Carrero MD Unavailable Unavailable Leslie Biswas MD Unavailable Unavailable Reason for Visit * Reason Onset Date Comments Form 10/15/2022 DWO Glucose Test Strips Encounter Details Date Type Department Care Team Description 10/15/2022 Telephone Adult Medicine [facility] [address] [place] [address] Guero Martinez PA-C [address] [place] [address] Form (DWO Glucose Test Strips) Social History Tobacco Use Types Packs/Day Years [...] often do you attend chur ch or lutheran services? Never 08/19/2023 Do you belong to any clubs o r organizations such as mandaeism groups, unions, fraternal or athletic groups, or [...] Telephone Encounter - Guero Martinez PA-C - 10/15/2022 12:20 PM EST Signed thank you * Telephone Encounter - Ada Beltre M.A. - 10/15/2022 10:17 AM EST DWO for Diabetic Test Strips received from [employer] Filled out with information needed Placed in prescribing providers in-box for signature documented in this encounter Plan of Treatment Not on file documented as of this encounter Visit Diagnoses Not on filedocumented in this encounter Care Teams Thermo Cementing Folder Operator Relationship Specialty Start Date End Date Darrin Morris MD [address] [place] [address] PCP - General Internal Medicine 04/02/17 Jim Carrero MD [address] [place], [place] ORTHOPEDIC SURGERY 08/19/23 Leslie Biswas MD [address] [place] [address] Internal Medicine 08/19/23 documented as of this encounter
--- OUTSIDE RECORDS SUMMARY | 2024-10-16 14:36 | XMS_ITS | Encounter Summary ---
Author Organization [facility] Address [address] [place] [address] Care Team Providers Care Mold Car Pusher Name Role Phone Darrin Morris MD Primary Care Provider +1 [phone] Jim Carrero MD Unavailable Unavailable Leslie Biswas MD Unavailable Unavailable Encounter Details Date Type Department Care Team Description 06/07/2020 Bonus Clerk Report Medical Records [address] [place] [address] Leslie Biswas MD Social History Tobacco Use Types Packs/Day [...] on filedocumented in this encounter Care Teams Mold Car Pusher Relationship Specialty Start Date End Date Darrin Morris MD [address] [place] [address] PCP - General Internal Medicine 04/02/17 Jim Carrero MD [address] [place] [address] ORTHOPEDIC SURGERY 08/19/23 Leslie Biswas MD [address] [place] [address] Internal Medicine 08/19/23 documented as of this encounter
--- OUTSIDE RECORDS SUMMARY | 2024-10-16 14:36 | XMS_ITS | Encounter Summary ---
Author Organization [facility] Address [address] [place] [address] Care Team Providers Care Engineering Aide Name Role Phone Darrin Morris MD Primary Care Provider +1 [phone] Jim Carrero MD Unavailable Unavailable Leslie Biswas MD Unavailable Unavailable Encounter Details Date Type Department Care Team Description 06/13/2019 Hospital Medical Records [address] [place] [address] Social History Tobacco Use Types Packs/Day Years [...] place to sleep or slept in a correction (including now)? No 08/19/2023 Sex Assigned at Date Recorded Not on file Job Start Date Occupation Industry Not on file Not on file Not on file documented as of this encounter Plan of Treatment Not on file documented as of this encounter Visit Diagnoses Not on filedocumented in this encounter Care Teams Engineering Aide Relationship Specialty Start Date End Date Darrin Morris MD [address] [place] [address] PCP - General Internal Medicine 04/02/17 Jim Carrero MD [address] [place] [address] ORTHOPEDIC SURGERY 08/19/23 Leslie Biswas MD [address] [place] [address] Internal Medicine 08/19/23 documented as of this encounter
--- OUTSIDE RECORDS SUMMARY | 2024-10-16 14:36 | XMS_ITS | Encounter Summary ---
Author Organization [facility] Address [address] [place] [address] Care Team Providers Care Short Story Writer Name Role Phone Darrin Morris MD Primary Care Provider +1 [phone] Jim Carrero MD Unavailable Unavailable Leslie Biswas MD Unavailable Unavailable Encounter Details Date Type Department Care Team Description 05/15/2019 Hospital Medical Records [address] [place] [address] Dave Hart MD Social History Tobacco Use Types Packs/Day [...] often do you attend chur ch or latter day services? Never 08/19/2023 Do you belong to any clubs o r organizations such as jewish groups, unions, fraternal or athletic groups, or [...] on filedocumented in this encounter Care Teams Short Story Writer Relationship Specialty Start Date End Date Darrin Morris MD [address] [place] [address] PCP - General Internal Medicine 04/02/17 Jim Carrero MD [address] [place] [address] ORTHOPEDIC SURGERY 08/19/23 Leslie Biswas MD [address] [place] [address] Internal Medicine 08/19/23 documented as of this encounter
--- OUTSIDE RECORDS SUMMARY | 2024-10-16 14:36 | XMS_ITS | Encounter Summary ---
Author Organization [facility] Address [address] [place] [address] Care Team Providers Care Office Rental Clerk Name Role Phone Darrin Morris MD Primary Care Provider +1 -[phone] Jim Carrero MD Unavailable Unavailable Leslie Biswas MD Unavailable Unavailable Encounter Details Date Type Department Care Team Description 05/15/2023 Refill Adult Medicine - [place] [address] [place] [address] Guero Martinez PA-C [address] [place] [address] Social History Tobacco Use Types Packs/Day Years [...] week 08/19/2023 How often do you attend [facility] or latter-day services? Never 08/19/2023 Do you belong to any clubs o r organizations such as scientologist groups, unions, fraternal or athletic groups, or [...] place to sleep or slept in a long term (including now)? No 08/19/2023 Sex Assigned at Date Recorded Not on file Job Start Date Occupation Industry Not on file Not on file Not on file documented as of this encounter Plan of Treatment Not on file documented as of this encounter Visit Diagnoses Not on filedocumented in this encounter Care Teams Office Rental Clerk Relationship Specialty Start Date End Date Darrin Morris MD [address] [place] [address] PCP - General Internal Medicine 04/02/17 Jim Carrero MD [address] [place] [address] ORTHOPEDIC SURGERY 08/19/23 Leslie Bsiwas MD [address] [place], [place] Internal Medicine 08/19/23 documented as of this encounter
--- OUTSIDE RECORDS SUMMARY | 2024-10-16 14:36 | XMS_ITS | Encounter Summary ---
Author Organization [facility] Address [address] [place] [address] Care Team Providers Care Scrap Metal Processing Worker Name Role Phone Darrin Morris MD Primary Care Provider +1 [phone] Jim Carrero MD Unavailable Unavailable Leslie Biswas MD Unavailable Unavailable Encounter Details Date Type Department Care Team Description 07/15/2019 Old Medical Records Medical Records [address] [place] [address] Abstract, Provider Social History Tobacco Use Types [...] often do you attend chur ch or hinduism services? Never 08/19/2023 Do you belong to any clubs o r organizations such as muslim groups, unions, fraternal or athletic groups, or [...] place to sleep or slept in a fci (including now)? No 08/19/2023 Sex Assigned at Date Recorded Not on file Job Start Date Occupation Industry Not on file Not on file Not on file documented as of this encounter Plan of Treatment Not on file documented as of this encounter Visit Diagnoses Not on filedocumented in this encounter Care Teams Scrap Metal Processing Worker Relationship Specialty Start Date End Date Darrin Morris MD [address] [place] [address] PCP - General Internal Medicine 04/02/17 Jim Carrero MD [address] [place] [address] ORTHOPEDIC SURGERY 08/19/23 Leslie Biswas MD [address] [place] [address] Internal Medicine 08/19/23 documented as of this encounter
--- OUTSIDE RECORDS SUMMARY | 2024-10-16 14:36 | XMS_ITS | Encounter Summary ---
Author Organization [facility] Address [address] [place] [address] Care Team Providers Care Plating Stripper Name Role Phone Darrin Morris MD Primary Care Provider +1 -[phone] Jim Carrero MD Unavailable Unavailable Leslie Biswas MD Unavailable Unavailable Encounter Details Date Type Department Care Team Description 06/09/2019 Manager Mba Report Medical Records [address] [place] [address] Betsy Lopez Social History Tobacco Use Types [...] often do you attend chur ch or temple services? Never 08/19/2023 Do you belong to [...] on filedocumented in this encounter Care Teams Plating Stripper Relationship Specialty Start Date End Date Darrin Morris MD [address] [place] [address] PCP - General Internal Medicine 04/02/17 Jim Carrero MD [address] [place] [address] ORTHOPEDIC SURGERY 08/19/23 Leslie Biswas MD [address] [place] [address] Internal Medicine 08/19/23 documented as of this encounter
--- OUTSIDE RECORDS SUMMARY | 2024-10-16 14:36 | XMS_ITS | Encounter Summary ---
Author Organization [facility] Address [address] [place] [address] Care Team Providers Care Clam Bed Worker Name Role Phone Darrin Morris MD Primary Care Provider +1 -[phone] Jim Carrero MD Unavailable Unavailable Leslie Biswas MD Unavailable Unavailable Encounter Details Date Type Department Care Team Description 07/31/2023 Orders Only [facility] Lung Screening Program [place] [address] [facility] [address] [place] [phone] Juan J Hart MD [address] [facility] [address] [place] [address] History of tobacco use, presenting hazards to health (Primary Dx); Encounter for screening for lung cancer Social History Tobacco Use Types Packs/Day Years [...] often do you attend chur ch or restorationism services? Never 08/19/2023 Do you belong to any clubs o r organizations such as yarsanism groups, unions, fraternal or athletic groups, or [...] as of this encounter Visit Diagnoses Diagnosis History of tobacco use, presenting hazards to health- Primary Personal history of tobacco use, presenting hazards to health Encounter for screening for lung cancer documented in this encounter Care Teams Clam Bed Worker Relationship Specialty Start Date End Date Darrin oMrris MD [address] [place] [address] PCP - General Internal Medicine 04/02/17 Jim Carrero MD [address] [place] [address] ORTHOPEDIC SURGERY 08/19/23 Leslie Biswas MD [address] [place] [address] Internal Medicine 08/19/23 documented as of this encounter
--- OUTSIDE RECORDS SUMMARY | 2024-10-16 14:36 | XMS_ITS | Encounter Summary ---
Author Organization [facility] Address [address] [place] [address] Care Team Providers Care Ssds Mk 2 Advanced Operator Name Role Phone Darrin Morris MD Primary Care Provider +1 [phone] Jim Carrero MD Unavailable Unavailable Leslie Biswas MD Unavailable Unavailable Encounter Details Date Type Department Care Team Description 10/17/2022 Fiber Locking Supervisor Report Medical Records [address] [place] [address] Leslie Biswas MD Social History Tobacco Use [...] any clubs o r organizations such as presybeterian groups, unions, fraternal or athletic groups, or [...] on filedocumented in this encounter Care Teams Ssds Mk 2 Advanced Operator Relationship Specialty Start Date End Date Darrin Morris MD [address] [place] [address] PCP - General Internal Medicine 04/02/17 Jim Carrero MD [address] [place] [address] ORTHOPEDIC SURGERY 08/19/23 Leslie Biswas MD [address] [place] [address] Internal Medicine 08/19/23 documented as of this encounter
== END 2024-10-16 12:56 | disposition home or self-care (01) ==
LOC: HO.NEURO 12:55
PROVIDERS: Visit Provider Orthopaedic Surgery
DX: G56.03 Carpal tunnel syndrome, bilateral upper limbs (principal)
CPT/HCPCS: 95886; 95911

== ENCOUNTER → 2024-10-16 12:59 | Outpatient (BNV) | payer MEDICARE, OTHER, SELFPAY | PROVIDERS: Visit Provider Physical Medicine & Rehabilitation | DX: G56.03 Carpal tunnel syndrome, bilateral upper limbs (principal); G56.23 Lesion of ulnar nerve, bilateral upper limbs | CPT/HCPCS: 95886; 95911 ==

== ENCOUNTER 2024-11-18 09:58 | Outpatient (AMB) | payer MEDICARE, OTHER, SELFPAY ==
[2024-11-18 10:04] VITALS: BMI 29.7
--- NOTE | 2024-11-18 10:04 | A.OFFVIS_ITS ---
Vital Signs 11/18/24 10:04 Height 5 ft 10 in Weight 207 lb BMI 29.7 Intake Visit Reasons: New prob- Bilateral CTS, EMG done Intake Note: Spencer is a 74 year old right hand dominant male who presents today for a new problem visit for evaluation of Bilateral carpal tunnel syndrome. Patient reports that both of his hands are equally symptomatic. EMG/NCS done on 10/16/24 IMPRESSION: 1. First of all, this is a limited nerve conduction study since patient has a pacemaker. Unable to increase stimulation for precaution. Amplitudes may have appeared smaller than what it would be if I were to increase stimulation. 2. Clinically, we can make diagnosis of Carpal Tunnel Syndrome given distribution of numbness and atrophy of APB muscles. Electrodiagnostically supported by abnormal conduction studies of median nerves. 3. 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 Allergies adhesive tape Allergy (Intermediate, Verified 09/24/24 14:09) Rash bacitracin Allergy (Verified 09/24/24 14:09) Rash cefazolin Adverse Reaction (Severe, Verified 09/24/24 14:09) Rash clopidogrel [From Plavix] Adverse Reaction (Severe, Verified 09/24/24 14:09) Rash oxycodone Adverse Reaction (Verified 09/24/24 14:09) Hallucinations HPI HPI New prob- Bilateral CTS, EMG done: Details: Spencer is a 74 year old right hand dominant male who presents today for a new problem visit for evaluation of Bilateral carpal tunnel syndrome. Patient reports that both of his hands are equally symptomatic. EMG/NCS done on 10/16/24 IMPRESSION: 1. First of all, this is a limited nerve conduction study since patient has a pacemaker. Unable to increase stimulation for precaution. Amplitudes may have appeared smaller than what it would be if I were to increase stimulation. 2. Clinically, we can make diagnosis of Carpal Tunnel Syndrome given distribution of numbness and atrophy of APB muscles. Electrodiagnostically supported by abnormal conduction studies of median nerves. 3. 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 [facility] Medical History Skin cancer GERD (gastroesophageal reflux disease) Myocardial infarction Hemorrhoids Diverticulosis Peripheral neuropathy Right bundle branch block Microalbuminuria Cataracts, bilateral Tubular adenoma Diabetes Hearing loss Osteoarthritis Tobacco use disorder Obesity (BMI 30-39.9) Sleep apnea CAD (coronary artery disease) Syncope Pleural effusion Pacemaker Abnormal PFT Skin lesions HTN (hypertension) Macular degeneration of both eyes Surgical History History of nasal surgery Hx of bilateral cataract extraction Hx of tonsillectomy Hx of cholecystectomy Hx of appendectomy H/O colonoscopy Hx of CABG History of thoracentesis History of left knee replacement (~2013) History of left hip replacement (~2000) History of right hip replacement (~2000) Social History Household Members: Spouse Housing: House Housing Other:: stairs into house and within house Are you a primary resident care associate to a significant other at home: No Do you presently have visiting nurse or other home services: No Comment: pt rings appropriately Patient Tobacco Use Status: Former Tobacco user service: No Current occupational status: retired Review of Systems Const All systems reviewed & are unremarkable except as noted in HPI and below Physical Exam Vital Signs: BMI result Body Mass Index 29.7 Extrem Other: Neuro: Decreased sensation in the median nerve distribution of bilateral hands in the office today Normal sensation in the tips of all digits of the ulnar nerve distribution of bilateral hand today. Mild thenar wasting, no intrinsic wasting Good APB muscle firing and good finger cross. Vascular: Capillary refill brisk. ROM: Patient can make a fist and extend all their digits. Skin: No lacerations or abrasions noted. General: No ecchymosis. No erythema or evidence of infection. [] Assessment & Plan Assessment & Plan (1) Bilateral carpal tunnel syndrome: Code(s): G56.03 - Carpal tunnel syndrome, bilateral upper limbs Category: Medical Plan 1. Carpal tunnel syndrome, right Symptoms constant, daily, worse at night I educated the patient about the condition. I discussed both operative and nonoperative treatment options. The patient would like to proceed with surgery. The risks and benefits of operative treatment were discussed with the patient and the patient wishes to proceed with surgery. These risks include, but are not limited to, risk of damage to blood vessels, nerves, tendons, infection, recurrence, incomplete relief of preoperative symptoms, persistent pain, possible need for further surgery, and the risks associated with regional blocks and/or anesthesia. Plan is to take the patient to the operating room at some point in the next few weeks for the following procedures: 1. Right carpal tunnel release under local All of the preoperative paperwork including the consent was discussed today. All of the patient's questions were answered in the clinic today. The patient understands that they will be in contact with our neurosurgical nurse practitioner to discuss scheduling their procedure. Patient reports diabetes, last A1c 6.7 Denies blood thinners, asthma, heart issues, lung issues, kidney issues, or current smoking. Patient would like to hold off on operative intervention on the left until after intervention of the right Coding Level of Care Code Est Pt Level 4 (79632) Diagnoses Bilateral carpal tunnel syndrome G56.03
--- OUTSIDE RECORDS SUMMARY | 2024-11-18 11:07 | XMS_ITS | Clinical Summary ---
Author Organization [facility] Address [address] [place] [address] Care Team Providers Care Marketing Regional Consultant Name Role Phone Ada Morris MD Primary [...] Encounters Date Type Department Care Team Description 10/27/2024 Telephone Adult Medicine [facility] [address] [place] [address] Ada Morris MD Appointment from Last 3 Months Immunizations Name Administration [...] Dr Dread Anton,Endocrine Type 2 diabetes mellitus with cataract 11/05/2017 DX:Type 2 diabetes mellitus with cataract [...] PM EDT Office Visit Adult Medicine - [address] [phone] Ada Morris MD [address] [place] [address] Health Maintenance Due Date Last Done Comments Diabetes: Annual Foot Exam 02/20/1958 Diabetes: Annual Retina Eye Exam 02/20/1958 Zoster Vaccines (1 of 2) 02/20/1967 Pneumococcal Vaccine: 50+ Years (2 of 2 - PCV) 11/25/2018 11/25/2017 Colorectal Cancer Screening: Colonoscopy 05/29/2021 11/30/2015 Social Influencers of Health Screening 05/29/2021 RSV Immunization Adult Patients (1 - 1-dose 75+ series) 02/20/2023 COVID-19 Vaccine (4 - 2023-2 5 season) 2024 06/26/2021, 11/03/2020, 10/06/2020 Diabetes: Annual Urine Albumin-Creatinine Ratio (uACR) 07/26/2024 07/26/2023 Falls Risk Assessment 07/30/2024 07/30/2023 Depression Screening 08/19/2024 08/19/2023 Medicare Annual Wellness Visit 08/19/2024 08/19/2023 Diabetes: Blood Sugar Contro l Test (HGBA1C) 10/18/2024 04/20/2024, 04/20/2024 Influenza Vaccine (Season Ended) 2025 Diabetes: Annual GFR (Glomerular Filtration Rate) 04/20/2025 [...] age to complete this topic Meningococcal B Vaccine Aged Out No l onger eligible based on patient's age to complete [...] Results * Annual BMP Blood Test (04/20/2024) Pathologist [facility] Annual BMP Blood Test Abstracted [facility] Provider HEALTH MAINTENANCE Final Result * Hemoglobin A1c (04/20/2024) Pathologist [facility] Hemoglobin A1C 6.1 <=6.5 % Blood Venous blood specimen / Unknown [facility] Provider LAB BLOOD ORDERABLES Jennifer l Result * Depression Screening (08/19/2023) Pathologist [facility] Depression Screening Abstracted Result [facility] Provider HEALTH MAINTENANCE Final Result * Falls Risk Assessment (07/30/2023) Pathologist [facility] Falls Risk Assessment Abstracted [facility] Provider HEALTH MAINTENANCE Final Result * Urine Albumin Creatinine Ratio (07/26/2023) [facility] Urine Albumin Creatinine Ratio Abstracted [facility] Provider HEALTH MAINTENANCE Final Result * (ABNORMAL) Lipid panel (07/26/2023) [facility] LDL/HDL Ratio 4 0 - 4 Triglycerides 78 0 - 150 mg/dL Cholesterol 162 0 - 200 mg/dL HDL 44 >=40 mg/dL LDL Cholesterol 103(A) 0 - 100 mg/dL Blood Venous blood specimen / Unknown [facility] Provider LAB BLOOD ORDERABLES Jennifer l Result * Hepatitis C Screening (10/01/2018) [facility] Hepatitis C Screening Abstracted [facility] Provider HEALTH MAINTENANCE Final Result * Colonoscopy (11/30/2015) [facility] Colonoscopy No interpretation , Abstracted Anatomical Region Laterality Modality Other [facility] Provider HEALTH MAINTENANCE Final Result from Last 3 Months or Most Recently Relevant to Health Maintenance Insurance [employer] [place] MEDICARE ADVANTAGE MEDICARE Care Teams Marketing Regional Consultant Relationship Specialty Start Date End Date Ada Morris MD [address] [place] [address] PCP - General Internal Medicine 06/19/24
--- OUTSIDE RECORDS SUMMARY | 2024-11-18 11:07 | XMS_ITS | Encounter Summary ---
Author Organization [employer] Address [address] [place] [address] Care Team Providers Care Frog Farmer Name Role Phone Ada Morris MD Primary Care Prov ider Reason for Visit * Reason Onset Date Comments Appointment 10/27/2024 Encounter Details Date Type Department Care Team ([facility] st Contact Info) Description 10/27/2024 Telephone Adult [facility] [address] [place] [phone] Ada Morris MD [address] [place] [address] Appointment Social History Tobacco Use Types Packs/Day Years [...] on file Sexual Orientation Not on file documented as of this encounter Progress Notes * Elizabeth Cardona - 10/27/2024 10:57 AM EDT Pt states he received a call to schedule a Annual Wellness visit over the phone with a nurse. He states he is legally blind and can't make it to office. Please call pt at [phone] documented in this encounter Plan of Treatment Upcoming Encounters Date Type Department Care Team (Late st Contact Info) Description 12/07/2024 1:15 PM EDT Office Visit Adult Medicine - [place] [address] [place] [address] Ada Morris MD [address] [place] [address] documented as of this encounter Visit Diagnoses Not on filedocumented in this encounter Care Teams Frog Farmer Relationship Specialty Start Date End Date Ada Morris MD [address] [place] [address] PCP - General Internal Medicine 06/19/24 documented as of this encounter
--- OUTSIDE RECORDS SUMMARY | 2024-11-18 11:07 | XMS_ITS | Encounter Summary ---
Author Organization [facility] Address [address] [place] [address] Care Team Providers Care Rotary Rig Engine Operator Name Role Phone Darrin Morris MD Primary Care Provider +1 -[phone] Jim Carrero MD Unavailable Unavailable Leslie Biswas MD Unavailable Unavailable Encounter Details Date Type Department Care Team Description 10/30/2023 Customer Sales Representative Report Medical Records [address] [place] [address] Leslie Biswas MD Social History Tobacco Use [...] often do you attend chur ch or mandaeism services? Never 08/19/2023 Do you belong to any clubs o r organizations such as moravian groups, unions, fraternal or athletic groups, or [...] on filedocumented in this encounter Care Teams Rotary Rig Engine Operator Relationship Specialty Start Date End Date Darrin Morris MD [address] [place] [address] PCP - General Internal Medicine 04/02/17 Jim Carrero MD [address] [place] [address] ORTHOPEDIC SURGERY 08/19/23 Leslie Biswas MD [address] [place] [address] Internal Medicine 08/19/23 documented as of this encounter
--- OUTSIDE RECORDS SUMMARY | 2024-11-18 11:07 | XMS_ITS ---
Author Name [facility] Organization Unknown Encounters Encounter Type Encounter Reason Primary Diagnosis Location Date Ambulatory [facility] 12/21/2022 Ambulatory [facility] 12/19/2022 Care Team Organization Name Specialty Phone Email Start Date End Da te [facility] CHUY GARDNER Primary Care 07/12/20222023
--- OUTSIDE RECORDS SUMMARY | 2024-11-18 11:07 | XMS_ITS | Encounter Summary ---
Author Organization [facility] Address [address] [place] [address] Care Team Providers Care Alligator Hunter Name Role Phone Darrin Morris MD Primary Care Provider +1 -[phone] Jim Carrero MD Unavailable Unavailable Leslie Biswas MD Unavailable Unavailable Encounter Details Date Type Department Care Team Description 10/22/2023 Jet Aircraft Servicer Report Medical Records [address] [place] [address] Silvio Crouch MD Social History Tobacco Use Types Packs/Day [...] often do you attend chur ch or sabianism services? Never 08/19/2023 Do you belong to any clubs o r organizations such as anabaptism groups, unions, fraternal or athletic groups, or [...] on filedocumented in this encounter Care Teams Alligator Hunter Relationship Specialty Start Date End Date Darrin Morris MD [address] [place] [address] PCP - General Internal Medicine 04/02/17 Jim Carrero MD [address] [place], [place] ORTHOPEDIC SURGERY 08/19/23 Leslie Biswas MD [address] [place] [address] Internal Medicine 08/19/23 documented as of this encounter
--- OUTSIDE RECORDS SUMMARY | 2024-11-18 11:07 | XMS_ITS | Encounter Summary ---
Author Organization [facility] Address [address] [place] [address] Care Team Providers Care Parts Cataloger Name Role Phone Darrin Morris MD Primary Care Provider +1 -[phone] Jim Carrero MD Unavailable Unavailable Leslie Biswas MD Unavailable Unavailable Encounter Details Date Type Department Care Team Description 07/07/2022 Pt. Non Urgent Medic al Question Adult Medicine - [place] [address] [place] [address] Guero Martinez PA-C [address] [place] [address] Social History Tobacco Use Types Packs/Day Years [...] week 08/19/2023 How often do you attend [facility] or sabianist services? Never 08/19/2023 Do you belong to any clubs o r organizations such as nondenominational groups, unions, fraternal or athletic groups, or [...] paperwork for Medicare is required [facility] [place] requested Verification paperwork for medicare for Diabetes [...] on filedocumented in this encounter Care Teams Parts Cataloger Relationship Specialty Start Date End Date Darrin Morris MD [address] [place] [address] PCP - General Internal Medicine 04/02/17 Jim Carrero MD [address] [place] [address] ORTHOPEDIC SURGERY 08/19/23 Leslie Biswas MD [address] [place] [address] Internal Medicine 08/19/23 documented as of this encounter
--- OUTSIDE RECORDS SUMMARY | 2024-11-18 11:07 | XMS_ITS | Data Portability ---
Author Organization [facility] [employer] Address [address] [place] [address] Care Team Providers Care Sludge Control Operator Name Role Phone SUHAIL ROBERTS Primary Care [...] hemoglo bin A1C, fingers tick 2018 019 [facility], [address] [place] [address], [id number], 9 14:17:15 Referral None recorde d. Procedures None recorde d. Surgeries None recorde d. Imaging None recorde d. Medication Orders metform in ER 500 mg tablet, extende d release 24 hr 2016 017 [id number], [address] [place], [place], [id number], 0 11:12:09 Patient Targets Encounter Date Encounter Id Patient Goals Patient Target Last Modified By Organization Details Last Modified Time 12/20/2016 [id number] supervisor intermediates goal of Blood Glucose 80-180 Not available Not available Not available [facility] goal of Weight 200 lbs Not available Not available Not available [facility] goal of Hemoglobin A1C <7.0% Not available Not available Not available Patient Instructions Encounter Date Encounter Id Patient Instructions Last Modified By Organization Details Last Modified Time 12/20/2016 [id number] Using the new meter, check blood glucose before breakfast and 2 hours after dinner every day. Continue to follow a controlled carb, healthy plate plan and drink plenty of water. Continue current exercise plan. Bring the meter to the next appointment. [email or web address] Not available 12/20/2016 14:07:51 10/02/2017 [id number] elevated blood pressure: care instructions Not available 10/02/2017 10:43:32 learning about type 2 diabetes Not available 10/02/2017 10:43:32 type 2 diabetes: care instructions Not available 10/02/2017 10:43:32 01/07/2019 [id number] high blood pressure: care instructions Not available 01/07/2019 14:17:15 learning about high blood pressure Not available 01/07/2019 14:17:15 A healthy lifestyle: care instructions Not available 01/07/2019 14:17:15 12/22/2019 [id number] high cholesterol : care instructions Not available 12/22/2019 11:33:09 Reason for Referral None Reported. Results Created Date Observation Date Name Description Value Unit Range Abnormal Flag Note LastModifiedBy Organization Detail LastModifiedTime 01/08/20 19 01/07/2019 hemog lobin A1C, finge rstic k Hemoglobin A1c 6.0 Not Available [address], [address], 01/07/2019 13:48:29 Result Notes None recorded. Problems Name Problem SNOMED Code Status Onset Date Resolution Date Notes Provider Name and Address Organization Details Recorded Time Type 2 diabetes mellitus 72267282 Active 2016 Helene bedoya [facility]. 14:07:56 Arthritis 9053806 Active 2016 Helene bedoya [place] [facility] 14:08:02 Hypertensive disorder 73078517 Active 2016 Helene bedoya [facility] 7 14:08:17 Problem Notes None recorded. Procedures Surgical History Date Name Laterality Status Provider Name and Address Organization Details Recorded Time 05/12/20 19 coronary artery bypass grafts x 4 completed Aphrodite Papoutsides [facility] 12/22/2019 11:15:55 12/11/19 14 Joint Replacement completed Helene Noriega [facility] 03/20/2017 14:01:40 12/11/19 02 Other completed [facility] 03/20/2017 14:01:12 Imaging Results None recorded. Procedure Notes None recorded. Medical Equipment None Reported. Allergies Allergen ID Allergen Name Allergen Category Reaction Reaction Severity Criticality Documentation Date Start Date Code Code System Note Provider Name and Address Organization Details Recorded Time 372667 bacitraci n medicatio n rash moderate Not available 11/15/2016 1291 RxNorm Paulette Brooks MS, RDN, LDN, CDE [address] [place] [address], [phone] [place] [address] 7 10:31:31 428252 Plavix medicatio n rash Not available Not available 12/22/2019 25145 2 RxNorm Aphrodite Papoutsid es [facility], [facility] 0 11:14:24 060703 oxycodone medicatio n Not available Not available Not available 12/22/2019 7804 RxNorm Aphrodite Papoutsid es null, [facility] 0 11:14:53 598790 cefazolin medicatio n Not available Not available Not available 12/22/2019 2180 RxNorm Aphrodite Papoutsid es null, [facility] 0 11:15:12 929619 adhesive tape environme nt,medica tion Not available Not available Not available 12/22/2019 58862 UNK Aphrodite Papoutsid es null, [facility] 0 11:15:23 Medications Name Sig Start [...] Details Last Updated DateTime 12/20/2016 180.34 cm 319479.61 g 32.6 kg/m2 Paulette Brooks MS, RDN, LDN, CDE [address] [place] [address], [phone], [facility] 12/20/2016 13:41:50 Date Recorded Body height Body mass index (BMI) Body weight Body temperature Oxygen saturation Oxygen saturation in Arterial blood by Pulse oximetry Heart rate Systolic blood pressure Diastolic blood pressure Provider Name and Address Organization Details Last Updated DateTime 7 180.34 cm 30.7 kg/m2 89502.6 g 97.6 [degF] 97 % 97 % 57 /min 139 mm[Hg] 79 mm[Hg] Helene Noriega [facility] 7 14:10:16 Date Recorded Body height Body mass index (BMI) Body weight Body temperature Oxygen saturation Oxygen saturation in Arterial blood by Pulse oximetry Heart rate Systolic blood pressure Diastolic blood pressure Provider Name and Address Organization Details Last Updated DateTime 8 180.34 cm 31.9 kg/m2 088441. 65 g 97.8 [degF] 97 % 97 % 59 /min 150 mm[Hg] 72 mm[Hg] Helene Noriega [facility] 8 10:09:03 Date Recorded Body height Body mass index (BMI) Body weight Heart rate Oxygen saturation Oxygen saturation in Arterial blood by Pulse oximetry Systolic blood pressure Diastolic blood pressure Provider Name and Address Organization Details Last Updated DateTime 9 180.34 cm 31.1 kg/m2 338599. 1 g 66 /min 98 % 98 % 110 mm[Hg] 64 mm[Hg] Jessy Atkins [facility] 13:57:36 Date Recorded Body height Provider Name an d Address Organization Details Last Updated DateTime 12/22/2019 180.34 cm Aphrodite Papmacrina [facility] 12/22/2019 11:12:53 Social History Question Answer Notes LastModified by Organizat ion Details LastModified Time Tobacco Smoking Status Former Smoker one pack a week Helene bedoya [facility] 03/20/2017 14:03:08 What Is Your Level [...] SNOMED-CT Code Diagnosis ICD10 Code Diagnosis Note [id number] Dread Anton MD [facility] [address] [address] 11/15/2016 09:44:36 11/15/2016 12:11:06 Uncontrolled type 2 diabetes mellitus 875370887 E11.65 Diabetes Education: Initial Assessment Referred to us for better blood glucose by his PCP, Dr. Cardenas in [place], due to recent A1c of 10.9%Patie nt reports that he was a patient of Dr. Anton years ago when he was at [facility]. SMBG: old meter at home doesn't work. [...] diarrhea, dehydrated and in the hospital in [facility] for 2 days. Eyes: annual exams - no issues Feet: Actuary Manager every 3 months for check and nail [...] does circuit training, core class and works w/management trainer. RECOMMENDA TIONS: Check BG twice daily; Follow controlled carb plan; continue exercise planTIME SPENT: 60 minutes [id number] M[facility] De La [facility] 123 [facility],[address] [address] 12/20/2016 12:52:35 12/20/2016 13:57:18 Uncontrolled type 2 diabetes mellitus 101721584 E11.65 Diabetes Education: Follow Up SMBG: OneTouch [...] does circuit training, core class and works w/management trainer. RECOMMENDA TIONS: Check BG twice daily; Follow controlled carb plan; continue exercise planTIME SPENT: 30 minutes [id number] MD [facility] [address] [place] [phone] 03/20/2017 13:26:37 03/20/2017 14:53:49 Disorder of nervous system due to type 2 diabetes mellitus 071219831 E11.40 Metformin (plain) is causing diarrhea. Changed to metformin ER. Onglyza is not commonly used nowadays because of risk of CHF. Will change to amy or brock -- januvia not covered. Foot care explained. Also asked him to take OTC B12, [id number] MD [facility] [address] [place] [address] 10/02/2017 09:52:49 10/02/2017 10:38:25 Type 2 diabetes mellitus 41448572 E11.9 Excellent control of diabetes with meds and lifestyle changes. No change in Rx. I will have to get labs from Dr. Cardenas Hypertensive disorder 38 474472 I10 He checks his blood pressure daily at home and at his gym. Readings are in 120s/80s. Will go with his home readings. [id number] MD [facility] [address] [place] [address] 01/07/2019 13:34:51 01/07/2019 14:21:47 Neuropathy due to type 2 diabetes mellitus 0513475949 46283 E11.40 Very good control without side effect of medication s. Continue same. Essential hypertension 83776451 I10 Great control. No orthostasi s [id number] MD [facility] [address] [place] [address] 12/22/2019 11:06:08 12/22/2019 12:04:25 Hyperlipidemia 47697684 E78.5 I'm not sure why he is off atorvastat in. It is essential that outpatient with pre-existi ng ASCVD should be on high intensity statin. He will talk to his cardiologi st to discuss this issue Disorder d ue to type 2 diabetes mellitus 271769822 E11.8 We discussed about the new cardiovasc [...] Foley Member ID Guarantor Name 12/20/2016 2 [facility] (MEDICARE SUPPLEMENT) Spencer Roberson [id number] Spencer Roberson Jr. 12/20/2016 1 MEDIC[place] B-[place]: [employer] Spencer Roberson Jr [id number] Spencer Roberson Jr. 03/20/2017 2 [facility] (MEDICARE SUPPLEMENT) Spencer Roberson [id number] Spencer Roberson Jr. 03/20/2017 1 MED[place]: [employer] Spencer Roberson Jr [id number] Spencer Roberson Jr. 10/02/2017 2 [facility] (MEDICARE SUPPLEMENT) Spencer Roberson [id number] Spencer Roberson Jr. 10/02/2017 1 MED[place]: [employer] Spencer Roberson Jr [id number] Spencer Roberson Jr. 01/07/2019 2 [facility] (MEDICARE SUPPLEMENT) Spencer Roberson [id number] Spencer Roberson Jr. 01/07/2019 1 [place]: [employer] Spencer Roberson Jr [id number] Spencer Roberson Jr. 12/22/2019 2 [facility] (MEDICARE SUPPLEMENT) Spencer Roberson [id number] Spencer Roberson JrHasmukh 12/22/2019 1 MEDICARE [place]: [facility] Spencer Roberson Jr [id number] Spencer Roberson Jr. Notes Date Note [...] lbs) Paulette Brooks MS, RDN, LDN, CDE [address] [place] [address], [phone], [facility] 12/20/2016 14:08:14 03/20/2017 text/html Duration of [...] - Eye examinations: Done Dread Anton MD [address] [place] [address], [phone], [facility]. 03/20/2017 14:54:28 10/02/2017 text/html DiabetesReported [...] the social history: Dread Anton MD [address] [place], [address], [facility]. 10/02/2017 10:44:12 01/07/2019 text/html [facility]Notes:Finger stick blood glucose review with meter [id number] mg/dL >98% in range Last A1c: 61% [...] change Preprandial dizziness Dread Anton MD [address] [place], [address], [facility]. 01/07/2019 14:21:05 12/22/2019 text/html This is a Telehe alth visit, via telephone. Patient understands the risks, benefits and limitations of this type of visit. Patient consents for this visit. This type of visit is being utilized as it was deemed higher risk for patient to come to office given the current risk of COVID-19/coronavirus infection. The patient is located in [place] at the time of this visit. Physician is located in [place], [place] at the time of this visit. [...] is going to get it operated in [facility]. He has osteoarthritis for which he was getting intermittent steroid injection in his joints. He has not done it because of the pandemic? 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 The diabetes is under good control Dread Anton MD [address] [place] [address], [phone], [facility]. 12/22/2019 11:34:07
--- OUTSIDE RECORDS SUMMARY | 2024-11-18 11:07 | XMS_ITS | Encounter Summary ---
Author Organization [facility] Address [address] [place] [address] Care Team Providers Care Compensation Associate Name Role Phone Darrin Morris MD Primary Care Provider +1 -[phone] Jim Carrero MD Unavailable Unavailable Leslie Biswas MD Unavailable Unavailable Reason for Visit * Reason Onset Date Comments Prior Authorization 10/14/2023 amlodipine-v alsartan (EXFORGE) 5-160 MG per tablet Encounter Details Date Type Department Care Team Description 10/14/2023 Telephone Adult Medicine - [address] [address] Guero Martinez PA-C [address] [place] [address] Prior Authorization (amlodipine-valsartan (EXFORGE) 5-160 MG per [...] often do you attend chur ch or jainism services? Never 08/19/2023 Do you belong to any clubs o r organizations such as methodist groups, unions, fraternal or athletic groups, or [...] on own Gabi Gaines Auth Dep Ext [id number] * Telephone Encounter - Ada Beltre M.A. - 10/15/2023 1:02 PM EST Pt sent a [employer] message in regards to this request - are you waiting for the insurance to respond back ? * Telephone Encounter - Gabi Fraire M.A. - 10/14/2023 2:26 PM EST Insurance wanted more info Faxed back May need pt to try both in sep agents first Gabi Duga Prior Auth Dep Ext 5108 * Telephone Encounter - Gabi Fraire M.A. - 10/14/2023 11:45 AM EST Auth sent with m Dx:i10 Tried valsartan Gabi Fraire Prior Auth Dep Ext [id number] * Telephone Encounter - Pauline Kaminski - 10/14/2023 9:17 AM EST Prior Authorization for Medication-do not complete and send this encounter unless you have the fax from the pharmacy. Is this a Cover My Meds request: Yes -- Lopez Code [id number] Name of Medication amlodipine-valsartan (EXFORGE) 5-160 MG per tablet Dose of Medication 5-160MG What is the RX # from the faxed refill? How does patient take this med? Sig - Route: Take 1 Tablet by mouth daily for 360 days. - Oral What Pharmacy did the fax come from: [facility] fax #: [phone] [employer] Information from fax: What Prescription Plan does the patient have? [employer] RX BIN/PCN if applicable: BIN [id number] PCN [id number] Cardholder ID:[id number]-medicare/ [id number] Person Code: 01 Relationship Code: 1 Help desk phone: x documented in this encounter Plan of Treatment Not on file documented as of this encounter Visit Diagnoses Not on filedocumented in this encounter Care Teams Compensation Associate Relationship Specialty Start Date End Date Darrin Morris MD [address] [place], [place] PCP - General Internal Medicine 04/02/17 Jim Carrero MD [address] [place], [place] ORTHOPEDIC SURGERY 08/19/23 Leslie Biswas MD [address] [place], [place] Internal Medicine 08/19/23 documented as of this encounter
--- OUTSIDE RECORDS SUMMARY | 2024-11-18 11:07 | XMS_ITS | Encounter Summary ---
Author Organization [facility] Address [address] [place] [address] Care Team Providers Care Bilingual Elementary School Teacher Name Role Phone Darrin Morris MD Primary Care Provider +1 -[phone] Jim Carrero MD Unavailable Unavailable Leslie Biswas MD Unavailable Unavailable Reason for Visit * Reason Comments E-prescribe Rx Request Encounter Details Date Type Department Care Team Description 02/17/2024 Refill Adult Medicine - [place] [address] [place] [address] Guero Martinez PA-C [address] [place] [address] E-prescribe Rx Request Social History Tobacco Use [...] you attend [facility] or religion services? Never 08/19/2023 Do you belong to any clubs o r organizations such as sikh groups, unions, fraternal or athletic groups, or [...] on filedocumented in this encounter Care Teams Bilingual Elementary School Teacher Relationship Specialty Start Date End Date Darrin Morris MD [address] [place], [place] PCP - General Internal Medicine 04/02/17 Jim Carrero MD [address] [place] ORTHOP[place]IC SURGERY 08/19/23 Leslie Biswas MD [address] [place], [place] Internal Medicine 08/19/23 documented as of this encounter
--- OUTSIDE RECORDS SUMMARY | 2024-11-18 11:07 | XMS_ITS | Encounter Summary ---
Author Organization [facility] Address [address] [place] [address] Care Team Providers Care Patient Access Name Role Phone Darrin Morris MD Primary Care Provider +1 -[phone] Jim Carrero MD Unavailable Unavailable Leslie Biswas MD Unavailable Unavailable Reason for Visit * Reason Onset Date Comments Prior Authorization 10/09/2023 Encounter Details Date Type Department Care Team Description 10/09/2023 Telephone Adult Medicine - [place] [address] [place] [address] Darrin Morris MD [address] [place] [address] Prior Authorization Social History Tobacco Use Types [...] often do you attend chur ch or yarsanism services? Never 08/19/2023 Do you belong to [...] on filedocumented in this encounter Care Teams Patient Access Relationship Specialty Start Date End Date Darrin Morris MD [address] [place] [address] PCP - General Internal Medicine 04/02/17 Jim Carrero MD [address] [place] [address] ORTHOPEDIC SURGERY 08/19/23 Leslie Biswas MD [address] [place] [address] Internal Medicine 08/19/23 documented as of this encounter
--- OUTSIDE RECORDS SUMMARY | 2024-11-18 11:07 | XMS_ITS | Encounter Summary ---
Author Organization [facility] Address [address] [place] [address] Care Team Providers Care Director Of Teaching And Learning Name Role Phone Darrin Morris MD Primary Care Provider +1 -[phone] Jim Carrero MD Unavailable Unavailable Leslie Biswas MD Unavailable Unavailable Encounter Details Date Type Department Care Team Description 11/05/2017 Orders Only Medical Records [address] [place] [address] Abstract, Provider Social History Tobacco Use Types [...] often do you attend chur ch or adventism services? Never 08/19/2023 Do you belong to [...] on filedocumented in this encounter Care Teams Director Of Teaching And Learning Relationship Specialty Start Date End Date Darrin Morris MD [facility] [place] [address] PCP - General Internal Medicine 04/02/17 Jim Carrero MD [address] [place] [address] ORTHOPEDIC SURGERY 08/19/23 Leslie Biswas MD [address] [place] [address] Internal Medicine 08/19/23 documented as of this encounter
--- OUTSIDE RECORDS SUMMARY | 2024-11-18 11:08 | XMS_ITS | Encounter Summary ---
Author Organization [facility] Address [address] [place] [address] Care Team Providers Care Marketing Technology Specialist Name Role Phone Darrin Morris MD Primary Care Provider +1 -[phone] Jim Carrero MD Unavailable Unavailable Leslie Biswas MD Unavailable Unavailable Reason for Visit * Reason Onset Date Comments hospital follow up 06/04/2019 Encounter Details Date Type Department Care Team Description 06/04/2019 Telephone Adult Medicine - [place] [address] [place] [address] Darrin Morris MD [address] [place] [address] hospital follow up Social History Tobacco Use [...] week 08/19/2023 How often do you attend [facility] or mosque services? Never 08/19/2023 Do you belong to any clubs o r organizations such as buddhism groups, unions, fraternal or athletic groups, or [...] Sent over fax to request records as [facility] website not working correctly. * Telephone Encounter - Gamaliel Alaniz LPN - 06/04/2019 3:29 PM EDT Appointment scheduled with Dr Morris on 06/08/19 pt was seen at [facility] , please obtain records * Telephone Encounter - Greta Knox - 06/04/2019 3:19 PM EDT Pt returning call, pt is requesting a call back at [phone] This was originally requested in the 05/29 [...] appointment needed Hospital patient was treated at: [facility] Was this only an ER visit [...] on filedocumented in this encounter Care Teams Marketing Technology Specialist Relationship Specialty Start Date End Date Darrin Morris MD [address] [place] [address] PCP - General Internal Medicine 04/02/17 Jim Carrero MD [address] [place] [address] ORTHOPEDIC SURGERY 08/19/23 Leslie Biswas MD [address] [place] [address] Internal Medicine 08/19/23 documented as of this encounter
--- OUTSIDE RECORDS SUMMARY | 2024-11-18 11:08 | XMS_ITS | Encounter Summary ---
Author Organization [facility] Address [address] [place] [address] Care Team Providers Care Breeder Hen Service Technician Name Role Phone Darrin Morris MD Primary Care Provider +1 -[phone] Jim Carrero MD Unavailable Unavailable Leslie Biswas MD Unavailable Unavailable Encounter Details Date Type Department Care Team Description 11/27/2017 Business Doc Medical Records [address] [place] [id number] Abstract, Provider Social History Tobacco Use Types [...] often do you attend chur ch or confucianist services? Never 08/19/2023 Do you belong to any clubs o r organizations such as baptism groups, unions, fraternal or athletic groups, or [...] on filedocumented in this encounter Care Teams Breeder Hen Service Technician Relationship Specialty Start Date End Date Darrin Morris MD [address] [place] [address] PCP - General Internal Medicine 04/02/17 Jim Carrero MD [address] [place], [place] ORTHOPEDIC SURGERY 08/19/23 Leslie Biswas MD [address] [place] [address] Internal Medicine 08/19/23 documented as of this encounter
--- OUTSIDE RECORDS SUMMARY | 2024-11-18 11:08 | XMS_ITS | Encounter Summary ---
Author Organization [facility] Address [address] [place] [address] Care Team Providers Care Stud Master/Mistress Name Role Phone Darrin Morris MD Primary Care Provider +1 -[phone] Jim Carrero MD Unavailable Unavailable Leslie Biswas MD Unavailable Unavailable Reason for Visit * Reason Comments E-prescribe Rx Request Encounter Details Date Type Department Care Team Description 04/19/2023 Refill Adult Medicine [facility] [address] [place] [address] Guero Martinez PA-C [address] [place] [address] E-prescribe Rx Request Social History Tobacco Use [...] week 08/19/2023 How often do you attend [facility] or catholic services? Never 08/19/2023 Do you belong to any clubs o r organizations such as mormon groups, unions, fraternal or athletic groups, or [...] Telephone Encounter - Ada Beltre M.A. - 04/22/2023 11:47 AM EDT Medication request (s) pended for review Lab Results Component Value Date NA 136 10/25/2022 K 4.0 10/25/2022 CO2 28 10/25/2022 CL 102 10/25/2022 BUN 23 10/25/2022 CREAT 0.97 10/25/2022 GLU 177 10/25/2022 CA 9.3 10/25/2022 GFR 82 10/25/2022 * Telephone Encounter - Betsy Cheng - 04/22/2023 11:45 AM EDT Refills Last office visit: 12/31/22 Last pcp: 04/05/21 Next office visit: 07/05/21 documented in this encounter Plan of Treatment Not on file documented as of this encounter Visit Diagnoses Not on filedocumented in this encounter Care Teams Stud Master/Mistress Relationship Specialty Start Date End Date Darrin Morris MD [address] [place] [address] PCP - General Internal Medicine 04/02/17 Jim Carrero MD [address] [place] [address] ORTHOPEDIC SURGERY 08/19/23 Leslie Biswas MD [address] [place] [address] Internal Medicine 08/19/23 documented as of this encounter
--- OUTSIDE RECORDS SUMMARY | 2024-11-18 11:08 | XMS_ITS | Encounter Summary ---
Author Organization [facility] Address [address] [place] [address] Care Team Providers Care Nurse Transplant Name Role Phone Darrin Morris MD Primary Care Provider +1 -[phone] Jim Carrero MD Unavailable Unavailable Leslie Biswas MD Unavailable Unavailable Reason for Visit * Reason Onset Date Comments Form 05/27/2023 DWO ( Test Strip s ) Encounter Details Date Type Department Care Team Description 05/27/2023 Telephone Adult [facility] [address] [place] [address] Guero Martinez PA-C [address] [place] [id number] Form (DWO ( Test Strips ) ) [...] often do you attend chur ch or scientology services? Never 08/19/2023 Do you belong to any clubs o r organizations such as tenriism groups, unions, fraternal or athletic groups, or [...] 05/27/2023 1:06 PM EDT DWO received from [employer] for the patients Glucose Testing Strips. Please have provider complete and fax to [phone] DWO in light blue folder documented in this encounter Plan of Treatment Not on file documented as of this encounter Visit Diagnoses Not on filedocumented in this encounter Care Teams Nurse Transplant Relationship Specialty Start Date End Date Darrin Morris MD [address] [place] [address] [id number] PCP - General Internal Medicine 04/02/17 Jim Carrero MD [address] [place] [address] ORTHOPEDIC SURGERY 08/19/23 Leslie Biswas MD [address] [place] [address] Internal Medicine 08/19/23 documented as of this encounter
--- OUTSIDE RECORDS SUMMARY | 2024-11-18 11:08 | XMS_ITS | Encounter Summary ---
Author Organization [facility] Address [address] [place] [address] Care Team Providers Care Educational Coordinator Name Role Phone Darrin Morris MD Primary Care Provider +1 -[phone] Jim Carrero MD Unavailable Unavailable Leslie Biswas MD Unavailable Unavailable Encounter Details Date Type Department Care Team Description 08/02/2023 Orders Only Medical Records [address] [place] [address] Juan Taveras [address] [place] [address] [id number] Social History Tobacco Use Types Packs/Day Years [...] often do you attend [facility] or hoahaoism services? Never 08/19/2023 Do you belong to any clubs o r organizations such as islam groups, unions, fraternal or athletic groups, or [...] Name Priority Date/Time Associated Diagnosis Comments OUTSIDE EYE EXAM Routine 06/10/2023 documented in this encounter Results * OUTSIDE EYE EXAM (06/10/2023) Juan Taveras PROCEDURES documented in this encounter Visit Diagnoses Not on filedocumented in this encounter Care Teams Educational Coordinator Relationship Specialty Start Date End Date Darrin Morris MD [address] [place] [address] PCP - General Internal Medicine 04/02/17 Jim Carrero MD [address] [place] [address] ORTHOPEDIC SURGERY 08/19/23 Leslie Biswas MD [address] [place] [address] Internal Medicine 08/19/23 documented as of this encounter
--- OUTSIDE RECORDS SUMMARY | 2024-11-18 11:08 | XMS_ITS | Encounter Summary ---
Author Organization [facility] Address [address] [place] [address] Care Team Providers Care Online Advertising Director Name Role Phone Darrin Morris MD Primary Care Provider +1 -[phone] Jim Carrero MD Unavailable Unavailable Leslie Biswas MD Unavailable Unavailable Encounter Details Date Type Department Care Team Description 11/05/2021 Pt. Non Urgent Medic al Question Adult Medicine - [place] [address] [place] [address] Guero Martinez PA-C [address] [place] [address] Social History Tobacco Use Types Packs/Day Years [...] 08/19/2023 How often do you attend [facility] or tenriism services? Never 08/19/2023 Do you belong to [...] on filedocumented in this encounter Care Teams Online Advertising Director Relationship Specialty Start Date End Date Darrin Morris MD [address] [place] [address] PCP - General Internal Medicine 04/02/17 Jim Carrero MD [address] [place] [address] ORTHOPEDIC SURGERY 08/19/23 Leslie Biswas MD [address] [place] [address] Internal Medicine 08/19/23 documented as of this encounter
--- OUTSIDE RECORDS SUMMARY | 2024-11-18 11:08 | XMS_ITS | Encounter Summary ---
Author Organization [facility] Address [address] [place] [address] Care Team Providers Care Meat Packer Name Role Phone Darrin Morris MD Primary Care Provider +1 -[phone] Jim Carrero MD Unavailable Unavailable Leslie Biswas MD Unavailable Unavailable Encounter Details Date Type Department Care Team Description 12/06/2020 Gis Developer Report Medical Records [address] [place] [address] Leslie Biswas MD Social History Tobacco Use [...] often do you attend chur ch or sikhism services? Never 08/19/2023 Do you belong to any clubs o r organizations such as latter-day groups, unions, fraternal or athletic groups, or [...] on filedocumented in this encounter Care Teams Meat Packer Relationship Specialty Start Date End Date Darrin Morris MD [address] [place] [address] PCP - General Internal Medicine 04/02/17 Jim Carrero MD [address] [place] [address] ORTHOPEDIC SURGERY 08/19/23 Leslie Biswas MD [address] [place] [address] Internal Medicine 08/19/23 documented as of this encounter
--- OUTSIDE RECORDS SUMMARY | 2024-11-18 11:08 | XMS_ITS | Encounter Summary ---
Author Organization [facility] Address [address] [place] [address] Care Team Providers Care Loading Unit Operator Powder Charging Name Role Phone Darrin Morris MD Primary Care Provider +1 -[phone] Jim Carrero MD Unavailable Unavailable Leslie Biswas MD Unavailable Unavailable Encounter Details Date Type Department Care Team Description 06/25/2019 Practicing Dermatologist Report Medical Records [address] [place] [address] Betsy Lopez Social History Tobacco Use Types [...] often do you attend chur ch or congregational services? Never 08/19/2023 Do you belong to any clubs o r organizations such as taoism groups, unions, fraternal or athletic groups, or [...] on filedocumented in this encounter Care Teams Loading Unit Operator Powder Charging Relationship Specialty Start Date End Date Darrin Morris MD [address] [place] [address] PCP - General Internal Medicine 04/02/17 Jim Carrero MD [address] [place] [address] ORTHOPEDIC SURGERY 08/19/23 Leslie Biswas MD [address] [place] [address] Internal Medicine 08/19/23 documented as of this encounter
--- OUTSIDE RECORDS SUMMARY | 2024-11-18 11:08 | XMS_ITS | Clinical Summary ---
Author Organization [facility] Address [address] [place] [address] Care Team Providers Care Insurance Sales Professional Name Role Phone Guero Martinez PA-C Primary Care Provider [phone] Allergies Active Allergy Reactions Criticality Noted Date [...] age to complete this topic Care Teams Insurance Sales Professional Relationship Specialty Start Date End Date Guero Martinez PA-C PCP - General Medical Services 12/13/21
--- OUTSIDE RECORDS SUMMARY | 2024-11-18 11:08 | XMS_ITS | Encounter Summary ---
Author Organization [facility] Address [address] [place] [address] Care Team Providers Care Snack Stewardess Name Role Phone Darrin Morris MD Primary Care Provider +1 -[phone] Jim Carrero MD Unavailable Unavailable Leslie Biswas MD Unavailable Unavailable Reason for Visit * Reason Onset Date Comments Form 10/15/2022 DWO Glucose Test Strips Encounter Details Date Type Department Care Team Description 10/15/2022 Telephone Adult Medicine [facility] [address] [place] [address] Guero Martinez PA-C [address] [place] [address] Form (DWO Glucose Test Strips) Social History [...] often do you attend chur ch or mandaen services? Never 08/19/2023 Do you belong to [...] DWO for Diabetic Test Strips received from [employer] Filled out with information needed Placed in prescribing providers in-box for signature documented in this encounter Plan of Treatment Not on file documented as of this encounter Visit Diagnoses Not on filedocumented in this encounter Care Teams Snack Stewardess Relationship Specialty Start Date End Date Darrin Morris MD [address] [place] [address] PCP - General Internal Medicine 04/02/17 Jim Carrero MD [address] [place], [place] ORTHOPEDIC SURGERY 08/19/23 Leslie Biswas MD [address] [place] [address] Internal Medicine 08/19/23 documented as of this encounter
--- OUTSIDE RECORDS SUMMARY | 2024-11-18 11:08 | XMS_ITS | Encounter Summary ---
Author Organization [facility] Address [address] [place] [address] Care Team Providers Care Director Of Photography Name Role Phone Darrin Morris MD Primary Care Provider +1 -[phone] Jim Carrero MD Unavailable Unavailable Leslie Biswas MD Unavailable Unavailable Encounter Details Date Type Department Care Team Description 06/09/2019 Assistant Professor Of English Report Medical Records [address] [place] [address] Betsy Lopez Social History Tobacco Use Types [...] often do you attend chur ch or shinto services? Never 08/19/2023 Do you belong to any clubs o r organizations such as adventism groups, unions, fraternal or athletic groups, or [...] in this encounter Care Teams Director Of Photography Relationship Specialty Start Date End Date Darrin Morris MD [address] [place] [address] PCP - General Internal Medicine 04/02/17 Jim Carrero MD [address] [place] [address] ORTHOPEDIC SURGERY 08/19/23 Leslie Biswas MD [address] [place] [address] Internal Medicine 08/19/23 documented as of this encounter
--- OUTSIDE RECORDS SUMMARY | 2024-11-18 11:08 | XMS_ITS | Encounter Summary ---
Author Organization [facility] Address [address] [place] [address] Care Team Providers Care Distribution Field Technician Name Role Phone Darrin Morris MD Primary Care Provider +1 -[phone] Jim Carrero MD Unavailable Unavailable Leslie Biswas MD Unavailable Unavailable Encounter Details Date Type Department Care Team Description 07/31/2023 Orders Only [facility] Lung Screening Program [place] [address] [facility] [address] [place] [phone] Juan J Hart MD [address] [facility] Trey [address] [place] [address] History of tobacco use, presenting hazards to [...] often do you attend chur ch or protestant services? Never 08/19/2023 Do you belong to any clubs o r organizations such as buddhist groups, unions, fraternal or athletic groups, or [...] cancer documented in this encounter Care Teams Distribution Field Technician Relationship Specialty Start Date End Date Darrin Morris MD [address] [place] [address] PCP - General Internal Medicine 04/02/17 Jim Carrero MD [address] [place] [address] ORTHOPEDIC SURGERY 08/19/23 Leslie Biswas MD [address] [place] [address] Internal Medicine 08/19/23 documented as of this encounter
--- OUTSIDE RECORDS SUMMARY | 2024-11-18 11:08 | XMS_ITS | Encounter Summary ---
Author Organization [facility] Address [address] [place] [address] Care Team Providers Care Correspondence Clerk Name Role Phone Darrin Morris MD Primary Care Provider +1 -[phone] Jim Carrero MD Unavailable Unavailable Leslie Biswas MD Unavailable Unavailable Encounter Details Date Type Department Care Team Description 10/17/2022 Sorting And Folding Supervisor Report Medical Records [address] [place] [address] Leslie Biswas MD Social History Tobacco Use [...] any clubs o r organizations such as religious groups, unions, fraternal or athletic groups, or [...] on filedocumented in this encounter Care Teams Correspondence Clerk Relationship Specialty Start Date End Date Darrin Morris MD [address] [place] [address] PCP - General Internal Medicine 04/02/17 Jim Carrero MD [address] [place] [address] ORTHOPEDIC SURGERY 08/19/23 Leslie Biswas MD [address] [place] [address] Internal Medicine 08/19/23 documented as of this encounter
--- OUTSIDE RECORDS SUMMARY | 2024-11-18 11:08 | XMS_ITS | Encounter Summary ---
Author Organization [facility] Address [address] [place] [address] Care Team Providers Care Garden Consultant Name Role Phone Darrin Morris MD Primary Care Provider +1 -[phone] Jim Carrero MD Unavailable Unavailable Leslie Biswas MD Unavailable Unavailable Encounter Details Date Type Department Care Team Description 12/31/2022 Telephone Adult Medicine - [place] [address] [place] [address] Guero Martinez PA-C [address] [place] [address] Social History Tobacco Use Types Packs/Day Years [...] How often do you attend [facility] or yarsanism services? Never 08/19/2023 Do you belong to any clubs o r organizations such as anabaptist groups, unions, fraternal or athletic groups, or [...] Faxed over request to Dr Pearce at [phone] for recent office note and labs. Will fax attn Sophia to pod C * Telephone Encounter - Sophia Hampton M.A. - 01/01/2023 1:00 PM EDT TC to Dr West office [phone] and they will fax recent notes and labs to pod C. * Telephone Encounter - Guero Martinez PA-C - 12/31/2022 9:23 PM EDT Please request records from his traveling electrician at [facility] in [place], . Would like last office visit and recent labs. Also, notes and labs from his statistical programmer Dr. West in [place]. Thank you. documented in this encounter Plan of Treatment Not on file documented as of this encounter Visit Diagnoses Not on filedocumented in this encounter Care Teams Garden Consultant Relationship Specialty Start Date End Date Darrin Morris MD [address] [place] [address] PCP - General Internal Medicine 04/02/17 Jim Carrero MD [address] [place] [address] ORTHOPEDIC SURGERY 08/19/23 Leslie Biswas MD [address] [place] [address] Internal Medicine 08/19/23 documented as of this encounter
--- OUTSIDE RECORDS SUMMARY | 2024-11-18 11:08 | XMS_ITS | Encounter Summary ---
Author Organization [facility] Address [address] [place] [address] Care Team Providers Care Core Dipper Name Role Phone Darrin Morris MD Primary Care Provider +1 -[phone] Jim Carrero MD Unavailable Unavailable Leslie Biswas MD Unavailable Unavailable Reason for Visit * Reason Onset Date Comments Form 06/23/2021 dwo for Glucose Blood (ONE TOUCH ULTRA TEST STRIPS) Strip Encounter Details Date Type Department Care Team Description 06/23/2021 Telephone Adult Medicine - [place] [address] [place] [address] Darrin Morris MD [address] [place] [address] Form (dwo for Glucose Blood (ONE TOUCH [...] - 06/23/2021 3:55 PM EST Dwo from [facility] for Glucose Blood (ONE TOUCH ULTRA TEST STRIPS) Strip Ada Morris In dwo bin in adult med call center documented in this encounter Plan of Treatment Not on file documented as of this encounter Visit Diagnoses Not on filedocumented in this encounter Care Teams Core Dipper Relationship Specialty Start Date End Date Darrin Morris MD [address] [place] [address] PCP - General Internal Medicine 04/02/17 Jim Carrero MD [address] [place] [address] ORTHOPEDIC SURGERY 08/19/23 Leslie Biswas MD [address] [place] [address] Internal Medicine 08/19/23 documented as of this encounter
--- OUTSIDE RECORDS SUMMARY | 2024-11-18 11:08 | XMS_ITS | Clinical Summary ---
Author Organization [facility] Address [address] [place] [address] Care Team Providers Care Camera Control Operator Name Role Phone Darrin Morris MD Primary Care Provider +1 -[phone] Jim Carrero MD Unavailable Unavailable Leslie Biswas [...] permeant pace maker placed 05/12/2019 Cardiac rehab [facility] - 2 visits weekly up to [...] often do you attend chur ch or sikh services? Never 08/19/2023 Do you belong to [...] 2024 06/26/2021, 06/26/2021, 11/03/2020, Additional history exists DIABETES: ANNUAL EYE EXAM 06/10/20242022, 06/10/2023 (External [...] 08/19/2024 08/19/2023, (Completed), 04/26/2022, Additional history exists INFLUENZA (Season Ended) 2025 019 (Refused), 10/01/2018 (Refused) DTAP/TDAP/TD (3 - Td or Tdap) 07/30/2033 07/30/2023, 08/12/2012 (External Completion of Vaccination per patient) HEPATITIS C SCREENING Addressed 10/01/2018 (Refused ) Overridden with the intention of not completing the topic Care Teams Camera Control Operator Relationship Specialty Start Date End Date Darrin Morris MD [address] [place] [address] PCP - General Internal Medicine 04/02/17 Jim Carrero MD [address] [place] [address] ORTHOPEDIC SURGERY 08/19/23 Leslie Biswas MD [address] [place] [address] Internal Medicine 08/19/23
--- OUTSIDE RECORDS SUMMARY | 2024-11-18 11:08 | XMS_ITS | Encounter Summary ---
Author Organization [facility] Address [address] [place] [address] Care Team Providers Care Oil Pump Station Operator Chief Name Role Phone Darrin Morris MD Primary Care Provider +1 -[phone] Jim Carrero MD Unavailable Unavailable Leslie Biswas MD Unavailable Unavailable Encounter Details Date Type Department Care Team Description 06/07/2020 Rolloff Driver Report Medical Records [address] [place] [address] Leslie Biswas MD Social History Tobacco Use [...] often do you attend chur ch or faith services? Never 08/19/2023 Do you [...] place to sleep or slept in a alf (including now)? No 08/19/2023 Sex Assigned at Date Recorded Not on file Job Start Date Occupation Industry Not on file Not on file Not on file documented as of this encounter Plan of Treatment Not on file documented as of this encounter Visit Diagnoses Not on filedocumented in this encounter Care Teams Oil Pump Station Operator Chief Relationship Specialty Start Date End Date Darrin Morris MD [address] [place] [address] PCP - General Internal Medicine 04/02/17 Jim Carrero MD [address] [place] [address] ORTHOPEDIC SURGERY 08/19/23 Leslie Biswas MD [address] [place] [address] Internal Medicine 08/19/23 documented as of this encounter
--- OUTSIDE RECORDS SUMMARY | 2024-11-18 11:08 | XMS_ITS | Encounter Summary ---
Author Organization [facility] Address [address] [place] [address] Care Team Providers Care Regional Sales Trainer Name Role Phone Darrin Morris MD Primary Care Provider +1 -[phone] Jim Carrero MD Unavailable Unavailable Leslie Biswas MD Unavailable Unavailable Encounter Details Date Type Department Care Team Description 12/22/2019 Sprinkler Irrigation Equipment Mechanic Report Medical Records [address] [place] [address] Dread Anton Social History Tobacco Use Types [...] often do you attend chur ch or adventist services? Never 08/19/2023 Do you belong to any clubs o r organizations such as lutheran groups, unions, fraternal or athletic groups, or [...] on filedocumented in this encounter Care Teams Regional Sales Trainer Relationship Specialty Start Date End Date Darrin Morris MD [address] [place] [address] PCP - General Internal Medicine 04/02/17 Jim Carrero MD [address] [place] [address] ORTHOPEDIC SURGERY 08/19/23 Leslie Biswas MD [address] [place] [address] Internal Medicine 08/19/23 documented as of this encounter
--- OUTSIDE RECORDS SUMMARY | 2024-11-18 11:08 | XMS_ITS | Encounter Summary ---
Author Organization [facility] Address [address] [place] [address] Care Team Providers Care Cutting Tool Sharpener Name Role Phone Darrin Morris MD Primary Care Provider +1 -[phone] Jim Carrero MD Unavailable Unavailable Leslie Biswas MD Unavailable Unavailable Encounter Details Date Type Department Care Team Description 05/13/2019 Hospital Medical Records [address] [place] [address] Alpa Rose MD Social History Tobacco Use Types Packs/Day [...] often do you attend chur ch or yazidi services? Never 08/19/2023 Do you belong to any clubs o r organizations such as jew groups, unions, fraternal or athletic groups, or [...] on filedocumented in this encounter Care Teams Cutting Tool Sharpener Relationship Specialty Start Date End Date Darrin Morris MD [address] [place] [address] PCP - General Internal Medicine 04/02/17 Jim Carrero MD [address] [place] [address] ORTHOPEDIC SURGERY 08/19/23 Leslie Biswas MD [address] [place] [address] Internal Medicine 08/19/23 documented as of this encounter
--- OUTSIDE RECORDS SUMMARY | 2024-11-18 11:08 | XMS_ITS | Encounter Summary ---
Author Organization [facility] Address [address] [place] [address] Care Team Providers Care Print Buyer Name Role Phone Darrin Morris MD Primary Care Provider +1 -[phone] Jim Carrero MD Unavailable Unavailable Leslie Biswas MD Unavailable Unavailable Encounter Details Date Type Department Care Team Description 07/15/2019 Old Medical Records Medical Records [address] [place] [address] Abstract, Provider Social History Tobacco Use Types [...] often do you attend chur ch or anabaptist services? Never 08/19/2023 Do you belong to [...] on filedocumented in this encounter Care Teams Print Buyer Relationship Specialty Start Date End Date Darrin Morris MD [address] [place] [address] PCP - General Internal Medicine 04/02/17 Jim Carrero MD [address] [place] [address] ORTHOPEDIC SURGERY 08/19/23 Leslie Biswas MD [address] [place] [address] Internal Medicine 08/19/23 documented as of this encounter
--- OUTSIDE RECORDS SUMMARY | 2024-11-18 11:08 | XMS_ITS | Encounter Summary ---
Author Organization [facility] Address [address] [place] [address] Care Team Providers Care Park Police Name Role Phone Darrin Morris MD Primary Care Provider +1 -[phone] Jim Carrero MD Unavailable Unavailable Leslie Biswas MD Unavailable Unavailable Encounter Details Date Type Department Care Team Description 06/01/2019 Hospital Medical Records [address] [place] [address] Nikko Zamarripa Ortega [address] [place] [address] Social History Tobacco Use Types Packs/Day Years [...] week 08/19/2023 [facility] often [facility] attend [facility] or sabianist services? Never 08/19/2023 Do you belong to any clubs o r organizations such as mu-ism groups, unions, fraternal or athletic groups, or [...] place to sleep or slept in a penitentiary (including now)? No 08/19/2023 Sex Assigned at Date Recorded Not on file Job Start Date Occupation Industry Not on file Not on file Not on file documented as of this encounter Plan of Treatment Not on file documented as of this encounter Visit Diagnoses Not on filedocumented in this encounter Care Teams Park Police Relationship Specialty Start Date End Date Darrin Morris MD [address] [place] [address] PCP - General Internal Medicine 04/02/17 Jim Carrero MD [address] [place] [address] ORTHOPEDIC SURGERY 08/19/23 Leslie Biswas MD [address] [place] [address] Internal Medicine 08/19/23 documented as of this encounter
--- OUTSIDE RECORDS SUMMARY | 2024-11-18 11:08 | XMS_ITS | Encounter Summary ---
Author Organization [facility] Address [address] [place] [address] Care Team Providers Care Hand Assembler For Puller Over Name Role Phone Darrin Morris MD Primary Care Provider +1 -[phone] Jim Carrero MD Unavailable Unavailable Leslie Biswas MD Unavailable Unavailable Encounter Details Date Type Department Care Team Description 06/13/2019 Hospital Medical Records [address] [place] [address] Social History Tobacco Use Types Packs/Day Years [...] on filedocumented in this encounter Care Teams Hand Assembler For Puller Over Relationship Specialty Start Date End Date Darrin Morris MD [address] [place] [address] PCP - General Internal Medicine 04/02/17 Jim Carrero MD [address] [place] [address] ORTHOPEDIC SURGERY 08/19/23 Leslie Biswas MD [address] [place] [address] Internal Medicine 08/19/23 documented as of this encounter
--- OUTSIDE RECORDS SUMMARY | 2024-11-18 11:08 | XMS_ITS | Encounter Summary ---
Author Organization [facility] Address [address] [place] [address] Care Team Providers Care Trauma Coordinator Name Role Phone Darrin Morris MD Primary Care Provider +1 -[phone] Jim Carrero MD Unavailable Unavailable Leslie Biswas MD Unavailable Unavailable Encounter Details Date Type Department Care Team Description 05/10/2023 Refill Adult Medicine - [place] [address] [place] [address] Irene Lundberg PA-C [address] [place] [address] Social History Tobacco Use Types Packs/Day Years [...] week 08/19/2023 How often do you attend [facility] or holiness services? Never 08/19/2023 Do you belong to any clubs o r organizations such as latter day groups, unions, fraternal or athletic groups, or [...] on filedocumented in this encounter Care Teams Trauma Coordinator Relationship Specialty Start Date End Date Darrin Morris MD [address] [place] [address] PCP - General Internal Medicine 04/02/17 Jim Carrero MD [address] [place] [address] ORTHOPEDIC SURGERY 08/19/23 Leslie Biswas MD [address] [place] [address] Internal Medicine 08/19/23 documented as of this encounter
--- OUTSIDE RECORDS SUMMARY | 2024-11-18 11:08 | XMS_ITS | Encounter Summary ---
Author Organization [facility] Address [address] [place] [address] Care Team Providers Care Paste Mixer Name Role Phone Darrin Morris MD Primary Care Provider +1 -[phone] Jim Carrero MD Unavailable Unavailable Leslie Biswas MD Unavailable Unavailable Encounter Details Date Type Department Care Team Description 10/24/2021 Refill Adult Medicine - [place] [address] [place] [address] Guero Martinez PA-C [address] [place] [address] Social History Tobacco Use Types Packs/Day Years [...] week 08/19/2023 How often do you attend [facility] or nondenominational services? Never 08/19/2023 Do you belong to any clubs o r organizations such as orthodox groups, unions, fraternal or athletic groups, [...] place to sleep or slept in a detention (including now)? No 08/19/2023 Sex Assigned at [...] on filedocumented in this encounter Care Teams Paste Mixer Relationship Specialty Start Date End Date Darrin Morris MD [address] [place] [address] PCP - General Internal Medicine 04/02/17 Jim Carrero MD [address] [place] [address] ORTHOPEDIC SURGERY 08/19/23 Leslie Biswas MD [address] [place] [address] Internal Medicine 08/19/23 documented as of this encounter
== END 2024-11-18 10:33 | disposition home or self-care (01) ==
LOC: HO.HOS 09:59
DX: G56.03 Carpal tunnel syndrome, bilateral upper limbs (principal)
CPT/HCPCS: 99214

== ENCOUNTER → 2024-11-18 09:58 | Outpatient (BNVA) | payer MEDICARE, OTHER, SELFPAY | DX: G56.03 Carpal tunnel syndrome, bilateral upper limbs (principal) | CPT/HCPCS: 99212 ==

== ENCOUNTER 2024-12-24 14:33 | Outpatient (AMB) | payer MEDICARE, OTHER, SELFPAY ==
--- NOTE | 2024-12-24 14:36 | MHC.OFFVIS ---
Vital Signs 12/24/24 14:39 Height 5 ft 10 in Weight 207 lb BMI 29.7 Intake Visit Reasons: Left shoulder pain Intake Note: Spencer is a 74 year old male who presents with complaints of bilateral shoulder pains, left greater than right. He describes his left shoulder pain as sharp in nature. He has had cortisone injections in the past which gave fairly good relief. He wishes to hold off on surgery if at all possible. He has tried Tylenol and anti-inflammatory medicines which gave him only mild relief. He denies any weakness. Allergies adhesive tape Allergy (Intermediate, Verified 12/24/24 14:40) Rash bacitracin Allergy (Verified 12/24/24 14:40) Rash cefazolin Adverse Reaction (Severe, Verified 12/24/24 14:40) Rash clopidogrel [From Plavix] Adverse Reaction (Severe, Verified 12/24/24 14:40) Rash oxycodone Adverse Reaction (Verified 12/24/24 14:40) Hallucinations Medication List - Last Reconciled 12/25/24 by Jim Carrero MD acetaminophen 1,000 mg PO DAILY PRN amoxicillin 2,000 mg PO ONCE aspirin 325 mg PO BID 42 days aspirin (Adult Aspirin Regimen) 81 mg PO DAILY docusate sodium 100 mg PO BID PRN 30 days linagliptin (Tradjenta) 5 mg PO DAILY metformin ER 500 mg PO DAILY metoprolol succinate ER 25 mg PO DAILY nitxkbmfqatz-xmbggcko-txpnvy 1 tab PO DAILY rosuvastatin 5 mg PO DAILY valsartan 160 mg PO DAILY vancomycin 125 mg PO QID vit C,D-Wn-fssgv-lutein-zeaxan 250-90-40-1 mg (PreserVision AREDS-2) 2 tabs PO DAILY walker Folding front wheeled walker [facility] Medical History Skin cancer GERD (gastroesophageal reflux disease) Myocardial infarction Hemorrhoids Diverticulosis Peripheral neuropathy Right bundle branch block Microalbuminuria Cataracts, bilateral Tubular adenoma Diabetes Hearing loss Osteoarthritis Tobacco use disorder Obesity (BMI 30-39.9) Sleep apnea CAD (coronary artery disease) Syncope Pleural effusion Pacemaker Abnormal PFT Skin lesions HTN (hypertension) Macular degeneration of both eyes Surgical History History of nasal surgery Hx of bilateral cataract extraction Hx of tonsillectomy Hx of cholecystectomy Hx of appendectomy H/O colonoscopy Hx of CABG History of thoracentesis History of left knee replacement (~2013) History of left hip replacement (~2000) History of right hip replacement (~2000) Social History Household Members: Spouse Housing: House Housing Other:: stairs into house and within house Are you a primary rn intensive care unit to a significant other at home: No Do you presently have visiting nurse or other home services: No Comment: pt rings appropriately Patient Tobacco Use Status: Former Tobacco user service: No Current occupational status: retired Physical Exam Vital Signs: BMI result Body Mass Index 29.7 Const Other: Well-nourished well-developed very friendly male awake alert and oriented x3 in no acute distress Extrem Other: Bilateral upper extremity examination shows good capillary refill, no skin lesions noted, normal sensation light touch Left shoulder examination shows full range of motion when compared to his right shoulder, 4+ out of 5 strength with supraspinatus testing, positive impingement signs, no instability Office Procedures AMB Joint Injection/Aspiration Joint Injection/Aspiration Primary Site: left shoulder Prep: site was prepped using aseptic technique Injected: 40 mg of, DepoMedrol and 1% plain lidocaine Procedure: The patient tolerated the procedure well Coding 44246 - Large joint Procedure code (CPT) selection complete Assessment & Plan Assessment & Plan (1) Impingement syndrome of left shoulder: Code(s): M75.42 - Impingement syndrome of left shoulder Category: Medical (2) Left shoulder pain: Code(s): M25.512 - Pain in left shoulder Category: Medical Plan Mr. Roberson presents with left shoulder pain due to impingement syndrome. The risks and benefits of a left shoulder cortisone injection were discussed at length with the patient. The patient wished to proceed. He tolerated the injection well. He will continue with his home stretching program. He will contact me prior to his follow-up appointment in 3 months should any questions or concerns arise. I spent 21 minutes in reviewing the patient's records and imaging studies, seeing the patient and documenting in the medical record. Orders: Orders AMB Joint Injection/Aspiration 12/24/24 M75.42 - Impingement syndrome of left shoulder Coding Level of Care Code Est Pt Level 3 (07730) Complex EM visit Add On G2211 Diagnoses Impingement syndrome of left shoulder M75.42 Left shoulder pain M25.512 CPT Codes Coding - 16734 Large joint: 62575 - Large joint ([id number])
[2024-12-24 14:39] VITALS: BMI 29.7
--- OUTSIDE RECORDS SUMMARY | 2024-12-24 15:09 | XMS_ITS | Encounter Summary ---
Author Organization [facility] Address [address] [place] [address] Care Team Providers Care Intermodal Customer Service Name Role Phone Darrin Morris MD Primary Care Provider +1 -[phone] Jim Carrero MD Unavailable Unavailable Leslie Biswas MD Unavailable Unavailable Encounter Details Date Type Department Care Team Description 11/05/2017 Orders Only Medical Records [address] [place] [address] Abstract, Provider Social History Tobacco Use Types [...] on filedocumented in this encounter Care Teams Intermodal Customer Service Relationship Specialty Start Date End Date Darrin Morris MD [facility] [address] PCP - General Internal Medicine 04/02/17 Jim Carrero MD [address] [place] [address] ORTHOPEDIC SURGERY 08/19/23 Leslie Biswas MD [address] [place] [address] Internal Medicine 08/19/23 documented as of this encounter
--- OUTSIDE RECORDS SUMMARY | 2024-12-24 15:09 | XMS_ITS | Encounter Summary ---
Author Organization [facility] Address [address] [place] [address] Care Team Providers Care Resistor Coater Name Role Phone Darrin Morris MD Primary Care Provider +1 -[phone] Jim Carrero MD Unavailable Unavailable Leslie Biswas MD Unavailable Unavailable Encounter Details Date Type Department Care Team Description 07/07/2022 Pt. Non Urgent Medic al Question Adult Medicine - [place] [address] [place] [address] Guero Martinez PA-C [address] [place] [address] Social History Tobacco Use Types Packs/Day Years [...] week 08/19/2023 How often do you attend [facility] or moravian services? Never 08/19/2023 Do you belong to [...] paperwork for Medicare is required [employer] in [place] requested Verification paperwork for medicare for Diabetes [...] on filedocumented in this encounter Care Teams Resistor Coater Relationship Specialty Start Date End Date Darrin Morris MD [address] [place] [address] PCP - General Internal Medicine 04/02/17 Jim Carrero MD [address] [place] [address] ORTHOPEDIC SURGERY 08/19/23 Leslie Biswas MD [address] [place] [address] Internal Medicine 08/19/23 documented as of this encounter
--- OUTSIDE RECORDS SUMMARY | 2024-12-24 15:09 | XMS_ITS | Encounter Summary ---
Author Organization [facility] Address [address] [place] [address] Care Team Providers Care Faculty Administrator Name Role Phone Darrin Morris MD Primary Care Provider +1 -[phone] Jim Carrero MD Unavailable Unavailable Leslie Biswas MD Unavailable Unavailable Encounter Details Date Type Department Care Team Description 10/24/2021 Refill Adult Medicine - [place] [address] [place] [address] Guero Martinez PA-C [address] [place] [address] Social History Tobacco Use Types Packs/Day Years [...] week 08/19/2023 How often do you attend [facility] or judaism services? Never 08/19/2023 Do you belong to any clubs o r organizations such as cheondoism groups, unions, fraternal or athletic groups, or [...] on filedocumented in this encounter Care Teams Faculty Administrator Relationship Specialty Start Date End Date Darrin Morris MD [address] [place] [address] PCP - General Internal Medicine 04/02/17 Jim Carrero MD [address] [place] [address] ORTHOPEDIC SURGERY 08/19/23 Leslie Biswas MD [address] [place] [address] Internal Medicine 08/19/23 documented as of this encounter
--- OUTSIDE RECORDS SUMMARY | 2024-12-24 15:09 | XMS_ITS | Encounter Summary ---
Author Organization [facility] Address [address] [place] [address] Care Team Providers Care Pattern Duplicator Name Role Phone Darrin Morris MD Primary Care Provider +1 -[phone] Jim Carrero MD Unavailable Unavailable Leslie Biswas MD Unavailable Unavailable Reason for Visit * Reason Onset Date Comments Information Needed 01/29/2024 [facility] Cardiovascular Encounter Details Date Type Department Care Team Description 01/29/2024 Telephone Adult Medicine [address] [address] Belem stringer Ch, [address] [place] [address] Information Needed ([facility] ) Social History Tobacco Use Types Packs/Day [...] often do you attend chur ch or moravian services? Never 08/19/2023 Do you [...] encounter Miscellaneous Notes * Telephone Encounter - Rashida Scott M.A. - 01/29/2024 4:08 PM EDT Lab results were sent to fax number [phone] with success. * Telephone Encounter - Linette Morse - 01/29/2024 2:43 PM EDT Information Needed Who is calling: MD office [facility] Information being requested? Lab results from 07/26/23 If other information is needed, was an SHALINI signed? NO How is the information to be communicated back to the caller? Faxed to [phone] documented in this encounter Plan of Treatment Not on file documented as of this encounter Visit Diagnoses Not on filedocumented in this encounter Care Teams Pattern Duplicator Relationship Specialty Start Date End Date Darrin Morris, [address] [place] [address] PCP - General Internal Medicine 04/02/17 Jim Carrero MD [address] [place] [address] ORTHOPEDIC SURGERY 08/19/23 Leslie Biswas MD [address] [place] [address] Internal Medicine 08/19/23 documented as of this encounter
--- OUTSIDE RECORDS SUMMARY | 2024-12-24 15:09 | XMS_ITS | Encounter Summary ---
Author Organization [facility] Address [address] [place] [address] Care Team Providers Care Appeals Coordinator Name Role Phone Darrin Morris MD Primary Care Provider +1 -[phone] Jim Carrero MD Unavailable Unavailable Leslie Biswas MD Unavailable Unavailable Encounter Details Date Type Department Care Team Description 09/16/2023 Telephone [facility] Lung Screening Program [address] [place] [phone] Juan J Hart MD [address] [facility] Trey [address] [place] [address] Social History Tobacco Use Types Packs/Day Years [...] How often do you attend [facility] or druze services? Never 08/19/2023 Do you belong to [...] on filedocumented in this encounter Care Teams Appeals Coordinator Relationship Specialty Start Date End Date Darrin Morris MD [address] [place] [address] PCP - General Internal Medicine 04/02/17 Jim Carrero MD [address] [place], [place] ORTHOPEDIC SURGERY 08/19/23 Leslie Biswas MD [address] [place], [place] Internal Medicine 08/19/23 documented as of this encounter
--- OUTSIDE RECORDS SUMMARY | 2024-12-24 15:09 | XMS_ITS | Encounter Summary ---
Author Organization [facility] Address [address] [place] [address] Care Team Providers Care Full Roll Inspector Name Role Phone Darrin Morris MD Primary Care Provider +1 -[phone] Jim Carrero MD Unavailable Unavailable Leslie Biswas MD Unavailable Unavailable Reason for Visit * Reason Onset Date Comments hospital follow up 06/04/2019 Encounter Details Date Type Department Care Team Description 06/04/2019 Telephone Adult Medicine - [place] [address] [place] [address] Darrin Morris MD [address] [place] [address] hospital follow up Social History Tobacco Use [...] week 08/19/2023 How often do you attend [facility] or bahai services? Never 08/19/2023 Do you belong to any clubs o r organizations such as denominational groups, unions, fraternal or athletic groups, or [...] Sent over fax to request records as [facility] website not working correctly. * Telephone Encounter - Gamaliel Alaniz LPN - 06/04/2019 3:29 PM EDT Appointment scheduled with Dr Morris on 06/08/19 pt was seen at [facility] , please obtain records * Telephone Encounter - Greta Knox - 06/04/2019 3:19 PM EDT Pt returning call, pt is requesting a call back at [phone] This was originally requested in the 05/29 [...] appointment needed Hospital patient was treated at: [facility] Was this only an ER visit [...] on filedocumented in this encounter Care Teams Full Roll Inspector Relationship Specialty Start Date End Date Darrin Morris MD [address] [place] [address] PCP - General Internal Medicine 04/02/17 Jim Carrero MD [address] [place] [address] ORTHOPEDIC SURGERY 08/19/23 Leslie Biswas MD [address] [place] [address] Internal Medicine 08/19/23 documented as of this encounter
--- OUTSIDE RECORDS SUMMARY | 2024-12-24 15:09 | XMS_ITS | Encounter Summary ---
Author Organization [facility] Address [address] [place] [address] Care Team Providers Care Applications Analyst Name Role Phone Darrin Morris MD Primary Care Provider +1 -[phone] Jim Carrero MD Unavailable Unavailable Leslie Biswas MD Unavailable Unavailable Encounter Details Date Type Department Care Team Description 03/16/2024 Refill Adult Medicine - [place] [address] [place] [address] Guero Martinez PA-C [address] [place] [address] Social History Tobacco Use Types Packs/Day Years [...] week 08/19/2023 How often do you attend [facility] or pentecostalism services? Never 08/19/2023 Do you [...] on filedocumented in this encounter Care Teams Applications Analyst Relationship Specialty Start Date End Date Darrin Morris MD [address] [place] [address] PCP - General Internal Medicine 04/02/17 Jim Carrero MD [address] [place] [address] ORTHOPEDIC SURGERY 08/19/23 Leslie Biswas MD [address] [place], [place] Internal Medicine 08/19/23 documented as of this encounter
--- OUTSIDE RECORDS SUMMARY | 2024-12-24 15:09 | XMS_ITS | Encounter Summary ---
Author Organization [facility] Address [address] [place] [address] Care Team Providers Care Cage Tender Name Role Phone Darrin Morris MD Primary Care Provider +1 -[phone] Jim Carrero MD Unavailable Unavailable Leslie Biswas MD Unavailable Unavailable Encounter Details Date Type Department Care Team Description 11/27/2017 Business Doc Medical Records [address] [place] [address] Abstract, Provider Social History Tobacco Use Types [...] often do you attend chur ch or orthodoxy services? Never 08/19/2023 Do you belong to [...] on filedocumented in this encounter Care Teams Cage Tender Relationship Specialty Start Date End Date Darrin Morris MD [address] [place] [address] PCP - General Internal Medicine 04/02/17 Jim Carrero MD [address] [place], [place] ORTHOPEDIC SURGERY 08/19/23 Leslie Biswas MD [address] [place] [address] Internal Medicine 08/19/23 documented as of this encounter
--- OUTSIDE RECORDS SUMMARY | 2024-12-24 15:09 | XMS_ITS | Clinical Summary ---
Author Organization [facility] Address [address] [place] [address] Care Team Providers Care Molecular Biology Director Name Role Phone Ada Morris MD Primary Care Prov ider Allergies Active Allergy Reactions Criticality Noted Date Comments Adhesive Tape-Silicones Rash 03/14/2020 Bacitracin Rash 11/05/2017 Cefazolin Rash 03/14/2020 Clopidogrel Rash 03/14/2020 Oxycodone Hallucinations 03/14/2020 Medications metFORMIN XR (GLUCOPHAGE-XR) 500 mg 24 hr tablet TAKE 2 TABLETS BY MOUTH DAILY WITH BREAKFAST 4 Active amoxicillin (AMOXIL) 500 mg capsule [...] time each day. 90 tablet 5 Active blood sugar diagnostic (OneTouch Verio test strips) test strip USE 1 TEST STRIP TO CHECK BLOOD SUGAR 1X DAILY 100 strip 5 Active colchicine (COLCRYS) 0.6 mg tablet TK 2 T PO TODAY AND THEN 1 T PO QD THEREAFTER 9 Active Active Problems Problem Noted Date Diagnosed [...] permeant pace maker placed 05/12/2019 Cardiac rehab [facility] - 2 visits weekly up to 36 sessions Obesity (BMI 30-39.9) 11/25/2017 Tobacco use disorder 11/25/2017 Overview (07/24/2024): >30 pk yr LDCT 12/27 neg. Repeat 12 mo. Bundle branch block, right 11/05/2017 Overview (07/24/2024): Since 2006 Cataracts, bilateral 11/05/2017 Diverticulosis 11/05/2017 DM (diabetes mellitus), type 2 with neurological complications (CMS/HCC V24, CMS/HCC V28) 11/05/2017 DM (diabetes mellitus), type 2 with renal complications (CMS/HCC V24, CMS/HCC V28) 11/05/2017 Hearing loss 11/05/2017 Overview (07/24/2024): Bilateral hearing aids Hemorrhoids 11/05/2017 Overview (07/24/2024): internal Microalbuminuria 11/05/2017 KEITH (obstructive sleep apnea) 11/05/2017 Osteoarthritis 11/05/2017 Overview (07/24/2024): Spine, knees Peripheral neuropathy 11/05/2017 Overview (07/24/2024): 03/20/17 Dr Dread Anton,Endocrine Tubular adenoma 11/05/2017 Overview (07/24/2024): & sessile serrated polyp 2006 Type 2 diabetes mellitus wit h cataract ([facility] V24, [facility] V28) 11/05/2017 Encounters Date Type Department Care Team Description 12/11/2024 10:00 AM EDT Telemedicine Adult [address] [address] Encounter for subsequent annual wellness visit (AWV) in Medicare patient (Primary Dx) 12/07/2024 1:15 PM EDT Office Visit [address] [phone] Ada Gonzalez MD DM (diabetes mellitus), type 2 with neurological complications ([facility] V24, [facility] V28) (Primary Dx); History of heart attack; Pacemaker; Sensorineural hearing loss (SNHL) of right ear, unspecified hearing status on contralateral side; Intermediate stage nonexudative age-related macular degeneration of both eyes; Bilateral carpal tunnel syndrome 12/07/2024 Telephone [facility] - [facility] [address] [facility] [place] [address] Chantal Ruiz [place] Medicare Annual Wellness Visit Subsequent (AWV DUE after 08/19/2024) 10/27/2024 Telephone Adult Medicine [address] [address] Ada Gonzalez MD Appointment from Last 3 Months Immunizations [...] (diabetes mellitus), type 2 with renal complications (CMS/HCC V24, CMS/HCC V28) 11/05/2017 DX:DM (diabetes mellitus), t ype 2 with renal complications (HCC) Microalbuminuria 11/05/2017 DX:Microalbumin uria Bundle branch block, right 11/05/2017 DX:Bu ndle branch block, right; COMMENT: Since 2005 DM (diabetes mellitus), type 2 with neurological complications (CMS/HCC V24, CMS/HCC V28) 11/05/2017 DX:DM (diabetes mellitus), t ype 2 with neurological complications (HCC) Peripheral neuropathy 11/05/2017 DX:Periphe ral neuropathy; COMMENT: 03/20/17 Dr Dread Anton,Endocrine Type 2 diabetes mellitus wit h cataract ([facility] V24, [facility] V28) 11/05/2017 DX:Type 2 diabetes mellitus with cataract [...] drink = 0.6 oz pur e alcohol) Housing Instability Answer Date Recorde d Are you worried that in the next 2 months you may not have stable housing? No 12/11/2024 Food Access & Nutrition Answer Date Rec orded Do you have access to a vari ety of food including fruits and vegetables? Yes 12/11/2024 Access to Healthcare Answer Date Record ed Within the last 3 months, ho w many times did you visit the emergency department for your medical care? 0 12/11/2024 Health Literacy Answer Date Recorded How often do you need to hav e someone help you when you read instructions, pamphlets, or other written material from your doctor or pharmacy? Never 12/11/2024 Caregiver: How often do you need to have someone help you when you read instructions, pamphlets, or other written material from your doctor or pharmacy? Not on file 12/11/2024 Financial Risk Answer Date Recorded How hard is it for you to pa y for the very basics like food, housing, medical care, and air conditioning / heating? Not very hard 12/11/2024 Transportation Answer Date Recorded Has the lack of transportati on kept you from meetings, work, or from getting things needed for daily living? No Has the lack of transportati on kept you from medical appointments or from getting medications? No 12/11/2024 Social Isolation Answer Date Recorded How often do you feel lonely or isolated from th ose around you? Never 12/11/2024 Food Risk Answer Date Recorded Within the past 12 months we worried whether our food would run out before we got money to buy more. Never true 12/11/2024 Within the past 12 months th e food we bought just didn't last and we didn't have money to get more. Never true 12/11/2024 Education Answer Date Recorded Do you think completing more education or training, like finishing a GED, going to college, or learning a trade, would be helpful for you? N/A 12/11/2024 Employment and Income Answer Date Recor ded During the last four weeks, have you been actively looking for work? No 12/11/2024 Living Situation Answer Date Recorded What is your living situation? 0 12/11/2024 Sex and Gender Information Value Date Recorded Sex Assigned at Not on file Legal Sex Male 12:29 PM EDT Gender Identity Not on file Sexual Orientation Not on file Occupation Industry Job Start Date Job End Date RETIRED Not on file Not on file Not on file Obstetrics History Last Filed [...] Care Team (Late st Contact Info) Description 03/04/2025 1:30 PM EDT Office Visit [facility] [address] [facility] [address] [place] [address] Osmar Villa MD [address] [facility] [address] [place] [address] 06/08/2025 1:15 PM EDT Office Visit Adult Medicine - [place] [address] [place] [address] Ada Morris MD [address] [place] [address] Health Maintenance Due Date Last Done Comments Diabetes: Annual Foot Exam 02/20/1958 Diabetes: Annual Retina Eye Exam 02/20/1958 Zoster Vaccines (1 of 2) 02/20/1967 Pneumococcal Vaccine: 50+ Years (2 of 2 - PCV) 11/25/2018 11/25/2017 Colorectal Cancer Screening: Colonoscopy 05/29/2021 11/30/2015 RSV Immunization Adult Patients (1 - 1-dose 75+ series) 02/20/2023 COVID-19 Vaccine ( season) 2024 05/02/2023, 05/14/2022, 06/26/2021, Additional history exists Diabetes: Annual Urine Albumin-Creatinine Ratio (uACR) 07/26/2024 07/26/2023 Influenza Vaccine (Season Ended) 2025 Diabetes: Blood Sugar Control Test (HGBA1C) 06/08/2025 12/07/2024, 04/20/2024, 04/20/2024 Diabetes: Annual GFR (Glomerular Filtration Rate) 12/07/2025 12/07/2024, 04/20/2024, 04/20/2024 Hypertension/CHF/CAD Annual BMP Blood Test 12/07/2025 12/07/2024, 04/20/2024, 04/20/2024 Depression Screening 12/11/2025 12/11/2024, 08/19/19 24 Falls Risk Assessment 12/11/2025 12/11/2024, 023 Medicare Annual Wellness Visit 12/11/2025 12/11/2024 Social Influencers of Health Screening 12/11/2025 12/11/2024 Cholesterol Screening (Lipid Panel) 07/26/2028 07/26/2023 DTaP,Tdap,and [...] 20 months Aged Out No longer eligible based on patient's age to complete this topic Varicella Vaccines Aged Out No longer eligible based on patient's age to complete this topic Procedures Procedure Name Priority Date/Time Associated Diagnosis Comments COMPREHENSIVE METABOLIC PANEL Routine 12/07/2024 1:50 PM EDT DM (diabetes mellitus), type 2 with neurological complications (CMS/HCC V24, CMS/HCC V28) HEMOGLOBIN A1C Routine 12/07/2024 1:50 PM EDT DM (diabetes mellitus), type 2 with neurological complications (CMS/HCC V24, CMS/HCC V28) DEPRESSION SCREENING Routine 08/19/2023 FALLS RISK ASSESSMENT Routine 07/30/2023 URINE ALBUMIN CREATININE RATIO Routine 07/26/2023 LIPID PANEL Routine 07/26/2023 HEPATITIS C SCREENING Routine 10/01/2018 COLONOSCOPY Routine 11/30/2015 from Last 3 Months or Most Recently Relevant to Health Maintenance Results * Hemoglobin A1c (12/07/2024 1:50 PM EDT) Hemoglobin A1C 6.1 <6.5 % LAB CHEMISTRY METHOD 12/07/2024 11:29 PM EDT [facility] Mean Bld Glu Estim. 128 mg/dL LAB CHEMISTRY METHOD 12/07/2024 11:29 PM EDT [facility] Blood Venous blood specimen / Unknown Venipuncture / Unknown 12/07/2024 1:50 PM EDT 12/07/2024 1:53 PM EDT us Ada Morris MD LAB BLOOD ORDERABL ES Final Result [facility] [address] [place] [address], [place] [phone] * (ABNORMAL) Comprehensive metabolic panel (12/07/2024 1:50 PM EDT) Sodium 136 133 - 145 mmol/L LAB CHEMISTRY METHOD 12/07/2024 9:18 PM [facility] Potassium 4.4 3.5 - 5.5 mmol/L LAB CHEMISTRY METHOD 12/07/2024 9:18 PM [facility] Chloride 103 96 - 110 mmol/L LAB CHEMISTRY METHOD 12/07/2024 9:18 PM [facility] CO2 26 21 - 32 mmol/L LAB CHEMISTRY METHOD 12/07/2024 9:18 PM [facility] Anion Gap 7 3 - 11 LAB CHEMISTRY METHOD 12/07/2024 9:18 PM [facility] Glucose 132(H) 70 - 100 mg/dL LAB CHEMISTRY METHOD 12/07/2024 9:18 PM [facility] BUN 24 5 - 25 mg/dL LAB CHEMISTRY METHOD 12/07/2024 9:18 PM [facility] Creatinine 1.17 0.70 - 1.30 mg/dL LAB CHEMISTRY METHOD 12/07/2024 9:18 PM [facility] eGFR 65 >=60 mL/min/1. 73m2 LAB CHEMISTRY METHOD 12/07/2024 9:18 PM [facility] Comment:Calculation based on the??Chronic Kidney Disease Epidemiology Collaboration (CKD-EPI) equation refit??without adjustment for race. BUN/Creatinine Ratio 20.5 LAB CHEMISTRY METHOD 12/07/2024 9:18 PM [facility] Calcium 9.5 8.5 - 10.5 mg/dL LAB CHEMISTRY METHOD 12/07/2024 9:18 PM [facility] AST (SGOT) 21 10 - 42 unit/L LAB CHEMISTRY METHOD 12/07/2024 9:18 PM EDT [facility] ALT (SGPT) 25 10 - 60 unit/L LAB CHEMISTRY METHOD 12/07/2024 9:18 PM EDT [facility] Alkaline Phosphatase 106 42 - 121 unit/L LAB CHEMISTRY METHOD 12/07/2024 9:18 PM EDT [facility] Total Protein 7.3 6.0 - 8.0 g/dL LAB CHEMISTRY METHOD 12/07/2024 9:18 PM EDT [facility] Albumin 3.7 3.2 - 5.0 g/dL LAB CHEMISTRY METHOD 12/07/2024 9:18 PM EDT [facility] Total Bilirubin 0.4 0.0 - 1.4 mg/dL LAB CHEMISTRY METHOD 12/07/2024 9:18 PM EDT [facility] Blood Venous blood specimen / Unknown Venipuncture / Unknown 12/07/2024 1:50 PM EDT 12/07/2024 1:53 PM EDT Ada Morris MD LAB BLOOD ORDERABL ES Final Result [facility] [address] [place] [address], * Depression Screening (08/19/2023) Pathologist [facility] Depression Screening Abstracted Historical Provider HEALTH MAINTENANCE Final Result * Falls Risk Assessment (07/30/2023) [facility] Falls Risk Assessment Abstracted Historical Provider HEALTH MAINTENANCE Final Result * Urine Albumin Creatinine Ratio (07/26/2023) Pathologist [facility] Urine Albumin Creatinine Ratio Abstracted Historical Provider HEALTH MAINTENANCE Final Result * (ABNORMAL) Lipid panel (07/26/2023) [facility] LDL/HDL Ratio 4 0 - 4 Triglycerides 78 0 - 150 mg/dL Cholesterol 162 0 - 200 mg/dL HDL 44 >=40 mg/dL LDL Cholesterol 103(A) 0 - 100 mg/dL Blood Venous blood specimen / Unknown Historical Provider LAB BLOOD ORDERABLES Jennifer l Result * Hepatitis C Screening (10/01/2018) Hepatitis C Screening Abstracted Historical Provider HEALTH MAINTENANCE Final Result * Colonoscopy (11/30/2015) Colonoscopy No interpretation , Abstracted Anatomical Region Laterality Modality Other Historical Provider HEALTH MAINTENANCE Final Result from Last 3 Months or Most Recently Relevant to Health Maintenance Insurance MEDICARE [facility] Care Teams Molecular Biology Director Relationship Specialty Start Date End Date Ada Morris MD [address] [place] [id number] PCP - General Internal Medicine 06/19/24
--- OUTSIDE RECORDS SUMMARY | 2024-12-24 15:09 | XMS_ITS | Encounter Summary ---
Author Organization [facility] Address [address] [place] [address] Care Team Providers Care Event Crew Technician Name Role Phone Darrin Morris MD Primary Care Provider [phone] [phone] Jim Carrero MD Unavailable Unavailable Leslie Biswas MD Unavailable Unavailable Encounter Details Date Type Department Care Team Description 04/30/2023 Orders Only Medical Records [address] [place] [address] Abstract, Provider Social History Tobacco Use Types [...] often do you attend chur ch or latter-day services? Never 08/19/2023 Do you [...] on filedocumented in this encounter Care Teams Event Crew Technician Relationship Specialty Start Date End Date Darrin Morris MD [address] [place], [place] PCP - General Internal Medicine 04/02/17 Jim Carrero MD [address] [place], [place] ORTHOPEDIC SURGERY 08/19/23 Leslie Biswas MD [address] [place], [place] Internal Medicine 08/19/23 documented as of this encounter
--- OUTSIDE RECORDS SUMMARY | 2024-12-24 15:09 | XMS_ITS | Encounter Summary ---
Author Organization [facility] Address [address] [place] [address] Care Team Providers Care Plant Physiology Teacher Name Role Phone Darrin Morris MD Primary Care Provider [phone] [phone] Jim Carrero MD Unavailable Unavailable Leslie Biswas MD Unavailable Unavailable Encounter Details Date Type Department Care Team Description 11/07/2021 Refill Adult Medicine - [place] [address] [place], [place] [id number] Darrin Morris MD [address] [place] [address] Social History Tobacco Use Types Packs/Day Years [...] week 08/19/2023 How often do you attend [facility] or congregation services? Never 08/19/2023 Do you belong to [...] on filedocumented in this encounter Care Teams Plant Physiology Teacher Relationship Specialty Start Date End Date Darrin Morris MD [address] [place] [address] PCP - General Internal Medicine 04/02/17 Jim Carrero MD [address] [place] [address] ORTHOPEDIC SURGERY 08/19/23 Leslie Biswas MD [address] [place] [address] Internal Medicine 08/19/23 documented as of this encounter
--- OUTSIDE RECORDS SUMMARY | 2024-12-24 15:09 | XMS_ITS | Encounter Summary ---
Author Organization [facility] Address [address] [place] [address] Care Team Providers Care Recording Studio Setup Worker Name Role Phone Darrin Morris MD Primary Care Provider [phone] [phone] Jim Carrero MD Unavailable Unavailable Leslie Biswas MD Unavailable Unavailable Encounter Details Date Type Department Care Team Description 05/10/2023 Refill Adult Medicine - [place] [address] [place] [address] Irene Lundberg PA-C [address] [place] [address] Social History Tobacco Use Types Packs/Day Years [...] do you attend [facility] or yarsanism services? Never 08/19/2023 Do you belong to any clubs o r organizations such as restoration groups, unions, fraternal or athletic groups, or [...] on filedocumented in this encounter Care Teams Recording Studio Setup Worker Relationship Specialty Start Date End Date Darrin Morris MD [address] [place] [address] PCP - General Internal Medicine 04/02/17 Jim Carrero MD [address] [place] [address] ORTHOPEDIC SURGERY 08/19/23 Leslie Biswas MD [address] [place] [address] Internal Medicine 08/19/23 documented as of this encounter
--- OUTSIDE RECORDS SUMMARY | 2024-12-24 15:09 | XMS_ITS | Encounter Summary ---
Author Organization [facility] Address [address] [place] [address] Care Team Providers Care Talent Partner Name Role Phone Darrin Morris MD Primary Care Provider [phone] [phone] Jim Carrero MD Unavailable Unavailable Leslie Biswas MD Unavailable Unavailable Encounter Details Date Type Department Care Team Description 02/18/2024 Refill Adult Medicine - [place] [address] [place] [address] Guero Martinez PA-C [address] [place] [address] Social History Tobacco Use Types Packs/Day Years [...] How often do you attend [facility] or buddhist services? Never 08/19/2023 Do you [...] on filedocumented in this encounter Care Teams Talent Partner Relationship Specialty Start Date End Date Darrin Morris MD [address] [place] [address] PCP - General Internal Medicine 04/02/17 Jim Carrero MD [address] [place] [address] ORTHOPEDIC SURGERY 08/19/23 Leslie Biswas MD [address] [place], [place] Internal Medicine 08/19/23 documented as of this encounter
--- OUTSIDE RECORDS SUMMARY | 2024-12-24 15:09 | XMS_ITS | Encounter Summary ---
Author Organization [facility] Address [address] [place] [address] Care Team Providers Care Forming And Assembling Supervisor Name Role Phone Darrin Morris MD Primary Care Provider [phone] [phone] Jim Carrero MD Unavailable Unavailable Leslie Biswas MD Unavailable Unavailable Encounter Details Date Type Department Care Team Description 06/18/2019 Representative Report Medical Records [address] [place] [id number] Betsy Lopez Social History Tobacco Use Types [...] on filedocumented in this encounter Care Teams Forming And Assembling Supervisor Relationship Specialty Start Date End Date Darrin Morris MD [address] [place] [address] PCP - General Internal Medicine 04/02/17 Jim Carrero MD [address] [place] [address] ORTHOPEDIC SURGERY 08/19/23 Leslie Biswas MD [address] [place] [address] Internal Medicine 08/19/23 documented as of this encounter
--- OUTSIDE RECORDS SUMMARY | 2024-12-24 15:09 | XMS_ITS | Encounter Summary ---
Author Organization [facility] Address [address] [place] [address] Care Team Providers Care Refuse And Recycling Worker Name Role Phone Darrin Morris MD Primary Care Provider [phone] [phone] Jim Carrero MD Unavailable Unavailable Leslie Biswas MD Unavailable Unavailable Encounter Details Date Type Department Care Team Description 06/01/2019 Hospital Medical Records [address] [place] [address] Nikko Zamarripa Ortega [address] [place] [address] Social History Tobacco Use Types Packs/Day Years [...] 08/19/2023 How often do you attend [facility] or confucianist services? Never 08/19/2023 Do [...] on filedocumented in this encounter Care Teams Refuse And Recycling Worker Relationship Specialty Start Date End Date Darrin Morris MD [address] [place] [address] PCP - General Internal Medicine 04/02/17 Jim Carrero MD [address] [place] [address] ORTHOPEDIC SURGERY 08/19/23 Leslie Biswas MD [address] [place] [address] Internal Medicine 08/19/23 documented as of this encounter
--- OUTSIDE RECORDS SUMMARY | 2024-12-24 15:09 | XMS_ITS | Encounter Summary ---
Author Organization [facility] Address [address] [place] [address] Care Team Providers Care Maternal Fetal Physician Name Role Phone Darrin Morris MD Primary Care Provider [phone] Jim Carrero MD Unavailable Unavailable Leslie Biswas MD Unavailable Unavailable Reason for Visit * Reason Onset Date Comments Prior Authorization 10/09/2023 Encounter Details Date Type Department Care Team Description 10/09/2023 Telephone Adult Medicine - [place] [address] [place] [address] Darrin Morris MD [address] [place] [address] Prior Authorization Social History Tobacco Use Types [...] often do you attend chur ch or worship services? Never 08/19/2023 Do you belong to [...] office. Gabi Fraire Prior Auth Dep Ext [phone] * Telephone Encounter - Babita Bland - [...] on filedocumented in this encounter Care Teams Maternal Fetal Physician Relationship Specialty Start Date End Date Darrin Morris MD [address] [place] [address] PCP - General Internal Medicine 04/02/17 Jim Carrero MD [address] [place] [address] ORTHOPEDIC SURGERY 08/19/23 Leslie Biswas MD [address] [place] [address] Internal Medicine 08/19/23 documented as of this encounter
--- OUTSIDE RECORDS SUMMARY | 2024-12-24 15:09 | XMS_ITS | Encounter Summary ---
Author Organization [facility] Address [address] [place] [address] Care Team Providers Care Silverware Buffer Name Role Phone Darrin Morris MD Primary Care Provider [phone] [phone] Jim Carrero MD Unavailable Unavailable Leslie Biswas MD Unavailable Unavailable Reason for Visit * Reason Onset Date Comments REFERRAL 11/07/2021 Encounter Details Date Type Department Care Team Description 11/07/2021 Telephone Adult Medicine - [place] [address] [place] [address] Darrin Morris MD [address] [place] [address] REFERRAL Social History Tobacco Use Types Packs/Day Years [...] you attend [facility] or worship services? Never 08/19/2023 Do you [...] AM EDT documented as of this encounter Miscellaneous Notes * Telephone Encounter - Angy Rebolledo - 11/07/2021 4:13 PM EDT Thank you. He did call me about this, I will let him know. * Telephone Encounter - Guero Martinez PA-C - 11/07/2021 3:58 PM EDT I ordered pulmonary function testing for him. I do not know what they are doing with that. Referralseems to be extraordinarily behind * Telephone Encounter - Angy Rebolledo - 11/07/2021 2:00 PM EDT Davin, patient states when he saw you on 10/24/2021 you were going to put a referral in for him regarding he's breathing issues. Please advise. documented in this encounter Plan of Treatment Not on file documented as of this encounter Visit Diagnoses Not on filedocumented in this encounter Care Teams Silverware Buffer Relationship Specialty Start Date End Date Darrin Morris MD [address] [place] [address] PCP - General Internal Medicine 04/02/17 Jim Carrero MD [address] [place] [address] ORTHOPEDIC SURGERY 08/19/23 Leslie Biswas MD [address] [place] [address] Internal Medicine 08/19/23 documented as of this encounter
--- OUTSIDE RECORDS SUMMARY | 2024-12-24 15:09 | XMS_ITS | Encounter Summary ---
Author Organization [facility] Address [address] [place] [address] Care Team Providers Care Avionics Technician Name Role Phone Darrin Morris MD Primary Care Provider [phone] [phone] Jim Carrero MD Unavailable Unavailable Leslie Biswas MD Unavailable Unavailable Encounter Details Date Type Department Care Team Description 05/04/2024 Hospital Medical Records [address] [place], [place] [id number] [place] [address] Social History Tobacco Use Types Packs/Day Years [...] place to sleep or slept in a fdc (including now)? No 08/19/2023 Sex Assigned at Date Recorded Not on file Job Start Date Occupation Industry Not on file Not on file Not on file documented as of this encounter Plan of Treatment Not on file documented as of this encounter Visit Diagnoses Not on filedocumented in this encounter Care Teams Avionics Technician Relationship Specialty Start Date End Date Darrin Morris MD [address] [place] [address] PCP - General Internal Medicine 04/02/17 Jim Carrero MD [address] [place] [address] ORTHOPEDIC SURGERY 08/19/23 Leslie Biswas MD [address] [place] [address] Internal Medicine 08/19/23 documented as of this encounter
--- OUTSIDE RECORDS SUMMARY | 2024-12-24 15:09 | XMS_ITS | Encounter Summary ---
Author Organization [facility] Address [address] [place] [address] Care Team Providers Care Bottling Equipment Sales Representative Name Role Phone Darrin Morris MD Primary Care Provider +1 -[phone] Jim Carrero MD Unavailable Unavailable Leslie Biswas MD Unavailable Unavailable Encounter Details Date Type Department Care Team Description 06/01/2021 Curriculum Developer Report Medical Records [address] [place] [address] Travis Zaidi MD Social History Tobacco Use Types Packs/Day [...] often do you attend chur ch or hindu services? Never 08/19/2023 Do you belong to any clubs o r organizations such as scientology groups, unions, fraternal or athletic groups, or [...] have Coronavirus / COVID-19? No / Unsure 05/09/2021 1:19 PM EDT documented as of this encounter Plan of Treatment Not on file documented as of this encounter Visit Diagnoses Not on filedocumented in this encounter Care Teams Bottling Equipment Sales Representative Relationship Specialty Start Date End Date Darrin Morris MD [address] [place] [address] PCP - General Internal Medicine 04/02/17 Jim Carrero MD [address] [place], [place] ORTHOPEDIC SURGERY 08/19/23 Leslie Biswas MD [address] [place], [place] Internal Medicine 08/19/23 documented as of this encounter
--- OUTSIDE RECORDS SUMMARY | 2024-12-24 15:09 | XMS_ITS | Encounter Summary ---
Author Organization [facility] Address [address] [place] [address] Care Team Providers Care Groundskeeper Supervisor Name Role Phone Darrin Morris MD Primary Care Provider +1 -[phone] Jim Carrero MD Unavailable Unavailable Leslie Biswas MD Unavailable Unavailable Encounter Details Date Type Department Care Team Description 06/25/2019 Software Quality Engineer Report Medical Records [address] [place] [address] Betsy Lopez Social History Tobacco Use Types [...] often do you attend chur ch or tenriism services? Never 08/19/2023 Do you [...] on filedocumented in this encounter Care Teams Groundskeeper Supervisor Relationship Specialty Start Date End Date Darrin Morris MD [address] [place] [address] PCP - General Internal Medicine 04/02/17 Jim Carrero MD [address] [place] [address] ORTHOPEDIC SURGERY 08/19/23 Leslie Biswas MD [address] [place] [address] Internal Medicine 08/19/23 documented as of this encounter
--- OUTSIDE RECORDS SUMMARY | 2024-12-24 15:09 | XMS_ITS | Clinical Summary ---
Author Organization [facility] Address [address] [place] [address] Care Team Providers Care Slate Cutter Name Role Phone Guero Martinez PA-C Primary Care Provider + [phone] Allergies Active Allergy Reactions Criticality Noted Date [...] age to complete this topic Care Teams Slate Cutter Relationship Specialty Start Date End Date Guero Martinez PA-C PCP - General Medical Services 12/13/21
--- OUTSIDE RECORDS SUMMARY | 2024-12-24 15:09 | XMS_ITS | Encounter Summary ---
Author Organization [facility] Address [address] [place] [address] Care Team Providers Care Title Checker Name Role Phone Darrin Morris MD Primary Care Provider +1 [phone] Jim Carrero MD Unavailable Unavailable Leslie Biswas MD Unavailable Unavailable Encounter Details Date Type Department Care Team Description 04/20/2022 Refill Adult Medicine - [employer] [address] [place] [address] Guero Martinez PA-C [address] [place] [address] Social History Tobacco Use Types Packs/Day Years [...] often do you attend [facility] or amish services? Never 08/19/2023 Do you belong to [...] place to sleep or slept in a intermediate (including now)? No 08/19/2023 Sex Assigned at Date Recorded Not on file Job Start Date Occupation Industry Not on file Not on file Not on file COVID-19 Exposure Response Date Recorded In the last 10 days, have yo u been in contact with someone who was confirmed or suspected to have Coronavirus/COVID-19? No / Unsure 04/17/2022 10:19 AM EDT documented as of this encounter Plan of Treatment Not on file documented as of this encounter Visit Diagnoses Not on filedocumented in this encounter Care Teams Title Checker Relationship Specialty Start Date End Date Darrin Morris MD [address] [place] [address] PCP - General Internal Medicine 04/02/17 Jim Carrero MD [address] [place] [address] ORTHOPEDIC SURGERY 08/19/23 Leslie Biswas MD [address] [place] [address] Internal Medicine 08/19/23 documented as of this encounter
--- OUTSIDE RECORDS SUMMARY | 2024-12-24 15:09 | XMS_ITS | Data Portability ---
Author Organization [facility] [employer] Address [address] [place] [id number] Care Team Providers Care Embryology Professor Name Role Phone SUHAIL ROBERTS Primary Care [...] hemoglo bin A1C, fingers tick 2018 019 [facility], [address] [place] [address], [address], 9 14:17:15 Referral None recorde d. Procedures None recorde d. Surgeries None recorde d. Imaging None recorde d. Medication Orders metform in ER 500 mg tablet, extende d release 24 hr 2016 017 [id number], [address], [place], [id number], 0 11:12:09 Patient Targets Encounter Date Encounter Id Patient Goals Patient Target Last Modified By Organization Details Last Modified Time 12/20/2016 [id number] alf goal of Blood Glucose 80-180 Not available Not available Not available oil heaterman goal of Weight 200 lbs Not available Not available Not available alf goal of Hemoglobin A1C <7.0% Not available Not available Not available Patient Instructions Encounter Date Encounter Id Patient Instructions Last Modified By Organization Details Last Modified Time 12/20/2016 [id number] Using the new meter, check blood glucose before breakfast and 2 hours after dinner every day. Continue to follow a controlled carb, healthy plate plan and drink plenty of water. Continue current exercise plan. Bring the meter to the next appointment. [email or web address] Not available 12/20/2016 14:07:51 10/02/2017 [id number] elevated blood pressure: care instructions Not available 10/02/2017 10:43:32 learning about type 2 diabetes Not available 10/02/2017 10:43:32 type 2 diabetes: care instructions Not available 10/02/2017 10:43:32 01/07/2019 [id number] high blood pressure: care instructions Not available 01/07/2019 14:17:15 learning about high blood pressure Not available 01/07/2019 14:17:15 A healthy lifestyle: care instructions Not available 01/07/2019 14:17:15 12/22/2019 [id number] high cholesterol : care instructions Not available 12/22/2019 11:33:09 Reason for Referral None Reported. Results Created Date Observation Date Name Description Value Unit Range Abnormal Flag Note LastModifiedBy Organization Detail LastModifiedTime 01/08/20 19 01/07/2019 hemog lobin A1C, finge rstic k Hemoglobin A1c 6.0 Not Available [address], [address], 01/07/2019 13:48:29 Result Notes None recorded. Problems Name Problem SNOMED Code Status Onset Date Resolution Date Notes Provider Name and Address Organization Details Recorded Time Type 2 diabetes mellitus 80020250 Active 2016 Helene bedoya [facility]. 14:07:56 Arthritis 8292879 Active 2016 Helene bedoya [place] [facility] 14:08:02 Hypertensive disorder 36045323 Active 2016 Helene bedoya [facility] 7 14:08:17 Problem Notes None recorded. Procedures Surgical History Date Name Laterality Status Provider Name and Address Organization Details Recorded Time 05/12/20 19 coronary artery bypass grafts x 4 completed Aphrodite Papoutsides [facility] 12/22/2019 11:15:55 12/11/19 14 Joint Replacement completed Helene Noriega [facility] 03/20/2017 14:01:40 12/11/19 02 Other completed [facility]/20/2017 14:01:12 Imaging Results None recorded. Procedure Notes None recorded. Medical Equipment None Reported. Allergies Allergen ID Allergen Name Allergen Category Reaction Reaction Severity Criticality Documentation Date Start Date Code Code System Note Provider Name and Address Organization Details Recorded Time 691272 bacitraci n medicatio n rash moderate Not available 11/15/2016 1291 RxNorm Paulette Brooks MS, RDN, LDN, CDE [address] [place] [address], [phone] [place] [address] 7 10:31:31 488374 Plavix medicatio n rash Not available Not available 12/22/2019 34946 2 RxNorm Aphrodite Papoutsid es [facility], [facility] 0 11:14:24 143186 oxycodone medicatio n Not available Not available Not available 12/22/2019 7804 RxNorm Aphrodite Papoutsid es null, [facility] 0 11:14:53 292984 cefazolin medicatio n Not available Not available Not available 12/22/2019 2180 RxNorm Aphrodite Papoutsid es null, [facility] 0 11:15:12 031033 adhesive tape environme nt,medica tion Not available Not available Not available 12/22/2019 84818 UNK Aphrodite Papoutsid es null, [facility] 0 11:15:23 Medications Name Sig Start Date [...] Details Last Updated DateTime 12/20/2016 180.34 cm 697528.61 g 32.6 kg/m2 Paulette Brooks MS, RDN, LDN, CDE [address] [place] [address], [phone], [facility] 12/20/2016 13:41:50 Date Recorded Body height Body mass index (BMI) Body weight Body temperature Oxygen saturation Oxygen saturation in Arterial blood by Pulse oximetry Heart rate Systolic blood pressure Diastolic blood pressure Provider Name and Address Organization Details Last Updated DateTime 7 180.34 cm 30.7 kg/m2 60841.6 g 97.6 [degF] 97 % 97 % 57 /min 139 mm[Hg] 79 mm[Hg] Helene Noriega [facility] 7 14:10:16 Date Recorded Body height Body mass index (BMI) Body weight Body temperature Oxygen saturation Oxygen saturation in Arterial blood by Pulse oximetry Heart rate Systolic blood pressure Diastolic blood pressure Provider Name and Address Organization Details Last Updated DateTime 8 180.34 cm 31.9 kg/m2 744758. 65 g 97.8 [degF] 97 % 97 % 59 /min 150 mm[Hg] 72 mm[Hg] Helene Noriega [facility] 8 10:09:03 Date Recorded Body height Body mass index (BMI) Body weight Heart rate Oxygen saturation Oxygen saturation in Arterial blood by Pulse oximetry Systolic blood pressure Diastolic blood pressure Provider Name and Address Organization Details Last Updated DateTime 9 180.34 cm 31.1 kg/m2 385132. 1 g 66 /min 98 % 98 % 110 mm[Hg] 64 mm[Hg] Jessy Atkins [facility] 9 13:57:36 Date Recorded Body height Provider Name an d Address Organization Details Last Updated DateTime 12/22/2019 180.34 cm Aphrodite Papmacrina [facility] 12/22/2019 11:12:53 Social History Question Answer Notes LastModified by Organizat ion Details LastModified Time Tobacco Smoking Status Former Smoker one pack a week Helene bedoya [facility] 03/20/2017 14:03:08 What Is Your Level Of Caffeine Consumption? Occasional Information not available 03/20/2017 What Type Of Diet Are You Following? REGULAR Information not available 03/20/2017 Education 4 Year College Informatio n not available 03/20/2017 Does The Patient Have [...] ion Details LastModified Time What is your level of alcohol consumption? None Information not available 03/20/2017 What is your occupation? retired Information not available 03/20/2017 What is your exercise level? Moderate goes [...] SNOMED-CT Code Diagnosis ICD10 Code Diagnosis Note [id number] Dread Anton MD [facility] [address] [address] 11/15/2016 09:44:36 11/15/2016 12:11:06 Uncontrolled type 2 diabetes mellitus 002874970 E11.65 Diabetes Education: Initial Assessment Referred to us for better blood glucose by his PCP, Dr. Cardenas in [place], due to recent A1c of 10.9% Patient reports that he was a patient of Dr. Anton years ago when he was at [facility]. SMBG: old meter at home doesn't [...] diarrhea, dehydrated and in the hospital in [facility] for 2 days. 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 RECOMMENDA TIONS: Check BG twice daily; Follow controlled carb plan; continue exercise planTIME SPENT: 30 minutes [id number] MD [facility] [address] [place] [address] 03/20/2017 13:26:37 03/20/2017 14:53:49 Disorder of nervous system due to type 2 diabetes mellitus 201628434 E11.40 Metformin (plain) is causing diarrhea. Changed to metformin ER. Onglyza is not commonly used nowadays because of risk of CHF. Will change to amy or brock -- januvia not covered. Foot care explained. Also asked him to take OTC B12, [id number] MD [facility] [address] [place] [address] 10/02/2017 09:52:49 10/02/2017 10:38:25 Type 2 diabetes mellitus 58184303 E11.9 Excellent control of diabetes with meds and lifestyle changes. No change in Rx. I will have to get labs from Dr. Cardenas Hypertensive disorder 38 684683 I10 He checks his blood pressure daily at home and at his gym. Readings are in 120s/80s. Will go with his home readings. [id number] MD [facility] [address] [place] [address] 01/07/2019 13:34:51 01/07/2019 14:21:47 Neuropathy due to type 2 diabetes mellitus 8664607517 77201 E11.40 Very good control without side effect of medication s. Continue same. Essential hypertension 47451913 I10 Great control. No orthostasi s [id number] MD [facility] [address] [place] [address] 12/22/2019 11:06:08 12/22/2019 12:04:25 Hyperlipidemia 75073730 E78.5 I'm not sure why he is off atorvastat in. It is essential that outpatient with pre-existi ng ASCVD should be on high intensity statin. He will talk to his cardiologi st to discuss this issue Disorder d ue to type 2 diabetes mellitus 288621088 E11.8 We discussed about the new cardiovasc [...] 2 [facility] (MEDICARE SUPPLEMENT) Spencer Roberson [id number] Spencer Roberson Jr. 12/20/2016 1 [place]: [employer] Spencer Roberson Jr [id number] Spencer Roberson Jr. 03/20/2017 2 [facility] (MEDICARE SUPPLEMENT) Spencer Roberson [id number] Spencer Roberson Jr. 03/20/2017 1 [place] [employer] Spencer Roberson Jr [id number] Spencer Roberson Jr. 10/02/2017 2 [facility] (MEDICARE SUPPLEMENT) Spencer Roberson [id number] Spencer Roberson Jr. 10/02/2017 1 [place] [employer] Spencer Roberson Jr [id number] Spencer Roberson Jr. 01/07/2019 2 [facility] (MEDICARE SUPPLEMENT) Spencer Roberson [id number] Spencer Roberson Jr. 01/07/2019 1 [place] [employer] Spencer Roberson Jr [id number] Spencer Roberson Jr. 12/22/2019 2 [facility] (MEDICARE SUPPLEMENT) Sepncer Roberson [id number] Spencer Roberson JrHasmukh 12/22/2019 1 [place]: [facility] Spencer Roberson Jr [id number] Spencer Roberson Jr. Notes Date Note [...] lbs) Paulette Brooks MS, RDN, LDN, CDE [address] [place] [address], [phone], [facility] 12/20/2016 14:08:14 03/20/2017 text/html Duration of [...] - Eye examinations: Done Dread Anton MD [address] [place] [address], [phone], [facility]. 03/20/2017 14:54:28 10/02/2017 text/html DiabetesReported bypatient.Notes:Finger [...] the social history: Dread Anton MD [address] [place], [address], [facility]. 10/02/2017 10:44:12 01/07/2019 text/html Diabetes - [facility].Notes:Finger stick blood glucose review with meter [id number] mg/dL >98% in range Last A1c: 61% [...] change Preprandial dizziness Dread Anton MD [address] [place], [address], [facility]. 01/07/2019 14:21:05 12/22/2019 text/html This is a Telehe alth visit, via telephone. Patient understands the risks, benefits and limitations of this type of visit. Patient consents for this visit. This type of visit is being utilized as it was deemed higher risk for patient to come to office given the current risk of COVID-19/coronavirus infection. The patient is located in [place] at the time of this visit. Physician is located in [place], [place] at the time of this visit. [...] is going to get it operated in [facility]. He has osteoarthritis for which he was getting intermittent steroid injection in his joints. He has not done it because of the pandemic? 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 The diabetes is under good control Dread Anton MD [address] [place] [address], [phone], [facility]. 12/22/2019 11:34:07
--- OUTSIDE RECORDS SUMMARY | 2024-12-24 15:09 | XMS_ITS | Encounter Summary ---
Author Organization [facility] Address [address] [place] [address] Care Team Providers Care Package Drier Name Role Phone Darrin Morris MD Primary Care Provider +1 -[phone] Jim Carrero MD Unavailable Unavailable Leslie Biswas MD Unavailable Unavailable Encounter Details Date Type Department Care Team Description 05/15/2023 Refill Adult Medicine - [place] [address] [place] [address] Guero Martinez PA-C [address] [place] [address] Social History Tobacco Use Types Packs/Day Years [...] How often do you attend [facility] or buddhism services? Never 08/19/2023 Do you belong to [...] place to sleep or slept in a [place] health care facility (including now)? No 08/19/2023 Sex Assigned at Date Recorded Not on file Job Start Date Occupation Industry Not on file Not on file Not on file documented as of this encounter Plan of Treatment Not on file documented as of this encounter Visit Diagnoses Not on filedocumented in this encounter Care Teams Package Drier Relationship Specialty Start Date End Date Darirn Morris MD [address] [place] [address] PCP - General Internal Medicine 04/02/17 Jim Carrero MD [address] [place] [address] ORTHOPEDIC SURGERY 08/19/23 Leslie Biswas MD [address] [place], [place] Internal Medicine 08/19/23 documented as of this encounter
--- OUTSIDE RECORDS SUMMARY | 2024-12-24 15:09 | XMS_ITS | Encounter Summary ---
Author Organization [facility] Address [address] [place] [address] Care Team Providers Care Network Desktop Support Specialist Name Role Phone Darrin Morris MD Primary Care Provider [phone] -[phone] Jim Carrero MD Unavailable Unavailable Leslie Biswas MD Unavailable Unavailable Reason for Visit * Reason Comments E-prescribe Rx Request Encounter Details Date Type Department Care Team Description 02/17/2024 Refill Adult Medicine - [place] [address] [place] [address] Guero Martinez PA-C [address] [place] [address] E-prescribe Rx Request Social History Tobacco Use [...] week 08/19/2023 How often do you attend [facility] or tenriism services? Never 08/19/2023 Do you [...] on filedocumented in this encounter Care Teams Network Desktop Support Specialist Relationship Specialty Start Date End Date Darrin Morris MD [address] [place] [address] PCP - General Internal Medicine 04/02/17 Jim Carrero MD [address] [place], [place] ORTHOPEDIC SURGERY 08/19/23 Leslie Biswas MD [address] [place], [place] Internal Medicine 08/19/23 documented as of this encounter
--- OUTSIDE RECORDS SUMMARY | 2024-12-24 15:09 | XMS_ITS | Encounter Summary ---
Author Organization [facility] Address [address] [place] [address] Care Team Providers Care Phone Manager Name Role Phone Darrin Morris MD Primary Care Provider +1 -[phone] Jim Carrero MD Unavailable Unavailable Leslie Biswas MD Unavailable Unavailable Reason for Visit * Reason Onset Date Comments Form 06/23/2021 dwo for Glucose Blood (ONE TOUCH ULTRA TEST STRIPS) Strip Encounter Details Date Type Department Care Team Description 06/23/2021 Telephone Adult Medicine - [place] [address] [place] [address] Darrin Morris MD [address] [place] [address] Form (dwo for Glucose Blood (ONE TOUCH [...] - 06/23/2021 3:55 PM EST Dwo from [facility] for Glucose Blood (ONE TOUCH ULTRA TEST STRIPS) Strip Ada Morris In dwo bin in adult med call center documented in this encounter Plan of Treatment Not on file documented as of this encounter Visit Diagnoses Not on filedocumented in this encounter Care Teams Phone Manager Relationship Specialty Start Date End Date Darrin Morris MD [address] [place] [address] PCP - General Internal Medicine 04/02/17 Jim Carrero MD [address] [place] [address] ORTHOPEDIC SURGERY 08/19/23 Leslie Biswas MD [address] [place] [address] Internal Medicine 08/19/23 documented as of this encounter
--- OUTSIDE RECORDS SUMMARY | 2024-12-24 15:09 | XMS_ITS | Encounter Summary ---
Author Organization [facility] Address [address] [place] [address] Care Team Providers Care Program Manager Slp Name Role Phone Darrin Morris MD Primary Care Provider +1 -[phone] Jim Carrero MD Unavailable Unavailable Leslie Biswas MD Unavailable Unavailable Encounter Details Date Type Department Care Team Description 05/11/2023 Refill Adult Medicine - [place] [address] [place] [address] Irene Lundberg PA-C [address] [place] [address] Social History Tobacco Use Types Packs/Day Years [...] How often do you attend [facility] or sabianism services? Never 08/19/2023 Do you belong to any clubs o r organizations such as congregational groups, unions, fraternal or athletic groups, or [...] on filedocumented in this encounter Care Teams Program Manager Slp Relationship Specialty Start Date End Date Darrin Morris MD [address] [place] [address] PCP - General Internal Medicine 04/02/17 Jim Carrero MD [address] [place] [address] ORTHOPEDIC SURGERY 08/19/23 Leslie Biswas MD [address] [place] [address] Internal Medicine 08/19/23 documented as of this encounter
--- OUTSIDE RECORDS SUMMARY | 2024-12-24 15:09 | XMS_ITS | Encounter Summary ---
Author Organization [facility] Address [address] [place] [address] Care Team Providers Care Care Associate Name Role Phone Darrin Morris MD Primary Care Provider [phone] [phone] Jim Carrero MD Unavailable Unavailable Leslie Biswas MD Unavailable Unavailable Encounter Details Date Type Department Care Team Description 12/24/2017 Exchange Mechanic Report Medical Records [address] [place] [address] Torsten Mcginnis PA [address] [place] [address] Social History Tobacco Use Types Packs/Day Years [...] week 08/19/2023 How often do you attend [facility] or jew services? Never 08/19/2023 Do you belong to [...] filedocumented in this encounter Care Teams Care Associate Relationship Specialty Start Date End Date Darrin Morris MD [address] [place] [address] PCP - General Internal Medicine 04/02/17 Jim Carrero MD [address] [place] [address] ORTHOPEDIC SURGERY 08/19/23 Leslie Biswas MD [address] [place], [place] Internal Medicine 08/19/23 documented as of this encounter
--- OUTSIDE RECORDS SUMMARY | 2024-12-24 15:10 | XMS_ITS | Encounter Summary ---
Author Organization [facility] Address [address] [place] [address] Care Team Providers Care Residential Leasing Manager Name Role Phone Darrin Morris MD Primary Care Provider +1 -[phone] Jim Carrero MD Unavailable Unavailable Leslie Biswas MD Unavailable Unavailable Encounter Details Date Type Department Care Team Description 10/20/2019 SCAN Medical Records [address] [place] [address] Abstract, Provider Social History Tobacco Use Types [...] often do you attend chur ch or denominational services? Never 08/19/2023 Do you [...] on filedocumented in this encounter Care Teams Residential Leasing Manager Relationship Specialty Start Date End Date Darrin Morris MD [address] [place] [address] PCP - General Internal Medicine 04/02/17 Jim Carrero MD [address] [place], [place] ORTHOPEDIC SURGERY 08/19/23 Leslie Biswas MD [address] [place], [place] Internal Medicine 08/19/23 documented as of this encounter
--- OUTSIDE RECORDS SUMMARY | 2024-12-24 15:10 | XMS_ITS | Encounter Summary ---
Author Organization [facility] Address [address] [place] [address] Care Team Providers Care Dough Scaler And Mixer Name Role Phone Darrin Morris MD Primary Care Provider +1 -[phone] Jim Carrero MD Unavailable Unavailable Leslie Biswas MD Unavailable Unavailable Encounter Details Date Type Department Care Team Description 10/17/2022 Aquatic Habitat Biologist Report Medical Records [address] [place] [address] Leslie Biswas MD Social History Tobacco Use [...] often do you attend chur ch or confucianism services? Never 08/19/2023 Do you belong to any clubs o r organizations such as rastafari groups, unions, fraternal or athletic groups, or [...] on filedocumented in this encounter Care Teams Dough Scaler And Mixer Relationship Specialty Start Date End Date Darrin Morris MD [address] [place] [address] PCP - General Internal Medicine 04/02/17 Jim Carrero MD [address] [place] [address] ORTHOPEDIC SURGERY 08/19/23 Leslie Biswas MD [address] [place] [address] Internal Medicine 08/19/23 documented as of this encounter
--- OUTSIDE RECORDS SUMMARY | 2024-12-24 15:10 | XMS_ITS | Encounter Summary ---
Author Organization [facility] Address [address] [place] [address] Care Team Providers Care Manager Category Name Role Phone Darrin Morris MD Primary Care Provider +1 -[phone] Jim Carrero MD Unavailable Unavailable Leslie Biswas MD Unavailable Unavailable Encounter Details Date Type Department Care Team Description 11/16/2022 Refill Adult Medicine - [place] [address] [place] [address] Irene Lundberg PA-C [address] [place] [address] Social History Tobacco Use Types Packs/Day Years [...] week 08/19/2023 How often do you attend [facility] or worship services? Never 08/19/2023 Do you [...] suspected to have Coronavirus/COVID-19? No / Unsure 10/25/2022 10:10 AM EDT documented as of this encounter Plan of Treatment Not on file documented as of this encounter Visit Diagnoses Not on filedocumented in this encounter Care Teams Manager Category Relationship Specialty Start Date End Date Darrin Morris MD [address] [place] [address] PCP - General Internal Medicine 04/02/17 Jim Carrero MD [address] [place] [address] ORTHOPEDIC SURGERY 08/19/23 Leslie Biswas MD [address] [place] [address] Internal Medicine 08/19/23 documented as of this encounter
--- OUTSIDE RECORDS SUMMARY | 2024-12-24 15:10 | XMS_ITS | Encounter Summary ---
Author Organization [facility] Address [address] [place] [address] Care Team Providers Care Assembly Member Name Role Phone Darrin Morris MD Primary Care Provider +1 -[phone] Jim Carrero MD Unavailable Unavailable Leslie Biswas MD Unavailable Unavailable Encounter Details Date Type Department Care Team Description 07/31/2023 Orders Only [facility] Lung Screening Program [place] [address] [facility] [address] [place] [phone] Juan J Hart MD [address] [facility] [address] [place] [address] History of tobacco use, presenting hazards to [...] often do you attend chur ch or quaker services? Never 08/19/2023 Do you belong to [...] cancer documented in this encounter Care Teams Assembly Member Relationship Specialty Start Date End Date Darrin Morris MD [address] [place] [address] PCP - General Internal Medicine 04/02/17 Jim Carrero MD [address] [place] [address] ORTHOPEDIC SURGERY 08/19/23 Leslie Biswas MD [address] [place] [address] Internal Medicine 08/19/23 documented as of this encounter
--- OUTSIDE RECORDS SUMMARY | 2024-12-24 15:10 | XMS_ITS | Encounter Summary ---
Author Organization [facility] Address [address] [place] [address] Care Team Providers Care Intake Coordinator Name Role Phone Darrin Morris MD Primary Care Provider +1 -[phone] Jim Carrero MD Unavailable Unavailable Leslie Biswas MD Unavailable Unavailable Encounter Details Date Type Department Care Team Description 12/06/2020 Lead Performance Support Analyst Report Medical Records [address] [place] [address] Leslie Biswas MD Social History Tobacco Use [...] on filedocumented in this encounter Care Teams Intake Coordinator Relationship Specialty Start Date End Date Darrin Morris MD [address] [place] [address] PCP - General Internal Medicine 04/02/17 Jim Carrero MD [address] [place] [address] ORTHOPEDIC SURGERY 08/19/23 Leslie Biswas MD [address] [place] [address] Internal Medicine 08/19/23 documented as of this encounter
--- OUTSIDE RECORDS SUMMARY | 2024-12-24 15:10 | XMS_ITS | Encounter Summary ---
Author Organization [facility] Address [address] [place] [address] Care Team Providers Care Braided Band Assembler Name Role Phone Darrin Morris MD Primary Care Provider +1 -[phone] Jim Carrero MD Unavailable Unavailable Leslie Biswas MD Unavailable Unavailable Encounter Details Date Type Department Care Team Description 05/15/2019 Hospital Medical Records [address] [place] [address] Dave Hart MD Social History Tobacco Use [...] on filedocumented in this encounter Care Teams Braided Band Assembler Relationship Specialty Start Date End Date Darrin Morris MD [address] [place] [address] PCP - General Internal Medicine 04/02/17 Jim Carrero MD [address] [place] [address] ORTHOPEDIC SURGERY 08/19/23 Leslie Biswas MD [address] [place] [address] Internal Medicine 08/19/23 documented as of this encounter
--- OUTSIDE RECORDS SUMMARY | 2024-12-24 15:10 | XMS_ITS | Encounter Summary ---
Author Organization [facility] Address [address] [place] [address] Care Team Providers Care Chicken Catcher Name Role Phone Darrin Morris MD Primary Care Provider +1 -[phone] Jim Carrero MD Unavailable Unavailable Leslie Biswas MD Unavailable Unavailable Encounter Details Date Type Department Care Team Description 05/25/2019 Hospital Medical Records [address] [place] [address] Social History Tobacco Use Types Packs/Day Years [...] often do you attend chur ch or taoism services? Never 08/19/2023 Do you belong to [...] on filedocumented in this encounter Care Teams Chicken Catcher Relationship Specialty Start Date End Date Darrin Morris MD [address] [place] [address] PCP - General Internal Medicine 04/02/17 Jim Carrero MD [address] [place] [address] ORTHOPEDIC SURGERY 08/19/23 Leslie Biswas MD [address] [place] [address] Internal Medicine 08/19/23 documented as of this encounter
--- OUTSIDE RECORDS SUMMARY | 2024-12-24 15:10 | XMS_ITS | Encounter Summary ---
Author Organization [facility] Address [address] [place] [address] Care Team Providers Care Professor Of Forest Planning Name Role Phone Darrin Morris MD Primary Care Provider +1 -[phone] Jim Carrero MD Unavailable Unavailable Leslie Biswas MD Unavailable Unavailable Encounter Details Date Type Department Care Team Description 12/31/2022 Telephone Adult Medicine - [place] [address] [place] [address] Guero Martinez PA-C [address] [place] [address] Social History Tobacco Use Types Packs/Day Years [...] week 08/19/2023 How often do you attend [facility] or sikhism services? Never 08/19/2023 Do you [...] Faxed over request to Dr Pearce at [phone] for recent office note and labs. Will fax attn Sophia to pod C * Telephone Encounter - Sophia Hampton M.A. - 01/01/2023 1:00 PM EDT TC to Dr West office [phone] and they will fax recent notes and labs to pod C. * Telephone Encounter - Guero Martinez PA-C - 12/31/2022 9:23 PM EDT Please request records from his christian science nurse at [facility] in [place], . Would like last office visit and recent labs. Also, notes and labs from his service observer Dr. West in [place]. Thank you. documented in this encounter Plan of Treatment Not on file documented as of this encounter Visit Diagnoses Not on filedocumented in this encounter Care Teams Professor Of Forest Planning Relationship Specialty Start Date End Date Darrin Morris MD [address] [place] [address] PCP - General Internal Medicine 04/02/17 Jim Carrero MD [address] [place] [address] ORTHOPEDIC SURGERY 08/19/23 Leslie Biswas MD [address] [place] [address] Internal Medicine 08/19/23 documented as of this encounter
--- OUTSIDE RECORDS SUMMARY | 2024-12-24 15:10 | XMS_ITS | Encounter Summary ---
Author Organization [facility] Address [address] [place] [address] Care Team Providers Care Grain Shipper Name Role Phone Darrin Morris MD Primary Care Provider +1 -[phone] Jim Carrero MD Unavailable Unavailable Leslie Biswas MD Unavailable Unavailable Encounter Details Date Type Department Care Team Description 01/07/2019 Heat And Frost Insulator Helper Report Medical Records [address] [place] [address] Dread Anton Social History Tobacco Use Types [...] on filedocumented in this encounter Care Teams Grain Shipper Relationship Specialty Start Date End Date Darrin Morris MD [address] [place] [address] PCP - General Internal Medicine 04/02/17 Jim Carrero MD [address] [place] [address] ORTHOPEDIC SURGERY 08/19/23 Leslie Biswas MD [address] [place] [address] Internal Medicine 08/19/23 documented as of this encounter
--- OUTSIDE RECORDS SUMMARY | 2024-12-24 15:10 | XMS_ITS | Encounter Summary ---
Author Organization [facility] Address [address] [place] [address] Care Team Providers Care Appraisal Manager Name Role Phone Darrin Morris MD Primary Care Provider +1 -[phone] Jim Carrero MD Unavailable Unavailable eLslie Biswas MD Unavailable Unavailable Encounter Details Date Type Department Care Team Description 01/04/2023 Transfer Records Medical Records [address] [place] [address] Prabhu West MD Social History Tobacco Use [...] on filedocumented in this encounter Care Teams Appraisal Manager Relationship Specialty Start Date End Date Darrin Morris MD [address] [place], [place] PCP - General Internal Medicine 04/02/17 Jim Carrero MD [address] [place], [place] ORTHOPEDIC SURGERY 08/19/23 Leslie Biswas MD [address] [place], [place] Internal Medicine 08/19/23 documented as of this encounter
== END 2024-12-24 14:48 | disposition home or self-care (01) ==
LOC: HO.HOS 14:33
PROVIDERS: Visit Provider Orthopaedic Surgery
DX: M75.42 Impingement syndrome of left shoulder (principal); M25.512 Pain in left shoulder
CPT/HCPCS: 20610; 99213

== ENCOUNTER → 2024-12-24 14:33 | Outpatient (BNVA) | payer MEDICARE, OTHER, SELFPAY | PROVIDERS: Visit Provider Orthopaedic Surgery | DX: M75.42 Impingement syndrome of left shoulder (principal); M25.512 Pain in left shoulder | CPT/HCPCS: 20610; 99212; J1010; J2003 ==

== ENCOUNTER 2024-12-31 13:01 | Day surgery (SDC) | payer MEDICARE, OTHER, SELFPAY ==
--- OUTSIDE RECORDS SUMMARY | 2024-12-30 15:03 | XMS_ITS | Encounter Summary ---
Author Organization [facility] Address [address] [place] [address] Care Team Providers Care Fur Finisher Tailor Name Role Phone Darrin Morris MD Primary Care Provider +1 -[phone] Jim Carrero MD Unavailable Unavailable Leslie Biswas MD Unavailable Unavailable Reason for Visit * Reason Onset Date Comments Prior Authorization 10/09/2023 Encounter Details Date Type Department Care Team Description 10/09/2023 Telephone Adult Medicine - [place] [address] [place] [address] Darrin Morris MD [address] [place] [address] Prior Authorization Social History Tobacco Use Types [...] often do you attend chur ch or alevism services? Never 08/19/2023 Do you belong to [...] office. Gabi Fraire Prior Auth Dep Ext [id number] * Telephone Encounter - Babita Bland - [...] on filedocumented in this encounter Care Teams Fur Finisher Tailor Relationship Specialty Start Date End Date Darrin Morris MD [address] [place] [address] PCP - General Internal Medicine 04/02/17 Jim Carrero MD [address] [place] [address] ORTHOPEDIC SURGERY 08/19/23 Leslie Biswas MD [address] [place] [address] Internal Medicine 08/19/23 documented as of this encounter
--- OUTSIDE RECORDS SUMMARY | 2024-12-30 15:03 | XMS_ITS | Encounter Summary ---
Author Organization [facility] Address [address] [place] [address] Care Team Providers Care Plug And Mold Finisher Name Role Phone Darrin Morris MD Primary Care Provider +1 -[phone] Jim Carrero MD Unavailable Unavailable Leslie Biswas MD Unavailable Unavailable Encounter Details Date Type Department Care Team Description 09/16/2023 Telephone [facility] Medical Group Lung Screening Program [address] [place] [phone] Juan J Hart MD [address] [facility] [address] [place] [address] Social History Tobacco Use Types Packs/Day Years [...] often do you attend [facility] or methodist services? Never 08/19/2023 Do you [...] on filedocumented in this encounter Care Teams Plug And Mold Finisher Relationship Specialty Start Date End Date Darrin Morris MD [address] [place] [address] PCP - General Internal Medicine 04/02/17 Jim Carrero MD [address] [place], [place] ORTHOPEDIC SURGERY 08/19/23 Leslie Biswas MD [address] [place], [place] Internal Medicine 08/19/23 documented as of this encounter
--- OUTSIDE RECORDS SUMMARY | 2024-12-30 15:03 | XMS_ITS | Clinical Summary ---
Author Organization [facility] Address [address] [place] [address] Care Team Providers Care Kiln Operator Helper Name Role Phone Ada Morris MD Primary [...] by mouth daily. 90 tablet 5 Active blood sugar diagnostic (OneTouch Verio test strips) test strip USE 1 TEST STRIP TO CHECK BLOOD SUGAR 1X DAILY 100 strip 5 Active colchicine (COLCRYS) 0.6 mg tablet TK 2 T PO TODAY AND THEN 1 T PO QD THEREAFTER 9 Active valsartan (DIOVAN) 160 mg tablet Take 1 tablet (160 mg total) by mouth 1 (one) time each day. 90 tablet 1 5 Active meloxicam (MOBIC) 15 mg tablet Take 1 tablet (15 mg total) by mouth 1 (one) time each day. 90 tablet 1 5 Active valsartan (DIOVAN) 160 mg tablet Take 1 tablet (160 mg total) by mouth 1 (one) time each day. 90 tablet 5 12/30/19 25 Discontin ued(Reord er) meloxicam (MOBIC) 15 mg tablet Take 1 tablet (15 mg total) by mouth 1 (one) time each day. 90 tablet 5 12/30/19 25 Discontin ued(Reord er) Active Problems Problem [...] permeant pace maker placed 05/12/2019 Cardiac rehab [facility] - 2 visits weekly up to 36 sessions Obesity (BMI 30-39.9) 11/25/2017 Tobacco use disorder 11/25/2017 Overview (07/24/2024): >30 pk yr LDCT 12/27 neg. Repeat 12 mo. Bundle branch block, right 11/05/2017 Overview (07/24/2024): Since 2006 Cataracts, bilateral 11/05/2017 Diverticulosis 11/05/2017 DM (diabetes mellitus), type 2 with neurological complications ([facility] V24, [facility] V28) 11/05/2017 DM (diabetes mellitus), type 2 with renal complications ([facility] V24, [facility] V28) 11/05/2017 Hearing loss 11/05/2017 Overview (07/24/2024): Bilateral hearing aids Hemorrhoids 11/05/2017 Overview (07/24/2024): internal Microalbuminuria 11/05/2017 KEITH (obstructive sleep apnea) 11/05/2017 Osteoarthritis 11/05/2017 Overview (07/24/2024): Spine, knees Peripheral neuropathy 11/05/2017 Overview (07/24/2024): 03/20/17 Dr Dread Anton,Endocrine Tubular adenoma 11/05/2017 Overview (07/24/2024): & sessile serrated polyp 2006 Type 2 diabetes mellitus wit h cataract ([facility] V24, [facility] V28) 11/05/2017 Encounters Date Type Department Care Team Description 12/11/2024 10:00 AM EDT Telemedicine Adult Medicine [facility] [address] [place] [phone] Encounter for subsequent annual wellness visit (AWV) in Medicare patient (Primary Dx) 12/07/2024 1:15 PM EDT Office Visit Adult Medicine [facility] [address] [place] [phone] Ada Gonzalez MD DM (diabetes mellitus), type 2 with neurological complications ([facility] V24, [facility] V28) (Primary Dx); History of heart attack; Pacemaker; Sensorineural hearing loss (SNHL) of right ear, unspecified hearing status on contralateral side; Intermediate stage nonexudative age-related macular degeneration of both eyes; Bilateral carpal tunnel syndrome 12/07/2024 Telephone Internal Medicine - [place] [address] [place] [address] Chantal Ruiz [place] Medicare Annual Wellness Visit Subsequent (AWV DUE after 08/19/2024) 10/27/2024 Telephone Adult Medicine - [place] [address] [place] [address] Ada Gonzalez MD Appointment from Last [...] Type 2 diabetes mellitus wit h cataract ([facility] V24, [facility] V28) 11/05/2017 DX:Type 2 diabetes mellitus with cataract ([facility]) Diverticulosis 11/05/2017 DX:Diverticulosi s Hemorrhoids 11/05/2017 DX:Hemorrhoids; [...] Description 03/04/2025 1:30 PM EDT Office Visit [facility] [address] [facility] [address] [place] [address] Osmar Villa MD [address] [facility] [address] [place] [address] 06/08/2025 1:15 PM EDT Office Visit Adult Medicine - [place] [address] [place] [phone] Ada Morris MD [facility] [place] [address] Health Maintenance Due Date Last Done Comments [...] (diabetes mellitus), type 2 with neurological complications ([facility] V24, [facility] V28) HEMOGLOBIN A1C Routine 12/07/2024 1:50 PM EDT DM (diabetes mellitus), type 2 with neurological complications ([facility]/HCC V24, [facility] V28) DEPRESSION SCREENING Routine 08/19/2023 FALLS RISK ASSESSMENT Routine 07/30/2023 URINE ALBUMIN CREATININE RATIO Routine 07/26/2023 LIPID PANEL Routine 07/26/2023 HEPATITIS C SCREENING Routine 10/01/2018 COLONOSCOPY Routine 11/30/2015 from Last 3 Months or Most Recently Relevant to Health Maintenance Results * Hemoglobin A1c (12/07/2024 1:50 PM EDT) Hemoglobin A1C 6.1 <6.5 % LAB CHEMISTRY METHOD 12/07/2024 11:29 PM EDT [facility] Mean Bld Glu Estim. 128 mg/dL LAB CHEMISTRY METHOD 12/07/2024 11:29 PM EDT [facility] Blood Venous blood specimen / Unknown Venipuncture / Unknown 12/07/2024 1:50 PM EDT 12/07/2024 1:53 PM EDT Ada Morris MD LAB BLOOD ORDERABL ES Final Result [facility] [address] [place] [address], [place] [phone] * (ABNORMAL) Comprehensive metabolic panel (12/07/2024 1:50 PM EDT) Sodium 136 133 - 145 mmol/L LAB CHEMISTRY METHOD 12/07/2024 9:18 PM [facility] Potassium 4.4 3.5 - 5.5 mmol/L LAB CHEMISTRY METHOD 12/07/2024 9:18 PM [facility] Chloride 103 96 - 110 mmol/L LAB CHEMISTRY METHOD 12/07/2024 9:18 PM [facility] CO2 26 21 - 32 mmol/L LAB CHEMISTRY METHOD 12/07/2024 9:18 PM [facility] Anion Gap 7 3 - 11 LAB CHEMISTRY METHOD 12/07/2024 9:18 PM [facility] Glucose 132(H) 70 - 100 mg/dL LAB CHEMISTRY METHOD 12/07/2024 9:18 PM [facility] BUN 24 5 - 25 mg/dL LAB CHEMISTRY METHOD 12/07/2024 9:18 PM [facility] Creatinine 1.17 0.70 - 1.30 mg/dL LAB CHEMISTRY METHOD 12/07/2024 9:18 PM [facility] eGFR 65 >=60 mL/min/1. 73m2 LAB CHEMISTRY METHOD 12/07/2024 9:18 PM [facility] Comment:Calculation based on the??Chronic Kidney Disease Epidemiology Collaboration (CKD-EPI) equation refit??without adjustment for race. BUN/Creatinine Ratio 20.5 LAB CHEMISTRY METHOD 12/07/2024 9:18 PM [facility] Calcium 9.5 8.5 - 10.5 mg/dL LAB CHEMISTRY METHOD 12/07/2024 9:18 PM [facility] AST (SGOT) 21 10 - 42 unit/L LAB CHEMISTRY METHOD 12/07/2024 9:18 PM [facility] ALT (SGPT) 25 10 - 60 unit/L LAB CHEMISTRY METHOD 12/07/2024 9:18 PM [facility] Alkaline Phosphatase 106 42 - 121 unit/L LAB CHEMISTRY METHOD 12/07/2024 9:18 PM [facility] Total Protein 7.3 6.0 - 8.0 g/dL LAB CHEMISTRY METHOD 12/07/2024 9:18 PM [facility] Albumin 3.7 3.2 - 5.0 g/dL LAB CHEMISTRY METHOD 12/07/2024 9:18 PM [facility] Total Bilirubin 0.4 0.0 - 1.4 mg/dL LAB CHEMISTRY METHOD 12/07/2024 9:18 PM [facility] Blood Venous blood specimen / Unknown Venipuncture / Unknown 12/07/2024 1:50 PM EDT 12/07/2024 1:53 PM EDT Ada Morris MD LAB BLOOD ORDERABL ES Final Result [facility] [address] [place] [address], * Depression Screening (08/19/2023) Depression Screening Abstracted Historical Provider HEALTH MAINTENANCE Final Result * Falls Risk Assessment (07/30/2023) Pathologist [facility] [place] Risk Assessment Abstracted [facility] Provider HEALTH MAINTENANCE Final Result * Urine Albumin Creatinine Ratio (07/26/2023) [facility] Urine Albumin Creatinine Ratio Abstracted [facility] Provider HEALTH MAINTENANCE Final Result * (ABNORMAL) Lipid panel (07/26/2023) [facility] LDL/HDL Ratio 4 0 - 4 Triglycerides 78 0 - 150 mg/dL Cholesterol 162 0 - 200 mg/dL HDL 44 >=40 mg/dL LDL Cholesterol 103(A) 0 - 100 mg/dL Blood Venous blood specimen / Unknown Result [facility] Provider LAB BLOOD ORDERABLES Jennifer l Result * Hepatitis C Screening (10/01/2018) [facility] Hepatitis C Screening Abstracted Result [facility] Provider HEALTH MAINTENANCE Final Result * Colonoscopy (11/30/2015) [facility] Colonoscopy No interpretation , Abstracted Anatomical Region Laterality Modality Other Result [facility] Provider HEALTH MAINTENANCE Final Result from Last 3 Months or Most Recently Relevant to Health Maintenance Insurance MEDICARE [facility] [address] [place] [address] Care Teams Kiln Operator Helper Relationship Specialty Start Date End Date Ada Morris MD [address] [place] [address] PCP - General Internal Medicine 06/19/24
--- OUTSIDE RECORDS SUMMARY | 2024-12-30 15:03 | XMS_ITS | Encounter Summary ---
Author Organization [facility] Address [address] [place] [address] Care Team Providers Care Auto Camp Attendant Name Role Phone Darrin Morris MD Primary Care Provider +1 -[phone] Jim Carrero MD Unavailable Unavailable Leslie Biswas MD Unavailable Unavailable Encounter Details Date Type Department Care Team Description 10/22/2023 Lane Attendant Report Medical Records [address] [place] [address] Silvio Crouch MD Social History Tobacco Use [...] any clubs o r organizations such as gnosticist groups, unions, fraternal or athletic groups, or [...] on filedocumented in this encounter Care Teams Auto Camp Attendant Relationship Specialty Start Date End Date Darrin Morris MD [address] [place] [address] PCP - General Internal Medicine 04/02/17 Jim Carrero MD [address] [place], [place] ORTHOPEDIC SURGERY 08/19/23 Leslie Biswas MD [address] [place] [address] Internal Medicine 08/19/23 documented as of this encounter
--- OUTSIDE RECORDS SUMMARY | 2024-12-30 15:03 | XMS_ITS | Encounter Summary ---
Author Organization [facility] Address [address] [place] [address] Care Team Providers Care Weatherstrip Machine Operator Name Role Phone Darrin Morris MD Primary Care Provider +1 -[phone] Jim Carrero MD Unavailable Unavailable Leslie Biswas MD Unavailable Unavailable Encounter Details Date Type Department Care Team Description 11/05/2017 Orders Only Medical Records [address] [place] [address] Abstract, Provider Social History Tobacco Use Types [...] often do you attend chur ch or zoroastrian services? Never 08/19/2023 Do you belong to [...] on filedocumented in this encounter Care Teams Weatherstrip Machine Operator Relationship Specialty Start Date End Date Darrin Morris MD [facility] [place] [address] PCP - General Internal Medicine 04/02/17 Jim Carrero MD [address] [place] [address] ORTHOPEDIC SURGERY 08/19/23 Leslie Biswas MD [address] [place] [address] Internal Medicine 08/19/23 documented as of this encounter
--- OUTSIDE RECORDS SUMMARY | 2024-12-30 15:03 | XMS_ITS | Encounter Summary ---
Author Organization [facility] Address [address] [place] [address] Care Team Providers Care Salt Cutter Name Role Phone Darrin Morris MD Primary Care Provider +1 [phone] Jim Carrero MD Unavailable Unavailable Leslie Biswas MD Unavailable Unavailable Encounter Details Date Type Department Care Team Description 06/01/2021 Chart Computer Report Medical Records [address] [place] [address] Travis Zaidi MD Social History Tobacco Use [...] on filedocumented in this encounter Care Teams Salt Cutter Relationship Specialty Start Date End Date Darrin Morris MD [address] [place] [address] PCP - General Internal Medicine 04/02/17 Jim Carrero MD [address] [place], [place] ORTHOPEDIC SURGERY 08/19/23 Leslie Biswas MD [address] [place], [place] Internal Medicine 08/19/23 documented as of this encounter
--- OUTSIDE RECORDS SUMMARY | 2024-12-30 15:03 | XMS_ITS | Encounter Summary ---
Author Organization [facility] Address [address] [place] [address] Care Team Providers Care Software Development Leader Name Role Phone Darrin Morris MD Primary Care Provider +1 -[phone] Jim Carrero MD Unavailable Unavailable Leslie Biswas MD Unavailable Unavailable Encounter Details Date Type Department Care Team Description 01/28/2024 Refill Adult Medicine - [place] [address] [place] [address] Irene Lundberg PA-C [address] [place] [address] Social History Tobacco Use Types Packs/Day Years [...] you attend [facility] or confucianism services? Never 08/19/2023 Do you belong to any clubs o r organizations such as spiritism groups, unions, fraternal or athletic groups, or [...] on filedocumented in this encounter Care Teams Software Development Leader Relationship Specialty Start Date End Date Darrin Morris MD [address] [place] [address] PCP - General Internal Medicine 04/02/17 Jim Carrero MD [address] [place] [address] ORTHOPEDIC SURGERY 08/19/23 Leslie Biswas MD [address] [place] [address] Internal Medicine 08/19/23 documented as of this encounter
--- OUTSIDE RECORDS SUMMARY | 2024-12-30 15:03 | XMS_ITS | Encounter Summary ---
Author Organization [facility] Address [address] [place] [address] Care Team Providers Care Medical Genetics Director Name Role Phone Darrin Morris MD Primary Care Provider [phone] [phone] Jim Carrero MD Unavailable Unavailable Leslie Biswas MD Unavailable Unavailable Encounter Details Date Type Department Care Team Description 02/18/2024 Refill Adult Medicine - [place] [address] [place] [address] Guero Martinez PA-C [address] [place] [address] Social History Tobacco Use Types Packs/Day Years [...] often do you attend [facility] or baptist services? Never 08/19/2023 Do you belong to [...] on filedocumented in this encounter Care Teams Medical Genetics Director Relationship Specialty Start Date End Date Darrin Morris MD [address] [place] [address] PCP - General Internal Medicine 04/02/17 Jim Carrero MD [address] [place] [address] ORTHOPEDIC SURGERY 08/19/23 Leslie Biswas MD [address] [place], [place] Internal Medicine 08/19/23 documented as of this encounter
--- OUTSIDE RECORDS SUMMARY | 2024-12-30 15:03 | XMS_ITS | Encounter Summary ---
Author Organization [employer] [facility] Address [address] [place] [address] Care Team Providers Care Weed Science Research Technician Name Role Phone Darrin Morris MD Primary Care Provider +1 -[phone] Jim Carrero MD Unavailable Unavailable Leslie Biswas MD Unavailable Unavailable Reason for Visit * Reason Onset Date Comments Information Needed 01/29/2024 [facility] Encounter Details Date Type Department Care Team Description 01/29/2024 Telephone Adult Medicine [address] [address] Belem stringer Ch, [address] [place] [address] Information Needed ([facility] ) Social History Tobacco Use [...] often do you attend chur ch or uatsdin services? Never 08/19/2023 Do you belong to [...] Lab results were sent to fax number [phone] with success. * Telephone Encounter - Linette Morse - 01/29/2024 2:43 PM EDT Information Needed Who is calling: MD office [facility] Information being requested? Lab results from 07/26/23 If other information is needed, was an SHALINI signed? NO How is the information to be communicated back to the caller? Faxed to [phone] documented in this encounter Plan of Treatment Not on file documented as of this encounter Visit Diagnoses Not on filedocumented in this encounter Care Teams Weed Science Research Technician Relationship Specialty Start Date End Date Darrin Morris, [address] [place] [address] PCP - General Internal Medicine 04/02/17 Jim Carrero MD [address] [place] [address] ORTHOPEDIC SURGERY 08/19/23 Leslie Biswas MD [address] [place] [address] Internal Medicine 08/19/23 documented as of this encounter
--- OUTSIDE RECORDS SUMMARY | 2024-12-30 15:03 | XMS_ITS | Encounter Summary ---
Author Organization [facility] Address [address] [place] [address] Care Team Providers Care Accountant Property Name Role Phone Darrin Morris MD Primary Care Provider +1 -[phone] Jim Carrero MD Unavailable Unavailable Leslie Biswas MD Unavailable Unavailable Reason for Visit * Reason Onset Date Comments Prior Authorization 10/14/2023 amlodipine-v alsartan (EXFORGE) 5-160 MG per tablet Encounter Details Date Type Department Care Team Description 10/14/2023 Telephone Adult Medicine - [address] [address] Guero Martinez PA-C [address] [place] [address] Prior Authorization (amlodipine-valsartan (EXFORGE) 5-160 MG per [...] 10/15/2023 1:02 PM EST Pt sent a [employer] message in regards to this request - [...] My Meds request: Yes -- Lopez Code [id number] Name of Medication amlodipine-valsartan (EXFORGE) 5-160 MG per tablet Dose of Medication 5-160MG What is the RX # from the faxed refill? How does patient take this med? Sig - Route: Take 1 Tablet by mouth daily for 360 days. - Oral What Pharmacy did the fax come from: [facility] Pharmacy fax #: [phone] [employer] Information from fax: What Prescription Plan does the patient have? [employer] RX BIN/PCN if applicable: BIN [id number] PCN [id number] Cardholder ID:[id number]/ [id number] Person Code: 01 Relationship Code: 1 Help desk phone: x documented in this encounter Plan of Treatment Not on file documented as of this encounter Visit Diagnoses Not on filedocumented in this encounter Care Teams Accountant Property Relationship Specialty Start Date End Date Darrin Morris MD [address] [place], [place] PCP - General Internal Medicine 04/02/17 Jim Carrero MD [address] [place], [place] ORTHOPEDIC SURGERY 08/19/23 Leslie Biswas MD [address] [place], [place] Internal Medicine 08/19/23 documented as of this encounter
--- OUTSIDE RECORDS SUMMARY | 2024-12-30 15:03 | XMS_ITS | Encounter Summary ---
Author Organization [facility] Address [address] [place] [address] Care Team Providers Care Rougher Operator Name Role Phone Darrin Morris MD Primary Care Provider +1 -[phone] Jim Carrero MD Unavailable Unavailable Leslie Biswas MD Unavailable Unavailable Encounter Details Date Type Department Care Team Description 10/14/2023 Pt. Non Urgent Medic al Question Adult Medicine - [place] [address] [place] [address] Guero Martinez PA-C [address] [place] [address] Social History Tobacco Use Types Packs/Day Years [...] 08/19/2023 How often do you attend [facility] or scientologist services? Never 08/19/2023 Do you belong to [...] Encounter - Ada Beltre M.A. - 10/15/2023 1:01 PM ESTFrom: Spencer Roberson Jr. To: Sarah Martinez Sent: 10/14/2023 5:02 PM EST Subject: Drug issuewith new wscrip. amlodipine valsarten must be pre-approved by [facility] mor it is notbcovered by insurance. I you got it approved, if not do not discontinue Valsartin ass I will needa refill documented in this encounter Plan of Treatment Not on file documented as of this encounter Visit Diagnoses Not on filedocumented in this encounter Care Teams Rougher Operator Relationship Specialty Start Date End Date Darrin Morris MD [address] [place] [address] PCP - General Internal Medicine 04/02/17 Jim Carrero MD [address] [place], [place] ORTHOPEDIC SURGERY 08/19/23 Leslie Biswas MD [address] [place], [place] Internal Medicine 08/19/23 documented as of this encounter
--- OUTSIDE RECORDS SUMMARY | 2024-12-30 15:03 | XMS_ITS | Data Portability ---
Author Organization [facility] [employer]mg[employer]admin Address [address] [place] [id number] Care Team Providers Care Special Order Jeweler Name Role Phone SUHAIL ROBERTS Primary Care [...] hemoglo bin A1C, fingers tick 2018 019 [facility], [address] [place] [address], [address], 9 14:17:15 Referral None recorde d. Procedures None recorde d. Surgeries None recorde d. Imaging None recorde d. Medication Orders metform in ER 500 mg tablet, extende d release 24 hr 2016 017 [id number], [address] [place], [place], [id number], 0 11:12:09 Patient Targets Encounter Date Encounter Id Patient Goals Patient Target Last Modified By Organization Details Last Modified Time 12/20/2016 [id number] [facility] goal of Blood Glucose 80-180 Not available Not available Not available terminal system operator goal of Weight 200 lbs Not available Not available Not available [facility] goal of Hemoglobin A1C <7.0% Not available Not available Not available Patient Instructions Encounter Date Encounter Id Patient Instructions Last Modified By Organization Details Last Modified Time 12/20/2016 [id number] Using the new meter, check blood glucose before breakfast and 2 hours after dinner every day. Continue to follow a controlled carb, healthy plate plan and drink plenty of water. Continue current exercise plan. Bring the meter to the next appointment. [email or web address] Not available 12/20/2016 14:07:51 10/02/2017 [id number] elevated blood pressure: care instructions Not available 10/02/2017 10:43:32 learning about type 2 diabetes Not available 10/02/2017 10:43:32 type 2 diabetes: care instructions Not available 10/02/2017 10:43:32 01/07/2019 [id number] high blood pressure: care instructions Not available 01/07/2019 14:17:15 learning about high blood pressure Not available 01/07/2019 14:17:15 A healthy lifestyle: care instructions Not available 01/07/2019 14:17:15 12/22/2019 [id number] high cholesterol : care instructions Not available 12/22/2019 11:33:09 Reason for Referral None Reported. Results Created Date Observation Date Name Description Value Unit Range Abnormal Flag Note LastModifiedBy Organization Detail LastModifiedTime 01/08/20 19 01/07/2019 hemog lobin A1C, finge rstic k Hemoglobin A1c 6.0 Not Available [address], [address], 01/07/2019 13:48:29 Result Notes None recorded. Problems Name Problem SNOMED Code Status Onset Date Resolution Date Notes Provider Name and Address Organization Details Recorded Time Type 2 diabetes mellitus 71965793 Active 2016 Helene bedoya [facility]. 14:07:56 Arthritis 5380394 Active 2016 Helene bedoya [place] [facility] 14:08:02 Hypertensive disorder 43563722 Active 2016 Helene bedoya [facility] 7 14:08:17 Problem Notes None recorded. Procedures Surgical History Date Name Laterality Status Provider Name and Address Organization Details Recorded Time 05/12/20 19 coronary artery bypass grafts x 4 completed Aphrodite Papoutsides [facility] 12/22/2019 11:15:55 12/11/19 14 Joint Replacement completed Helene Noriega [facility] 03/20/2017 14:01:40 12/11/19 02 Other completed [facility] 03/20/2017 14:01:12 Imaging Results None recorded. Procedure Notes None recorded. Medical Equipment None Reported. Allergies Allergen ID Allergen Name Allergen Category Reaction Reaction Severity Criticality Documentation Date Start Date Code Code System Note Provider Name and Address Organization Details Recorded Time 091484 bacitraci n medicatio n rash moderate Not available 11/15/2016 1291 RxNorm Paulette Brooks MS, RDN, LDN, CDE [address] [place] [address], [phone] [place] [address] 7 10:31:31 586806 Plavix medicatio n rash Not available Not available 12/22/2019 98873 2 RxNorm Aphrodite Papoutsid es [facility], [facility] 0 11:14:24 099187 oxycodone medicatio n Not available Not available Not available 12/22/2019 7804 RxNorm Aphrodite Papoutsid es null, [facility] 0 11:14:53 700168 cefazolin medicatio n Not available Not available Not available 12/22/2019 2180 RxNorm Aphrodite Papoutsid es null, [facility] 0 11:15:12 994802 adhesive tape environme nt,medica tion Not available Not available Not available 12/22/2019 99038 UNK Aphrodite Papoutsid es null, [facility] 0 11:15:23 Medications Name Sig Start [...] Details Last Updated DateTime 12/20/2016 180.34 cm 656629.61 g 32.6 kg/m2 Paulette Brooks MS, RDN, LDN, CDE [address] [place] [address], [phone], [facility] 12/20/2016 13:41:50 Date Recorded Body height Body mass index (BMI) Body weight Body temperature Oxygen saturation Oxygen saturation in Arterial blood by Pulse oximetry Heart rate Systolic blood pressure Diastolic blood pressure Provider Name and Address Organization Details Last Updated DateTime 7 180.34 cm 30.7 kg/m2 73826.6 g 97.6 [degF] 97 % 97 % 57 /min 139 mm[Hg] 79 mm[Hg] Helene Noriega [facility] 7 14:10:16 Date Recorded Body height Body mass index (BMI) Body weight Body temperature Oxygen saturation Oxygen saturation in Arterial blood by Pulse oximetry Heart rate Systolic blood pressure Diastolic blood pressure Provider Name and Address Organization Details Last Updated DateTime 8 180.34 cm 31.9 kg/m2 782885. 65 g 97.8 [degF] 97 % 97 % 59 /min 150 mm[Hg] 72 mm[Hg] Helene Noriega [facility] 8 10:09:03 Date Recorded Body height Body mass index (BMI) Body weight Heart rate Oxygen saturation Oxygen saturation in Arterial blood by Pulse oximetry Systolic blood pressure Diastolic blood pressure Provider Name and Address Organization Details Last Updated DateTime 9 180.34 cm 31.1 kg/m2 936844. 1 g 66 /min 98 % 98 % 110 mm[Hg] 64 mm[Hg] Jessy Atkins [facility] 9 13:57:36 Date Recorded Body height Provider Name an d Address Organization Details Last Updated DateTime 12/22/2019 180.34 cm Aphrodite Papmacrina [facility] 12/22/2019 11:12:53 Social History Question Answer Notes LastModified by Organizat ion Details LastModified Time Tobacco Smoking Status Former Smoker one pack a week Helene bedoya [facility] 03/20/2017 14:03:08 What Is Your Level [...] SNOMED-CT Code Diagnosis ICD10 Code Diagnosis Note [id number] Dread Anton MD [facility] [address] [address] 11/15/2016 09:44:36 11/15/2016 12:11:06 Uncontrolled type 2 diabetes mellitus 116422878 E11.65 Diabetes Education: Initial Assessment Referred to us for better blood glucose by his PCP, Dr. Cardenas in [place], due to recent A1c of 10.9% Patient reports that he was a patient of Dr. Anton years ago when he was at [facility]. SMBG: old meter at home doesn't work. [...] diarrhea, dehydrated and in the hospital in [facility] for 2 days. 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 RECOMMENDA TIONS: Check BG twice daily; Follow controlled carb plan; continue exercise planTIME SPENT: 60 minutes [id number] Dread Anton MD [facility] 123 [facility],[address] [address] 12/20/2016 12:52:35 12/20/2016 13:57:18 Uncontrolled type 2 diabetes mellitus 889257105 E11.65 Diabetes Education: Follow Up SMBG: OneTouch [...] does circuit training, core class and works w/workplace trainer and assessor. RECOMMENDA TIONS: Check BG twice daily; Follow controlled carb plan; continue exercise planTIME SPENT: 30 minutes [id number] MD [facility] [address] [place] [address] 03/20/2017 13:26:37 03/20/2017 14:53:49 Disorder of nervous system due to type 2 diabetes mellitus 666089936 E11.40 Metformin (plain) is causing diarrhea. Changed to metformin ER. Onglyza is not commonly used nowadays because of risk of CHF. Will change to amy or brock -- januvia not covered. Foot care explained. Also asked him to take OTC B12, [id number] MD [facility] [address] [place] [address] 10/02/2017 09:52:49 10/02/2017 10:38:25 Type 2 diabetes mellitus 96448745 E11.9 Excellent control of diabetes with meds and lifestyle changes. No change in Rx. I will have to get labs from Dr. Cardenas Hypertensive disorder 38 774849 I10 He checks his blood pressure daily at home and at his gym. Readings are in 120s/80s. Will go with his home readings. [id number] MD [facility] [address] [place] [address] 01/07/2019 13:34:51 01/07/2019 14:21:47 Neuropathy due to type 2 diabetes mellitus 1526118874 75753 E11.40 Very good control without side effect of medication s. Continue same. Essential hypertension 62618284 I10 Great control. No orthostasi s [id number] MD [facility] [address] [place] [address] 12/22/2019 11:06:08 12/22/2019 12:04:25 Hyperlipidemia 86463147 E78.5 I'm not sure why he is off atorvastat in. It is essential that outpatient with pre-existi ng ASCVD should be on high intensity statin. He will talk to his cardiologi st to discuss this issue Disorder d ue to type 2 diabetes mellitus 320347275 E11.8 We discussed about the new cardiovasc [...] Foley Member ID Guarantor Name 12/20/2016 2 [facility] (MEDICARE SUPPLEMENT) Spencer Roberson [id number] Spencer Roberson Jr. 12/20/2016 1 [place]: [employer] Spencer Roberson Jr [id number] Spencer Roberson Jr. 03/20/2017 2 [facility] (MEDICARE SUPPLEMENT) Spencer Roberson [id number] Spencer Roberson Jr. 03/20/2017 1 [place]: [employer]ATIONAL [employer]MENT [employer] Spencer Roberson Jr [id number] Spencer Roberson Jr. 10/02/2017 2 [facility] (MEDICARE SUPPLEMENT) Spencer Roberson [id number] Spencer Roberson Jr. 10/02/2017 1 [place]: [employer]ATIONAL [employer]MENT [employer] Spencer Roberson Jr [id number] Spencer Roberson Jr. 01/07/2019 2 [facility] (MEDICARE SUPPLEMENT) Spencer Roberson [id number] Spencer Roberson Jr. 01/07/2019 1 [place]: [employer]ATIONAL [employer]MENT [employer] Spencer Roberson Jr [id number] Spencer Roberson Jr. 12/22/2019 2 [facility] (MEDICARE SUPPLEMENT) Spencer Roberson [id number] Spencer Roberson JrHasmukh 12/22/2019 1 MED[place]: [facility] Spencer Roberson Jr [id number] Spencer Roberson Jr. Notes Date Note [...] lbs) Paulette Brooks MS, RDN, LDN, CDE [address] [place] [address], [phone], [facility] 12/20/2016 14:08:14 03/20/2017 text/html Duration of [...] - Eye examinations: Done Dread Anton MD [address] [place] [address], [phone], [facility]. 03/20/2017 14:54:28 10/02/2017 text/html DiabetesReported [...] the social history: Dread Anton MD [address] [place], [address], [facility]. 10/02/2017 10:44:12 01/07/2019 text/html Diabetes - [facility].Notes:Finger stick blood glucose review with meter [id number] mg/dL >98% in range Last A1c: 61% [...] change Preprandial dizziness Dread Anton MD [address] [place], [address], [facility]. 01/07/2019 14:21:05 12/22/2019 text/html This [...] of this visit. Physician is located in [place], [place] at the time of this visit. [...] is going to get it operated in [facility]. He has osteoarthritis for which he was getting intermittent steroid injection in his joints. He has not done it because of the pandemic? 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 The diabetes is under good control Dread Anton MD [address] [place] [address], [phone], [facility]. 12/22/2019 11:34:07
--- OUTSIDE RECORDS SUMMARY | 2024-12-30 15:04 | XMS_ITS | Encounter Summary ---
Author Organization [facility] Address [address] [place] [address] Care Team Providers Care Project Manager Retail Name Role Phone Darrin Morris MD Primary Care Provider +1 -[phone] Jim Carrero MD Unavailable Unavailable Leslie Biswas MD Unavailable Unavailable Encounter Details Date Type Department Care Team Description 06/01/2019 Hospital Medical Records [address] [place] [address] Nikko Zamarripa Ortega [address] [place] [address] Social History Tobacco Use Types Packs/Day Years [...] 08/19/2023 How often do you attend [facility] or sabianist services? Never 08/19/2023 Do [...] on filedocumented in this encounter Care Teams Project Manager Retail Relationship Specialty Start Date End Date Darrin Morris MD [address] [place] [address] PCP - General Internal Medicine 04/02/17 Jim Carrero MD [address] [place] [address] ORTHOPEDIC SURGERY 08/19/23 Leslie Biswas MD [address] [place] [address] Internal Medicine 08/19/23 documented as of this encounter
--- OUTSIDE RECORDS SUMMARY | 2024-12-30 15:04 | XMS_ITS | Encounter Summary ---
Author Organization [facility] Address [address] [place] [address] Care Team Providers Care Tissue Packer Name Role Phone Darrin Morris MD Primary Care Provider +1 -[phone] Jim Carrero MD Unavailable Unavailable Leslie Biswas MD Unavailable Unavailable Reason for Visit * Reason Onset Date Comments Form 06/23/2021 dwo for Glucose Blood (ONE TOUCH ULTRA TEST STRIPS) Strip Encounter Details Date Type Department Care Team Description 06/23/2021 Telephone Adult Medicine - [place] [address] [place] [address] Darrin Morris MD [address] [place] [address] Form (dwo for Glucose Blood (ONE TOUCH [...] often do you attend chur ch or scientologist services? Never 08/19/2023 Do you [...] - 06/23/2021 3:55 PM EST Dwo from [facility] for Glucose Blood (ONE TOUCH ULTRA TEST STRIPS) Strip Ada Morris In dwo bin in adult med call center documented in this encounter Plan of Treatment Not on file documented as of this encounter Visit Diagnoses Not on filedocumented in this encounter Care Teams Tissue Packer Relationship Specialty Start Date End Date Darrin Morris MD [address] [place] [address] PCP - General Internal Medicine 04/02/17 Jim Carrero MD [address] [place] [address] ORTHOPEDIC SURGERY 08/19/23 Leslie Biswas MD [address] [place] [address] Internal Medicine 08/19/23 documented as of this encounter
--- OUTSIDE RECORDS SUMMARY | 2024-12-30 15:04 | XMS_ITS | Encounter Summary ---
Author Organization [facility] Address [address] [place] [address] Care Team Providers Care Antitank Assault Gunner Name Role Phone Darrin Morris MD Primary Care Provider +1 -[phone] Jim Carrero MD Unavailable Unavailable Leslie Biswas MD Unavailable Unavailable Encounter Details Date Type Department Care Team Description 06/13/2019 Hospital Medical Records [address] [place] [address] Social History Tobacco Use Types Packs/Day Years [...] on filedocumented in this encounter Care Teams Antitank Assault Gunner Relationship Specialty Start Date End Date Darrin Morris MD [address] [place] [address] PCP - General Internal Medicine 04/02/17 Jim Carrero MD [address] [place] [address] ORTHOPEDIC SURGERY 08/19/23 Leslie Biswas MD [address] [place] [address] Internal Medicine 08/19/23 documented as of this encounter
--- OUTSIDE RECORDS SUMMARY | 2024-12-30 15:04 | XMS_ITS | Encounter Summary ---
Author Organization [facility] Address [address] [place] [address] Care Team Providers Care Senior C Developer Name Role Phone Darrin Morris MD Primary Care Provider +1 -[phone] Jim Carrero MD Unavailable Unavailable Leslie Biswas MD Unavailable Unavailable Encounter Details Date Type Department Care Team Description 05/25/2019 Hospital Medical Records [address] [place] [address] Social History Tobacco Use Types Packs/Day Years [...] often do you attend chur ch or pentecostal services? Never 08/19/2023 Do you belong to [...] on filedocumented in this encounter Care Teams Senior C Developer Relationship Specialty Start Date End Date Darrin Morris MD [address] [place] [address] PCP - General Internal Medicine 04/02/17 Jim Carrero MD [address] [place] [address] ORTHOPEDIC SURGERY 08/19/23 Leslie Biswas MD [address] [place] [address] Internal Medicine 08/19/23 documented as of this encounter
--- OUTSIDE RECORDS SUMMARY | 2024-12-30 15:04 | XMS_ITS | Encounter Summary ---
Author Organization [facility] Address [address] [place] [address] Care Team Providers Care Gunstock Spray Unit Feeder Name Role Phone Darrin Morris MD Primary Care Provider +1 -[phone] Jim Carrero MD Unavailable Unavailable Leslie Biswas MD Unavailable Unavailable Encounter Details Date Type Department Care Team Description 10/08/2019 Bread Baker Report Medical Records [address] [place] [address] Abstract, Provider Social History Tobacco Use Types [...] on filedocumented in this encounter Care Teams Gunstock Spray Unit Feeder Relationship Specialty Start Date End Date Darrin Morris MD [address] [place] [address] PCP - General Internal Medicine 04/02/17 Jim Carrero MD [address] [place] [address] ORTHOPEDIC SURGERY 08/19/23 Leslie Biswas MD [address] [place] [address] Internal Medicine 08/19/23 documented as of this encounter
--- OUTSIDE RECORDS SUMMARY | 2024-12-30 15:04 | XMS_ITS | Encounter Summary ---
Author Organization [facility] Address [address] [place] [address] Care Team Providers Care Survey Project Manager Name Role Phone Darrin Morris MD Primary Care Provider +1 -[phone] Jim Carrero MD Unavailable Unavailable Leslie Biswas MD Unavailable Unavailable Encounter Details Date Type Department Care Team Description 05/10/2023 Refill Adult Medicine - [place] [address] [place] [address] Irene Lundberg PA-C [address] [place] [address] Social History Tobacco Use Types Packs/Day Years [...] week 08/19/2023 How often do you attend [facility] or yazidi services? Never 08/19/2023 Do you [...] place to sleep or slept in a custodial (including now)? No 08/19/2023 Sex Assigned at Date Recorded Not on file Job Start Date Occupation Industry Not on file Not on file Not on file documented as of this encounter Plan of Treatment Not on file documented as of this encounter Visit Diagnoses Not on filedocumented in this encounter Care Teams Survey Project Manager Relationship Specialty Start Date End Date Darrin Morris MD [address] [place] [address] PCP - General Internal Medicine 04/02/17 Jim Carrero MD [address] [place] [address] ORTHOPEDIC SURGERY 08/19/23 Leslie Biswas MD [address] [place] [address] Internal Medicine 08/19/23 documented as of this encounter
--- OUTSIDE RECORDS SUMMARY | 2024-12-30 15:04 | XMS_ITS | Clinical Summary ---
Author Organization [facility] Address [address] [place] [address] Care Team Providers Care Montessori Lead Teacher Name Role Phone Guero Martinez PA-C Primary Care Provider + [phone] Allergies Active Allergy Reactions Criticality Noted Date [...] age to complete this topic Care Teams Montessori Lead Teacher Relationship Specialty Start Date End Date Guero Martinez PA-C PCP - General Medical Services 12/13/21
--- OUTSIDE RECORDS SUMMARY | 2024-12-30 15:04 | XMS_ITS | Encounter Summary ---
Author Organization [facility] Address [address] [place] [address] Care Team Providers Care Toy Assembler Wood Name Role Phone Darrin Morris MD Primary Care Provider +1 -[phone] Jim Carrero MD Unavailable Unavailable Leslie Biswas MD Unavailable Unavailable Encounter Details Date Type Department Care Team Description 11/07/2021 Refill Adult Medicine - [place] [address] [place], [place] [id number] Darrin Morris MD [address] [place] [address] Social History Tobacco Use Types Packs/Day Years [...] you attend [facility] or jainism services? Never 08/19/2023 Do you [...] on filedocumented in this encounter Care Teams Toy Assembler Wood Relationship Specialty Start Date End Date Darrin Morris MD [address] [place] [address] PCP - General Internal Medicine 04/02/17 Jim Carrero MD [address] [place] [address] ORTHOPEDIC SURGERY 08/19/23 Leslie Biswas MD [address] [place] [address] Internal Medicine 08/19/23 documented as of this encounter
--- OUTSIDE RECORDS SUMMARY | 2024-12-30 15:04 | XMS_ITS | Encounter Summary ---
Author Organization [facility] Address [address] [place] [address] Care Team Providers Care Regulation Supervisor Name Role Phone Darrin Morris MD Primary Care Provider +1 -[phone] Jim Carrreo MD Unavailable Unavailable Leslie Biswas MD Unavailable Unavailable Encounter Details Date Type Department Care Team Description 05/15/2023 Refill Adult Medicine - [place] [address] [place] [address] Guero Martinez PA-C [address] [place] [address] Social History Tobacco Use Types Packs/Day Years [...] How often do you attend [facility] or mormonism services? Never 08/19/2023 Do you belong to [...] on filedocumented in this encounter Care Teams Regulation Supervisor Relationship Specialty Start Date End Date Darrin Morris MD [address] [place] [address] PCP - General Internal Medicine 04/02/17 Jim Carrero MD [address] [place] [address] ORTHOPEDIC SURGERY 08/19/23 Leslie Biswas MD [address] [place], [place] Internal Medicine 08/19/23 documented as of this encounter
--- OUTSIDE RECORDS SUMMARY | 2024-12-30 15:04 | XMS_ITS | Encounter Summary ---
Author Organization [facility] Address [address] [place] [address] Care Team Providers Care Filler Shaker Name Role Phone Darrin Morris MD Primary Care Provider +1 -[phone] Jim Carrero MD Unavailable Unavailable Leslie Biswas MD Unavailable Unavailable Encounter Details Date Type Department Care Team Description 07/31/2023 Orders Only [facility] Lung Screening Program [place] [address] [facility] [address] [place] [phone] Juan J Hart MD [address] [facility] [place] [address] [place] [address] History of tobacco use, presenting hazards to [...] cancer documented in this encounter Care Teams Filler Shaker Relationship Specialty Start Date End Date Darrin Morris MD [address] [place] [address] PCP - General Internal Medicine 04/02/17 Jim Carrero MD [address] [place] [address] ORTHOPEDIC SURGERY 08/19/23 Leslie Biswas MD [address] [place] [address] Internal Medicine 08/19/23 documented as of this encounter
--- OUTSIDE RECORDS SUMMARY | 2024-12-30 15:04 | XMS_ITS | Encounter Summary ---
Author Organization [facility] Address [address] [place] [address] Care Team Providers Care Roving Changer Name Role Phone Darrin Morris MD Primary Care Provider +1 -[phone] Jim Carrero MD Unavailable Unavailable Leslie Biswas MD Unavailable Unavailable Encounter Details Date Type Department Care Team Description 12/24/2017 Senior Procurement Manager Report Medical Records [address] [place] [address] Torsten Mcginnis PA [address] [place] [address] Social History Tobacco Use Types Packs/Day Years [...] week 08/19/2023 How often do you attend [facility] or jainism services? Never 08/19/2023 Do [...] on filedocumented in this encounter Care Teams Roving Changer Relationship Specialty Start Date End Date Darrin Morris MD [address] [place] [address] PCP - General Internal Medicine 04/02/17 Jim Carrero MD [address] [place] [address] ORTHOPEDIC SURGERY 08/19/23 Leslie Biswas MD [address] [place], [place] Internal Medicine 08/19/23 documented as of this encounter
--- OUTSIDE RECORDS SUMMARY | 2024-12-30 15:04 | XMS_ITS | Encounter Summary ---
Author Organization [facility] Address [address] [place] [address] Care Team Providers Care Mechanical Design Engineer Facilities Name Role Phone Darrin Morris MD Primary Care Provider +1 -[phone] Jim Carrero MD Unavailable Unavailable Leslie Biswas MD Unavailable Unavailable Encounter Details Date Type Department Care Team Description 06/25/2019 [place] Archeology Professor Report Medical Records [address] [place] [address] Betsy Lopez Social History Tobacco Use Types [...] often do you attend chur ch or restoration services? Never 08/19/2023 Do you [...] on filedocumented in this encounter Care Teams Mechanical Design Engineer Facilities Relationship Specialty Start Date End Date Darrin Morris MD [address] [place] [address] PCP - General Internal Medicine 04/02/17 iJm Carrero MD [address] [place] [address] ORTHOPEDIC SURGERY 08/19/23 Leslie Biswas MD [address] [place] [address] Internal Medicine 08/19/23 documented as of this encounter
--- OUTSIDE RECORDS SUMMARY | 2024-12-30 15:04 | XMS_ITS | Encounter Summary ---
Author Organization [facility] Address [address] [place] [address] Care Team Providers Care Care Trainer Name Role Phone Darrin Morris MD Primary Care Provider +1 -[phone] Jim Carrero MD Unavailable Unavailable Leslie Biswas MD Unavailable Unavailable Encounter Details Date Type Department Care Team Description 11/02/2021 Transfer Records Medical Records [address] [place] [address] Prabhu West MD Social History Tobacco Use [...] often do you attend chur ch or congregation services? Never 08/19/2023 Do you [...] filedocumented in this encounter Care Teams Care Trainer Relationship Specialty Start Date End Date Darrin Morris MD [address] [place] [address] PCP - General Internal Medicine 04/02/17 Jim Carrero MD [address] [place], [place] ORTHOPEDIC SURGERY 08/19/23 Leslie Biswas MD [address] [place], [place] Internal Medicine 08/19/23 documented as of this encounter
--- OUTSIDE RECORDS SUMMARY | 2024-12-30 15:04 | XMS_ITS | Encounter Summary ---
Author Organization [facility] Address [address] [place] [address] Care Team Providers Care Sole Splitter Name Role Phone Darrin Morris MD Primary Care Provider +1 -[phone] Jim Carrero MD Unavailable Unavailable Leslie Biswas MD Unavailable Unavailable Encounter Details Date Type Department Care Team Description 01/07/2019 Pilot Supervisor Report Medical Records [address] [place] [address] Dread Anton Social History Tobacco Use Types [...] on filedocumented in this encounter Care Teams Sole Splitter Relationship Specialty Start Date End Date Darrin Morris MD [address] [place] [address] PCP - General Internal Medicine 04/02/17 Jim Carrero MD [address] [place] [address] ORTHOPEDIC SURGERY 08/19/23 Leslie Biswas MD [address] [place] [address] Internal Medicine 08/19/23 documented as of this encounter
--- OUTSIDE RECORDS SUMMARY | 2024-12-30 15:04 | XMS_ITS | Encounter Summary ---
Author Organization [facility] Address [address] [place] [address] Care Team Providers Care Machine Setter Automatic Name Role Phone Darrin Morris MD Primary Care Provider +1 -[phone] Jim Carrero MD Unavailable Unavailable Leslie Biswas MD Unavailable Unavailable Encounter Details Date Type Department Care Team Description 05/12/2023 Refill Adult Medicine - [place] [address] [place] [address] Irene Lundberg PA-C [address] [place] [address] Social History Tobacco Use Types Packs/Day Years [...] week 08/19/2023 How often do you attend [facility] or buddhism services? Never 08/19/2023 Do [...] on filedocumented in this encounter Care Teams Machine Setter Automatic Relationship Specialty Start Date End Date Darrin Morris MD [address] [place] [address] PCP - General Internal Medicine 04/02/17 Jim Carrero MD [address] [place] [address] ORTHOPEDIC SURGERY 08/19/23 Leslie Biswas MD [address] [place] [address] Internal Medicine 08/19/23 documented as of this encounter
--- OUTSIDE RECORDS SUMMARY | 2024-12-30 15:04 | XMS_ITS | Encounter Summary ---
Author Organization [facility] Address [address] [place] [address] Care Team Providers Care Barker Operator Name Role Phone Darrin Morris MD Primary Care Provider +1 -[phone] Jim Carrero MD Unavailable Unavailable Leslie Biswas MD Unavailable Unavailable Reason for Visit * Reason Comments E-prescribe Rx Request Encounter Details Date Type Department Care Team Description 04/19/2023 Refill Adult Medicine [facility] [address] [place] [address] Guero Martinez PA-C [address] [place] [address] E-prescribe Rx Request Social History Tobacco Use [...] week 08/19/2023 How often do you attend [facility] or yarsanism services? Never 08/19/2023 Do you [...] on filedocumented in this encounter Care Teams Barker Operator Relationship Specialty Start Date End Date Darrin Morris MD [address] [place] [address] PCP - General Internal Medicine 04/02/17 Jim Carrero MD [address] [place] [address] ORTHOPEDIC SURGERY 08/19/23 Leslie Biswas MD [address] [place] [address] Internal Medicine 08/19/23 documented as of this encounter
--- OUTSIDE RECORDS SUMMARY | 2024-12-30 15:04 | XMS_ITS | Clinical Summary ---
Author Organization [facility] Address [address] [place] [address] Care Team Providers Care Relay Mechanic Name Role Phone Darrin Morris MD Primary Care Provider +1 -[phone] Jim Carrero MD Unavailable Unavailable Leslie Biswas [...] permeant pace maker placed 05/12/2019 Cardiac rehab [facility] - 2 visits weekly up to [...] often do you attend chur ch or baptism services? Never 08/19/2023 Do you belong to [...] of not completing the topic Care Teams Relay Mechanic Relationship Specialty Start Date End Date Darrin Morris MD [address] [place] [address] PCP - General Internal Medicine 04/02/17 Jim Carrero MD [address] [place] [address] ORTHOPEDIC SURGERY 08/19/23 Leslie Biswas MD [address] [place] [address] Internal Medicine 08/19/23
--- OUTSIDE RECORDS SUMMARY | 2024-12-30 15:04 | XMS_ITS | Encounter Summary ---
Author Organization [facility] Address [address] [place] [address] Care Team Providers Care Day Care Aide Name Role Phone Darrin Morris MD Primary Care Provider +1 -[phone] Jim Carrero MD Unavailable Unavailable Leslie Biswas MD Unavailable Unavailable Encounter Details Date Type Department Care Team Description 06/01/2019 Old Medical Records Medical Records [address] [place] [address] Abstract, Provider Social History Tobacco Use Types [...] any clubs o r organizations such as yazidism groups, unions, fraternal or athletic groups, or [...] on filedocumented in this encounter Care Teams Day Care Aide Relationship Specialty Start Date End Date Darrin Morris MD [address] [place] [address] PCP - General Internal Medicine 04/02/17 Jim Carrero MD [address] [place] [address] ORTHOPEDIC SURGERY 08/19/23 Leslie Biswas MD [address] [place] [address] Internal Medicine 08/19/23 documented as of this encounter
--- OUTSIDE RECORDS SUMMARY | 2024-12-30 15:04 | XMS_ITS | Encounter Summary ---
Author Organization [facility] Address [address] [place] [address] Care Team Providers Care Partition Assembler Name Role Phone Darrin Morris MD Primary Care Provider +1 -[phone] Jim Carrero MD Unavailable Unavailable Leslie Biswas MD Unavailable Unavailable Encounter Details Date Type Department Care Team Description 08/02/2023 Orders Only Medical Records [address] [place] [address] Juan Taveras [address] [place] [address] [id number] Social History Tobacco Use Types Packs/Day Years [...] 08/19/2023 How often do you attend [facility] or temple services? Never 08/19/2023 Do you [...] on filedocumented in this encounter Care Teams Partition Assembler Relationship Specialty Start Date End Date Darrin Morris MD [address] [place] [address] PCP - General Internal Medicine 04/02/17 Jim Carrero MD [address] [place] [address] ORTHOPEDIC SURGERY 08/19/23 Leslie Biswas MD [address] [place] [address] Internal Medicine 08/19/23 documented as of this encounter
--- OUTSIDE RECORDS SUMMARY | 2024-12-30 15:04 | XMS_ITS | Encounter Summary ---
Author Organization [facility] Address [address] [place] [address] Care Team Providers Care River Rafting Guide Name Role Phone Darrin Morris MD Primary Care Provider +1 -[phone] Jim Carrero MD Unavailable Unavailable Leslie Biswas MD Unavailable Unavailable Encounter Details Date Type Department Care Team Description 06/18/2019 Organ Assembler Report Medical Records [address] [place] [address] Betsy Lopez Social History Tobacco Use Types [...] often do you attend chur ch or catholic services? Never 08/19/2023 Do you belong to any clubs o r organizations such as mandaen groups, unions, fraternal or athletic groups, or [...] on filedocumented in this encounter Care Teams River Rafting Guide Relationship Specialty Start Date End Date Darrin Morris MD [address] [place] [address] PCP - General Internal Medicine 04/02/17 Jim Carrero MD [address] [place] [address] ORTHOPEDIC SURGERY 08/19/23 Leslie Biswas MD [address] [place] [address] Internal Medicine 08/19/23 documented as of this encounter
--- OUTSIDE RECORDS SUMMARY | 2024-12-30 15:04 | XMS_ITS | Encounter Summary ---
Author Organization [facility] Address [address] [place] [address] Care Team Providers Care Care Giver Name Role Phone Darrin Morris MD Primary Care Provider +1 -[phone] Jim Carrero MD Unavailable Unavailable Leslie Biswas MD Unavailable Unavailable Encounter Details Date Type Department Care Team Description 11/27/2017 Business Doc Medical Records [address] [place] [address] Abstract, Provider Social History Tobacco Use Types [...] often do you attend chur ch or amish services? Never 08/19/2023 Do you [...] filedocumented in this encounter Care Teams Care Giver Relationship Specialty Start Date End Date Darrin Morris MD [address] [place] [address] PCP - General Internal Medicine 04/02/17 Jim Carrero MD [address] [place], [place] ORTHOPEDIC SURGERY 08/19/23 Leslie Biswas MD [address] [place] [address] Internal Medicine 08/19/23 documented as of this encounter
--- OUTSIDE RECORDS SUMMARY | 2024-12-30 15:04 | XMS_ITS | Encounter Summary ---
Author Organization [facility] Address [address] [place] [address] Care Team Providers Care Flight Engineer Performance Qualified Name Role Phone Darrin Morris MD Primary Care Provider +1 -[phone] Jim Carrero MD Unavailable Unavailable Leslie Biswas MD Unavailable Unavailable Encounter Details Date Type Department Care Team Description 12/22/2019 Night Nurse Report Medical Records [address] [place] [address] Dread Anton Social History Tobacco Use Types [...] on filedocumented in this encounter Care Teams Flight Engineer Performance Qualified Relationship Specialty Start Date End Date Darrin Morris MD [address] [place] [address] PCP - General Internal Medicine 04/02/17 Jim Carrero MD [address] [place] [address] ORTHOPEDIC SURGERY 08/19/23 Leslie Biswas MD [address] [place] [address] Internal Medicine 08/19/23 documented as of this encounter
--- OUTSIDE RECORDS SUMMARY | 2024-12-30 15:04 | XMS_ITS | Encounter Summary ---
Author Organization [facility] Address [address] [place] [address] Care Team Providers Care Drive Tester Name Role Phone Darrin Morris MD Primary Care Provider +1 -[phone] Jim Carrero MD Unavailable Unavailable Leslie Biswas MD Unavailable Unavailable Reason for Visit * Reason Onset Date Comments REFERRAL 11/07/2021 Encounter Details Date Type Department Care Team Description 11/07/2021 Telephone Adult Medicine - [place] [address] [place] [address] Darrin Morris MD [address] [place] [address] REFERRAL Social History Tobacco Use Types Packs/Day [...] How often do you attend [facility] or religion services? Never 08/19/2023 Do [...] on filedocumented in this encounter Care Teams Drive Tester Relationship Specialty Start Date End Date Darrin Morris MD [address] [place] [address] PCP - General Internal Medicine 04/02/17 Jim Carrero MD [address] [place] [address] ORTHOPEDIC SURGERY 08/19/23 Leslie Biswas MD [address] [place] [address] Internal Medicine 08/19/23 documented as of this encounter
--- OUTSIDE RECORDS SUMMARY | 2024-12-30 15:04 | XMS_ITS | Encounter Summary ---
Author Organization [facility] Address [address] [place] [address] Care Team Providers Care Math And Physics Instructor Name Role Phone Darrin Morris MD Primary Care Provider [phone] Jim Carrero MD Unavailable Unavailable Leslie Biswas MD Unavailable Unavailable Reason for Visit * Reason Onset Date Comments Form 05/27/2023 DWO ( Test Strip s ) Encounter Details Date Type Department Care Team Description 05/27/2023 Telephone Adult [facility] [address] [place] [address] Guero Martinez PA-C [address] [place] [id number] Form (DWO ( Test Strips ) ) [...] often do you attend chur ch or taoist services? Never 08/19/2023 Do you belong to [...] 05/27/2023 1:06 PM EDT DWO received from [employer] for the patients Glucose Testing Strips. Please have provider complete and fax to [phone] DWO in light blue folder documented in this encounter Plan of Treatment Not on file documented as of this encounter Visit Diagnoses Not on filedocumented in this encounter Care Teams Math And Physics Instructor Relationship Specialty Start Date End Date Darrin Morris MD [address] [place] [address] [phone] PCP - General Internal Medicine 04/02/17 Jim Carrero MD [address] [place] [address] ORTHOPEDIC SURGERY 08/19/23 Leslie Biswas MD [address] [place] [address] Internal Medicine 08/19/23 documented as of this encounter
[2024-12-31 14:07] VITALS: BP 143/52; PULSE 67; RESP 16; TEMP 36.6; O2SAT 99; BMI 29.7
--- NOTE | 2024-12-31 15:18 | MHC.SHP ---
Pre-Procedural Eval Section A - 24 Hr Update-Section A only Date of Service: 12/31/24 The patient is an INPATIENT: No Changes since office visit: No Cold of Flu in the past 2 weeks, No New Medical Problems, No Changes in Medication and No Patient answered all questions The patient has been examined within 24 hours of the surgical procedure. The History & Physical has been completed within 30 days and I have reviewed it.: Yes Section B - Complete if H&P > 30 days Chief Complaint: Carpal tunnel syndrome, right upper limb Allergies: Allergies Allergy/AdvReac Type Severity Reaction Status Date / Time adhesive tape Allergy Intermediate Rash Verified 12/31/24 14:03 bacitracin Allergy Rash Verified 12/31/24 14:03 cefazolin AdvReac Severe Rash Verified 12/31/24 14:03 clopidogrel [From Plavix] AdvReac Severe Rash Verified 12/31/24 14:03 oxycodone AdvReac Hallucinati Verified 12/31/24 14:03 ons Plan Diagnosis/Plan: Unchanged I have reviewed the history and physical and performed a pertinent physical examination on my patient. No changes have occurred unless specified. Time Spent With Patient Time: Total time managing care of this patient today ____ minutes.
--- NOTE | 2024-12-31 15:19 | P.OP_ITS ---
Operative Note Operative Note Date of Service: 12/31/24 Narrative: Preop diagnosis: 1. Right Carpal tunnel syndrome Postop diagnosis: same Procedure: 1. Right Carpal tunnel release Surgeon: Sulma Pelayo MD Store Management Trainee: Xander BERRY Anesthesia: local block using 1% lidocaine with epinephrine Findings: Thickened transverse carpal ligament. EBL: Less than 5 mL Specimens: None Complications: None Disposition: Brought to recovery room in stable condition Plan: Follow-up for 10-14 days for wound check and suture removal Indications: The patient is 74 years old, with right carpal tunnel syndrome that has been unresponsive to nonoperative management. The risks and benefits of operative treatment including but not limited to risk of damage to blood vessels, nerves, tendons, infection, persistent pain, persistent symptoms, or possible need for additional surgery were discussed with the patient and the patient wishes to proceed with surgery. Procedure: Once consent was obtained a local block was performed using a combination of 1% lidocaine with epinephrine. The patient was then brought back to the operating suite and placed on the operative table in supine position. The right upper extremity was prepped and draped in a standard surgical fashion. Once assured that we had a good block, a 2.0 cm longitudinal incision was made centered over the carpal tunnel. The incision was made through the skin to the subcutaneous tissues using a #15 blade. Dissection was made down to the level of the transverse carpal ligament with care being taken to protect the palmar cutaneous nerve. Once the transverse carpal ligament was clearly visualized, a longitudinal incision was made in the transverse carpal ligament 1st using a #15 blade, then using tenotomy scissors under direct visualization. Care was taken to look for and protect the motor branch of the median nerve when seen in this area. Once satisfied with our carpal tunnel release the wound was copiously irrigated with normal saline and hemostasis was obtained with a brief period of local pressure. The skin edges were reapproximated with some 5.0 nylon suture material and a sterile dressing was applied. The patient appears to have tolerated the procedure well and with no complications. All digits were well vascularized at the conclusion of the case.
[2024-12-31 15:59] VITALS: BP 157/62; PULSE 67; RESP 20; TEMP 36.7; O2SAT 98
== END 2024-12-31 16:01 | disposition home or self-care (01) ==
PROVIDERS: PCP Internal Medicine; Visit Provider Orthopaedic Surgery
PROC: (CPT 64721; principal; 2024-12-31 14:30)
DX: G56.01 Carpal tunnel syndrome, right upper limb (principal); R20.0 Anesthesia of skin; M62.58 Muscle wasting and atrophy, not elsewhere classified, other site; E11.42 Type 2 diabetes mellitus with diabetic polyneuropathy; I10 Essential (primary) hypertension; I25.10 Atherosclerotic heart disease of native coronary artery without angina pectoris; Z95.1 Presence of aortocoronary bypass graft; I25.2 Old myocardial infarction; L23.1 Allergic contact dermatitis due to adhesives; G47.33 Obstructive sleep apnea (adult) (pediatric); Z95.0 Presence of cardiac pacemaker; Z88.1 Allergy status to other antibiotic agents; Z88.2 Allergy status to sulfonamides; Z88.5 Allergy status to narcotic agent; Z88.8 Allergy status to other drugs, medicaments and biological substances; Z98.890 Other specified postprocedural states
CPT/HCPCS: 64721; J0171; J2003

== ENCOUNTER → 2024-12-31 13:01 | Outpatient (BNV) | payer MEDICARE, OTHER, SELFPAY | PROVIDERS: PCP Internal Medicine; Visit Provider Orthopaedic Surgery | DX: G56.01 Carpal tunnel syndrome, right upper limb (principal) | CPT/HCPCS: 64721 ==

== ENCOUNTER 2025-01-05 13:20 | Outpatient (AMB) | payer MEDICARE, OTHER, SELFPAY ==
[2025-01-05 14:17] VITALS: BMI 29.7
--- NOTE | 2025-01-05 14:17 | MHC.OFFVIS ---
Vital Signs 01/05/25 14:17 Height 5 ft 10 in Weight 207 lb BMI 29.7 Intake Visit Reasons: PO-RT CTR 12/31/24 AR Intake Note: Spencer 74 yr old - hand dominant male presents today for his wound check for his S/P right CTR from 12/31/[address] Pelayo. States as of staurday, he has had on going pain, tenderness and swelling. Allergies adhesive tape Allergy (Intermediate, Verified 01/05/25 14:32) Rash bacitracin Allergy (Verified 01/05/25 14:32) Rash cefazolin Adverse Reaction (Severe, Verified 01/05/25 14:32) Rash clopidogrel [From Plavix] Adverse Reaction (Severe, Verified 01/05/25 14:32) Rash oxycodone Adverse Reaction (Verified 01/05/25 14:32) Hallucinations HPI HPI PO-RT CTR 12/31/24 AR: Details: The patient is a 74-year-old man who is status post a right carpal tunnel release with nh on 12/31/2024. He is seen today with his daughter. Currently he had a fair amount of pain postoperatively the 1st night but was still able to actively bring his fingers close to a fist and into full extension until Saturday. Saturday he developed worsening swelling and inability to flex his fingers without severe pain. He has not been able to flex and extend his finger since that time. His fingers are densely numb, but they were densely numb before surgery. [facility] Medical History Skin cancer GERD (gastroesophageal reflux disease) Myocardial infarction Hemorrhoids Diverticulosis Peripheral neuropathy Right bundle branch block Microalbuminuria Cataracts, bilateral Tubular adenoma Diabetes Hearing loss Osteoarthritis Tobacco use disorder Obesity (BMI 30-39.9) Sleep apnea CAD (coronary artery disease) Syncope Pleural effusion Pacemaker Abnormal PFT Skin lesions HTN (hypertension) Macular degeneration of both eyes Surgical History History of nasal surgery Hx of bilateral cataract extraction Hx of tonsillectomy Hx of cholecystectomy Hx of appendectomy H/O colonoscopy Hx of CABG History of thoracentesis History of left knee replacement (~2013) History of left hip replacement (~2000) History of right hip replacement (~2000) Social History Household Members: Spouse Housing: House Housing Other:: stairs into house and within house Are you a primary furnace caretaker to a significant other at home: No Do you presently have visiting nurse or other home services: No Comment: pt rings appropriately Patient Tobacco Use Status: Former Tobacco user service: No Current occupational status: retired Physical Exam Vital Signs: BMI result Body Mass Index 29.7 Extrem Other: The patient was alert oriented and in no acute distress. His surgical incision is clean dry and with no drainage. He does have some erythema extending from proximal to the incision into the palm. It is unclear whether this is truly erythema or perhaps bruising from the surgery. He is quite tender still over the incision and extending into the palm. He also has swelling in his hand including dorsally over the MCP joints and over the 1st metacarpal of the thumb. His hand is held with his fingers in slight flexion. Unable to actively bring his fingers close to a fist secondary to pain. Assessment & Plan Assessment & Plan (1) Carpal tunnel syndrome of right wrist: Code(s): G56.01 - Carpal tunnel syndrome, right upper limb Category: Medical (2) Right hand pain: Code(s): M79.641 - Pain in right hand Category: Medical Plan Assessment and plan: 1. Right carpal tunnel syndrome status post right carpal tunnel release Date of surgery 12/31/2024 Patient with dense numbness prior to surgery, with no change after surgery 2. Increasing right hand pain and swelling worrisome for possible infection I educated him about this condition He is a diabetic We discussed operative and non operative treatment options I am recommending surgery. Out of an abundance of caution I think we should take him to the OR tomorrow and remove the stitches, take cultures and assure that there is no purulence within the carpal tunnel. The risks and benefits of operative treatment were discussed with the patient and the patient wishes to proceed with surgery. These risks include, but are not limited to risk of damage to blood vessels, nerves, tendons, infection, recurrence, incomplete relief of preoperative symptoms, persistent pain, possible need for further surgery and the risks associated with regional blocks and anesthesia. The plan is to take the patient to the operating room tomorrow for the following procedures: 1. Right hand I&D 2. [ ] All of the preoperative paperwork including the consent was filled out today. All the patient's questions were answered. Coding Level of Care Code Global (58567) Diagnoses Carpal tunnel syndrome of right wrist G56.01 Right hand pain M79.641
== END 2025-01-05 14:58 | disposition home or self-care (01) ==
LOC: HO.HOS 13:21
PROVIDERS: PCP Internal Medicine; Visit Provider Orthopaedic Surgery
DX: G56.01 Carpal tunnel syndrome, right upper limb (principal); M79.641 Pain in right hand
CPT/HCPCS: 99024

== ENCOUNTER → 2025-01-05 13:20 | Outpatient (BNVA) | payer MEDICARE, OTHER, SELFPAY | PROVIDERS: PCP Internal Medicine; Visit Provider Orthopaedic Surgery | DX: Z13.89 Encounter for screening for other disorder (principal) | CPT/HCPCS: 99212 ==

== ENCOUNTER 2025-01-06 14:50 | Inpatient (IN) | payer MEDICARE, OTHER, SELFPAY ==
[2025-01-06] VITALS (11 sets, daily range): BP systolic 136–178; BP diastolic 36–82; PULSE 72–83; RESP 16–20; TEMP 36.6–37.9; O2SAT 93–99; BMI 29.6
--- OUTSIDE RECORDS SUMMARY | 2025-01-06 08:24 | XMS_ITS | Clinical Summary ---
Author Organization [facility] Address [address] [place] [address] Care Team Providers Care Gage Maker Name Role Phone Ada Morris MD Primary [...] maker placed 05/12/2019 Cardiac rehab [facility] - 2 visits weekly up to 36 sessions Obesity (BMI 30-39.9) 11/25/2017 Tobacco use disorder 11/25/2017 Overview (07/24/2024): >30 pk yr LDCT 12/27 neg. Repeat 12 mo. Bundle branch block, right 11/05/2017 Overview (07/24/2024): Since 2006 Cataracts, bilateral 11/05/2017 Diverticulosis 11/05/2017 DM (diabetes mellitus), type 2 with neurological complications ([facility] V24, [facility] V28) 11/05/2017 DM (diabetes mellitus), type 2 with renal complications ([facility] V24, [facility] V28) 11/05/2017 Hearing loss 11/05/2017 Overview (07/24/2024): Bilateral hearing aids Hemorrhoids 11/05/2017 Overview (07/24/2024): internal Microalbuminuria 11/05/2017 KEITH (obstructive sleep apnea) 11/05/2017 Osteoarthritis 11/05/2017 Overview (07/24/2024): Spine, knees Peripheral neuropathy 11/05/2017 Overview (07/24/2024): 03/20/17 Dr Dread Anton,Endocrine Tubular adenoma 11/05/2017 Overview (07/24/2024): & sessile serrated polyp 2006 Type 2 diabetes mellitus wit h cataract ([facility] V24, [facility] V28) 11/05/2017 Encounters Date Type Department Care Team Description 12/11/2024 10:00 AM EDT Telemedicine Adult Medicine [facility] [address] [place] [phone] Encounter for subsequent annual wellness visit (AWV) in Medicare patient (Primary Dx) 12/07/2024 1:15 PM EDT Office Visit Adult Medicine [facility] [address] [place] [phone] Ada Gonzalez MD DM (diabetes mellitus), type 2 with neurological complications ([facility] V24, [facility] V28) (Primary Dx); History of heart attack; Pacemaker; Sensorineural hearing loss (SNHL) of right ear, unspecified hearing status on contralateral side; Intermediate stage nonexudative age-related macular degeneration of both eyes; Bilateral carpal tunnel syndrome 12/07/2024 Telephone Internal Medicine - [facility] [address] [place] [address] Chantal Ruiz [place] Medicare Annual Wellness Visit Subsequent (AWV DUE after 08/19/2024) 10/27/2024 Telephone Adult Medicine - [place] [address] [place] [address] Ada Gonzalez MD Appointment from [...] Type 2 diabetes mellitus wit h cataract ([facility] V24, [facility] V28) 11/05/2017 DX:Type 2 diabetes mellitus with cataract ([facility]) Diverticulosis 11/05/2017 DX:Diverticulosi s Hemorrhoids 11/05/2017 DX:Hemorrhoids; [...] Description 03/04/2025 1:30 PM EDT Office Visit [facility] [address] [facility] [address] [place] [phone] Osmar Villa MD [address] [facility] [address] [place] [address] 06/08/2025 1:15 PM EDT Office Visit Adult Medicine - [place] [address] [place] [phone] Ada Morris MD [facility] [address] Health Maintenance Due Date Last Done Comments [...] (diabetes mellitus), type 2 with neurological complications ([facility] V24, [facility] V28) HEMOGLOBIN A1C Routine 12/07/2024 1:50 PM EDT DM (diabetes mellitus), type 2 with neurological complications ([facility]/H[facility] V24, [facility] V28) DEPRESSION SCREENING Routine 08/19/2023 FALLS RISK ASSESSMENT Routine 07/30/2023 URINE ALBUMIN CREATININE RATIO Routine 07/26/2023 LIPID PANEL Routine 07/26/2023 HEPATITIS C SCREENING Routine 10/01/2018 COLONOSCOPY Routine 11/30/2015 from Last 3 Months or Most Recently Relevant to Health Maintenance Results * Hemoglobin A1c (12/07/2024 1:50 PM EDT) Hemoglobin A1C 6.1 <6.5 % LAB CHEMISTRY METHOD 12/07/2024 11:29 PM EDT [facility] Mean Bld Glu Estim. 128 mg/dL LAB CHEMISTRY METHOD 12/07/2024 11:29 PM EDT [facility] Blood Venous blood specimen / Unknown Venipuncture / Unknown 12/07/2024 1:50 PM EDT 12/07/2024 1:53 PM EDT Ada Morris MD LAB BLOOD ORDERABL ES Final Result [facility] [address] [place] [address], [place] [phone] * (ABNORMAL) Comprehensive metabolic panel (12/07/2024 1:50 PM EDT) Sodium 136 133 - 145 mmol/L LAB CHEMISTRY METHOD 12/07/2024 9:18 PM [facility] Potassium 4.4 3.5 - 5.5 mmol/L LAB CHEMISTRY METHOD 12/07/2024 9:18 PM [facility] Chloride 103 96 - 110 mmol/L LAB CHEMISTRY METHOD 12/07/2024 9:18 PM [facility] CO2 26 21 - 32 mmol/L LAB CHEMISTRY METHOD 12/07/2024 9:18 PM [facility] Anion Gap 7 3 - 11 LAB CHEMISTRY METHOD 12/07/2024 9:18 PM [facility] Glucose 132(H) 70 - 100 mg/dL LAB CHEMISTRY METHOD 12/07/2024 9:18 PM [facility] BUN 24 5 - 25 mg/dL LAB CHEMISTRY METHOD 12/07/2024 9:18 PM [facility] Creatinine 1.17 0.70 - 1.30 mg/dL LAB CHEMISTRY METHOD 12/07/2024 9:18 PM [facility] eGFR 65 >=60 mL/min/1. 73m2 LAB CHEMISTRY METHOD 12/07/2024 9:18 PM [facility] Comment:Calculation based on the??Chronic Kidney Disease Epidemiology Collaboration (CKD-EPI) equation refit??without adjustment for race. BUN/Creatinine Ratio 20.5 LAB CHEMISTRY METHOD 12/07/2024 9:18 PM [facility] Calcium 9.5 8.5 - 10.5 mg/dL LAB CHEMISTRY METHOD 12/07/2024 9:18 PM [facility] AST (SGOT) 21 10 - 42 unit/L LAB CHEMISTRY METHOD 12/07/2024 9:18 PM [facility] ALT (SGPT) 25 10 - 60 unit/L LAB CHEMISTRY METHOD 12/07/2024 9:18 PM [facility] Alkaline Phosphatase 106 42 - 121 unit/L LAB CHEMISTRY METHOD 12/07/2024 9:18 PM [facility] Total Protein 7.3 6.0 - 8.0 g/dL LAB CHEMISTRY METHOD 12/07/2024 9:18 PM [facility] Albumin 3.7 3.2 - 5.0 g/dL LAB CHEMISTRY METHOD 12/07/2024 9:18 PM [facility] Total Bilirubin 0.4 0.0 - 1.4 mg/dL LAB CHEMISTRY METHOD 12/07/2024 9:18 PM [facility] Blood Venous blood specimen / Unknown Venipuncture / Unknown 12/07/2024 1:50 PM EDT 12/07/2024 1:53 PM EDT Ada Morris MD LAB BLOOD ORDERABL ES Final Result [facility] [address] [place] [address], * Depression Screening (08/19/2023) Depression Screening Abstracted Historical Provider HEALTH MAINTENANCE Final Result * Falls Risk Assessment (07/30/2023) Pathologist [facility] Falls Risk Assessment Abstracted [facility] Provider HEALTH MAINTENANCE Final Result * Urine Albumin Creatinine Ratio (07/26/2023) [facility] Urine Albumin Creatinine Ratio Abstracted [facility] Provider HEALTH MAINTENANCE Final Result * (ABNORMAL) Lipid panel (07/26/2023) [facility] LDL/HDL Ratio 4 0 - 4 Triglycerides 78 0 - 150 mg/dL Cholesterol 162 0 - 200 mg/dL HDL 44 >=40 mg/dL LDL Cholesterol 103(A) 0 - 100 mg/dL Blood Venous blood specimen / Unknown Result [facility] Provider LAB BLOOD ORDERABLES Jennifer l Result * Hepatitis C Screening (10/01/2018) [facility] Hepatitis C Screening Abstracted Result [facility] Provider HEALTH MAINTENANCE Final Result * Colonoscopy (11/30/2015) [facility] Colonoscopy No interpretation , Abstracted Anatomical Region Laterality Modality Other Result [facility] Provider HEALTH MAINTENANCE Final Result from Last 3 Months or Most Recently Relevant to Health Maintenance Insurance MEDICARE [facility] [address] [place] [address] Care Teams Gage Maker Relationship Specialty Start Date End Date Ada Morris MD [address] [place] [phone] PCP - General Internal Medicine 06/19/24
--- NOTE | 2025-01-06 12:22 | P.CONAN_ITS ---
HPI - Anesthesia Eval Consult details Narrative: 74 yo M presenting for I&D of right hand. Pacemaker. Anesthesia Pre-Procedure Meds Is the patient on any of the following meds?: GLP1/DPP4 If yes to any meds - educate patient: Pt education - increased risk of aspiration and/or euvolemic DKA (did not stop Tradjenta for appropriate timeframe) PMFSH Active Problems Active Problems: All Active Problems Right hand pain (Acute) Carpal tunnel syndrome of right wrist (Acute) Right knee pain (Acute) Status post total right knee replacement (Acute) Impingement of right shoulder (Acute) Bilateral carpal tunnel syndrome (Acute) Impingement syndrome of left shoulder (Acute) Left shoulder pain (Acute) History of left knee replacement (Acute ~2013) Past Medical History Medical History (Updated 01/06/25 @ 12:04 by Nori Manning RN) FH: total knee replacement Macular degeneration Legally blind Skin cancer GERD (gastroesophageal reflux disease) Myocardial infarction Hemorrhoids Diverticulosis Peripheral neuropathy Right bundle branch block Microalbuminuria Cataracts, bilateral Tubular adenoma Diabetes Hearing loss Osteoarthritis Tobacco use disorder Obesity (BMI 30-39.9) Sleep apnea CAD (coronary artery disease) Syncope Pleural effusion Pacemaker Abnormal PFT Skin lesions HTN (hypertension) Macular degeneration of both eyes Osteoarthritis of right knee Family History Family history of problems with anesthesia: No Surgical History Surgical History History of nasal surgery Hx of bilateral cataract extraction Hx of tonsillectomy Hx of cholecystectomy Hx of appendectomy H/O colonoscopy Hx of CABG History of thoracentesis History of left knee replacement (~2013) History of left hip replacement (~2000) History of right hip replacement (~2000) History of Problems with Anesthesia: No Social History Social History Household Members: Spouse Housing: House Housing Other:: stairs into house and within house Are you a primary certified caregiver to a significant other at home: No Do you presently have visiting nurse or other home services: No Comment: pt rings appropriately Patient Tobacco Use Status: Former Tobacco user Use of substances other than those prescribed or required for medical reasons: No Are you DNR?: No Advance Directives: No Advance Directives Information Provided: Yes Poor oral hygiene: No service: No Current occupational status: retired Meds Allergies Allergy/AdvReac Type Severity Reaction Status Date / Time adhesive tape Allergy Intermediate Rash Verified 01/05/25 14:32 bacitracin Allergy Rash Verified 01/05/25 14:32 cefazolin AdvReac Severe Rash Verified 01/05/25 14:32 clopidogrel [From Plavix] AdvReac Severe Rash Verified 01/05/25 14:32 oxycodone AdvReac Hallucinati Verified 01/05/25 14:32 ons Home Medications ?Medication ?Instructions ?Recorded ?Confirmed ?Last Taken ?Type aspirin 81 mg tablet,delayed 81 mg PO DAILY 01/29/23 12/31/24 04/30/24 History release (Adult Aspirin Regimen) linagliptin 5 mg tablet (Tradjenta) 5 mg PO DAILY 08/29/23 12/31/24 01/05/25 History valsartan 160 mg tablet 160 mg PO DAILY 08/29/23 12/31/24 05/03/24 History acetaminophen 500 mg tablet 1,000 mg PO DAILY PRN Pain 04/23/24 12/31/24 Unknown History dkdehtgmcsjk-qdnmyxqv-ateakh tablet 1 tab PO DAILY 04/23/24 12/31/24 04/30/24 History vit C 250 mg-vit E 90 mg-zinc 40 2 tab PO DAILY 04/24/24 12/31/24 04/30/24 History mg-copper 1 ka-tswblp-yubarh capsule (PreserVision AREDS-2) metformin 500 mg tablet,extended 500 mg PO DAILY 05/04/24 12/31/24 04/30/24 History release 24 hr metoprolol succinate 25 mg 25 mg PO DAILY 07/23/24 12/31/24 Unknown History tablet,extended release 24 hr rosuvastatin 5 mg tablet 5 mg PO DAILY 07/23/24 12/31/24 Unknown History vancomycin 125 mg capsule 125 mg PO QID 08/25/24 12/31/24 Unknown History Exam Exam Date and Time: 01/06/25 1220 Height,Weight and Vital Signs: Height 5 ft 10 in Weight 93.497 kg Last Vital Signs Temp 98.0 F 01/06/25 12:20 Pulse 78 01/06/25 12:20 Resp 16 01/06/25 12:20 BP 165/72 H 01/06/25 12:20 Pulse Ox 99 01/06/25 12:20 O2 Del Method Room Air 01/06/25 12:20 Airway Mallampati Class: II TM Dist: >3cm Neck ROM: Full Partial: Upper Heart: S1S2 Lungs: CTAB Assessment and Plan Assessment Anesthesia Assessment: Anesthesia Plan Discussed and Chart Reviewed Final Anesthetic Review Family History of Problems with Anesthesia: No History of Problems with Anesthesia: No NPO: Yes ASA Class: III Final Preanesthetic Review: No Changes in Pt Med Stat, Meds/Allgs Chart Reviewed, Consent Obtained/Reviewed and Anes Risks/Benef Reviewed Patient Risk: Intermediate Procedure Risk: Low Anesthetic Plan Anesthetic Plan: GA and Agree w/ Assess. and Plan Disposition: Standard PACU
[2025-01-06 12:24] LABS: Glucose, Whole Blood 144 mg/dL (60-115)
--- NOTE | 2025-01-06 12:27 | MHC.SHP ---
Pre-Procedural Eval Section A - 24 Hr Update-Section A only Date of Service: 01/06/25 The patient is an INPATIENT: No Changes since office visit: No Cold of Flu in the past 2 weeks, No New Medical Problems, No Changes in Medication and No Patient answered all questions The patient has been examined within 24 hours of the surgical procedure. The History & Physical has been completed within 30 days and I have reviewed it.: Yes Section B - Complete if H&P > 30 days Chief Complaint: Carpal tunnel syndrome, right upper limb Allergies: Allergies Allergy/AdvReac Type Severity Reaction Status Date / Time adhesive tape Allergy Intermediate Rash Verified 01/05/25 14:32 bacitracin Allergy Rash Verified 01/05/25 14:32 cefazolin AdvReac Severe Rash Verified 01/05/25 14:32 clopidogrel [From Plavix] AdvReac Severe Rash Verified 01/05/25 14:32 oxycodone AdvReac Hallucinati Verified 01/05/25 14:32 ons Plan I have reviewed the history and physical and performed a pertinent physical examination on my patient. No changes have occurred unless specified. Time Spent With Patient Time: Total time managing care of this patient today ____ minutes.
--- NOTE | 2025-01-06 12:27 | W.PM.OPN ---
Operative Note Operative Note Date of Service: 01/06/25 Narrative: Operative Note Narrative: Preop diagnosis: 1. Right hand possible postop infection Postop diagnosis: Same Procedure: 1. Right hand I&D of carpal tunnel 2. Right wrist flexor tenosynovectomy 3. Right middle finger A1 carlton release and I&D a flexor tendon sheath 4. Right index finger A1 carlton release and I and D of flexor tendon sheath Surgeon: Sulma Pelayo MD [employer] Driver: None Anesthesia: General Anesthesia Findings: Tenosynovium including flexor tendons and median nerve appeared to be tense and under pressure. He appears to have chronic flexor tenosynovitis with abundant hypertrophic tenosynovium as well as an acute picture with cloudy purulent fluid about the flexor tendons within the carpal tunnel. Passively flexing the fingers appear to result in increased fluid within the carpal tunnel. However when the index and middle finger flexor tendon sheaths were open I did not see clear evidence of purulence. Implants: None Tourniquet time: 45 minutes EBL: 5.0 ml Specimen: Cultures taken of carpal tunnel site, routine cultures were also taken from the flexor tenosynovium and then I also sent tissue cultures for AFB and fungus of the flexor tenosynovium. A specimen of the hypertrophic tenosynovium was also sent to pathology with request to also evaluate for possible RA indicators Drains: None Complications: None Disposition: Brought to the recovery room in stable condition Plan: Admit to the floor for IV antibiotics Check cultures and perform a wound check by ortho in 1-2 days. Daily nursing dressing changes after that Encourage finger range of motion. OT consult bite day 2 if not moving fingers. Follow-up with ortho within 5 days of discharge for wound check and to check cultures. Indications: The patient is a 74 year old man with increasing right hand pain and swelling 7 days status post right carpal tunnel release . The risks and benefits of operative treatment, including but not limited to risk of damage to blood vessels, nerves, tendons, infection, recurrence, persistent pain or numbness, incomplete resolution of preoperative symptoms, or need for further surgery were discussed with the patient and they wished to proceed with surgery. Procedure: Once consent was obtained patient was brought back to the operating suite and placed in the operating table in a supine position. . Anesthesia was administered by the anesthesia team. A tourniquet was applied to the proximal aspect of the right upper extremity and the limb was prepped and draped in a standard surgical fashion. The limb was elevated and the tourniquet inflated to 250 mm of mercury for a total tourniquet time of 45 minutes. The sutures were removed from the carpal tunnel incision site. I then open the carpal tunnel wound and did not encounter any obvious gross purulence. I did obtain routine cultures from this wound bed. However, the tenosynovium about the tendons and the median nerve was noted to be tense and enlarge. I slightly extended the proximal aspect of the incision by about 1.5 cm in a zigzag fashion using a 15. Blade. I then released the volar forearm fascia over the median nerve in his distal aspect of the forearm. Once encountering the median nerve it was protected and I opened up the a tenosynovial sac ulnar to the nerve in a longitudinal fashion. There I appreciated that he indeed had some chronic hypertrophic tenosynovium about all of the flexor tendons within the carpal tunnel. There was also some cloudy fluid which increased with finger flexion. I obtained cultures of this fluid from about the flexor tenosynovium. I then performed a tenosynovectomy removing the hypertrophic tenosynovium from about the flexor tendons as they passed through the carpal tunnel. This was done carefully while protecting the median nerve. I used iris scissors and a small rongeur. Some of this hypertrophic tenosynovium was sent for AFB and fungal cultures. Another set was sent in formalin for pathology with a request that they also evaluated for possible signs of rheumatoid arthritis. This appears to represent an acute on chronic flexor tenosynovitis. Because he was also having difficulty with flexing his fingers since about 3 days ago I performed A1 carlton releases of the index and middle fingers to I&D the flexor tendon sheath. For both of these digits I made 1.5 cm oblique incisions using 15. Blades. I then dissected down to the flexor tendon sheath for both the middle and index fingers. I then released the A1 pulleys longitudinally using a 15. Blade. Upon evaluating the flexor tendons I did not see any gross purulence in either the flexor tendon sheath of the middle finger or the index finger. The flexor tendons and median nerve were then copiously irrigated with normal saline both with in the carpal tunnel and also extending from the index and middle finger A1 pulleys proximally. I used a 10 mL syringe with an Angiocath to irrigate retrograde from the A1 pulleys to the carpal tunnel. Again the carpal tunnel was copiously irrigated with normal saline. At this point the tourniquet was deflated and hemostasis obtained with a brief period of local pressure . The wound was copiously irrigated with normal saline. The skin edges were loosely reapproximated with 4-0 nylon suture, allowing for possible drainage.. The wounds were infiltrated with some 1% lidocaine with epinephrine for postop pain control and a sterile dressing was applied. The patient appears to have tolerated the procedure well and with no complications. All digits were well vascularized conclusion of the case.
[2025-01-06] MEDS: Lactated Ringers 1,000 ML 50 ML IVCONT ×2 (12:38→16:25)
--- NOTE | 2025-01-06 15:37 | P.CONHOSP_ITS ---
History of Present Illness Data of Consult Service Date: 01/06/25 Primary Care Provider: Ada Morris MD [facility] Reason for consult: Medical consult 74-year-old male with a history of hypertension, diabetes with peripheral neuropathy, coronary artery disease, pacemaker, history of UT and GERD who was admitted for further management of postoperative wound infection. Patient is status post right carpal tunnel release from 12/31/[address] Pelayo who would then for a postoperative visit due to continued pain tenderness and swelling. He was taken back to the OR 01/06/[address] Pelayo. Cultures were taken of carpal tunnel site, routine cultures were also taken from the flexor tenosynovium and cultures for AFB and fungus of the flexor tenosynovium. Other cultures were sent for RA indicators. Perioperatively he received 2 doses of clindamycin as well as a loading dose of vancomycin. On exam he is awake and alert denies any pain. He received nerve blocks and has decreased sensation to his fingers at this time. He denies any shortness of breath, dizziness, lightheadedness, chest pain, abdominal pain or other concerning symptoms. Review of Systems 2 Review of Systems: Denies any shortness of breath, chest pain, dizziness, lightheadedness, abdominal pain or discomfort, nausea vomiting or diarrhea [facility] Medical History (Updated 01/06/25 @ 16:08 by Mechelle Steve DNP) FH: total knee replacement Macular degeneration Legally blind Skin cancer GERD (gastroesophageal reflux disease) Myocardial infarction Hemorrhoids Diverticulosis Peripheral neuropathy Right bundle branch block Microalbuminuria Cataracts, bilateral Tubular adenoma Diabetes Hearing loss Osteoarthritis Tobacco use disorder Obesity (BMI 30-39.9) Sleep apnea CAD (coronary artery disease) Syncope Pleural effusion Pacemaker Abnormal PFT Skin lesions HTN (hypertension) Macular degeneration of both eyes Osteoarthritis of right knee Surgical History History of nasal surgery Hx of bilateral cataract extraction Hx of tonsillectomy Hx of cholecystectomy Hx of appendectomy H/O colonoscopy Hx of CABG History of thoracentesis History of left knee replacement (~2013) History of left hip replacement (~2000) History of right hip replacement (~2000) Social History Household Members: Spouse Housing: House Housing Other:: stairs into house and within house Are you a primary career orientation teacher to a significant other at home: No Do you presently have visiting nurse or other home services: No Comment: pt rings appropriately Patient Tobacco Use Status: Former Tobacco user Use of substances other than those prescribed or required for medical reasons: No Currently Displaying Signs/Symptoms of Drug Intoxication Withdrawal: No Have you been hit, kicked, punched, or otherwise hurt by someone within the past year? If so, by whom?: No Do you feel safe in your current relationship?: Yes Is there a partner from a previous relationship who is making you feel unsafe now?: No Are you made to feel afraid or neglected: No Yazidi Healthcare Practices: shinto Are you DNR?: No Advance Directives: No Advance Directives Information Provided: Yes Do you have a plan to hurt others: No Plan Recently lost weight without trying: No Nutrition Risks: No Nutritional Risk Poor oral hygiene: No service: No Current occupational status: retired Meds Allergies Allergy/AdvReac Type Severity Reaction Status Date / Time adhesive tape Allergy Intermediate Rash Verified 01/05/25 14:32 bacitracin Allergy Rash Verified 01/05/25 14:32 cefazolin AdvReac Severe Rash Verified 01/05/25 14:32 clopidogrel [From Plavix] AdvReac Severe Rash Verified 01/05/25 14:32 oxycodone AdvReac Hallucinati Verified 01/05/25 14:32 ons Active Medications: Current Medications Fentanyl (Fentanyl Citrate/Pf 100 Mcg/2 Ml Vial) 50 mcg IVPUSH Q5M PRN PRN Reason: Pain, Moderate to Severe (Pain Scale 4-10) Stop: 01/06/25 18:26 Haloperidol Lactate (Haloperidol Lactate 5 Mg/Ml Vial) 0.5 mg IVPUSH ONCE PRN PRN Reason: intractable nausea Stop: 01/06/25 18:27 Lactated Ringer's (Lr) 1,000 mls @ 50 mls/hr IVCONT .Q20H NELLIE Last Admin: 01/06/25 12:38 Dose: 50 mls/hr Vancomycin HCl (Vancomycin/Ns) 2,000 mg in 500 mls @ 250 mls/hr IV ONCE ONE Stop: 01/06/25 17:59 Naloxone HCl (Naloxone Hcl 0.4 Mg/Ml Vial) 0.04 mg IVPUSH Q5M PRN PRN Reason: Excessive sedation or RR < 8 Pharmacy Consult (Consult Rx Vancomycin Dosing) 1 each MISCELLANE DAILY PRN PRN Reason: Consult order Home Medications ?Medication ?Instructions ?Recorded ?Confirmed ?Last Taken ?Type aspirin 81 mg tablet,delayed 81 mg PO DAILY 01/29/23 01/06/25 01/05/25 History release (Adult Aspirin Regimen) linagliptin 5 mg tablet (Tradjenta) 5 mg PO DAILY 08/29/23 01/06/25 01/05/25 History valsartan 160 mg tablet 160 mg PO DAILY 08/29/23 01/06/25 01/05/25 History acetaminophen 500 mg tablet 1,000 mg PO DAILY PRN Pain 04/23/24 01/06/25 Unknown History dqgyyuwciiqw-jufnqqgd-othgch tablet 1 tab PO DAILY 04/23/24 01/06/25 01/05/25 History vit C 250 mg-vit E 90 mg-zinc 40 2 tab PO DAILY 04/24/24 01/06/25 01/05/25 History mg-copper 1 lt-lfyimd-drsanl capsule (PreserVision AREDS-2) metformin 500 mg tablet,extended 500 mg PO DAILY 05/04/24 01/06/25 01/05/25 History release 24 hr rosuvastatin 5 mg tablet 5 mg PO DAILY 07/23/24 01/06/25 01/05/25 History meloxicam 15 mg tablet 15 mg PO DAILY 01/06/25 01/06/25 01/05/25 History Physical Exam 2 Vital Signs and Narrative: Vital Signs: Last Vital Signs Temp 97.8 F 01/06/25 14:30 Pulse 77 01/06/25 15:15 Resp 16 01/06/25 15:15 BP 155/75 H 01/06/25 15:15 Pulse Ox 98 01/06/25 15:15 O2 Del Method Room Air 01/06/25 15:15 O2 Flow Rate 4 01/06/25 14:30 BMI result Body Mass Index 29.6 CONST: Alert and oriented, in NAD. Well nourished HEENT: Normocephalic, atraumatic, MMM, Eyes clear, Neck supple RESP: Lungs clear, RRR even and regular HEART:,RRR, S1, S2. No murmur, no edema GI:Abdomen Soft NT, ND. + BS times four :Deferred SKIN: Warm dry and intact, no visible lesions or rashes. Dressing intact. Wiggles fingers NEURO:CN II-XII Intact bilaterally, Sensation intact. Speech clear PSYCH: Normal affect Results Labs 01/07/25 05:59 Labs: Laboratory Results - last 24 hr 01/06/25 12:19 POC Glucose 144 H Assessment and Plan (1) Postoperative wound infection: Status: Acute Plan Status post right carpal tunnel surgery with postop infection Follow cultures Wound check by ortho in 1-2 days. Encourage finger range of motion. OT consult day 2 if not moving fingers. Follow-up with ortho within 5 days of discharge for wound check and to check cultures. Continue vancomycin daily- Had loading dose. Levaquin 750 mg p.o. daily Patient has a history of C diff in August, we will treat with vanco 125 QID empirically Diabetes with peripheral neuropathy Follow blood sugars AC and HS, cover with sliding scale Continue metformin 500 mg daily and Tradjenta Hypertension/CAD/Pacemaker Continue valsartan 160 mg daily Continue aspirin No longer taking metoprolol per patient.
[2025-01-06 16:07] LABS: Estimated Glomerular Filt Rate > 60
[2025-01-06] MEDS: levoFLOXacin 750 MG TABLET PO (16:24)
[2025-01-06] MEDS: vancomycin HCL 125 MG CAPSULE PO ×2 (16:24→21:32)
[2025-01-06] MEDS: vancomycin/NS 2,000 MG/500 ML PLAST..BAG 250 MG IV (16:28)
[2025-01-06 16:45] LABS: Glucose, Whole Blood 192 mg/dL (60-115)
--- NOTE | 2025-01-06 16:45 | PHA.PROG ---
Admission Date/Time: January 06, 2025 14:50 Indication: skin/bone; Per Dr. Pelayo patient has a deep hand infection. Weight in k.497 kg Adjusted body weight in Kg: [place] body weight in Kg: Obesity Dosing Indication % IBW: Serum Creatinine - Last 168 Hours 01/06/25 15:36 Creatinine 1.03 Estimated CrCl and GFR - Last 168 Hours 01/06/25 15:36 Estim Creat Clear Calc 70.0 Estimated GFR > 60 Vancomycin Loading Dose: 2000mg x 1 Current Vancomycin Dosing Regimen: 1500mg Q24H Vancomycin Monitoring using AUC goal of 400 - 600 range with trough as surrogate marker: 458 mg/L Date and Time for next Vancomycin Level to be drawn: 01/09 @1500 Pharmacist Comments on Vancomycin Plan: Predicted trough of 13.1 mg/L Vancomycin dosing will take advantage of [employer] as a clinical decision support tool that uses Bayesian modeling to calculate individual patient's pharmacokinetic parameters and forecast the patient's drug concentration time course with the target goal AUC 24 range of 400 - 600 mg/L/hr.
[2025-01-06] MEDS: metFORMIN HCl 500 MG TABLET PO (17:07)
--- NOTE | 2025-01-06 17:09 | PC.NURSE ---
Patient seen by Dr. Holden now
[2025-01-06] MEDS: HYDROcodone Bit/Acetam 5/325 TABLET 2 TAB PO ×2 (17:27→21:32)
[2025-01-06] MEDS: Insulin Lispro 100 UNIT/ML 3 ML VIAL SUBCUT (17:30)
--- NOTE | 2025-01-06 17:32 | PC.NURSE ---
Pharmacy notified of need for med rec to be completed
--- NOTE | 2025-01-06 17:59 | PHA.MEDREC ---
Pharmacy Consult ? Medication Reconciliation Pharmacy has completed the medication reconciliation. Spoke to patient at bedside, able to confirm most medications. Noted that he takes the metformin once daily despite the claim being outdated bc they gave him 180 tablets. Takes all medications in the morning.
[2025-01-06 20:26] LABS: Glucose, Whole Blood 151 mg/dL (60-115)
[2025-01-07] MEDS: Melatonin 3 MG TABLET 9 MG PO (01:20)
[2025-01-07] MEDS: HYDROcodone Bit/Acetam 5/325 TABLET 2 TAB PO ×3 (01:21→16:25)
[2025-01-07 03:29] VITALS: BP 155/73; PULSE 65; RESP 20; TEMP 36.5; O2SAT 94
[2025-01-07] MEDS: vancomycin HCL 125 MG CAPSULE PO ×4 (03:41→21:00)
[2025-01-07 06:38] LABS: Estimated Glomerular Filt Rate > 60
[2025-01-07 07:31] LABS: Glucose, Whole Blood 117 mg/dL (60-115)
[2025-01-07 07:37] VITALS: BP 157/70; PULSE 72; RESP 18; TEMP 36.8; O2SAT 98
--- NOTE | 2025-01-07 08:26 | HO.POSTANES ---
Post Anesthesia Evaluation Post Anesthesia Evaluation Date of Service: 01/07/25 Vital Signs: Vital Signs Temp Pulse Resp BP Pulse Ox O2 Del Method 01/07/25 07:37 98.3 F 72 18 157/70 H 98 Room Air 01/07/25 03:29 97.7 F 65 20 155/73 H 94 Room Air Anesthesia: General Endotracheal-GETA Mental Status: Awake Pain Control: Satisfactory Nausea/Vomiting: None Hydration: Adequate Anesthesia-Related Issues: No Anes. Related Issues
[2025-01-07] MEDS: Atorvastatin Calcium 20 MG TABLET PO (08:34)
[2025-01-07] MEDS: Multivitamin TABLET 1 TAB PO (08:34)
[2025-01-07] MEDS: metFORMIN HCl 500 MG TABLET PO (08:34)
[2025-01-07] MEDS: Aspirin Enteric Coated 81 MG TABLET.DR PO (08:34)
[2025-01-07] MEDS: Valsartan 160 MG TABLET PO (08:34)
--- NOTE | 2025-01-07 09:43 | PM.PNORT ---
Subjective Subjective Date of Service: 01/07/25 Interval history: Postop day 1 status post I and D of right hand Patient resting comfortably in bed this morning Pain well managed, improved from preop No acute events overnight No other acute complaints or concerns at this time Physical Exam Vital Signs: Vital Signs: Last Vital Signs Temp 98.3 F 01/07/25 07:37 Pulse 72 01/07/25 07:37 Resp 18 01/07/25 07:37 BP 157/70 H 01/07/25 07:37 Pulse Ox 98 01/07/25 07:37 O2 Del Method Room Air 01/07/25 07:37 O2 Flow Rate 4 01/06/25 14:30 BMI result Body Mass Index 29.6 Extrem: Other: Dressing on right hand clean, dry, intact No evidence of surrounding erythema, ecchymosis No evidence of infection Patient is able to flex and extend the digits of the left hand minimally Compartments soft, nontender Distal sensation intact Capillary refill brisk Procedures Date of Service Date of Service: 01/07/25 Progress Note: A&P Assessment and plan (1) Postoperative wound infection: Status: Acute (2) Carpal tunnel syndrome of right wrist: Status: Acute Plan 1. Status post I and D of right hand DOS 01/06/2025 Dressing to remain intact until tomorrow 1st dressing change tomorrow with Orthopedics, daily dressing changes per nursing afterwards Continue IV antibiotics Continue pain management Dispo planning-improvement in infectious symptoms, pain management Time Spent With Patient Time: Total time managing care of this patient today ____ minutes. Quality Stroke Does the patient have a stroke diagnosis?: No VTE Prior VTE?: No VTE Risk Level:: Surgical - low VTE Device Contraindication: Treatment Not Indicated VTE Drug Contraindication: Treatment Not Indicated
[2025-01-07 11:32] LABS: Glucose, Whole Blood 133 mg/dL (60-115)
--- NOTE | 2025-01-07 12:02 | P.PNIM_ITS ---
Subjective Subjective Date of Service: 01/07/25 Interval History: c/o R hand pain no chest pain or dyspnea no fever Review of Systems Review of Systems: Yes all other systems are reviewed and are negative Physical Exam 2 Vital Signs: Vital Signs: Last Vital Signs Temp 98.3 F 01/07/25 07:37 Pulse 72 01/07/25 07:37 Resp 18 01/07/25 07:37 BP 157/70 H 01/07/25 07:37 Pulse Ox 98 01/07/25 07:37 O2 Del Method Room Air 01/07/25 07:37 O2 Flow Rate 4 01/06/25 14:30 BMI result Body Mass Index 29.6 Gen: in no acute distress HEENT: sclera anicteric, moist mucus membranes Neck: supple Lungs: clear to auscultation bilaterally Heart: regular rate and rhythm, no murmurs Abd: soft, non-tender, non-distended Ext: no edema, R hand in dressing; distally sensation is intact and can move the fingers a little bit, cap refill normal Skin: warm/well-perfused Neuro: alert and oriented x3, no focal findings Psych: appropriate affect Objective Data Active Medications Hydrocodone Bitart/Acetaminophen (Hydrocodone Bit/Acetam 5/325 Tablet) 2 tab PO Q4H PRN PRN Reason: Pain, Moderate(Pain Scale 4-6) Last Admin: 01/07/25 08:33 Dose: 2 tab Documented By: KIM Aspirin (Aspirin Enteric Coated 81 Mg Tablet.Dr) 81 mg PO DAILY [facility] Last Admin: 01/07/25 08:34 Dose: 81 mg Documented By: KIM Atorvastatin Calcium (Atorvastatin Calcium 20 Mg Tablet) 20 mg PO DAILY [facility] Last Admin: 01/07/25 08:34 Dose: 20 mg Documented By: KIM Lactated Ringer's (Lr) 1,000 mls @ 50 mls/hr IVCONT .Q20H [facility] Last Admin: 01/06/25 16:25 Dose: 50 mls/hr Documented By: LUC Vancomycin HCl 1,500 mg/ (Sodium Chloride) 500 mls @ 333.333 mls/hr IV Q24H [facility] Insulin Human Lispro (Insulin Lispro 100 Unit/Ml 3 Ml Vial) 0 unit SUBCUT TIDAC [facility]; Protocol Last Admin: 01/07/25 11:39 Dose: Not Given Documented By: KIM Non-Admin Reason: No Insulin Coverage Levofloxacin (Levofloxacin 750 Mg Tablet) 750 mg PO Q24H [facility] Last Admin: 01/06/25 16:24 Dose: 750 mg Documented By: LUC Melatonin (Melatonin 3 Mg Tablet) 9 mg PO BEDTIME PRN PRN Reason: Insomnia Last Admin: 01/07/25 01:20 Dose: 9 mg Documented By: SABA Metformin HCl (Metformin Hcl 500 Mg Tablet) 500 mg PO DAILY [facility] Last Admin: 01/07/25 08:34 Dose: 500 mg Documented By: KIM Multivitamins/Vitamin C (Multivitamin Tablet) 1 tab PO DAILY [facility] Last Admin: 01/07/25 08:34 Dose: 1 tab Documented By: KIM Pharmacy Consult (Consult Rx Vancomycin Dosing) 1 each MISCELLANE DAILY PRN PRN Reason: Consult order Valsartan (Valsartan 160 Mg Tablet) 160 mg PO DAILY [facility]; Protocol Last Admin: 01/07/25 08:34 Dose: 160 mg Documented By: KIM Vancomycin HCl (Vancomycin Hcl 125 Mg Capsule) 125 mg PO Q6H [facility] Last Admin: 01/07/25 10:31 Dose: 125 mg Documented By: KIM Labs 01/07/25 05:59 Labs: Laboratory Results - last 24 hr 01/06/25 01/06/25 01/06/25 12:19 15:36 16:39 Hold Purple Top Estim Creat Clear Calc 70.0 Estimated GFR > 60 POC Glucose 144 H 192 H 01/06/25 01/07/25 01/07/25 20:04 05:59 07:14 Hold Purple Top SEE NOTE Estim Creat Clear Calc 82.0 Estimated GFR > 60 POC Glucose 151 H 117 H 01/07/25 11:22 Hold Purple Top Estim Creat Clear Calc Estimated GFR POC Glucose 133 H Microbiology Microbiology Results: Microbiology 01/06/25 00:00 Gram Stain - Final Hand Right Routine Culture - Preliminary Bacillus species 01/06/25 00:00 Gram Stain - Final Hand - Right Routine Culture - Preliminary Bacillus species Assessment and Plan (1) Postoperative wound infection: Status: Acute (2) Tenosynovitis: Status: Acute Plan 74yo M with CAD s/p CABG + PPM, DM with neuropathy, hx C. difficile infection and HTN who underwent R carpal tunnel release 12/31 but then was taken back to the OR 01/06 due to pain and swelling concerning for postoperative wound infection +/- tenosynovitis. Hospitalist consult for antibiotic management postoperative wound infection/tenosynovitis - POD#1 I+D and tenosynovectomy; follow intraoperative cultures, continue vancomycin and levofloxacin 01/06-, ID consultation, PO vancomycin while on systemic antibiotics due to hx of C. difficile infection DM2 with neuropathy - MTF, correction-dose lispro HTN - valsartan CAD - ASA, atorvastatin VTE ppx - SCDs dispo - eventual home Thank you for this consultation. We will continue to follow the patient while they are admitted to your service. Total time managing care of this patient today: 40 minutes. Quality Stroke Does the patient have a stroke diagnosis?: No VTE Prior VTE?: No VTE Risk Level:: Surgical - low VTE Device Contraindication: Treatment Not Indicated VTE Drug Contraindication: Treatment Not Indicated
[2025-01-07] MEDS: Ibuprofen 600 MG TABLET PO ×2 (12:46→21:00)
--- NOTE | 2025-01-07 14:08 | MHC.CM.PN ---
Addendum entered by Melvina Deng 01/08/25 14:35: PT TO DC HOME TODAY WITH NO SERVICES Original Note: PT REPORTS HE LIVES WITH HIS AND IS INDEPENDENT WITH CARE PT HAS NO SERVICES, HE USES A CANE PRN HCP ON FILE PCP: SUHAIL SEWELL IMM DELIVERED DCP: HOME, TO TRANSPORT
[2025-01-07 15:29] VITALS: BP 157/71; PULSE 69; RESP 18; TEMP 37.7; O2SAT 96
[2025-01-07 15:35] LABS: Glucose, Whole Blood 145 mg/dL (60-115)
[2025-01-07] MEDS: vancomycin HCL 1,500 MG in 0.9 % Sodium Chloride 500 ML 333.33 MG IV (16:24)
[2025-01-07] MEDS: levoFLOXacin 750 MG TABLET PO (16:24)
[2025-01-07 19:52] LABS: Glucose, Whole Blood 133 mg/dL (60-115)
[2025-01-07 19:53] VITALS: BP 150/70; PULSE 65; RESP 18; TEMP 36.8; O2SAT 97
[2025-01-07] MEDS: traZODone HCL 50 MG TABLET PO (22:28)
[2025-01-08] MEDS: Melatonin 3 MG TABLET 9 MG PO (01:27)
[2025-01-08] MEDS: HYDROcodone Bit/Acetam 5/325 TABLET 2 TAB PO ×3 (01:28→14:28)
[2025-01-08 04:00] VITALS: BP 162/78; PULSE 73; RESP 20; TEMP 36.6; O2SAT 95
[2025-01-08] MEDS: vancomycin HCL 125 MG CAPSULE PO ×2 (05:23→10:20)
[2025-01-08 07:13] VITALS: BP 170/74; PULSE 73; RESP 18; TEMP 36.7; O2SAT 96
[2025-01-08 07:20] LABS: Creatinine Clr Calc Pharmacy 78.4; Estimated Glomerular Filt Rate > 60
[2025-01-08 07:39] LABS: Glucose, Whole Blood 122 mg/dL (60-115)
[2025-01-08 08:23] VITALS: BP 166/74
[2025-01-08] MEDS: Valsartan 160 MG TABLET PO (08:46)
[2025-01-08] MEDS: metFORMIN HCl 500 MG TABLET PO (08:46)
[2025-01-08] MEDS: Multivitamin TABLET 1 TAB PO (08:46)
[2025-01-08] MEDS: Aspirin Enteric Coated 81 MG TABLET.DR PO (08:46)
[2025-01-08] MEDS: Atorvastatin Calcium 20 MG TABLET PO (08:50)
--- NOTE | 2025-01-08 10:52 | HO.PM.IMPN ---
Subjective Subjective Date of Service: 01/08/25 Interval History: hand pain improved, less swollen; no fever no chest pain Review of Systems Review of Systems: Yes all other systems are reviewed and are negative Physical Exam Vital Signs: Vital Signs: Last Vital Signs Temp 98.1 F 01/08/25 07:13 Pulse 73 01/08/25 07:13 Resp 18 01/08/25 07:13 BP 166/74 H 01/08/25 08:23 Pulse Ox 96 01/08/25 07:13 O2 Del Method Room Air 01/08/25 07:13 O2 Flow Rate 4 01/06/25 14:30 BMI result Body Mass Index 29.6 Gen: in no acute distress HEENT: sclera anicteric, moist mucus membranes Neck: supple Lungs: clear to auscultation bilaterally Heart: regular rate and rhythm, no murmurs Abd: soft, non-tender, non-distended Ext: no edema, R hand in dressing; distally swelling is down from yesterday, sensation is intact and can move the fingers a little bit, cap refill normal Skin: warm/well-perfused Neuro: alert and oriented x3, no focal findings Psych: appropriate affect Objective Data Active Medications Hydrocodone Bitart/Acetaminophen (Hydrocodone Bit/Acetam 5/325 Tablet) 2 tab PO Q4H PRN PRN Reason: Pain, Moderate(Pain Scale 4-6) Last Admin: 01/08/25 10:21 Dose: 2 tab Documented By: BAIRON Aspirin (Aspirin Enteric Coated 81 Mg Tablet.) 81 mg PO DAILY [facility] Last Admin: 01/08/25 08:46 Dose: 81 mg Documented By: KIM Atorvastatin Calcium (Atorvastatin Calcium 20 Mg Tablet) 20 mg PO DAILY [facility] Last Admin: 01/08/25 08:50 Dose: 20 mg Documented By: KIM Vancomycin HCl 1,500 mg/ (Sodium Chloride) 500 mls @ 333.333 mls/hr IV Q24H [facility] Last Infusion: 01/07/25 19:32 Dose: Infused Documented By: VIC Ibuprofen (Ibuprofen 600 Mg Tablet) 600 mg PO Q6H PRN PRN Reason: Pain, Mild 1-3,fever,headache Last Admin: 01/07/25 21:00 Dose: 600 mg Documented By: VIC Insulin Human Lispro (Insulin Lispro 100 Unit/Ml 3 Ml Vial) 0 unit SUBCUT TIDAC [facility]; Protocol Last Admin: 01/08/25 07:42 Dose: Not Given Documented By: KIM Non-Admin Reason: No Insulin Coverage Levofloxacin (Levofloxacin 750 Mg Tablet) 750 mg PO Q24H [facility] Last Admin: 01/07/25 16:24 Dose: 750 mg Documented By: KIM Melatonin (Melatonin 3 Mg Tablet) 9 mg PO BEDTIME PRN PRN Reason: Insomnia Last Admin: 01/08/25 01:27 Dose: 9 mg Documented By: VIC Metformin HCl (Metformin Hcl 500 Mg Tablet) 500 mg PO DAILY [facility] Last Admin: 01/08/25 08:46 Dose: 500 mg Documented By: KIM Multivitamins/Vitamin C (Multivitamin Tablet) 1 tab PO DAILY [facility] Last Admin: 01/08/25 08:46 Dose: 1 tab Documented By: KIM Pharmacy Consult (Consult Rx Vancomycin Dosing) 1 each MISCELLANE DAILY PRN PRN Reason: Consult order Trazodone HCl (Trazodone Hcl 50 Mg Tablet) 50 mg PO BEDTIME PRN PRN Reason: Insomnia Last Admin: 01/07/25 22:28 Dose: 50 mg Documented By: VIC Valsartan (Valsartan 160 Mg Tablet) 160 mg PO DAILY [facility]; Protocol Last Admin: 01/08/25 08:46 Dose: 160 mg Documented By: KIM Vancomycin HCl (Vancomycin Hcl 125 Mg Capsule) 125 mg PO Q6H [facility] Last Admin: 01/08/25 10:20 Dose: 125 mg Documented By: BAIRON Labs 01/08/25 06:36 Labs: Laboratory Results - last 24 hr 01/07/25 01/07/25 01/07/25 11:22 15:28 19:45 Hold Purple Top Estim Creat Clear Calc Estimated GFR POC Glucose 133 H 145 H 133 H 01/08/25 01/08/25 06:36 07:17 Hold Purple Top SEE NOTE Estim Creat Clear Calc 78.4 Estimated GFR > 60 POC Glucose 122 H Microbiology Microbiology Results: Microbiology 01/06/25 00:00 Gram Stain - Final Hand - Right Routine Culture - Preliminary Bacillus species 01/06/25 00:00 Gram Stain - Final Hand Right Routine Culture - Preliminary Bacillus species Assessment and Plan (1) Postoperative wound infection: Status: Acute (2) Tenosynovitis: Status: Acute Plan 74yo M with CAD s/p CABG + PPM, DM with neuropathy, hx C. difficile infection and HTN who underwent R carpal tunnel release 12/31 but then was taken back to the OR 01/06 due to pain and swelling concerning for postoperative wound infection +/- tenosynovitis. Hospitalist consult for antibiotic management postoperative wound infection/tenosynovitis - POD#2 I+D and tenosynovectomy; follow intraoperative cultures- growing Bacillus spp. of unclear significance, continue vancomycin and levofloxacin 01/06-, ID consultation pending, PO vancomycin while on systemic antibiotics due to hx of C. difficile infection DM2 with neuropathy - MTF, correction-dose lispro HTN - valsartan CAD - ASA, atorvastatin VTE ppx - SCDs dispo - eventual home Thank you for this consultation. We will continue to follow the patient while they are admitted to your service. Total time managing care of this patient today: 35 minutes. Quality Stroke Does the patient have a stroke diagnosis?: No VTE Prior VTE?: No VTE Risk Level:: Surgical - low VTE Device Contraindication: Treatment Not Indicated VTE Drug Contraindication: Treatment Not Indicated
[2025-01-08 11:35] LABS: Glucose, Whole Blood 142 mg/dL (60-115)
[2025-01-08] MEDS: Ibuprofen 600 MG TABLET PO (13:58)
--- NOTE | 2025-01-08 14:07 | PM.DS ---
DS: Providers Provider Date of Service: 01/08/25 Date of admission: 01/06/25 14:50 Date of discharge: 01/08/25 Primary care physician: Ada Morris MD Consults: 01/06/25 16:11 Consult to Hospitalist Routine Comment: Consulting Provider: [facility] Hospitalists Reason For Exam: please manage diabetes, anti biotics, medical cond 01/07/25 08:24 Consult to Infectious Diseases Routine Consulting Provider: [facility] Reason for consultation: postop tenosynovitis, cultures pending DS: Diagnosis Discharge Diagnosis (1) Postoperative wound infection: Status: Acute (2) Tenosynovitis: Status: Acute DS: Summary Hospital Course Hospital Course: The patient underwent a successful irrigation and debridement of the right hand on, was transferred to PACU and then to the floor to recover. During their stay, their vitals were stable, afebrile at 98.1. Occupational therapy should include range of motion with a 2 lb weight limit in the right hand Prior to discharge, his dressing was changed, incision clean dry and intact, new dressing applied. The dressing should be changed daily, with protection while in the shower. Dressing should not get wet, dirty, damaged. The plan is to be discharged Time Attestation Discharge Coordination Time (in mins): 30 Quality: Safe Use of Opioids Does Pt have an Active Cancer Diagnosis on the Problem List?: No Quality: Stroke Does the patient have a stroke diagnosis?: No Physical Exam Vital Signs: Vital Signs: Last Vital Signs Temp 98.1 F 01/08/25 07:13 Pulse 73 01/08/25 07:13 Resp 18 01/08/25 07:13 BP 166/74 H 01/08/25 08:23 Pulse Ox 96 01/08/25 07:13 O2 Del Method Room Air 01/08/25 07:13 O2 Flow Rate 4 01/06/25 14:30 BMI result Body Mass Index 29.6 Extrem: Other: Dressing on right hand clean, dry, intact When dressing is removed, edema and erythema of the right hand have improved significantly since yesterday No evidence of surrounding ecchymosis No evidence of infection Patient is able to flex and extend the digits of the left hand minimally, with improvement of range of motion since yesterday Compartments soft, nontender Distal sensation intact Capillary refill brisk DS: Data Data Completed and Pending Completed studies during hospitalization [Text1]: Procedures Introduction of Anesthetic Agent into Peripheral Nerves and Plexi, Percutaneous Approach (05/04/24) Replacement of Right Knee Joint with Synthetic Substitute, Cemented, Open Approach (05/04/24) Pending studies at discharge: Pending at discharge 01/06/25 13:44 Surgical Path [Surgical] [PTH] Routine Labs on day of discharge: Laboratory Results - last 24 hr 01/07/25 01/07/25 01/08/25 15:28 19:45 06:36 Hold Purple Top SEE NOTE Creatinine 0.92 Estim Creat Clear Calc 78.4 Estimated GFR > 60 POC Glucose 145 H 133 H 01/08/25 01/08/25 07:17 11:28 Hold Purple Top Creatinine Estim Creat Clear Calc Estimated GFR POC Glucose 122 H 142 H Preliminary micro results at discharge 01/06/25 00:00 Routine Culture - Preliminary Hand Right Bacillus species 01/06/25 00:00 Routine Culture - Preliminary Hand - Right Bacillus species Discharge Plan Discharge Anticipated Discharge Date/Time: 01/08/25 13:44 Patient Disposition: Home, Self-Care Discharge Diagnosis: Wound infection s/p R CTR Referrals: Xander Brown PA [Physician State Auditor] - 1 Week (01/13/25 11:00 [facility] [place] Orthopedic Surgeons Xander Brown PA) Ada Morris MD [Primary Care Provider] - 1 Week Discharge Medications: New hydrocodone-acetaminophen 5-325 mg Tablet 1 tab PO Q4H PRN (Reason: Pain, Moderate(Pain Scale 4-6)) 6 Days Qty: 25 0RF Rx Instructions: Partial Fill upon patient request. ibuprofen 600 mg Tablet 600 mg PO Q6H PRN (Reason: Pain, Mild 1-3,Fever,Headache) 14 Days Qty: 56 0RF doxycycline hyclate 100 mg tablet 100 mg PO BID 10 Days Qty: 20 0RF Continued (DME) travis [facility] See Rx Instructions .ROUTE .MEDSUPPLY Qty: 1 0RF Rx Instructions: Folding front wheeled walker acetaminophen 500 mg Tablet 1,000 mg PO DAILY PRN (Reason: Pain) reeltstzaxrw-bpqmcwyk-shvonn Tablet 1 tab PO DAILY PreserVision AREDS-2 250-90-40-1 mg Capsule 2 tab PO DAILY metformin 500 mg tablet extended release 24 hr 500 mg PO DAILY meloxicam 15 mg tablet 15 mg PO DAILY rosuvastatin 5 mg tablet 5 mg PO DAILY aspirin [Adult Aspirin Regimen] 81 mg tablet,delayed release (DR/EC) 81 mg PO DAILY valsartan 160 mg tablet 160 mg PO DAILY Tradjenta 5 mg tablet 5 mg PO DAILY Discharge Orders: Discharge Order (Routine); Ordered 01/08/25 Ordered By: Xander Brown Diet: Advance to usual diet Activity on Discharge: As tolerated Stand Alone Forms: Patient Portal Discharge page Print Language: Vietnamese Care Plan Goals: Restore normal function of right hand Health Concerns: Postoperative infection status post right carpal tunnel release Plan of Treatment: Daily dressing changes Antibiotic ointment, gauze pads, Eileen, Coban/Alexx bandage Continue motion exercises of right hand Attend outpatient occupational therapy upon discharge, order placed Keep incision sites clean, dry, intact 2 lb weight limit right hand Assessment: Stable for discharge
== END 2025-01-08 14:32 | disposition home or self-care (01) | DRG 858 ==
LOC: HO.SSSA 14:51 → HO.S3 15:24
PROVIDERS: Admitting Provider Orthopaedic Surgery; PCP Internal Medicine; Visit Provider Orthopaedic Surgery
PROC: 0LN70ZZ Release Right Hand Tendon, Open Approach (ICD-10-PCS; principal; 2025-01-06 12:10)
DX: T81.42XA Infection following a procedure, deep incisional surgical site, initial encounter (principal); I25.10 Atherosclerotic heart disease of native coronary artery without angina pectoris; E11.42 Type 2 diabetes mellitus with diabetic polyneuropathy; I10 Essential (primary) hypertension; M65.941 Unspecified synovitis and tenosynovitis, right hand; Z95.0 Presence of cardiac pacemaker; Z79.82 Long term (current) use of aspirin; Z79.899 Other long term (current) drug therapy
CPT/HCPCS: 36415; 82565; 82947; 87070; 87077; 87102; 87116; 87186; 87205; 87206; 88304; 99212; J0736; J2003; J2004; J2371; J2405; J2704; J3010; J3370; J3371; J7120

== ENCOUNTER → 2025-01-06 14:50 | Outpatient (BNV) | payer MEDICARE, OTHER, SELFPAY | PROVIDERS: Admitting Provider Orthopaedic Surgery; PCP Internal Medicine; Visit Provider Nurse Practitioner Family | DX: T81.49XA Infection following a procedure, other surgical site, initial encounter (principal); M65.90 Unspecified synovitis and tenosynovitis, unspecified site | CPT/HCPCS: 99232 ==

== ENCOUNTER → 2025-01-06 14:50 | Outpatient (BNV) | payer MEDICARE, OTHER, SELFPAY | PROVIDERS: Admitting Provider Orthopaedic Surgery; PCP Internal Medicine; Visit Provider Orthopaedic Surgery | DX: T81.49XA Infection following a procedure, other surgical site, initial encounter (principal); G56.01 Carpal tunnel syndrome, right upper limb | CPT/HCPCS: 99024 ==

== ENCOUNTER 2025-01-13 10:46 | Outpatient (AMB) | payer MEDICARE, OTHER, SELFPAY ==
--- NOTE | 2025-01-13 11:01 | A.OFFVIS_ITS ---
Vital Signs 01/13/25 11:11 Handedness Right Intake Visit Reasons: PO RT CTR I&D 01/06/25 AR Intake Note: Spencer is a 74 year old right hand dominant male who presents today for a post operative visit status post right hand I&D of carpal tunnel, right wrist flexor tenosynovectomy, right middle finger A1 carlton release and I&D a flexor tendon sheath and right index finger A1 carlton release and I&D of flexor tendon sheath DOS: 01/06/[address] Sulma Pelayo. Patient reports his hand has remained swollen since surgery. He expresses extreme pain constant daily. He has been doing daily dressing changes and states his incision is still bleeding. His has concern due to excessive blood coming out of wound causing dripping down the arm. Patient has been taking his antibiotics. Allergies adhesive tape Allergy (Intermediate, Verified 01/13/25 11:11) Rash bacitracin Allergy (Verified 01/13/25 11:11) Rash cefazolin Adverse Reaction (Severe, Verified 01/13/25 11:11) Rash clopidogrel [From Plavix] Adverse Reaction (Severe, Verified 01/13/25 11:11) Rash oxycodone Adverse Reaction (Verified 01/13/25 11:11) Hallucinations HPI HPI PO RT CTR I&D 01/06/25 AR: Details: Spencer is a 74 year old right hand dominant male who presents today for a post operative visit status post right hand I&D of carpal tunnel, right wrist flexor tenosynovectomy, right middle finger A1 carlton release and I&D a flexor tendon sheath and right index finger A1 carlton release and I&D of flexor tendon sheath DOS: 01/06/[address] Sulma Pelayo. Patient reports his hand has remained swollen since surgery. He expresses pain daily. He has been doing daily dressing changes and states his incision is still bleeding, but there was only one incident of anything beyind blood spotting on the dressing. His has concern due to excessive blood coming out of wound causing dripping down the arm. Patient has been taking his antibiotics. [facility] Medical History FH: total knee replacement Macular degeneration Legally blind Skin cancer GERD (gastroesophageal reflux disease) Myocardial infarction Hemorrhoids Diverticulosis Peripheral neuropathy Right bundle branch block Microalbuminuria Cataracts, bilateral Tubular adenoma Diabetes Hearing loss Osteoarthritis Tobacco use disorder Obesity (BMI 30-39.9) Sleep apnea CAD (coronary artery disease) Syncope Pleural effusion Pacemaker Abnormal PFT Skin lesions HTN (hypertension) Macular degeneration of both eyes Osteoarthritis of right knee Surgical History (Updated 01/13/25 @ 00:02 by Ashley Oneil) History of nasal surgery Hx of bilateral cataract extraction Hx of tonsillectomy Hx of cholecystectomy Hx of appendectomy H/O colonoscopy Hx of CABG History of thoracentesis History of left knee replacement (~2013) History of left hip replacement (~2000) History of right hip replacement (~2000) Social History Household Members: Spouse Housing: House Housing Other:: stairs into house and within house Are you a primary career law clerk to a significant other at home: No Do you presently have visiting nurse or other home services: No Comment: pt rings appropriately Patient Tobacco Use Status: Former Tobacco user service: Yes Current occupational status: retired Review of Systems Const All systems reviewed & are unremarkable except as noted in HPI and below Physical Exam Vital Signs: Last Vital Signs Temp 98.1 F 01/08/25 07:13 Pulse 73 01/08/25 07:13 Resp 18 01/08/25 07:13 BP 166/74 H 01/08/25 08:23 Pulse Ox 96 01/08/25 07:13 O2 Del Method Room Air 01/08/25 07:13 O2 Flow Rate 4 01/06/25 14:30 BMI result Body Mass Index 29.6 Extrem Other: Dressing on right hand clean, dry, intact When dressing is removed, edema and erythema of the right hand have improved significantly since admission No evidence of surrounding ecchymosis No evidence of infection Patient is able to flex and extend the digits of the left hand minimally, with improvement of range of motion since admission Patient is able to be passively brought to almost a full closed fist Compartments soft, nontender Distal sensation intact Capillary refill brisk Assessment & Plan Assessment & Plan (1) Postoperative wound infection: Code(s): T81.49XA - Infection following a procedure, other surgical site, initial encounter Category: Medical (2) Carpal tunnel syndrome of right wrist: Code(s): G56.01 - Carpal tunnel syndrome, right upper limb Category: Medical (3) Tenosynovitis: Code(s): M65.90 - Unspecified synovitis and tenosynovitis, unspecified site Category: Medical Plan 1. Status post I and D of right carpal tunnel release CTR 12/31/2024 I and D 01/06/2025 Patient appears to be recovering fairly well from his surgeries Patient is educated about the typical recovery course Pain medication refilled, antibiotics refilled Daily dressing changes Patient can begin washing the incision sites with soap and water in the sink of the shower, but should avoid any submersion Keep incision sites clean Continue to work on range of motion at home and with occupational therapy Patient expresses understanding of this and is amenable to this plan Follow-up in 1 week for wound check, anticipate suture removal at that time, sooner with any acute concerns Orders: Orders OT Evaluation and Treatment 01/13/25 G56.01 - Carpal tunnel syndrome, right upper limb, M65.90 - Unspecified synovitis and tenosynovitis, unspecified site, T81.49XA - Infection following a procedure, other surgical site, initial encounter Medications: Changed From hydrocodone-acetaminophen 5-325 mg Partial Fill upon patient request. 1 tab PO Q4H 6 days PRN 25 tabs 0RF Pain, Moderate(Pain Scale 4-6) To hydrocodone-acetaminophen 5-325 mg Partial Fill upon patient request. 1 tab PO Q4H PRN 5 tabs 0RF Pain, Moderate(Pain Scale 4-6) 2 days Refilled ibuprofen 600 mg PO Q6H PRN 56 tabs 0RF Pain, Mild 1-3,Fever,Headache 14 days doxycycline hyclate 100 mg PO BID 20 tabs 0RF 10 days Coding Level of Care Code Global (17703) Diagnoses Postoperative wound infection T81.49XA Carpal tunnel syndrome of right wrist G56.01 Tenosynovitis M65.90
== END 2025-01-13 12:15 | disposition home or self-care (01) ==
LOC: HO.HOS 10:46
DX: T81.49XA Infection following a procedure, other surgical site, initial encounter (principal); G56.01 Carpal tunnel syndrome, right upper limb; M65.90 Unspecified synovitis and tenosynovitis, unspecified site
CPT/HCPCS: 99024

== ENCOUNTER → 2025-01-13 10:46 | Outpatient (BNVA) | payer MEDICARE, OTHER, SELFPAY | DX: Z47.89 Encounter for other orthopedic aftercare (principal); T81.49XA Infection following a procedure, other surgical site, initial encounter; M65.90 Unspecified synovitis and tenosynovitis, unspecified site; Z98.890 Other specified postprocedural states | CPT/HCPCS: 99212 ==

== ENCOUNTER 2025-01-20 13:07 | Outpatient (AMB) | payer MEDICARE, OTHER, SELFPAY ==
--- NOTE | 2025-01-20 13:17 | A.OFFVIS_ITS ---
Intake Visit Reasons: PO RT CTR I&D 01/06/25 AR Intake Note: Spencer is a 74 year old right hand dominant male who presents today for a post operative visit status post right hand I&D of carpal tunnel, right wrist flexor tenosynovectomy, right middle finger A1 carlton release and I&D a flexor tendon sheath and right index finger A1 carlton release and I&D of flexor tendon sheath DOS: 01/06/[address] Sulma Pelayo. Patient presents today for a wound check. Allergies adhesive tape Allergy (Intermediate, Verified 01/20/25 13:20) Rash bacitracin Allergy (Verified 01/20/25 13:20) Rash cefazolin Adverse Reaction (Severe, Verified 01/20/25 13:20) Rash clopidogrel [From Plavix] Adverse Reaction (Severe, Verified 01/20/25 13:20) Rash oxycodone Adverse Reaction (Verified 01/20/25 13:20) Hallucinations HPI HPI PO RT CTR I&D 01/06/25 AR: Details: Spencer is a 74 year old right hand dominant male who presents today for a post operative visit status post right hand I&D of carpal tunnel, right wrist flexor tenosynovectomy, right middle finger A1 carlton release and I&D a flexor tendon sheath and right index finger A1 carlton release and I&D of flexor tendon sheath DOS: 01/06/[address] Sulma Pelayo. Patient presents today for a wound check. The patient reports that his symptoms of infection, namely pain, redness, and discharge, have improved a lot since previous evaluation. Patient states that he has gone back to taking his home meloxicam prescribed by primary care to very good effect. Patient reports no ongoing pain issues. No other acute complaints or concerns at this time. [facility] Medical History FH: total knee replacement Macular degeneration Legally blind Skin cancer GERD (gastroesophageal reflux disease) Myocardial infarction Hemorrhoids Diverticulosis Peripheral neuropathy Right bundle branch block Microalbuminuria Cataracts, bilateral Tubular adenoma Diabetes Hearing loss Osteoarthritis Tobacco use disorder Obesity (BMI 30-39.9) Sleep apnea CAD (coronary artery disease) Syncope Pleural effusion Pacemaker Abnormal PFT Skin lesions HTN (hypertension) Macular degeneration of both eyes Osteoarthritis of right knee Surgical History (Updated 01/13/25 @ 00:02 by Background Daemon) History of nasal surgery Hx of bilateral cataract extraction Hx of tonsillectomy Hx of cholecystectomy Hx of appendectomy H/O colonoscopy Hx of CABG History of thoracentesis History of left knee replacement (~2013) History of left hip replacement (~2000) History of right hip replacement (~2000) Social History Household Members: Spouse Housing: House Housing Other:: stairs into house and within house Are you a primary laboratory animal care veterinarian to a significant other at home: No Do you presently have visiting nurse or other home services: No Comment: pt rings appropriately Patient Tobacco Use Status: Former Tobacco user service: Yes Current occupational status: retired Review of Systems Const All systems reviewed & are unremarkable except as noted in HPI and below Physical Exam Vital Signs: Last Vital Signs Temp 98.1 F 01/08/25 07:13 Pulse 73 01/08/25 07:13 Resp 18 01/08/25 07:13 BP 166/74 H 01/08/25 08:23 Pulse Ox 96 01/08/25 07:13 O2 Del Method Room Air 01/08/25 07:13 O2 Flow Rate 4 01/06/25 14:30 BMI result Body Mass Index 29.6 Extrem Other: Dressing on right hand clean, dry, intact When dressing is removed, edema and erythema of the right hand have improved significantly since admission No evidence of surrounding ecchymosis No evidence of infection Patient is able to flex and extend the digits of the left hand with improved ROM from last week, able to be passively brought to almost a full closed fist Patient is able to be passively brought to almost a full closed fist Compartments soft, nontender Distal sensation intact Capillary refill brisk Assessment & Plan Assessment & Plan (1) Postoperative wound infection: Code(s): T81.49XA - Infection following a procedure, other surgical site, initial encounter Category: Medical (2) Carpal tunnel syndrome of right wrist: Code(s): G56.01 - Carpal tunnel syndrome, right upper limb Category: Medical (3) Tenosynovitis: Code(s): M65.90 - Unspecified synovitis and tenosynovitis, unspecified site Category: Medical Plan 1. Status post I and D of right carpal tunnel release CTR 12/31/2024 I and D 01/06/2025 Patient appears to be recovering fairly well from his surgeries Patient is educated about the typical recovery course Pain medication refilled, antibiotics refilled Daily dressing changes Patient can begin washing the incision sites with soap and water in the sink of the shower, but should avoid any submersion Keep incision sites clean Continue to work on range of motion at home and with occupational therapy Patient expresses understanding of this and is amenable to this plan Follow-up in 1 week for wound check, anticipate suture removal at that time, burton ner with any acute concerns Coding Level of Care Code Global (62747) Diagnoses Postoperative wound infection T81.49XA Carpal tunnel syndrome of right wrist G56.01 Tenosynovitis M65.90
--- OUTSIDE RECORDS SUMMARY | 2025-01-20 14:43 | XMS_ITS ---
Author Organization Patient Business Ser [facility] Address [address] [place] [address] Care Team Providers Care Artificial Leather Calender Operator Name Role Phone Ada Morris MD Primary Care Prov ider Transitional Care Management Status:Ongoing (Active) Start date:01/08/2025 Enrollment date:01/08/2025 Enrollment reason:Identified using hospital discharge data Case Team Name Relationship Phone Jessica Hung LPN Care Manager(Responsible Staff) Continued Care and Services Coordination
== END 2025-01-20 14:30 | disposition home or self-care (01) ==
LOC: HO.HOS 13:08
PROVIDERS: PCP Internal Medicine
DX: T81.49XA Infection following a procedure, other surgical site, initial encounter (principal); G56.01 Carpal tunnel syndrome, right upper limb; M65.90 Unspecified synovitis and tenosynovitis, unspecified site
CPT/HCPCS: 99024

== ENCOUNTER → 2025-01-20 13:07 | Outpatient (BNVA) | payer MEDICARE, OTHER, SELFPAY | PROVIDERS: PCP Internal Medicine | DX: Z47.89 Encounter for other orthopedic aftercare (principal); T81.49XA Infection following a procedure, other surgical site, initial encounter; M65.90 Unspecified synovitis and tenosynovitis, unspecified site; G56.01 Carpal tunnel syndrome, right upper limb; Z98.890 Other specified postprocedural states | CPT/HCPCS: 99212 ==

== ENCOUNTER 2025-01-27 10:12 | Outpatient (AMB) | payer MEDICARE, OTHER, SELFPAY ==
--- NOTE | 2025-01-27 10:20 | A.OFFVIS_ITS ---
Vital Signs 3 01/27/25 10:21 Handedness Right Intake Visit Reasons: PO RT CTR I&D 01/06/25 AR Intake Note: Spencer is a 74 year old right hand dominant male who presents today for a post operative visit status post right hand I&D of carpal tunnel, right wrist flexor tenosynovectomy, right middle finger A1 carlton release and I&D a flexor tendon sheath and right index finger A1 carlton release and I&D of flexor tendon sheath DOS: 01/06/[address] Sulma Pelayo. Patient presents today for a wound check. He expresses feeling a poking sensation on the volar aspect of his wrist. Allergies adhesive tape Allergy (Intermediate, Verified 01/27/25 10:21) Rash bacitracin Allergy (Verified 01/27/25 10:21) Rash cefazolin Adverse Reaction (Severe, Verified 01/27/25 10:21) Rash clopidogrel (From Plavix) Adverse Reaction (Severe, Verified 01/27/25 10:21) Rash oxycodone Adverse Reaction (Verified 01/27/25 10:21) Hallucinations HPI HPI PO RT CTR I&D 01/06/25 AR: Details: Spencer is a 74 year old right hand dominant male who presents today for a post operative visit status post right hand I&D of carpal tunnel, right wrist flexor tenosynovectomy, right middle finger A1 carlton release and I&D a flexor tendon sheath and right index finger A1 carlton release and I&D of flexor tendon sheath DOS: 01/06/[address] Sulma Pelayo. Patient presents today for a wound check. He expresses feeling a poking sensation on the volar aspect of his wrist. PFSH Medical History FH: total knee replacement Macular degeneration Legally blind Skin cancer GERD (gastroesophageal reflux disease) Myocardial infarction Hemorrhoids Diverticulosis Peripheral neuropathy Right bundle branch block Microalbuminuria Cataracts, bilateral Tubular adenoma Diabetes Hearing loss Osteoarthritis Tobacco use disorder Obesity (BMI 30-39.9) Sleep apnea CAD (coronary artery disease) Syncope Pleural effusion Pacemaker Abnormal PFT Skin lesions HTN (hypertension) Macular degeneration of both eyes Osteoarthritis of right knee Surgical History History of nasal surgery Hx of bilateral cataract extraction Hx of tonsillectomy Hx of cholecystectomy Hx of appendectomy H/O colonoscopy Hx of CABG History of thoracentesis History of left knee replacement (~2013) History of left hip replacement (~2000) History of right hip replacement (~2000) Social History Household Members: Spouse Housing: House Housing Other:: stairs into house and within house Are you a primary health care / medical job titles to a significant other at home: No Do you presently have visiting nurse or other home services: No Comment: pt rings appropriately Patient Tobacco Use Status: Former Tobacco user service: Yes Current occupational status: retired Review of Systems Const All systems reviewed & are unremarkable except as noted in HPI and below Physical Exam Vital Signs: Last Vital Signs Temp 98.1 F 01/08/25 07:13 Pulse 73 01/08/25 07:13 Resp 18 01/08/25 07:13 BP 166/74 H 01/08/25 08:23 Pulse Ox 96 01/08/25 07:13 O2 Del Method Room Air 01/08/25 07:13 O2 Flow Rate 4 01/06/25 14:30 BMI result Body Mass Index 29.6 Extrem Other: Dressing on right hand clean, dry, intact When dressing is removed, edema and erythema of the right hand have improved significantly since admission No evidence of surrounding ecchymosis No evidence of infection Patient is able to flex and extend the digits of the left hand with improved ROM from last week, able to be passively brought to almost a full closed fist Patient is able to be passively brought to almost a full closed fist Compartments soft, nontender Distal sensation intact Capillary refill brisk Assessment & Plan Assessment & Plan (1) Postoperative wound infection: Code(s): T81.49XA - Infection following a procedure, other surgical site, initial encounter Category: Medical (2) Carpal tunnel syndrome of right wrist: Code(s): G56.01 - Carpal tunnel syndrome, right upper limb Category: Medical (3) Tenosynovitis: Code(s): M65.90 - Unspecified synovitis and tenosynovitis, unspecified site Category: Medical Plan 1. Status post I and D of right carpal tunnel release CTR 12/31/2024 I and D 01/06/2025 Patient appears to be recovering fairly well from his surgeries Patient is educated about the typical recovery course No further pain medication or antibiotics required Daily dressing changes, can leave open to air while at home Dry skin debrided in the office today Patient can begin washing the incision sites with soap and water in the sink of the shower, but should avoid any submersion Keep incision sites clean Continue to work on range of motion at home and with occupational therapy Patient expresses understanding of this and is amenable to this plan Follow-up in 2 weeks, sooner with any acute concerns Coding Level of Care Code Global (08078) Diagnoses Postoperative wound infection T81.49XA Carpal tunnel syndrome of right wrist G56.01 Tenosynovitis M65.90
--- OUTSIDE RECORDS SUMMARY | 2025-01-27 11:31 | XMS_ITS ---
Author Organization Patient Business Ser [facility] Address [address] [place] [address] Care Team Providers Care Legal Support Analyst Name Role Phone Ada Morris MD Primary Care Prov ider Transitional Care Management Status:Ongoing (Active) Start date:01/08/2025 Enrollment date:01/08/2025 Enrollment reason:Identified using hospital discharge data Case Team Name Relationship Phone Jessica Hung LPN Care Manager(Responsible Staff) Continued Care and Services Coordination
== END 2025-01-27 11:23 | disposition home or self-care (01) ==
LOC: HO.HOS 10:13
PROVIDERS: PCP Internal Medicine
DX: T81.49XA Infection following a procedure, other surgical site, initial encounter (principal); G56.01 Carpal tunnel syndrome, right upper limb; M65.90 Unspecified synovitis and tenosynovitis, unspecified site
CPT/HCPCS: 99024

== ENCOUNTER → 2025-01-27 10:12 | Outpatient (BNVA) | payer MEDICARE, OTHER, SELFPAY | PROVIDERS: PCP Internal Medicine | DX: Z48.811 Encounter for surgical aftercare following surgery on the nervous system (principal); T81.49XA Infection following a procedure, other surgical site, initial encounter; M65.90 Unspecified synovitis and tenosynovitis, unspecified site; Z98.890 Other specified postprocedural states | CPT/HCPCS: 99212 ==

== ENCOUNTER 2025-02-11 09:43 | Outpatient (AMB) | payer MEDICARE, OTHER, SELFPAY ==
--- NOTE | 2025-02-11 09:54 | A.OFFVIS_ITS ---
Intake Visit Reasons: PO: right hand DOS 01/06/25 wound check Intake Note: Spencer is a 74 year old right hand dominant male who presents today for a post operative visit status post right hand I&D of carpal tunnel, right wrist flexor tenosynovectomy, right middle finger A1 carlton release and I&D a flexor tendon sheath and right index finger A1 carlton release and I&D of flexor tendon sheath DOS: 01/06/[address] Sulma Pelayo. Patient presents today for a wound check. At last visit patient was advised to continue working on gentle ROM and with occupational therapy. He reports he is not doing well and no changes. Allergies adhesive tape Allergy (Intermediate, Verified 02/11/25 09:59) Rash bacitracin Allergy (Verified 02/11/25 09:59) Rash cefazolin Adverse Reaction (Severe, Verified 02/11/25 09:59) Rash clopidogrel (From Plavix) Adverse Reaction (Severe, Verified 02/11/25 09:59) Rash oxycodone Adverse Reaction (Verified 02/11/25 09:59) Hallucinations HPI HPI PO: right hand DOS 01/06/25 wound check: Details: Spencer is a 74 year old right hand dominant male who presents today for a post operative visit status post right hand I&D of carpal tunnel, right wrist flexor tenosynovectomy, right middle finger A1 carlton release and I&D a flexor tendon sheath and right index finger A1 carlton release and I&D of flexor tendon sheath DOS: 01/06/[address] Sulma Pelayo. Patient presents today for a wound check. At last visit patient was advised to continue working on gentle ROM and with occupational therapy. He reports he is finally starting to do well and that range of motion has improved from [facility] Medical History FH: total knee replacement Macular degeneration Legally blind Skin cancer GERD (gastroesophageal reflux disease) Myocardial infarction Hemorrhoids Diverticulosis Peripheral neuropathy Right bundle branch block Microalbuminuria Cataracts, bilateral Tubular adenoma Diabetes Hearing loss Osteoarthritis Tobacco use disorder Obesity (BMI 30-39.9) Sleep apnea CAD (coronary artery disease) Syncope Pleural effusion Pacemaker Abnormal PFT Skin lesions HTN (hypertension) Macular degeneration of both eyes Osteoarthritis of right knee Surgical History History of nasal surgery Hx of bilateral cataract extraction Hx of tonsillectomy Hx of cholecystectomy Hx of appendectomy H/O colonoscopy Hx of CABG History of thoracentesis History of left knee replacement (~2013) History of left hip replacement (~2000) History of right hip replacement (~2000) Social History Household Members: Spouse Housing: House Housing Other:: stairs into house and within house Are you a primary lawn care professional to a significant other at home: No Do you presently have visiting nurse or other home services: No Comment: pt rings appropriately Patient Tobacco Use Status: Former Tobacco user service: Yes Current occupational status: retired Review of Systems Const All systems reviewed & are unremarkable except as noted in HPI and below Physical Exam Vital Signs: Last Vital Signs Temp 98.1 F 01/08/25 07:13 Pulse 73 01/08/25 07:13 Resp 18 01/08/25 07:13 BP 166/74 H 01/08/25 08:23 Pulse Ox 96 01/08/25 07:13 O2 Del Method Room Air 01/08/25 07:13 O2 Flow Rate 4 01/06/25 14:30 BMI result Body Mass Index 29.6 Extrem Other: Dressing on right hand clean, dry, intact When dressing is removed, edema and erythema of the right hand have improved significantly since admission No evidence of surrounding ecchymosis No evidence of infection Patient is able to flex and extend the digits of the left hand with improved ROM from last week, able to be passively brought to almost a full closed fist Patient is able to be passively brought to almost a full closed fist Compartments soft, nontender Distal sensation intact Capillary refill brisk Assessment & Plan Assessment & Plan (1) Carpal tunnel syndrome of right wrist: Code(s): G56.01 - Carpal tunnel syndrome, right upper limb Category: Medical (2) Postoperative wound infection: Code(s): T81.49XA - Infection following a procedure, other surgical site, initial encounter Category: Medical (3) Tenosynovitis: Code(s): M65.90 - Unspecified synovitis and tenosynovitis, unspecified site Category: Medical Plan 1. Status post I and D of right carpal tunnel release CTR 12/31/2024 I and D 01/06/2025 Patient appears to be recovering fairly well from his surgeries Patient is educated about the typical recovery course No further pain medication or antibiotics required Daily dressing changes, can leave open to air while at home Continue washing with soap and water in the sink of the shower Continue to work on range of motion at home and with occupational therapy Patient expresses understanding of this and is amenable to this plan Follow-up in 3-4 weeks, sooner with any acute concerns Orders: Orders OT Evaluation and Treatment Today G56.01 - Carpal tunnel syndrome, right upper limb, T81.49XA - Infection following a procedure, other surgical site, initial encounter Coding Level of Care Code Global (92806) Diagnoses Carpal tunnel syndrome of right wrist G56.01 Postoperative wound infection T81.49XA Tenosynovitis M65.90
--- OUTSIDE RECORDS SUMMARY | 2025-02-11 10:12 | XMS_ITS | Clinical Summary ---
Author Organization [facility] Address [address] [place] [address] Care Team Providers Care Corporate Law Assistant Name Role Phone Guero Martinez PA-C Primary Care Provider + [phone] Allergies Active Allergy Reactions Criticality Noted Date [...] - 1-dose 75+ series) 02/20/2023 Influenza Vaccine (Season Ended) 2025 Hepatitis B Vaccines Aged Out No long er eligible based on patient's age to complete this topic RSV Ped < 20 months Aged Out No longe r eligible based on patient's age to complete this topic Care Teams Corporate Law Assistant Relationship Specialty Start Date End Date Guero Martinez PA-C PCP - General Medical Services 12/13/21
--- OUTSIDE RECORDS SUMMARY | 2025-02-11 10:12 | XMS_ITS | Data Portability ---
Author Organization [facility] Address [address] [place] [address] Care Team Providers Care Nut Packer Name Role Phone NIIFIDENCIOGhanshyamANNSUHAIL Primary Care Provide r Assessment Encounter Date [...] hemoglo bin A1C, fingers tick 2018 019 [facility], [address] [place] [address], [id number], 9 14:17:15 Referral None recorde d. Procedures None recorde d. Surgeries None recorde d. Imaging None recorde d. Medication Orders metform in ER 500 mg tablet, extende d release 24 hr 2016 017 apapoutsides [id number], [address], [place], [id number], 0 11:12:09 Patient Targets Encounter Date Encounter Id Patient Goals Patient Target Last Modified By Organization Details Last Modified Time 12/20/2016 [id number] buttermaker goal of Blood Glucose 80-180 Not available Not available Not available buttermaker goal of Weight 200 lbs Not available Not available Not available intermediate goal of Hemoglobin A1C <7.0% Not available Not available Not available Patient Instructions Encounter Date Encounter Id Patient Instructions Last Modified By Organization Details Last Modified Time 12/20/2016 [id number] Using the new meter, check blood glucose before breakfast and 2 hours after dinner every day. Continue to follow a controlled carb, healthy plate plan and drink plenty of water. Continue current exercise plan. Bring the meter to the next appointment. [email or web address] Not available 12/20/2016 14:07:51 10/02/2017 [id number] elevated blood pressure: care instructions Not available 10/02/2017 10:43:32 learning about type 2 diabetes Not available 10/02/2017 10:43:32 type 2 diabetes: care instructions Not available 10/02/2017 10:43:32 01/07/2019 [id number] high blood pressure: care instructions Not available 01/07/2019 14:17:15 learning about high blood pressure Not available 01/07/2019 14:17:15 A healthy lifestyle: care instructions Not available 01/07/2019 14:17:15 12/22/2019 [id number] high cholesterol : care instructions Not available 12/22/2019 11:33:09 Reason for Referral None Reported. Results Created Date Observation Date Name Description Value Unit Range Abnormal Flag Note LastModifiedBy Organization Detail LastModifiedTime 01/08/20 19 01/07/2019 hemog lobin A1C, finge rstic k Hemoglobin A1c 6.0 Not Available [address], [address], 01/07/2019 13:48:29 Result Notes None recorded. Problems Name Problem SNOMED Code Status Onset Date Resolution Date Notes Provider Name and Address Organization Details Recorded Time Type 2 diabetes mellitus 37426871 Active 2016 Helene bedoya [facility] 14:07:56 Arthritis 5808058 Active 2016 Helene bedoya [facility] 14:08:02 Hypertensive disorder 39033343 Active 2016 [facility] 14:08:17 Problem Notes None recorded. Procedures Surgical History Date Name Laterality Status Provider Name and Address Organization Details Recorded Time 05/12/20 19 coronary artery bypass grafts x 4 completed Aphrodite Papoutsides [facility] 12/22/2019 11:15:55 12/11/19 14 Joint Replacement completed Helene Noriega [facility] 03/20/2017 14:01:40 12/11/19 02 Other completed Helene Khalilpetar [facility] 03/20/2017 14:01:12 Imaging Results None recorded. Procedure Notes None recorded. Medical Equipment None Reported. Allergies Allergen ID Allergen Name Allergen Category Reaction Reaction Severity Criticality Documentation Date Start Date Code Code System Note Provider Name and Address Organization Details Recorded Time 984714 bacitraci n medicatio n rash moderate Not available 11/15/2016 1291 RxNorm Paulette Brooks MS, RDN, LDN, CDE [address] [place] [address], [phone] [place] [address] 7 10:31:31 811040 Plavix medicatio n rash Not available Not available 12/22/2019 73565 2 RxNorm Aphrodite Papoutsid es [facility], [facility] 0 11:14:24 166785 oxycodone medicatio n Not available Not available Not available 12/22/2019 7804 RxNorm Aphrodite Papoutsid es null, [facility] 0 11:14:53 107142 cefazolin medicatio n Not available Not available Not available 12/22/2019 2180 RxNorm Aphrodite Papoutsid es null, [facility] 0 11:15:12 234513 adhesive tape environme nt,medica tion Not available Not available Not available 12/22/2019 76890 UNK Aphrodite Papoutsid es null, [facility] 0 11:15:23 Medications Name Sig Start Date [...] Available Vitals Date Recorded Body height Body mass index (BMI) Body weight Body temperature Oxygen saturation Oxygen saturation in Arterial blood by Pulse oximetry Heart rate Systolic And Diastolic Provider Name and Address Organization Details Last Updated DateTime 8 180.34 cm 31.9 kg/m2 054728. 65 g 97.8 [degF] 97 % 97 % 59 /min 150/72 mm[Hg] Helene Noriega [facility]. 8 10:09:03 Date Recorded Body height Body weight Body mass index (BMI) Provider Name and Address Organization Details Last Updated DateTime 12/20/2016 180.34 cm 798062.61 g 32.6 kg/m2 Paulette Brooks MS, RDN, LDN, CDE [address] [place] [address], [phone], [facility]. 12/20/2016 13:41:50 Date Recorded Body height Provider Name an d Address Organization Details Last Updated DateTime 12/22/2019 180.34 cm Aphrodite Anya [facility]. 12/22/2019 11:12:53 Date Recorded Body height Body mass index (BMI) Body weight Heart rate Oxygen saturation Oxygen saturation in Arterial blood by Pulse oximetry Systolic And Diastolic Provider Name and Address Organization Details Last Updated DateTime 9 180.34 cm 31.1 kg/m2 880845. 1 g 66 /min 98 % 98 % 110/64 mm[Hg] Jessy Atkins [facility] 9 13:57:36 Date Recorded Body height Body mass index (BMI) Body weight Body temperature Oxygen saturation Oxygen saturation in Arterial blood by Pulse oximetry Heart rate Systolic And Diastolic Provider Name and Address Organization Details Last Updated DateTime 7 180.34 cm 30.7 kg/m2 98999.6 g 97.6 [degF] 97 % 97 % 57 /min 139/79 mm[Hg] Helene Noriega [facility] 7 14:10:16 Social History Question Answer Notes LastModified by Organizat ion Details LastModified Time Tobacco Smoking Status Former Smoker one pack a week Helene bedoya [facility] 03/20/2017 14:03:08 What Is Your Level Of [...] SNOMED-CT Code Diagnosis ICD10 Code Diagnosis Note [id number] Dread Anton MD [facility] [address] [place] [address] [phone] 11/15/2016 09:44:36 11/15/2016 12:11:06 Uncontrolled type 2 diabetes mellitus 802176765 E11.65 Diabetes Education: Initial Assessment Referred to us for better blood glucose by his PCP, Dr. Cardenas in [place], due to recent A1c of 10.9%Patie nt reports that he was a patient of Dr. Anton years ago when he was at [facility]. SMBG: old meter at home doesn't [...] diarrhea, dehydrated and in the hospital in [facility] for 2 days. 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 RECOMMENDA TIONS: Check BG twice daily; Follow controlled carb plan; continue exercise planTIME SPENT: 60 minutes [id number] Dread Anton MD [facility] 123 [facility] [address] [place] [address] 12/20/2016 12:52:35 12/20/2016 13:57:18 Uncontrolled type 2 diabetes mellitus 286399567 E11.65 Diabetes Education: Follow Up SMBG: OneTouch [...] does circuit training, core class and works w/maintenance trainer. RECOMMENDA TIONS: Check BG twice daily; Follow controlled carb plan; continue exercise planTIME SPENT: 30 minutes [id number] MD [facility] [address] [place] [phone] 03/20/2017 13:26:37 03/20/2017 14:53:49 Disorder of nervous system due to type 2 diabetes mellitus 946549166 E11.40 Metformin (plain) is causing diarrhea. Changed to metformin ER. Onglyza is not commonly used nowadays because of risk of CHF. Will change to amy or brock -- januvia not covered. Foot care explained. Also asked him to take OTC B12, [id number] MD [facility] [address] [place] [phone] 10/02/2017 09:52:49 10/02/2017 10:38:25 Type 2 diabetes mellitus 02658173 E11.9 Excellent control of diabetes with meds and lifestyle changes. No change in Rx. I will have to get labs from Dr. Cardenas Hypertensive disorder 38 019248 I10 He checks his blood pressure daily at home and at his gym. Readings are in 120s/80s. Will go with his home readings. [id number] MD [facility] [address] [place] [phone] 01/07/2019 13:34:51 01/07/2019 14:21:47 Neuropathy due to type 2 diabetes mellitus 6188428340 77999 E11.40 Very good control without side effect of medication s. Continue same. Essential hypertension 37825422 I10 Great control. No orthostasi s [id number] MD [facility] [address] [place] [phone] 12/22/2019 11:06:08 12/22/2019 12:04:25 Hyperlipidemia 70016040 E78.5 I'm not sure why he is off atorvastat in. It is essential that outpatient with pre-existi ng ASCVD should be on high intensity statin. He will talk to his cardiologi to discuss this issue Disorder d ue to type 2 diabetes mellitus 071633443 E11.8 We discussed about the new cardiovasc [...] Recorded Advance Directives Directive None Recorded Payers Insurance Date Sequence Insurance Name Policy Number Policy Foley Covered Member ID Foley Member ID Guarantor Name 10/25/2016 1 [employer] [id number] Spencer Roberson [id number] Spencer Roberson Jr. 12/24/2020 2 [facility] (MEDICARE SUPPLEMENT) Spencer Roberson [id number] Spencer Roberson Jr. 10/25/2016 1 MEDIC[place]: [employer] Spencer Roberson [id number] Spencer Roberson Jr. 10/25/2016 1 MEDICARE [place]: [facility] Spencer Roberson [id number] Spencer Roberson Jr. 12/24/2020 1 MEDICARE [place]: [employer] Spencer Roberson Jr [id number] Spencer Roberson Jr. Notes Date Note [...] calluses on feet;weight loss (4 lbs) Paulette Todd MS, RDN, LDN, CDE [address] [place] [address], [phone], [facility]. 12/20/2016 14:08:14 03/20/2017 text/html Duration of Diab [...] - Eye examinations: Done Dread Anton MD [address] [place] [address], [phone], [facility] [employer] [facility] 03/20/2017 14:54:28 10/02/2017 text/html DiabetesReported bypatient.Notes:Finger stick [...] in the social history: Dread Anton MD [address] [place] [address], [phone], [facility] [employer] [facility]. 10/02/2017 10:44:12 01/07/2019 text/html Diabetes - NewRe ported bypatient.Notes:Finger stick blood glucose review with meter [email or web address] mg/dL >98% in range Last A1c: 61% [...] change Preprandial dizziness Dread Anton MD [address] [place], [phone], [facility]. 01/07/2019 14:21:05 12/22/2019 text/html This is a Telehe alth visit, via telephone. Patient understands the risks, benefits and limitations of this type of visit. Patient consents for this visit. This type of visit is being utilized as it was deemed higher risk for patient to come to office given the current risk of COVID-19/coronavirus infection. The patient is located in [place] at the time of this visit. Physician is located in [place], [place] at the time of this visit. Visit Began: 11.05 AM Visit Ended: . AM The following people were with the [...] is going to get it operated in [facility]. He has osteoarthritis for which he was getting intermittent steroid injection in his joints. 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 The diabetes is under good control Dread Anton MD [address] [place], [phone], [facility]. 12/22/2019 11:34:07
--- OUTSIDE RECORDS SUMMARY | 2025-02-11 10:12 | XMS_ITS ---
Author Organization Patient Business Ser [facility] Address [address] [place] [address] Care Team Providers Care Shrimp Picker Name Role Phone Ada Morris MD Primary Care Prov ider Transitional Care Management Status:Closed (Closed) Start date:01/08/2025 Enrollment date:01/08/2025 Enrollment reason:Identified using hospital discharge data End date:02/10/2025 Close reason:Completed program Continued Care and Services Coordination
== END 2025-02-11 10:08 | disposition home or self-care (01) ==
LOC: HO.HOS 09:43
PROVIDERS: PCP Internal Medicine
DX: G56.01 Carpal tunnel syndrome, right upper limb (principal); T81.49XA Infection following a procedure, other surgical site, initial encounter; M65.90 Unspecified synovitis and tenosynovitis, unspecified site
CPT/HCPCS: 99024

== ENCOUNTER → 2025-02-11 09:43 | Outpatient (BNVA) | payer MEDICARE, OTHER, SELFPAY | PROVIDERS: PCP Internal Medicine | DX: Z48.811 Encounter for surgical aftercare following surgery on the nervous system (principal); T81.49XD Infection following a procedure, other surgical site, subsequent encounter; G56.01 Carpal tunnel syndrome, right upper limb; M65.90 Unspecified synovitis and tenosynovitis, unspecified site; Z98.890 Other specified postprocedural states | CPT/HCPCS: 99212 ==

== ENCOUNTER 2025-03-04 11:30 | Outpatient (RCR) | payer MEDICARE, OTHER, SELFPAY ==
--- NOTE | 2025-01-21 16:10 | MHC.OT.EP ---
[address] [phone] Occupational Therapy Plan of Care Patient Name: Spencer Roberson Jr Date of Evaluation: 01/21/25 Diagnosis: R Carpal tunnel release post surgical infection date of CT release surgery 12/31 I&D surgery 01/06 : R wrist flexor tenosynovectomy 01/06 A1 carlton release MF & IF Pain Location: Pain Score: 4 Pain Scale Used: Numeric (0 - 10) Aggravating Factors: Alleviating Factors: on antibiotics for infection Assessment: Pt is a 74 yr. old R hand dominant male who had CT release surgery on 12/31 to decrease sx's of numbness and tingling in his R hand. Pt then reports his incision began to have sx's of infection he then saw the MD who performed an I &D, tenosynovectomy, and A1 carlton releases to treat the infection and his sx's. Pt saw the MD for a follow up to have stitches removed recently and he was educated on wound care and referred to therapy. Pt presented today w/ edema of his hand/ digits, and decreased ROM, strength, and functional use of his dominant hand. Pt would benefit from Skilled OT therapy to address these deficits and RPLOF Frequency and Duration: The patient will be seen 2XS A WEEK FOR 4 WEEKS Short Term Goals: SEE BELOW Alf Goals: Pt's transmetacarpals will measure 22 cm Pt will be complaint w/ HEP Pt will have 2/10 pain w/ activity Pt will have make a composite fist Treatment Plan: Therapeutic Exercise Therapeutic Activity Home Exercise Program Neuro Re-ed Patient Education Desensitization/Sensory Re-ed Edema Control ADL Training Ultrasound NMES Iontophoresis Fluidotherapy MHP Cold Packs Joint Mobilization Soft Tissue Mobilization Kinesiotaping Electronically Signed By: Chastity Arteaga OTR/L Please Sign and return to therapist. Thank you once again for your referral.
== END 2025-03-04 12:38 | disposition home or self-care (01) ==
LOC: HO.OT 11:30
PROVIDERS: PCP Internal Medicine
DX: T81.49XD Infection following a procedure, other surgical site, subsequent encounter (principal); M25.631 Stiffness of right wrist, not elsewhere classified; Z86.69 Personal history of other diseases of the nervous system and sense organs
CPT/HCPCS: 97035; 97110; 97140; 97166; 97530; 97535

== ENCOUNTER 2025-03-25 10:55 | Outpatient (REF) | payer MEDICARE, OTHER, SELFPAY ==
--- NOTE | ~2025-03-25 | XR_ITS ---
EXAMINATION: XR KNEE 3 VIEWS LEFT HISTORY: M25.562 - Pain in left knee COMPARISON: Correlation is made with standing AP views of both knees dated 05/21/2024. FINDINGS: Three views of the left knee are submitted. The patient is status post total knee arthroplasty. There is no fracture or dislocation. The orthopedic elements are in anatomic alignment. There is no radiographic evidence of loosening. There is marked vascular calcification. There is no joint effusion. XR/XR knee LT 3V IMPRESSION: Status post left total knee arthroplasty. Electronically signed by: Ray Funk MD 03/25/2025 02:40 PM EDT
== END 2025-03-25 10:56 | disposition home or self-care (01) ==
LOC: HO.HOSX 10:55
PROVIDERS: Visit Provider Orthopaedic Surgery
DX: M75.42 Impingement syndrome of left shoulder (principal); M25.562 Pain in left knee; M25.512 Pain in left shoulder; Z79.82 Long term (current) use of aspirin; Z79.899 Other long term (current) drug therapy; Z96.652 Presence of left artificial knee joint; Z96.643 Presence of artificial hip joint, bilateral
CPT/HCPCS: 20610; 73562; 99212; J1010; J2003

== ENCOUNTER 2025-03-25 10:55 | Outpatient (AMB) | payer MEDICARE, OTHER, SELFPAY ==
--- NOTE | 2025-03-25 11:22 | A.OFFVIS_ITS ---
Intake Visit Reasons: Left shoulder pain, Left knee pain Intake Note: Spencer is a 75 year old male who presents with complaints of progressively worsening left shoulder pain. He did have a cortisone injection given into his left shoulder earlier this year. He got fairly good relief from that injection. The patient states that he fell onto his left knee several months ago. He denies any locking or giving way. He reports intermittent discomfort along the anterior aspect of his knee. He has taken Tylenol which gives him mild relief. He did undergo left total knee replacement surgery several years ago. Allergies adhesive tape Allergy (Intermediate, Verified 03/25/25 11:23) Rash bacitracin Allergy (Verified 03/25/25 11:23) Rash cefazolin Adverse Reaction (Severe, Verified 03/25/25 11:23) Rash clopidogrel (From Plavix) Adverse Reaction (Severe, Verified 03/25/25 11:23) Rash oxycodone Adverse Reaction (Verified 03/25/25 11:23) Hallucinations Medication List - Last Reconciled 03/25/25 by Jim Carrero MD acetaminophen 1,000 mg PO DAILY PRN aspirin (Adult Aspirin Regimen) 81 mg PO DAILY doxycycline hyclate 100 mg PO BID 10 days hydrocodone-acetaminophen 5-325 mg 1 tab PO Q4H PRN 2 days ibuprofen 600 mg PO Q6H PRN 14 days linagliptin (Tradjenta) 5 mg PO DAILY meloxicam 15 mg PO DAILY metformin ER 500 mg PO DAILY bkeohkdaukru-lhkvadto-fbtuea 1 tab PO DAILY rosuvastatin 5 mg PO DAILY valsartan 160 mg PO DAILY vit C,M-Po-lbipu-lutein-zeaxan 250-90-40-1 mg (PreserVision AREDS-2) 2 tabs PO DAILY walker Folding front wheeled walker [facility] Medical History FH: total knee replacement Macular degeneration Legally blind Skin cancer GERD (gastroesophageal reflux disease) Myocardial infarction Hemorrhoids Diverticulosis Peripheral neuropathy Right bundle branch block Microalbuminuria Cataracts, bilateral Tubular adenoma Diabetes Hearing loss Osteoarthritis Tobacco use disorder Obesity (BMI 30-39.9) Sleep apnea CAD (coronary artery disease) Syncope Pleural effusion Pacemaker Abnormal PFT Skin lesions HTN (hypertension) Macular degeneration of both eyes Osteoarthritis of right knee Surgical History History of nasal surgery Hx of bilateral cataract extraction Hx of tonsillectomy Hx of cholecystectomy Hx of appendectomy H/O colonoscopy Hx of CABG History of thoracentesis History of left knee replacement (~2013) History of left hip replacement (~2000) History of right hip replacement (~2000) Social History Household Members: Spouse Housing: House Housing Other:: stairs into house and within house Are you a primary children's zoo caretaker to a significant other at home: No Do you presently have visiting nurse or other home services: No Comment: pt rings appropriately Patient Tobacco Use Status: Former Tobacco user service: Yes Current occupational status: retired Physical Exam Const Other: Well-nourished well-developed very friendly male awake alert and oriented x3 in no acute distress Extrem Other: Left knee examination shows that the surgical incision is well healed, no erythema, full active extension and flexion to 110 degrees, his patella tracks well, no instability Office Procedures AMB Joint Injection/Aspiration Joint Injection/Aspiration Primary Site: left shoulder Prep: site was prepped using aseptic technique Injected: 40 mg of, DepoMedrol and 1% plain lidocaine Procedure: The patient tolerated the procedure well Coding 30799 - Large joint Procedure code (CPT) selection complete Results Reviewed Results Reviewed: X-rays with the patient's left knee taken today show a total knee arthroplasty in good position with no signs of loosening, no acute bony abnormalities Assessment & Plan Assessment & Plan (1) Left knee pain: Code(s): M25.562 - Pain in left knee Category: Medical (2) Impingement syndrome of left shoulder: Code(s): M75.42 - Impingement syndrome of left shoulder Category: Medical (3) Left shoulder pain: Code(s): M25.512 - Pain in left shoulder Category: Medical Plan Mr. Roberson presents with left shoulder pain due to impingement syndrome. The risks and benefits of a left shoulder cortisone injection were discussed at length with the patient. The patient wished to proceed. He tolerated the injection well. The patient does not seem to have caused any damage to his left total knee arthroplasty with his recent fall. His discomfort is most likely due to soft tissue and bony contusion. He can continue activities as tolerated. He will contact me prior to his follow-up appointment in 3 months should any questions or concerns arise. I spent 22 minutes in reviewing the patient's records and imaging studies, seeing the patient and documenting in the medical record. Orders: Orders XR knee LT 3V Today M25.562 - Pain in left knee AMB Joint Injection/Aspiration Today M75.42 - Impingement syndrome of left shoulder Coding Level of Care Code Est Pt Level 3 (60138) Complex EM visit Add On G2211 Diagnoses Left knee pain M25.562 Impingement syndrome of left shoulder M75.42 Left shoulder pain M25.512 CPT Codes Coding - 54973 Large joint: 21845 - Large joint ([id number])
--- OUTSIDE RECORDS SUMMARY | 2025-03-25 12:07 | XMS_ITS ---
Author Name [facility] Organization Unknown Encounters Encounter Type Encounter Reason Primary Diagnosis Location Date Ambulatory [facility] [place] 12/21/2022 Ambulatory [facility] [place] 12/19/2022 Care Team Organization Name Specialty Phone Email Start Date End Da te [facility] [place] CHUY GARDNER Primary Care 07/12/20222023 [facility] CHUY GARDNER Primary Care 06/19/20222023
--- OUTSIDE RECORDS SUMMARY | 2025-03-25 12:07 | XMS_ITS | Clinical Summary ---
Author Organization [facility] Address [address] [place] [address] Care Team Providers Care Ocean Import Representative Name Role Phone Ada Morris MD Primary Care Prov ider Allergies Active Allergy Reactions Criticality Noted Date Comments Adhesive Tape-Silicones Rash 03/14/2020 Bacitracin Rash 11/05/2017 Cefazolin Rash 03/14/2020 Clopidogrel Rash 03/14/2020 Oxycodone Hallucinations 03/14/2020 Medications metFORMIN XR (GLUCOPHAGE-XR ) 500 mg 24 hr tablet TAKE 2 TABLETS BY MOUTH DAILY WITH BREAKFAST 03/16/20 24 Active amoxicillin (AMOXIL) 500 mg capsule Take 4 Capsules by mouth See Admin Instructions. Take 4 capsule by mouth 1 hours before dental procedures 10/23/19 23 Active aspirin (Adult Low Dose Aspirin) 81 mg EC tablet Take 81 mg by mouth daily. Active acetaminophen (TYLENOL) 500 mg tablet Take 2 Tabs by mouth every morning. Active multivit-min/f olic acid/lutein (CENTRUM SILVER ORAL) Take 1 Tab by mouth daily. Therapeutic Multiple Vitamins with Minerals Active linaGLIPtin (Tradjenta) 5 mg tablet Take 5 mg by mouth daily. 90 tablet 09/15/19 25 Active colchicine (COLCRYS) 0.6 mg tablet TK 2 T PO TODAY AND THEN 1 T PO QD THEREAFTER 06/26/20 19 Active valsartan (DIOVAN) 160 mg tablet Take 1 tablet (160 mg total) by mouth 1 (one) time each day. 90 tablet 1 12/30/19 25 Active meloxicam (MOBIC) 15 mg tablet Take 1 tablet (15 mg total) by mouth 1 (one) time each day. 90 tablet 1 12/30/19 25 Active blood sugar diagnostic (OneTouch Verio test strips) test strip USE 1 TEST STRIP TO CHECK BLOOD SUGAR 1X DAILY. DX:E11.49, E11.29, E11.36 100 strip 02/27/20 25 Active rosuvastatin (Crestor) 5 mg tablet Take 1 tablet (5 mg total) by mouth 1 (one) time each day. 90 each 3 03/04/20 25 026 Active blood sugar diagnostic (OneTouch Verio test strips) test strip USE 1 TEST STRIP TO CHECK BLOOD SUGAR 1X DAILY 100 strip 11/25/19 25 025 Discontinued Active Problems Problem Noted Date Diagnosed Date [...] permeant pace maker placed 05/12/2019 Cardiac rehab [facility] - 2 visits weekly up to 36 sessions Assessment & Plan (03/04/2025 2:18 PM EDT): Orders: Transthoracic echocardiogram (TTE) complete with PRN contrast, bubble, strain, and 3D order panel; Future Lipid panel with reflex to direct LDL; Future Obesity (BMI 30-39.9) 11/25/2017 Tobacco use disorder 11/25/2017 Overview (07/24/2024): >30 pk yr LDCT 12/27 neg. Repeat 12 mo. Bundle branch block, right 11/05/2017 Overview (07/24/2024): Since 2006 Cataracts, bilateral 11/05/2017 Diverticulosis 11/05/2017 DM (diabetes mellitus), type 2 with neurological complications ([facility] V24, [facility] V28) 11/05/2017 DM (diabetes mellitus), type 2 with renal complications ([facility] V24, [facility] V28) 11/05/2017 Hearing loss 11/05/2017 Overview (07/24/2024): Bilateral hearing aids Hemorrhoids 11/05/2017 Overview (07/24/2024): internal Microalbuminuria 11/05/2017 KEITH (obstructive sleep apnea) 11/05/2017 Osteoarthritis 11/05/2017 Overview (07/24/2024): Spine, knees Peripheral neuropathy 11/05/2017 Overview (07/24/2024): 03/20/17 Dr Dread Anton,Endocrine Tubular adenoma 11/05/2017 Overview (07/24/2024): & sessile serrated polyp 2006 Type 2 diabetes mellitus wit h cataract ([facility] V24, [facility] V28) 11/05/2017 Encounters Date Type Department Care Team Description 03/12/2025 11:00 AM EDT Ancillary Procedure [facility] Cardiology [facility] [address] [place] [address] Encounter for adjustment or management of cardiac device 03/04/2025 2:30 PM EDT Ancillary Procedure [facility] Cardiology [facility] [address] [place] [address] Encounter for adjustment or management of cardiac device 03/04/2025 1:30 PM EDT Office Visit [facility] Cardiology [facility] [address] [place] [address] Osmar Villa MD Coronary artery disease due to calcified coronary lesion (Primary Dx); History of heart attack; Pacemaker 02/03/2025 Telephone [facility] Cardiology [facility] [address] [place] [address] Ada Morris MD Medical Records from Last 3 Months Immunizations Name Administration [...] Type 2 diabetes mellitus wit h cataract ([facility] V24, [facility] V28) 11/05/2017 DX:Type 2 diabetes mellitus with cataract (HCC) Diverticulosis 11/05/2017 DX:Diverticulosi s Hemorrhoids 11/05/2017 DX:Hemorrhoids; COMMENT: internal Abnormal PFT 12/05/2021 DX:Abnormal PFT; COMMENT: 11/2021. Pulmonology referral placed. Myocardial infarction ([facility] V24, [facility] V28) Family History Medical History Relation Name Comments [...] Sign Reading Time Taken Comments Blood Pressure 110/70 03/04/2025 1:37 PM EDT Pulse 65 03/04/2025 1:37 PM EDT Temperature - - Respiratory Rate - - Oxygen Saturation 97% 03/04/2025 1:37 PM EDT Inhaled Oxygen Concentration - - Weight 95.3 kg (210 lb) 03/04/2025 1:37 PM EDT Height 177.8 cm (5' 10 ) 12/09/2023 1:16 PM EDT Body Mass Index 30.13 12/09/2023 1:16 PM EDT Plan of Treatment Upcoming Encounters Date Type Department Care Team (Late st Contact Info) Description 06/08/2025 1:15 PM EDT Office Visit [facility] - [place] [address] [place] [address] Ada Morris MD [address] [place] [address] 06/16/2025 2:30 PM EST Ancillary Procedure [facility] [address] [facility] [address] [place] [address] 03/15/2026 1:00 PM EDT Ancillary Procedure [facility] - [facility] [address] [facility] [address] [place] [address] Health Maintenance Due Date Last Done Comments [...] Albumin-Creatinine Ratio (uACR) 07/26/2024 07/26/2023 Influenza Vaccine (#1) 2025 Diabetes: Blood Sugar Control Test (HGBA1C) 06/08/2025 12/07/2024, 04/20/2024, 04/20/2024 Diabetes: Annual GFR (Glomerular Filtration Rate) 12/07/2025 12/07/2024, 04/20/2024, 04/20/2024 Hypertension/CHF/CAD Annual BMP Blood Test 12/07/2025 12/07/2024, 04/20/2024, 04/20/2024 Falls Risk Assessment 12/11/2025 12/11/2024, 023 Medicare Annual Wellness Visit 12/11/2025 12/11/2024 Social Influencers of Health Screening 12/11/2025 12/11/2024 Cholesterol Screening (Lipid Panel) 07/26/2028 07/26/2023 DTaP,Tdap,and Td Vaccines (2 - Td or Tdap) 07/30/2033 07/30/2023 Hepatitis C Screening Completed 10/01/2018 Depression Screening Completed 12/11/2024, 08/19/19 24 HIB Vaccines Aged Out No longer eligi [...] on patient's age to complete this topic Medical Devices Implanted Type Area Panel Fitter Device Identifier Shelf Expiration Date Model / Serial / Lot Bsci-Crm [id number] Implanted:09/2018 (Quantity not on file) Cardiac Pacemaker [employer]HY[employer] MGMT [id number] / [id number] / Procedures Procedure Name Priority Date/Time Associated Diagnosis Comments CARDIAC DEVICE CHECK- IN CLINIC- MURJ Routine 03/12/2025 2:37 PM EDT Encounter for adjustment or management of cardiac device CARDIAC DEVICE CHECK- IN CLINIC- MURJ Routine 03/04/2025 3:16 PM EDT Encounter for adjustment or management of cardiac device ECG 12-LEAD Routine 03/04/2025 1:41 PM EDT History of heart attack Pacemaker COMPREHENSIVE METABOLIC PANEL Routine 12/07/2024 1:50 PM EDT DM (diabetes mellitus), type 2 with neurological complications (CMS/HCC V24, CMS/HCC V28) HEMOGLOBIN A1C Routine 12/07/2024 1:50 PM EDT DM (diabetes mellitus), type 2 with neurological complications (CMS/HCC V24, CMS/HCC V28) DEPRESSION SCREENING Routine 08/19/2023 FALLS RISK ASSESSMENT Routine 07/30/2023 HM URINE ALBUMIN CREATININE RATIO Routine 07/26/2023 LIPID PANEL Routine 07/26/2023 HM HEPATITIS C SCREENING Routine 10/01/2018 HM COLONOSCOPY Routine 11/30/2015 from Last 3 Months or Most Recently Relevant to Health Maintenance Results * CARDIAC DEVICE CHECK- IN CLINIC- MUR (03/12/2025 2:37 PM EDT) Only the most recent of2 resultswithin the time period is included. Date Time Interrogation Session [id number] CV DEVICE CHECK Implantable Pulse Generator Panel Fitter BSX CV DEVICE CHECK Implantable Pulse Generator Type IPG CV DEVICE CHECK Implantable Pulse Generator Model L111 CV DEVICE CHECK Implantable Pulse Generator Serial Number [id number] CV DEVICE CHECK Implantable Pulse Generator Implant Date 20190513 CV DEVICE CHECK Battery Status Middle of Service CV DEVICE CHECK Kaiden Statistic RA Percent Paced 42.00 CV DEVICE CHECK Kaiden Statistic RV Percent Paced 100.00 CV DEVICE CHECK Lead Channel Sensing Intrinsic Amplitude 4.600 CV DEVICE CHECK Lead Channel Setting Sensing Sensitivity 0.25 CV DEVICE CHECK Lead Channel Impedance Value 777 CV DEVICE CHECK Lead Channel Pacing Threshold Amplitude 0.700 CV DEVICE CHECK Lead Channel Pacing Threshold Pulse Width 0.4 CV DEVICE CHECK Lead Channel Setting Pacing Amplitude 3.500 CV DEVICE CHECK Lead Channel Setting Pacing Pulse Width 0.4 CV DEVICE CHECK Lead Channel Sensing Intrinsic Amplitude 16.400 CV DEVICE CHECK Lead Channel Setting Sensing Sensitivity 0.60 CV DEVICE CHECK Lead Channel Impedance Value 711 CV DEVICE CHECK Lead Channel Pacing Threshold Amplitude 0.800 CV DEVICE CHECK Lead Channel Pacing Threshold Pulse Width 0.4 CV DEVICE CHECK Lead Channel Setting Pacing Amplitude 3.500 CV DEVICE CHECK Lead Channel Setting Pacing Pulse Width 0.4 CV DEVICE CHECK Kaiden Setting Mode (NBG Code) DDDR CV DEVICE CHECK Kaiden Setting Lower Rate Limit 60 CV DEVICE CHECK Kaiden Setting AT Mode Switch Rate 150 CV DEVICE CHECK Kaiden Setting Maximum Tracking Rate 120 CV DEVICE CHECK Kaiden Setting Maximum Sensor Rate 120 CV DEVICE CHECK Kaiden Setting PAV Delay 180 CV DEVICE CHECK Kaiden Setting PERLITA Delay 150 CV DEVICE CHECK Zone Setting Type Category VF CV DEVICE CHECK Zone Setting Status On CV DEVICE CHECK Zone ID 1 CV DEVICE CHECK Zone Setting Type Category VT CV DEVICE CHECK Rate 150 CV DEVICE CHECK Zone Setting Status On CV DEVICE CHECK Zone ID 2 CV DEVICE CHECK Zone Setting Type Category VT1 CV DEVICE CHECK Zone Setting Status On CV DEVICE CHECK Zone ID 3 CV DEVICE CHECK Date of Service 2025-03-15 CV DEVICE CHECK Anatomical Region Laterality Modality Device Interroga tion 03/12/2025 Impressions 03/16/2025 3:47 PM EDT Normal In-Office: No Events * Device check requested per Osmar Villa MD * Normal Device Function * Alerts or events: None * No new AF/AFL alerts * Battery: Battery is at 46.6%, 2.5 years * Sensing, impedance and thresholds reviewed and tested * Presenting Rhythm: -SPRAY OPERATOR 70s * No R waves @ VVI 30 bpm today * Heart Rate Histograms reviewed * Pacing and Detection Parameters were evaluated Narrative Procedure Note Tian Woodward MD - 03/16/2025 IMPRESSION: Normal In-Office: No Events * Device check requested per Osmar Villa MD * Normal Device Function * Alerts or events: None * No new AF/AFL alerts * Battery: Battery is at 46.6%, 2.5 years * Sensing, impedance and thresholds reviewed and tested * Presenting Rhythm: -SPRAY OPERATOR 70s * No R waves @ VVI 30 bpm today * Heart Rate Histograms reviewed * Pacing and Detection Parameters were evaluated us Order Referral Cardiovascular CV IMPLANTABLE CAR DIAC DEVICE PROCEDURES Final Result * ECG 12 lead (03/04/2025 1:41 PM EDT) Ventricular Rate ECG 65 BPM GEMUSE Atrial Rate 65 BPM GEMUSE P-R Interval 158 ms GEMUSE QRS Duration 198 ms GEMUSE Q-T Interval 466 ms GEMUSE QTc 484 ms GEMUSE P Wave [place] 11 degrees GEMUSE R [place] 80 degrees GEMUSE T [place] 94 degrees GEMUSE ECG Interpretation Atrial-sensed ventricular-pac ed rhythm Abnormal ECG When compared with ECG of 12-MAY-2019 05:18, Previous ECG has undetermined rhythm, needs review Confirmed by MD Villa Christopher ([id number]) on 03/04/2025 2:55:31 PM GEMUSE 03/04/2025 1:41 PM EDT 03/04/2025 2:55 PM EDT us Osmar Villa MD ECG ORDERABLES Final Res ult GEMUSE * Hemoglobin A1c (12/07/2024 1:50 PM EDT) Pathologist [facility] Hemoglobin A1C 6.1 <6.5 % LAB CHEMISTRY METHOD 12/07/2024 11:29 PM EDT [facility] Mean Bld Glu Estim. 128 mg/dL LAB CHEMISTRY METHOD 12/07/2024 11:29 PM EDT [facility] Blood Venous blood specimen / Unknown Venipuncture / Unknown 12/07/2024 1:50 PM EDT 12/07/2024 1:53 PM EDT us Ada Morris MD LAB BLOOD ORDERABL ES Final Result Performing Organization Address City/[facility]/ZIP Co de Phone Number [facility] [address] [place] [address], * (ABNORMAL) Comprehensive metabolic panel (12/07/2024 1:50 PM EDT) Pathologist [facility] Sodium 136 133 - 145 mmol/L LAB CHEMISTRY METHOD 12/07/2024 9:18 PM EDT [facility] Potassium 4.4 3.5 - 5.5 mmol/L LAB CHEMISTRY METHOD 12/07/2024 9:18 PM EDT [facility] Chloride 103 96 - 110 mmol/L LAB CHEMISTRY METHOD 12/07/2024 9:18 PM EDT [facility] CO2 26 21 - 32 mmol/L LAB CHEMISTRY METHOD 12/07/2024 9:18 PM EDT [facility] Anion Gap 7 3 - 11 LAB CHEMISTRY METHOD 12/07/2024 9:18 PM [facility] Glucose 132(H) 70 - 100 mg/dL LAB CHEMISTRY METHOD 12/07/2024 9:18 PM [facility] BUN 24 5 - 25 mg/dL LAB CHEMISTRY METHOD 12/07/2024 9:18 PM [facility] Creatinine 1.17 0.70 - 1.30 mg/dL LAB CHEMISTRY METHOD 12/07/2024 9:18 PM [facility] eGFR 65 >=60 mL/min/1. 73m2 LAB CHEMISTRY METHOD 12/07/2024 9:18 PM [facility] Comment:Calculation based on the Chronic Kidney Disease Epidemiology Collaboration (CKD-EPI) equation refit without adjustment for race. BUN/Creatinine Ratio 20.5 LAB CHEMISTRY METHOD 12/07/2024 9:18 PM [facility] Calcium 9.5 8.5 - 10.5 mg/dL LAB CHEMISTRY METHOD 12/07/2024 9:18 PM [facility] AST (SGOT) 21 10 - 42 unit/L LAB CHEMISTRY METHOD 12/07/2024 9:18 PM [facility] ALT (SGPT) 25 10 - 60 unit/L LAB CHEMISTRY METHOD 12/07/2024 9:18 PM [facility] Alkaline Phosphatase 106 42 - 121 unit/L LAB CHEMISTRY METHOD 12/07/2024 9:18 PM [facility] Total Protein 7.3 6.0 - 8.0 g/dL LAB CHEMISTRY METHOD 12/07/2024 9:18 PM [facility] Albumin 3.7 3.2 - 5.0 g/dL LAB CHEMISTRY METHOD 12/07/2024 9:18 PM [facility] Total Bilirubin 0.4 0.0 - 1.4 mg/dL LAB CHEMISTRY METHOD 12/07/2024 9:18 PM [facility] Blood Venous blood specimen / Unknown Venipuncture / Unknown 12/07/2024 1:50 PM EDT 12/07/2024 1:53 PM EDT Result [facility] Ada Morris MD LAB BLOOD ORDERABL ES Final Result [facility] [address] [place] [address], [place] [phone] * Depression Screening (08/19/2023) Pathologist [facility] Depression Screening Abstracted [facility] Provider HEALTH MAINTENANCE Final Result * Falls Risk Assessment (07/30/2023) [facility] Falls Risk Assessment Abstracted Result [facility] Provider HEALTH MAINTENANCE Final Result * Urine Albumin Creatinine Ratio (07/26/2023) [facility] Urine Albumin Creatinine Ratio Abstracted Result [facility] Provider HEALTH MAINTENANCE Final Result * (ABNORMAL) Lipid panel (07/26/2023) [facility] LDL/HDL Ratio 4 0 - 4 Triglycerides 78 0 - 150 mg/dL Cholesterol 162 0 - 200 mg/dL HDL 44 >=40 mg/dL LDL Cholesterol 103(A) 0 - 100 mg/dL Blood Venous blood specimen / Unknown Result [facility] Provider LAB BLOOD ORDERABLES Jennifer l Result * Hepatitis C Screening (10/01/2018) [facility] Hepatitis C Screening Abstracted Result [facility] Provider HEALTH MAINTENANCE Final Result * Colonoscopy (11/30/2015) [facility] Colonoscopy No interpretation , Abstracted Anatomical Region Laterality Modality Other Result [facility] Provider HEALTH MAINTENANCE Final Result from Last 3 Months or Most Recently Relevant to Health Maintenance Insurance MEDICARE [facility] [address] [place] [address] Care Teams Ocean Import Representative Relationship Specialty Start Date End Date Ada Morris MD PCP - General Internal Medicine 06/19/24
--- OUTSIDE RECORDS SUMMARY | 2025-03-25 12:07 | XMS_ITS | Clinical Summary ---
Author Organization [facility] Address [address] [place] [address] Care Team Providers Care Toolroom Helper Name Role Phone Guero Martinez PA-C Primary Care Provider + [phone] Allergies Active Allergy Reactions Criticality Noted Date [...] 1-dose 75+ series) 02/20/2023 Influenza Vaccine (#1) 2025 Hepatitis B Vaccines Aged Out No long er eligible based on patient's age to complete this topic RSV Ped < 20 months Aged Out No longe r eligible based on patient's age to complete this topic Care Teams Toolroom Helper Relationship Specialty Start Date End Date Guero Martinez PA-C PCP - General Medical Services 12/13/21
== END 2025-03-25 11:56 | disposition home or self-care (01) ==
LOC: HO.HOS 10:56
PROVIDERS: Visit Provider Orthopaedic Surgery
DX: M25.562 Pain in left knee (principal); M75.42 Impingement syndrome of left shoulder; M25.512 Pain in left shoulder
CPT/HCPCS: 20610; 99213

== ENCOUNTER → 2025-03-25 11:51 | Outpatient (BNV) | payer MEDICARE, OTHER, SELFPAY | PROVIDERS: Visit Provider Radiology Diagnostic Radiology | DX: Z96.652 Presence of left artificial knee joint (principal) | CPT/HCPCS: 73562 ==

== ENCOUNTER 2025-06-29 12:50 | Outpatient (AMB) | payer MEDICARE, OTHER, SELFPAY ==
--- NOTE | 2025-06-29 12:56 | A.OFFVIS_ITS ---
Intake Visit Reasons: Left shoulder pain Intake Note: Spencer is a 75 year old male who presents with complaints of left shoulder pain. He describes his pain as sharp in nature. He has tried Tylenol and meloxicam which gave him mild relief. He has had cortisone injections in the past which gave him fairly good relief. He wishes to hold off on surgery if at all possible. Allergies adhesive tape Allergy (Intermediate, Verified 06/29/25 13:03) Rash bacitracin Allergy (Verified 06/29/25 13:03) Rash cefazolin Adverse Reaction (Severe, Verified 06/29/25 13:03) Rash clopidogrel (From Plavix) Adverse Reaction (Severe, Verified 06/29/25 13:03) Rash oxycodone Adverse Reaction (Verified 06/29/25 13:03) Hallucinations Medication List - Last Reconciled 06/29/25 by Jim Carrero MD acetaminophen 1,000 mg PO DAILY PRN aspirin (Adult Aspirin Regimen) 81 mg PO DAILY linagliptin (Tradjenta) 5 mg PO DAILY meloxicam 15 mg PO DAILY metformin ER 500 mg PO DAILY rosuvastatin 5 mg PO DAILY valsartan 160 mg PO DAILY walker Folding front wheeled walker [facility] Medical History FH: total knee replacement Macular degeneration Legally blind Skin cancer GERD (gastroesophageal reflux disease) Myocardial infarction Hemorrhoids Diverticulosis Peripheral neuropathy Right bundle branch block Microalbuminuria Cataracts, bilateral Tubular adenoma Diabetes Hearing loss Osteoarthritis Tobacco use disorder Obesity (BMI 30-39.9) Sleep apnea CAD (coronary artery disease) Syncope Pleural effusion Pacemaker Abnormal PFT Skin lesions HTN (hypertension) Macular degeneration of both eyes Osteoarthritis of right knee Surgical History History of nasal surgery Hx of bilateral cataract extraction Hx of tonsillectomy Hx of cholecystectomy Hx of appendectomy H/O colonoscopy Hx of CABG History of thoracentesis History of left knee replacement (~2013) History of left hip replacement (~2000) History of right hip replacement (~2000) Social History Household Members: Spouse Housing: House Housing Other:: stairs into house and within house Are you a primary chiropractic care to a significant other at home: No Do you presently have visiting nurse or other home services: No Comment: pt rings appropriately Patient Tobacco Use Status: Former Tobacco user service: Yes Current occupational status: retired Physical Exam Const Other: Well-nourished well-developed very friendly male awake alert and oriented x3 in no acute distress Extrem Other: Left shoulder examination shows full range of motion when compared to his right shoulder, 4+ out of 5 strength with supraspinatus testing, positive impingement signs, no instability Office Procedures AMB Joint Injection/Aspiration Joint Injection/Aspiration Primary Site: Left Shoulder Prep: site was prepped using aseptic technique Injected: 40 mg of, DepoMedrol, with 3 mL of and 1% plain Lidocaine Procedure: The patient tolerated the procedure well Coding 20369 - Large joint Procedure code (CPT) selection complete Assessment & Plan Assessment & Plan (1) Impingement syndrome of left shoulder: Code(s): M75.42 - Impingement syndrome of left shoulder Category: Medical (2) Left shoulder pain: Code(s): M25.512 - Pain in left shoulder Category: Medical Plan Mr. Roberson presents with left shoulder pain due to impingement syndrome. The risks and benefits of a left shoulder cortisone injection were discussed at length with the patient. The patient wished to proceed. He tolerated the injection well. He will continue with his home exercise program. He will contact me prior to his follow-up appointment in 3 months should any questions or concerns arise. Feel free to call me at any time should questions regarding his orthopedic management arise. I spent 22 minutes in reviewing the patient's records and imaging studies, seeing the patient and documenting in the medical record. Orders: Orders AMB Joint Injection/Aspiration Today M75.42 - Impingement syndrome of left shoulder Coding Level of Care Code Est Pt Level 3 (71212) Complex EM visit Add On G2211 Diagnoses Impingement syndrome of left shoulder M75.42 Left shoulder pain M25.512 CPT Codes Coding - 20374 Large joint: 99571 - Large joint ([id number])
== END 2025-06-29 13:16 | disposition home or self-care (01) ==
PROVIDERS: PCP Internal Medicine; Visit Provider Orthopaedic Surgery
DX: M75.42 Impingement syndrome of left shoulder (principal); M25.512 Pain in left shoulder
CPT/HCPCS: 20610; 99213

== ENCOUNTER → 2025-06-29 12:50 | Outpatient (BNVA) | payer MEDICARE, OTHER, SELFPAY | PROVIDERS: PCP Internal Medicine; Visit Provider Orthopaedic Surgery | DX: M75.42 Impingement syndrome of left shoulder (principal); M25.512 Pain in left shoulder | CPT/HCPCS: 20610; 99212; J1010; J2003 ==